=== PATIENT | male | born 1950 | race Caucasian/White ===

== ENCOUNTER 2019-09-05 04:38 | Emergency (ER) | payer MEDICARE, SELFPAY ==
[2019-09-05 04:39] VITALS: BP 198/88; PULSE 123; RESP 24; TEMP 38.1; O2SAT 97; BMI 23.1
== END 2019-09-05 23:00 | disposition home or self-care (01) ==
LOC: ER 09-27 09:23
PROVIDERS: Emergency Provider Family Medicine; PCP Family Medicine
DX: I12.0 Hypertensive chronic kidney disease with stage 5 chronic kidney disease or end stage renal disease (principal); N18.6 End stage renal disease; E87.1 Hypo-osmolality and hyponatremia; Z85.71 Personal history of Hodgkin lymphoma; E78.5 Hyperlipidemia, unspecified; Z87.891 Personal history of nicotine dependence
CPT/HCPCS: 99281

== ENCOUNTER 2019-09-05 04:43 | Inpatient (IN) | payer MEDICARE, SELFPAY ==
[2019-09-05] VITALS (47 sets, daily range): BP systolic 144–198; BP diastolic 61–88; PULSE 78–123; RESP 14–28; TEMP 36.8–38.1; O2SAT 71–99; BMI 22.5
--- NOTE | 2019-09-05 04:44 | XRR_ITS ---
PROCEDURE INFORMATION: Exam: XR Chest, 1 View Exam date and time: 09/05/2019 5:45 AM Age: 69 years old Clinical indication: Fever; Patient HX: HX of lymphoma; Additional info: Fever, AMS TECHNIQUE: Imaging protocol: XR of the chest Views: 1 view. COMPARISON: No relevant prior studies available. FINDINGS: Lungs: No lung consolidation or pulmonary edema. Pleural space: No pleural effusion or pneumothorax. Heart/Mediastinum: The cardiac silhouette is not enlarged. The mediastinal contours are normal. Vasculature: The thoracic aorta is atherosclerotic and slightly tortuous. Bones/joints: No acute osseous abnormality. XR/XR chest 1V portable [id number] IMPRESSION: No acute abnormality.
--- NOTE | 2019-09-05 04:44 | CTR_ITS ---
PROCEDURE INFORMATION: Exam: CT Head Without Contrast Exam date and time: 09/05/2019 4:46 AM Age: 69 years old Clinical indication: Altered mental status/memory loss and fever; Confusion or disorientation TECHNIQUE: Imaging protocol: Computed tomography of the head without contrast. Radiation optimization: All CT scans at this facility use at least one of these dose optimization techniques: automated exposure control; mA and/or kV adjustment per patient size (includes targeted exams where dose is matched to clinical indication); or iterative reconstruction. COMPARISON: No relevant prior studies available. RADIATION DOSE METRICS: Total DLP (mGy-cm): 864.92 FINDINGS: Brain: Diffuse mild cerebral age related volume loss. Mild patchy low attenuation in the white matter compatible with mild chronic small vessel ischemic disease. No midline shift, mass, fluid collection, or evidence of hemorrhage. Ventricles: Ventricular enlargement proportional to volume loss. Bones/joints: Unremarkable. No acute fracture. Sinuses: Visualized sinuses are unremarkable. No fluid levels. Mastoid air cells: Visualized mastoid air cells are well aerated. Soft tissues: Unremarkable. CT/CT head wo con* [id number] IMPRESSION: Mild involutional changes, no acute intracranial abnormality. Radiation Dose CTDIVOL = (mGy): DLP = 864.92 (mGy-cm)
--- NOTE | 2019-09-05 04:45 | ECG_ITS ---
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 Measurements Intervals [place] Rate: 118 P: 69 [place]: 148 QRS: 94 QRSD: 117 T: 62 QT: 303 QTc: 426 Interpretive Statements SINUS TACHYCARDIA BORDERLINE RIGHT AXIS DEVIATION [QRS AXIS > 90] MODERATE INTRAVENTRICULAR CONDUCTION DELAY [110+ ms QRS DURATION] NONSPECIFIC ST & T-WAVE ABNORMALITY ABNORMAL RHYTHM ECG No previous ECG available for comparison Electronically Signed On 09-05-2019 20:42:00 CDT by Wilbert Wilson M.D. [email or web address]
--- NOTE | 2019-09-05 04:50 | ED_ITS ---
HPI - Altered Mental Status General: Chief Complaint: Altered Mental Status Stated Complaint: AMS/FEVER Time Seen by Provider: 09/05/19 04:44 Source: patient and EMS Mode of arrival: EMS Limitations: altered mental status History of Present Illness: HPI narrative: 69-year-old male who went to bed last night around 11 or 12 woke up this morning at 3 AM and family states that he has been altered since he woke up. Patient per EMS had a fever 101. He is febrile here as well. Patient here is able answer most my questions but is confused. He does know his name and where he is at. He is able to tell me his medical history and he is on peritoneal dialysis. He denies any headache or cough. Patient does not know what year it is at this time. He denies any abdominal pain. Associated symptoms: Deny depression Review of Systems Const: Reports: fever(s) and chills Eyes: Denies: blurry vision or eye discomfort ENMT: Denies: throat pain or dental pain Card: Denies: chest pain Resp: Denies: dyspnea GI: Denies: abdominal pain, nausea, vomiting or diarrhea : Denies: dysuria Musc: Denies: neck pain or back pain Skin/Breast: Denies: rash Neuro: Reports: confusion Psych: Denies: depression [place]/Lymph: Denies: easy bruising All/Imm: Denies: urticaria PFSH ED PFSH: Medical History Abdominal aortic aneurysm (AAA) Anemia Cardiomyopathy Continuous ambulatory peritoneal dialysis status End stage renal disease Hodgkins lymphoma Finished chemotherapy 2005 currently in remission HTN (hypertension) Hyperlipidemia Lymphoma PVCs (premature ventricular contractions) Right renal artery stenosis Tobacco abuse Surgical History History of endovascular stent graft for abdominal aortic aneurysm (AAA) S/P cataract extraction S/P eye surgery S/P tonsillectomy Family History Other Cancer Social History Smoking and tobacco status: former smoker Alcohol intake: current Alcohol intake frequency: few times a week Household members: spouse Marital status: service: No Current occupational status: retired 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 Exam Const: COMMON NORMALS: no acute distress, healthy appearing and alert; negative for patient oriented x3 EXAM LIMITATIONS: altered mental status GENERAL APPEARANCE: cooperative ORIENTATION/CONSCIOUSNESS: Yes oriented to person and Yes oriented to place; not oriented to time HENMT: COMMON NORMALS: normocephalic and atraumatic HEAD & SCALP: normocephalic and atraumatic Eye: COMMON NORMALS: Equal, round and reactive pupils present and EOMs intact bilaterally PUPIL: Yes Equal, round and reactive pupils present Neck/C-Spine: COMMON NORMALS: full ROM and supple Chest: COMMONS NORMALS: normal inspection of the chest and normal palpation of entire chest wall Resp: COMMON NORMALS: normal respiratory effort, No retractions, No use of accessory muscles and clear to auscultation bilaterally AUSCULTATION: clear to auscultation bilaterally Cardio: COMMON NORMALS: regular rhythm and No murmurs present (Cardio) RATE: tachycardic RHYTHM: regular rhythm GI: COMMON NORMALS: Normal to inspection, nondistended, normoactive bowel sounds present, Soft to palpation, non-tender and no masses PALPATION: Yes Soft to palpation OTHER: Peritoneal dialysis cath in place with no signs of cellulitis Extremity: COMMON NORMALS: normal to inspection and full ROM Neuro: COMMON NORMALS: moves all extremities and no focal motor deficits; negative for patient oriented x3 SENSORIUM/ORIENTATION: Yes alert, Yes oriented to person, Yes oriented to place and No oriented to time Psych: COMMON NORMALS: mental status grossly normal, Normal thought process present and cooperative THOUGHT PROCESS: Normal thought process present Skin: COMMON NORMALS: no rashes or lesions noted and no wounds GENERAL SKIN EXAM: no rashes or lesions noted Course Vital Signs: Vital signs: Vital Signs Temperature 98.5 F 09/05/19 10:56 Pulse Rate 91 09/05/19 17:00 Respiratory Rate 20 H 09/05/19 17:00 Blood Pressure 156/70 09/05/19 17:00 Pulse Oximetry 94 09/05/19 17:00 MDM - Altered Mental Status MDM Narrative: Medical decision making narrative: Patient presents with fever along with confusion. Patient's white count here is normal but was hyponatremic. I believe his confusion is likely due to his fever along with his hyponatremia. Patient has no focal neurologic signs and no signs of CVA. Patient's last known normal was 11:49. Patient I do not believe is a TPA candidate as he has no focal neurologic deficits. Patient has no headache or neck pain no signs of meningitis. Will follow blood cultures at this time. Patient started on vancomycin and Zosyn. I spoke to hospitalist Dr. Lara and will admit. Lab Data: Labs: Lab Results 09/05/19 09/05/19 09/05/19 Range/Units 04:03 04:18 04:18 WBC 9.1 (4.0-10.0) 10^3/ uL RBC 3.69 L (4.1-5.3) 10^6/u L Hgb 11.8 (11.7-16.6) g/dL Hct 35.9 L (42.0-52.0) % MCV 97.3 H (80-94) fL MCH 32.0 (28.0-34.0) pg MCHC 32.9 (30.0-36.0) g/dL RDW 12.9 (12.1-15.1) % Plt Count 144 (130-400) 10^3/c mm MPV 10.9 H (7.4-10.4) fL Neut % (Auto) 94.7 % Lymph % (Auto) 1.9 % [place] % (Auto) 3.0 % Eos % (Auto) 0.0 % Baso % (Auto) 0.1 % Neut # (Auto) 8.63 H (1.8-7.7) 10^3/u L Lymph # (Auto) 0.2 L (0.8-4.8) 10^3/u L [place] # (Auto) 0.3 (0.2-0.9) 10^3/u L Eos # (Auto) 0.0 (0.0-0.8) 10^3/u L Baso # (Auto) 0.0 (0.0-0.1) 10^3/u L Nucleated RBC % (a uto) 0 % Nucleated RBCs # 0.0 /100WBC PT 13.70 H (10.5-13.3) SECO NDS INR 1.02 (0.8-1.2) D-Dimer (0-0.59) ug/mIFE U Sodium (136-145) mmol/L Potassium (3.5-5.1) mmol/L Chloride (98-107) mmol/L Carbon Dioxide (22-29) mmol/L Anion Gap (5-19) BUN (8-23) mg/dL Creatinine (0.7-1.2) mg/dL GFR Calculation (90-130) mL/min Glucose (65-115) mg/dL Calculated Osmolal ity (285-295) mOsm/k g Lactate (0.5-2.2) mmol/L Uric Acid (3.4-7.0) mg/dL Calcium (8.5-10.5) mg/dL Total Bilirubin (0.15-1.2) mg/dL AST (0-40) U/L ALT (0-41) U/L Alkaline Phosphata se (40-130) IU/L Lactate Dehydrogen ase (135-225) U/L C-Reactive Protein 286.1 H (0.0-4.9) mg/L NT-Pro-B Natriuret Pep (0-125) pg/mL Total Protein (6.6-8.7) g/dL Albumin (3.5-5.2) g/dL Globulin (1.3-4.6) g/dL Lipase (13-60) U/L Procalcitonin 17.41 H (0-0.5) ng/mL TSH (0.27-4.20) uIU/ mL Urine Color (Yellow) Urine Appearance (CLEAR) Urine pH (5-7) Ur Specific Gravit y (1.005-1.030) Urine Protein (Negative) Urine Glucose (UA) (Normal) Urine Ketones (Negative) Urine Blood (Negative) Urine Nitrate (Negative) Urine Bilirubin (NEGATIVE) Urine Urobilinogen (Negative) mg/dL Ur Leukocyte Meghana ase (Negative) Urine RBC (0-2) /hpf Urine WBC (0-5) /hpf Ur Squamous Epith Cells (0-5) Amorphous Sediment Urine Bacteria (NONE) Ur Random Sodium mmol/L Urine Creatinine (39-259) mg/dL 09/05/19 09/05/19 09/05/19 Range/Units 04:18 04:18 04:18 WBC (4.0-10.0) 10^3/ uL RBC (4.1-5.3) 10^6/u L Hgb (11.7-16.6) g/dL Hct (42.0-52.0) % MCV (80-94) fL MCH (28.0-34.0) pg MCHC (30.0-36.0) g/dL RDW (12.1-15.1) % Plt Count (130-400) 10^3/c mm MPV (7.4-10.4) fL Neut % (Auto) % Lymph % (Auto) % [place] % (Auto) % Eos % (Auto) % Baso % (Auto) % Neut # (Auto) (1.8-7.7) 10^3/u L Lymph # (Auto) (0.8-4.8) 10^3/u L [place] # (Auto) (0.2-0.9) 10^3/u L Eos # (Auto) (0.0-0.8) 10^3/u L Baso # (Auto) (0.0-0.1) 10^3/u L Nucleated RBC % (a uto) % Nucleated RBCs # /100WBC PT (10.5-13.3) SECO NDS INR (0.8-1.2) D-Dimer 3.58 H (0-0.59) ug/mIFE U Sodium 124 L (136-145) mmol/L Potassium 4.2 (3.5-5.1) mmol/L Chloride 80 L (98-107) mmol/L Carbon Dioxide 22 (22-29) mmol/L Anion Gap 26.2 H (5-19) BUN 92 H* (8-23) mg/dL Creatinine 11.5 H* (0.7-1.2) mg/dL GFR Calculation 4.4 L (90-130) mL/min Glucose 132 H (65-115) mg/dL Calculated Osmolal ity 260 L (285-295) mOsm/k g Lactate (0.5-2.2) mmol/L Uric Acid 6.1 (3.4-7.0) mg/dL Calcium 8.6 (8.5-10.5) mg/dL Total Bilirubin 0.3 (0.15-1.2) mg/dL AST 40 (0-40) U/L ALT 71 H (0-41) U/L Alkaline Phosphata se 60 (40-130) IU/L Lactate Dehydrogen ase 303 H (135-225) U/L C-Reactive Protein (0.0-4.9) mg/L NT-Pro-B Natriuret Pep 43928 H (0-125) pg/mL Total Protein 6.9 (6.6-8.7) g/dL Albumin 3.8 (3.5-5.2) g/dL Globulin 3.1 (1.3-4.6) g/dL Lipase 34 (13-60) U/L Procalcitonin (0-0.5) ng/mL TSH 1.43 (0.27-4.20) uIU/ mL Urine Color (Yellow) Urine Appearance (CLEAR) Urine pH (5-7) Ur Specific Gravit y (1.005-1.030) Urine Protein (Negative) Urine Glucose (UA) (Normal) Urine Ketones (Negative) Urine Blood (Negative) Urine Nitrate (Negative) Urine Bilirubin (NEGATIVE) Urine Urobilinogen (Negative) mg/dL Ur Leukocyte Meghana ase (Negative) Urine RBC (0-2) /hpf Urine WBC (0-5) /hpf Ur Squamous Epith Cells (0-5) Amorphous Sediment Urine Bacteria (NONE) Ur Random Sodium mmol/L Urine Creatinine (39-259) mg/dL 09/05/19 09/05/19 09/05/19 Range/Units 05:25 05:30 05:30 WBC (4.0-10.0) 10^3/ uL RBC (4.1-5.3) 10^6/u L Hgb (11.7-16.6) g/dL Hct (42.0-52.0) % MCV (80-94) fL MCH (28.0-34.0) pg MCHC (30.0-36.0) g/dL RDW (12.1-15.1) % Plt Count (130-400) 10^3/c mm MPV (7.4-10.4) fL Neut % (Auto) % Lymph % (Auto) % [place] % (Auto) % Eos % (Auto) % Baso % (Auto) % Neut # (Auto) (1.8-7.7) 10^3/u L Lymph # (Auto) (0.8-4.8) 10^3/u L [place] # (Auto) (0.2-0.9) 10^3/u L Eos # (Auto) (0.0-0.8) 10^3/u L Baso # (Auto) (0.0-0.1) 10^3/u L Nucleated RBC % (a uto) % Nucleated RBCs # /100WBC PT (10.5-13.3) SECO NDS INR (0.8-1.2) D-Dimer (0-0.59) ug/mIFE U Sodium (136-145) mmol/L Potassium (3.5-5.1) mmol/L Chloride (98-107) mmol/L Carbon Dioxide (22-29) mmol/L Anion Gap (5-19) BUN (8-23) mg/dL Creatinine (0.7-1.2) mg/dL GFR Calculation (90-130) mL/min Glucose (65-115) mg/dL Calculated Osmolal ity (285-295) mOsm/k g Lactate 1.8 (0.5-2.2) mmol/L Uric Acid (3.4-7.0) mg/dL Calcium (8.5-10.5) mg/dL Total Bilirubin (0.15-1.2) mg/dL AST (0-40) U/L ALT (0-41) U/L Alkaline Phosphata se (40-130) IU/L Lactate Dehydrogen ase (135-225) U/L C-Reactive Protein (0.0-4.9) mg/L NT-Pro-B Natriuret Pep (0-125) pg/mL Total Protein (6.6-8.7) g/dL Albumin (3.5-5.2) g/dL Globulin (1.3-4.6) g/dL Lipase (13-60) U/L Procalcitonin (0-0.5) ng/mL TSH (0.27-4.20) uIU/ mL Urine Color Yellow (Yellow) Urine Appearance Clear (CLEAR) Urine pH 7 (5-7) Ur Specific Gravit y 1.005 (1.005-1.030) Urine Protein 1+ H (Negative) Urine Glucose (UA) 2+ (Normal) Urine Ketones Negative (Negative) Urine Blood 3+ H (Negative) Urine Nitrate Negative (Negative) Urine Bilirubin Neg (NEGATIVE) Urine Urobilinogen Norm (Negative) mg/dL Ur Leukocyte Meghana ase Negative (Negative) Urine RBC 5-10 H (0-2) /hpf Urine WBC 0-4 H (0-5) /hpf Ur Squamous Epith Cells 0-4 H (0-5) Amorphous Sediment Not Reportable Urine Bacteria Trace (NONE) Ur Random Sodium 24 mmol/L Urine Creatinine 94 (39-259) mg/dL Imaging Data^: CT Head: Radiologist's impression: [address] [address] [address] Scan Report Signed Patient: Shola Quintana Unit #: [id number] : 1950 Age/Sex: 69 / M ADM Date: 09/05/19 Loc: ER Room/Bed: Attending Dr: Ordering Provider/Ordering MD: Nayeli Oliver MD Date of Service: 09/05/19 Procedure(s): CT head wo con* [id number] Accession Number(s): [id number] Report Number: [id number] PROCEDURE INFORMATION: Exam: CT Head Without Contrast Exam date and time: 09/05/2019 4:46 AM Age: 69 years old Clinical indication: Altered mental status/memory loss and fever; Confusion or disorientation TECHNIQUE: Imaging protocol: Computed tomography of the head without contrast. Radiation optimization: All CT scans at this facility use at least one of these dose optimization techniques: automated exposure control; mA and/or kV adjustment per patient size (includes targeted exams where dose is matched to clinical indication); or iterative reconstruction. COMPARISON: No relevant prior studies available. RADIATION DOSE METRICS: Total DLP (mGy-cm): 864.92 FINDINGS: Brain: Diffuse mild cerebral age related volume loss. Mild patchy low attenuation in the white matter compatible with mild chronic small vessel ischemic disease. No midline shift, mass, fluid collection, or evidence of hemorrhage. Ventricles: Ventricular enlargement proportional to volume loss. Bones/joints: Unremarkable. No acute fracture. Sinuses: Visualized sinuses are unremarkable. No fluid levels. Mastoid air cells: Visualized mastoid air cells are well aerated. Soft tissues: Unremarkable. CT/CT head wo con* [id number] IMPRESSION: Mild involutional changes, no acute intracranial abnormality. Discharge Plan Discharge Patient Disposition: Admitted As Inpatient Admit Provider: Wilbert Brock Clinical Impression: End stage renal disease, Acute hyponatremia, Fever Altered mental status Qualifiers: Altered mental status type: unspecified Qualified Code(s): R41.82 - Altered mental status, unspecified Condition: Stable Referrals: Robin Schumacher MD [Primary Care Provider] - Discharge Date/Time: 09/05/19 10:58 Coding Level of Care Code ED Lead Printer for Chg Fwd Exam Comprehensive
[2019-09-05 05:03] LABS: Basophils % 0.1 %; Hematocrit 35.9 % (42.0-52.0); Hemoglobin 11.8 g/dL (11.7-16.6); Lymphocytes # 0.2 10^3/uL (0.8-4.8); Lymphocytes % 1.9 %; Mean Corpuscular HGB Conc 32.9 g/dL (30.0-36.0); Mean Corpuscular Volume 97.3 fL (80-94); Mean Platelet Volume 10.9 fL (7.4-10.4); Monocytes # 0.3 10^3/uL (0.2-0.9); Neutrophils # 8.63 10^3/uL (1.8-7.7); Neutrophils % 94.7 %; Nucleated Red Blood Cells % 0 %; Platelet Count 144 10^3/cmm (130-400); Red Blood Count 3.69 10^6/uL (4.1-5.3); Red Cell Distribution Width 12.9 % (12.1-15.1); White Blood Count 9.1 10^3/uL (4.0-10.0)
[2019-09-05 05:06] LABS: INR 1.02 (0.8-1.2)
[2019-09-05] MEDS: acetaminophen 325 mg Tablet 650 MG PO (05:09)
[2019-09-05 05:19] LABS: Alanine Aminotransferase 71 U/L (0-41); Albumin Level 3.8 g/dL (3.5-5.2); Alkaline Phosphatase 60 IU/L (40-130); Anion Gap 26.2 (5-19); Aspartate Amino Transferase 40 U/L (0-40); Calcium 8.6 mg/dL (8.5-10.5); Carbon Dioxide 22 mmol/L (22-29); Chloride 80 mmol/L (98-107); Globulin 3.1 g/dL (1.3-4.6); Glomerular Filtration Rate 4.4 mL/min (90-130); Glucose 132 mg/dL (65-115); Lipase 34 U/L (13-60); Osmolality Calculated 260 mOsm/kg (285-295); Potassium 4.2 mmol/L (3.5-5.1); Sodium 124 mmol/L (136-145); Total Bilirubin 0.3 mg/dL (0.15-1.2); Total Protein 6.9 g/dL (6.6-8.7)
[2019-09-05 05:45] LABS: Blood Urea Nitrogen 92 mg/dL (8-23)
--- NOTE | 2019-09-05 06:01 | P.HP_ITS ---
Providers/Chief Complaint Primary Care Provider: Robin Schumacher MD Chief Complaint: AMD/FEVER History of Present Illness Shola Quintana is a 69 year old male who carries history of stage IV Hodgkin's disease(treated with chemotherapy finished in 2005 with complete response. no recurrence), hypertension, renal disease peritoneal dialysis dependent, came in with chief complaint of febrile episode with confusion. is at the bedside who is endorsing that he played golf last and was able to carry out his daily activities without any limitations until 2 days ago he started experiencing headache, confusion spells and today he fell in the bathroom. brought him to the hospital for further evaluation, patient seems to be having waxing and waning episodes of confusion however no focal deficit noted in the ER, he has headache with neck stiffness, febrile 100.5, tachypneic and tachycardic. He has been given vancomycin and Zosyn in the ER. I have requested COVID-19 PCR and started him on meningitis/encephalitis tr eatment. is denying previous history of hyponatremia, no active vomiting or diarrhea noted. No recent sick contacts. Review of Systems General: Reports: ROS unobtainable due to medical condition (Hypoactive delirium due to possible meningitis) Medications/Allergies Home Medications Medication Instructions Recorded Confirmed Last Taken Type calcium acetate(phosphat bind) 667 667 mg PO TID 03/13/19 03/15/19 Unknown His tory mg capsule furosemide 80 mg tablet 80 mg PO DAILY 03/13/19 03/15/19 Unknown History vitamin B complex with vit C-folic 1 tab PO .COMPLEX 03/13/19 03/15/19 Unknown History acid 800 mcg-zinc 12.5 mg tablet aspirin 325 mg tablet 325 mg PO DAILY 03/15/19 03/15/19 Unknown History metoprolol tartrate 50 mg tablet 50 mg PO BID 90 Days #180 tab 03/16/19 Unknown Rx atorvastatin 40 mg tablet 40 mg PO DAILY 90 Days #90 tab 04/26/19 Unknown Rx amlodipine 10 mg tablet 10 mg PO DAILY #90 tab 08/28/19 Unknown Rx Allergies Allergy/AdvReac Type Severity Reaction Status Date / Time No Known Allergies Allergy Verified 03/15/19 14:47 PFSH Acute PFSH: Medical History (Updated 09/05/19 @ 06:54 by Wilbert Brock MD) Abdominal aortic aneurysm (AAA) Anemia Cardiomyopathy Continuous ambulatory peritoneal dialysis status End stage renal disease Hodgkins lymphoma Finished chemotherapy 2005 currently in remission HTN (hypertension) Hyperlipidemia Lymphoma PVCs (premature ventricular contractions) Right renal artery stenosis Tobacco abuse Surgical History (Updated 09/05/19 @ 06:54 by Wilbert Brock MD) History of endovascular stent graft for abdominal aortic aneurysm (AAA) S/P cataract extraction S/P eye surgery S/P tonsillectomy Family History Other Cancer Social History Smoking and tobacco status: former smoker Alcohol intake: current Alcohol intake frequency: few times a week Household members: spouse Marital status: service: No Current occupational status: retired 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[employer] Vitals/I&O/Wt Last Vital Signs Temp 100.5 F H 09/05/19 04:51 Pulse 123 H 09/05/19 04:51 Resp 24 H 09/05/19 04:51 BP 198/88 09/05/19 04:51 Pulse Ox 97 09/05/19 04:51 Weight last 48 hrs Weight 81.647 kg Physical Exam Narrative: EXAM NARRATIVE: Healthy looking male lying comfortably in his bed Oriented to himself Confusion spells noted in the ER No focal deficit He is moving all of his extremities without any discomfort No facial asymmetry Kerning signs positive, Brudzinski sign positive, Sunt[place] S1-S2 tachycardia Abdomen soft nontender nondistended peritoneal dialysis catheter site nontender no drainage Lower extremity no edema gangrene ulcer Right knee pain, right ankle pain no active signs of gout flare No petechial rash No active respiratory distress Data : 09/05/19 04:18 09/05/19 04:18 Micro: Microbiology 09/05/19 05:25 Blood Culture - Preliminary Blood SPECIMEN COLLECTED A&P Assessment and plan (1) Altered mental status: Status: Acute Qualifiers: Altered mental status type: unspecified Qualified Code(s): R41.82 - Altered mental status, unspecified (2) Acute hyponatremia: Status: Acute (3) Fever: Status: Acute (4) Meningoencephalitis: Status: Acute (5) End stage renal disease: Status: Acute Additional A&P Information Acute febrile episode with confusion Rule out COVID because of lymphocytopenia Considering altered mental status and febrile episode I would treat him for meningoencephalitis His acute altered mental status could very well be secondary to hyponatremia, no active source of fever has been identified We will obtain lumbar puncture Urinalysis not showing signs of UTI CT head unremarkable I would request pro calcitonin, d-dimer, ferritin, CRP Sepsis secondary to possible meningoencephalitis Sepsis criteria met with fever tachycardia tachypnea Patient received bolus in the ER I would start antimicrobials Blood cultures taken in the ER Awaiting lumbar puncture End-stage renal disease peritoneal dialysis dependent Will consult nephrology because he will be getting multiple antimicrobials Hyponatremia: Previous sodium seems to be normal Monitor in ICU Currently looks dehydrated We will start him on normal saline at 30 cc/h with goal correction 6 mEq per 24- hour Full code DVT prophylaxis would avoid for now because he would require lumbar puncture Renal dialysis diet Attestations Medical Necessity Statement*: Anticipating stay in the hospital cross more than 2 midnights continued management for meningoencephalitis for fever and confusion Time Spent in Patient Care: (>than 50% of time spent in counselling and/or direct pt care on unit) . 45mins Coding Level of Care Code Acute Campus Police Officer for Joselyn Fwchanel Diagnoses Altered mental status R41.82 Altered mental status type: unspecified Acute hyponatremia E87.1 Fever R50.9 Meningoencephalitis G04.90 End stage renal disease N18.6
[2019-09-05 06:03] LABS: Lactate (Lactic Acid level) 1.8 mmol/L (0.5-2.2)
[2019-09-05 06:13] LABS: Add Urine Microscopic? YES; Bacteria Urine TRACE; Bilirubin Urine Neg (NEGATIVE); Blood Urine 3+ (Negative); Glucose Urine UA 2+ (Normal); Ketones Urine Negative (Negative); Leukocyte Esterase Urine Negative (Negative); Nitrate Urine Negative (Negative); Protein Urine 1+ (Negative); Specific Gravity, Urine 1.005 (1.005-1.030); Squamous Epithelial Cell Urine 0-4 (0-5); Urine Appearance Clear (CLEAR); Urine Color Yellow (Yellow); Urobilinogen Urine Norm (Negative); WBC Urine 0-4 /hpf (0-5); pH Urine 7 (5-7)
[2019-09-05 06:21] LABS: NT Pro B Type Natriuretic Pept 72097 pg/mL (0-125)
[2019-09-05 06:42] LABS: Procalcitonin 17.41 ng/mL (0-0.5)
[2019-09-05] MEDS: piperacillin-tazobactam 2.25 GM in sodium chloride 0.9% (plus) 50 ML IV (06:48)
[2019-09-05 06:53] LABS: C Reactive Protein 286.1 mg/L (0.0-4.9)
[2019-09-05] MEDS: vancomycin 1,000 MG in sodium chloride 0.9% 250 ML 250 MG IV (07:17)
[2019-09-05] MEDS: dexamethasone 10 mg/mL INJ IVP (07:42)
[2019-09-05] MEDS: sodium chloride 0.9% 500 ML 999 ML IV (07:42)
[2019-09-05 08:19] LABS: D Dimer 3.58 ug/mIFEU (0-0.59)
[2019-09-05 08:22] LABS: Urine Creatinine 94 mg/dL (39-259); Urine Random Sodium 24 mmol/L
[2019-09-05 08:28] LABS: Lactate Dehydrogenase 303 U/L (135-225); Thyroid Stimulating Hormone 1.43 uIU/mL (0.27-4.20); Uric Acid 6.1 mg/dL (3.4-7.0)
--- NOTE | 2019-09-05 11:44 | ECG_ITS ---
[facility] Test Date: 2019-09-05 Pat Name: Shola Quintana Department: Room: [facility] Gender: Male Senior [employer] Developer: : 1950 Requested By: Tu Raza Order Number: [id number] Deep MD: Wilbert Wilson M.D. Measurements Intervals [place] Rate: 91 P: [place]: -1 QRS: 83 QRSD: 110 T: 85 QT: 380 QTc: 469 Interpretive Statements Sinus TACHYCARDIA NONSPECIFIC ST & T-WAVE ABNORMALITY ABNORMAL RHYTHM ECG Compared to ECG 09/05/2019 05:06:31 No significant difference Electronically Signed On 09-05-2019 20:43:51 CDT by Wilbert Wilson M.D. [email or web address]
--- NOTE | 2019-09-05 11:44 | P.PN_ITS ---
Subjective Subjective: Interval history: Mr Quintana comes to us with confusion, fall and other meningeal symptoms. He is on PD now since Mar 2017. No issues with his PD, it's going well. Clear eff luent. Healthy exit site. No edema and no other volume Sx with stable hemodynamics. Vitals/I&O/Wt Last Vital Signs Temp 98.5 F 09/05/19 10:56 Pulse 86 09/05/19 11:20 Resp 19 H 09/05/19 11:20 BP 160/73 09/05/19 11:20 Pulse Ox 93 09/05/19 11:20 Weight last 48 hrs Weight 81.647 kg Physical Exam Narrative: EXAM NARRATIVE: Healthy looking male lying comfortably in his bed Oriented to himself Confusion spells noted in the ER No focal deficit He is moving all of his extremities without any discomfort No facial asymmetry Kerning signs positive, Brudzinski sign positive, Suntanned S1-S2 tachycardia Abdomen soft nontender nondistended peritoneal dialysis catheter site nontender no drainage Lower extremity no edema gangrene ulcer Right knee pain, right ankle pain no active signs of gout flare No petechial rash No active respiratory distress Const: COMMON NORMALS: no acute distress, healthy appearing and alert; negative for patient oriented x3 EXAM LIMITATIONS: altered mental status GENERAL APPEARANCE: cooperative ORIENTATION/CONSCIOUSNESS: Yes oriented to person and Yes oriented to place; not oriented to time HENMT: COMMON NORMALS: normocephalic and atraumatic HEAD & SCALP: normocephalic and atraumatic Eye: COMMON NORMALS: Equal, round and reactive pupils present and EOMs intact bilaterally PUPIL: Yes Equal, round and reactive pupils present Neck/C-Spine: COMMON NORMALS: full ROM and supple Chest: COMMONS NORMALS: normal inspection of the chest and normal palpation of entire chest wall Resp: COMMON NORMALS: normal respiratory effort, No retractions, No use of accessory muscles and clear to auscultation bilaterally AUSCULTATION: clear to auscultation bilaterally Cardio: COMMON NORMALS: regular rhythm and No murmurs present (Cardio) RATE : tachycardic RHYTHM: regular rhythm GI: COMMON NORMALS: Normal to inspection, nondistended, normoactive bowel sounds present, Soft to palpation, non-tender and no masses PALPATION: Yes Soft to palpation OTHER: Peritoneal dialysis cath in place with no signs of cellulitis Extremity: COMMON NORMALS: normal to inspection and full ROM Neuro: COMMON NORMALS: moves all extremities and no focal motor deficits; negative for patient oriented x3 SENSORIUM/ORIENTATION: Yes alert, Yes oriented to person, Yes oriented to place and No oriented to time Psych: COMMON NORMALS: mental status grossly normal, Normal thought process present and cooperative THOUGHT PROCESS: Normal thought process present Skin: COMMON NORMALS: no rashes or lesions noted and no wounds GENERAL SKIN EXAM: no rashes or lesions noted Data : 09/05/19 04:18 09/05/19 04:18 Micro: Microbiology 09/05/19 05:25 Blood Culture - Preliminary Blood SPECIMEN COLLECTED A&P Additional A&P Information 1. ESRD - cont outpatient PD prescription with 2L exchanges, 2.5/4.25% alternating flu ids - dose meds for eGFR < 15 on PD 2. AMS, headache - being ruled out for meningitis - Vanco and Zosyn - He is already feeling better 3. Hemodynamics - Bp a little high, will monitor throught out his hospital stay and titrate 4. Chronic ESRD issues to be addressed in outpatient clinic - ie anemia, sec hyperPTHism etc - cont home meds inc binder therapy Attestations Medical Necessity Statement*: mgmt of PD Coding Level of Care Code Acute Creative Services Designer for Joselyn Buchanan
--- NOTE | 2019-09-05 12:04 | PM.PN ---
Subjective Subjective: Interval history: Patient is doing much better this morning. Denies shortness of breath or chest pain. Started having nasal drainage and febrile episodes over the last several days. Denies significant abdominal pain but does report minimal tenderness on palpation. Reports that yesterday he thinks he forgot to remove dialysis fluid and this was done by RN. Fluid was requested to be sent to lab for analysis. He has been on peritoneal dialysis for the last couple of years after complications of abdominal aortic aneurysm repair. Reports that he still makes approximately 1 L of urine daily. He denies headache during my evaluation and refused to have LP for CSF analysis. Reports that he is pretty active and plays golf without getting dyspneic. Vitals/I&O/Wt Last Vital Signs Temp 98.5 F 09/05/19 10:56 Pulse 86 09/05/19 11:20 Resp 19 H 09/05/19 11:20 BP 160/73 09/05/19 11:20 Pulse Ox 93 09/05/19 11:20 Weight last 48 hrs Weight 81.647 kg Physical Exam Const: COMMON NORMALS: no acute distress and patient oriented x3 Resp: COMMON NORMALS: normal respiratory effort and clear to auscultation bilaterally AUSCULTATION: clear to auscultation bilaterally Cardio: COMMON NORMALS: regular rate, regular rhythm and S2 normal heart sound present RATE: regular rate RHYTHM: regular rhythm HEART SOUNDS: S2 normal heart sound present OTHER: No lower extremity edema GI: COMMON NORMALS: Normal to inspection, nondistended, normoactive bowel sounds present, Soft to palpation and non-tender PALPATION: Yes Soft to palpation OTHER: Peritoneal dialysis catheter site looks clean. Neuro: COMMON NORMALS: patient oriented x3 and no focal motor deficits Data : 09/05/19 04:18 09/05/19 04:18 Micro: Microbiology 09/05/19 05:25 Blood Culture - Preliminary Blood SPECIMEN COLLECTED A&P Assessment and plan (1) Altered mental status: Resolved. Status: Acute Qualifiers: Altered mental status type: unspecified Qualified Code(s): R41.82 - Altered mental status, unspecified (2) Acute hyponatremia: Status: Acute (3) Fever: Status: Acute (4) Meningoencephalitis: Status: Acute (5) End stage renal disease: Status: Acute Additional A&P Information Acute febrile episode. This appears to be secondary to atypical/viral cause. Peritonitis cannot be ruled out Confusion. Resolved. Rule out COVID because of lymphocytopenia Considering altered mental status and febrile episode I would treat him for meningoencephalitis His acute altered mental status could very well be secondary to hyponatremia, no active source of fever has been identified We will obtain lumbar puncture Urinalysis not showing signs of UTI CT head unremarkable I would request pro calcitonin, d-dimer, ferritin, CRP meningoencephalitis felt unlikely. Sepsis criteria met with fever tachycardia tachypnea. Viral syndrome versus possible peritonitis considered Patient received bolus in the ER I would start antimicrobials Blood cultures taken in the ER Awaiting lumbar puncture End-stage renal disease peritoneal dialysis dependent Will consult nephrology because he will be getting multiple antimicrobials Hyponatremia: Previous sodium seems to be normal Monitor in ICU Currently looks dehydrated We will start him on normal saline at 30 cc/h with goal correction 6 mEq per 24-hour Full code DVT prophylaxis would avoid for now because he would require lumbar puncture Renal dialysis diet PLAN: Send dialysis fluid for analysis. Will narrow down antibiotics to cefepime and vancomycin only for now. Awaiting COVID-19 test. Attestations Medical Necessity Statement*: Patient with sepsis and concern for COVID-19 requires close ICU monitoring and treatment. Time Spent in Patient Care: 16 - 35 minutes Coding Level of Care Code Acute Applications Programmer Analyst for Joselyn Buchanan Diagnoses Altered mental status R41.82 Altered mental status type: unspecified Acute hyponatremia E87.1 Fever R50.9 Meningoencephalitis G04.90 End stage renal disease N18.6
[2019-09-05] MEDS: amlodipine 10 mg Tablet PO (12:05)
[2019-09-05] MEDS: aspirin 325 mg Tablet PO (12:06)
[2019-09-05] MEDS: sodium chloride 0.9% 1,000 ML 30 ML IV (12:06)
[2019-09-05] MEDS: atorvastatin 40 mg Tablet PO (12:06)
[2019-09-05 13:05] LABS: Body Fluid WBC 22356 /uL; RBC, Body Fluid 1 10^3/uL (0-0)
[2019-09-05] MEDS: cefepime 2,000 MG in sodium chloride 0.9% (plus) 50 ML 100 MG IV (13:05)
[2019-09-05 13:11] LABS: Apprearance, Body Fluid CLOUDY (CLEAR); Color, Body Fluid PALE YELLOW (PALE YELLOW); PATH Referral YES
[2019-09-05 13:25] LABS: Albumin Peritoneal Fluid 0.2 g/dL; Total Protein Peritoneal Fluid 0.5 g/dL
[2019-09-05] MEDS: vancomycin 500 MG in sodium chloride 0.9% (plus) 100 ML 200 MG IV (13:41)
--- NOTE | 2019-09-05 13:44 | ECG_ITS ---
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 Measurements Intervals [place] Rate: 88 P: 69 [place]: 152 QRS: 84 QRSD: 104 T: 106 QT: 382 QTc: 464 Interpretive Statements SINUS RHYTHM NONSPECIFIC ST & T-WAVE ABNORMALITY Compared to ECG 09/05/2019 12:21:12 Atrial flutter no longer present T-wave abnormality still present Electronically Signed On 09-05-2019 20:46:12 CDT by Wilbert Wilson M.D. [id number]
--- NOTE | 2019-09-05 17:44 | ECG_ITS ---
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 Measurements Intervals [place] Rate: 89 P: 66 [place]: 150 QRS: 83 QRSD: 109 T: 106 QT: 380 QTc: 462 Interpretive Statements SINUS RHYTHM MODERATE ST DEPRESSION [0.05+ mV ST DEPRESSION] Compared to ECG 09/05/2019 14:50:30 ST (T wave) deviation now present T-wave abnormality no longer present Electronically Signed On 09-05-2019 20:46:19 CDT by Wilbert Wilson M.D. [id number]
[2019-09-05] MEDS: metoprolol tartrate 50 mg Tablet PO (18:18)
[2019-09-05] MEDS: Dianeal low Ca w/2.5% dex 2,000 mL Bag 2000 ML INTRAPERIT (18:19)
--- NOTE | 2019-09-05 18:56 | PC.NURSE ---
Pt bag of PD fluids from home was used until a connector that fit was found for the first bag of dialysis. Correct adapter found and inside of pt room for future infusions.
[2019-09-05] MEDS: Dianeal low Ca w/1.5% dex 2,000 mL Bag 2000 ML INTRAPERIT (22:00)
[2019-09-06] VITALS (24 sets, daily range): BP systolic 125–171; BP diastolic 61–113; PULSE 71–98; RESP 11–26; TEMP 36.7–36.8; O2SAT 91–98
[2019-09-06] MEDS: cefepime 2,000 MG in sodium chloride 0.9% (plus) 50 ML 100 MG IV (00:05)
[2019-09-06] MEDS: diphenhydrAMINE 25 mg Capsule PO (00:37)
[2019-09-06 04:19] LABS: Basophils % 0.2 %; Hematocrit 30.1 % (42.0-52.0); Hemoglobin 9.8 g/dL (11.7-16.6); Lymphocytes # 0.3 10^3/uL (0.8-4.8); Lymphocytes % 2.3 %; Mean Corpuscular HGB Conc 32.6 g/dL (30.0-36.0); Mean Corpuscular Hemoglobin 31.9 pg (28.0-34.0); Mean Platelet Volume 11.2 fL (7.4-10.4); Monocytes # 0.5 10^3/uL (0.2-0.9); Monocytes % 4.1 %; Neutrophils # 12.11 10^3/uL (1.8-7.7); Neutrophils % 92.9 %; Nucleated Red Blood Cells % 0 %; Platelet Count 120 10^3/cmm (130-400); Red Blood Count 3.07 10^6/uL (4.1-5.3); Red Cell Distribution Width 12.9 % (12.1-15.1)
[2019-09-06 04:47] LABS: Anion Gap 24.4 (5-19); Calcium 7.8 mg/dL (8.5-10.5); Carbon Dioxide 20 mmol/L (22-29); Chloride 88 mmol/L (98-107); Glomerular Filtration Rate 4.6 mL/min (90-130); Glucose 116 mg/dL (65-115); Osmolality Calculated 268 mOsm/kg (285-295); Potassium 4.4 mmol/L (3.5-5.1); Sodium 128 mmol/L (136-145)
[2019-09-06 04:57] LABS: Blood Urea Nitrogen 97 mg/dL (8-23)
[2019-09-06] MEDS: Dianeal low Ca w/2.5% dex 2,000 mL Bag 2000 ML INTRAPERIT ×2 (06:28→14:30)
[2019-09-06] MEDS: aspirin 325 mg Tablet PO (08:19)
[2019-09-06] MEDS: HYDROcodone-acetaminophen 5-325 mg Tablet 1 TAB PO ×2 (08:19→14:05)
[2019-09-06] MEDS: amlodipine 10 mg Tablet PO (08:19)
[2019-09-06] MEDS: atorvastatin 40 mg Tablet PO (08:19)
[2019-09-06] MEDS: metoprolol tartrate 50 mg Tablet PO ×2 (08:19→18:22)
[2019-09-06] MEDS: sodium chloride 0.9% 1,000 ML 30 ML IV ×2 (11:08→20:48)
--- NOTE | 2019-09-06 11:10 | PM.PN ---
Subjective Subjective: Interval history: Patient reports developing lumbar area back pain which she had long time ago. Continues to have very minimal abdominal discomfort. His peritoneal cultures are growing gram-positive cocci. He denies headache, chest pain or shortness of breath. White blood cell count increased and platelets are down to 120. His blood and urine are growing strep group C Vitals/I&O/Wt Last Vital Signs Temp 98.1 F 09/06/19 08:00 Pulse 85 09/06/19 10:00 Resp 19 H 09/06/19 10:00 BP 151/62 09/06/19 10:00 Pulse Ox 95 09/06/19 10:00 09/05/19 09/06/19 09/06/19 22:59 06:59 14:59 Intake Total 200 / 600 931 / 931 Output Total 675 / 675 Balance 200 / 250 256 / 256 Weight last 48 hrs Weight 2.1 kg Weight 81.647 kg Physical Exam Const: COMMON NORMALS: no acute distress and patient oriented x3 Resp: COMMON NORMALS: normal respiratory effort and clear to auscultation bilaterally AUSCULTATION: clear to auscultation bilaterally Cardio: COMMON NORMALS: regular rate, regular rhythm and S2 normal heart sound present RATE: regular rate RHYTHM: regular rhythm HEART SOUNDS: S2 normal heart sound present OTHER: No lower extremity edema GI: COMMON NORMALS: Normal to inspection, nondistended, normoactive bowel sounds present and Soft to palpation PALPATION: Yes Soft to palpation OTHER: Peritoneal dialysis catheter site looks clean. Abdomen is very minimally tender to palpation throughout. Neuro: COMMON NORMALS: patient oriented x3 and no focal motor deficits Data : 09/06/19 03:48 09/06/19 03:48 Micro: Microbiology 09/05/19 05:30 Urine Culture - Preliminary Urine Catheterized Streptococcus Group C 09/05/19 05:25 Blood Culture - Preliminary Blood Gram positive cocci 09/05/19 12:00 Gram Stain - Final Peritoneal Fluid A&P Assessment and plan (1) Altered mental status: Resolved. Status: Acute Qualifiers: Altered mental status type: unspecified Qualified Code(s): R41.82 - Altered mental status, unspecified (2) Acute hyponatremia: Status: Acute (3) Fever: Status: Acute (4) Meningoencephalitis: Status: Acute (5) End stage renal disease: Status: Acute Additional A&P Information Acute febrile episode. This appears to be secondary to atypical/viral cause. Peritonitis cannot be ruled out Confusion. Resolved. Rule out COVID because of lymphocytopenia Considering altered mental status and febrile episode I would treat him for meningoencephalitis His acute altered mental status could very well be secondary to hyponatremia, no active source of fever has been identified We will obtain lumbar puncture Urinalysis not showing signs of UTI CT head unremarkable I would request pro calcitonin, d-dimer, ferritin, CRP meningoencephalitis felt unlikely. Sepsis criteria met with fever tachycardia tachypnea. Viral syndrome versus possible peritonitis considered Patient received bolus in the ER I would start antimicrobials Blood cultures taken in the ER Awaiting lumbar puncture End-stage renal disease peritoneal dialysis dependent Will consult nephrology because he will be getting multiple antimicrobials Hyponatremia: Previous sodium seems to be normal Monitor in ICU Currently looks dehydrated We will start him on normal saline at 30 cc/h with goal correction 6 mEq per 24-hour Full code DVT prophylaxis would avoid for now because he would require lumbar puncture Renal dialysis diet PLAN: We will transition patient to ceftriaxone, high-dose. Will discuss with nephrology colleagues. Patient is requesting muscle relaxant and analgesic as it helped him previously. [place] and Soma was given. Once COVID-19 test comes back negative patient will need to have further evaluation of lumbar spine with imaging and SOBIA. Attestations Medical Necessity Statement*: Patient with streptococcal infection including blood, urine and dialysis fluid Time Spent in Patient Care: 16 - 35 minutes Coding Level of Care Code Acute Instrument Calibrator for [facility] Diagnoses Altered mental status R41.82 Altered mental status type: unspecified Acute hyponatremia E87.1 Fever R50.9 Meningoencephalitis G04.90 End stage renal disease N18.6
[2019-09-06] MEDS: cefTRIAXone 2,000 MG in sodium chloride 0.9% (plus) 50 ML 100 MG IV (12:45)
[2019-09-06 13:12] LABS: Vancomycin Random < 4.0 ug/mL (20.0-40.0)
--- NOTE | 2019-09-06 13:17 | P.PN_ITS ---
Subjective Subjective: Interval history: Feels considerably better, no confusion. PD peritonitis is noted. He has very mild abdo pain on deep palpations. BS ok. PD effluent is slightly cloudy but otherwise no complications Hemodynamics look good, no uremic Sx Vitals/I&O/Wt Last Vital Signs Temp 98.1 F 09/06/19 08:00 Pulse 86 09/06/19 13:00 Resp 21 H 09/06/19 13:00 BP 125/61 09/06/19 13:00 Pulse Ox 91 09/06/19 13:00 09/05/19 09/06/19 09/06/19 22:59 06:59 14:59 Intake Total 200 / 600 931 / 931 Output Total 675 / 675 Balance 200 / 250 256 / 256 Weight last 48 hrs Weight 2.1 kg Weight 81.647 kg Physical Exam Narrative: EXAM NARRATIVE: Healthy looking male lying comfortably in his bed Oriented to himself Confusion spells noted in the ER No focal deficit He is moving all of his extremities without any discomfort No facial asymmetry Kerning signs positive, Brudzinski sign positive, Suntanned S1-S2 tachycardia Abdomen soft nontender nondistended peritoneal dialysis catheter site nontender no drainage Lower extremity no edema gangrene ulcer Right knee pain, right ankle pain no active signs of gout flare No petechial rash No active respiratory distress Const: COMMON NORMALS: no acute distress, healthy appearing and alert; negative for patient oriented x3 EXAM LIMITATIONS: altered mental status GENERAL APPEARANCE: cooperative ORIENTATION/CONSCIOUSNESS: Yes oriented to person and Yes oriented to place; not oriented to time HENMT: COMMON NORMALS: normocephalic and atraumatic HEAD & SCALP: normocephalic and atraumatic Eye: COMMON NORMALS: Equal, round and reactive pupils present and EOMs intact bilaterally PUPIL: Yes Equal, round and reactive pupils present Neck/C-Spine: COMMON NORMALS: full ROM and supple Chest: COMMONS NORMALS: normal inspection of the chest and normal palpation of entire chest wall Resp: COMMON NORMALS: normal respiratory effort, No retractions, No use of ac cessory muscles and clear to auscultation bilaterally AUSCULTATION: clear to auscultation bilaterally Cardio: COMMON NORMALS: regular rhythm and No murmurs present (Cardio) RATE: tachycardic RHYTHM: regular rhythm GI: COMMON NORMALS: Normal to inspection, nondistended, normoactive bowel sounds present, Soft to palpation, non-tender and no masses PALPATION: Yes Soft to palpation OTHER: Peritoneal dialysis cath in place with no signs of cellulitis Extremity: COMMON NORMALS: normal to inspection and full ROM Neuro: COMMON NORMALS: moves all extremities and no focal motor deficits; negative for patient oriented x3 SENSORIUM/ORIENTATION: Yes alert, Yes oriented to person, Yes oriented to place and No oriented to time Psych: COMMON NORMALS: mental status grossly normal, Normal thought process present and cooperative THOUGHT PROCESS: Normal thought process present Skin: COMMON NORMALS: no rashes or lesions noted and no wounds GENERAL SKIN EXAM: no rashes or lesions noted Data : 09/06/19 03:48 09/06/19 03:48 Micro: Microbiology 09/05/19 12:00 Gram Stain - Final Peritoneal Fluid Body Fluid Culture - Preliminary Streptococcus Group C 09/05/19 05:25 Blood Culture - Preliminary Blood Streptococcus Group C 09/05/19 05:30 Urine Culture - Preliminary Urine Catheterized Streptococcus Group C A&P Additional A&P Information 1. ESRD - cont outpatient PD prescription with 2L exchanges, 2.5/4.25% alternating fluids - dose meds for eGFR < 15 on PD 2. Strep C sepsis, bacteremia, peritonitis - on Rocephin iv - ok to keep iv for now, will recheck PD fluid tomorrow - for abdo imaging - if cultures/ WBCs don't come down, he will need removal of the PD cath 3. Hemodynamics - Bp looks good, will monitor throughout his hospital stay and titrate meds 4. Chronic ESRD issues to be addressed in outpatient clinic - ie anemia, sec hyperPTHism etc - cont home meds inc binder therapy 5. HypoNa due to some free water excess improving with PD Attestations Medical Necessity Statement*: eval for ESRD and PD peritonitis Coding Level of Care Code Acute Senior Recruitment Consultant for Joselyn Buchanan
[2019-09-06] MEDS: Dianeal low Ca w/1.5% dex 2,000 mL Bag 2000 ML INTRAPERIT (20:54)
[2019-09-07] VITALS (26 sets, daily range): BP systolic 122–166; BP diastolic 50–85; PULSE 68–92; RESP 5–27; TEMP 36.6–37; O2SAT 13–98
[2019-09-07] MEDS: cefTRIAXone 2,000 MG in sodium chloride 0.9% (plus) 50 ML 100 MG IV ×2 (00:32→11:57)
[2019-09-07] MEDS: HYDROcodone-acetaminophen 5-325 mg Tablet 1 TAB PO ×2 (02:17→20:28)
--- NOTE | 2019-09-07 07:00 | USCV_ITS ---
Shola Quintana Age: 69 Gender: M : 1950 Exam Date: 09/07/2019 13:54 Ordering Phys: Tu Raza MD Technologist: Raegan Fletcher Exam Location: [facility] [place] [facility] [place] Indication: CONCERN FOR ENDOCARDITIS BP: 127 / 71 HR: 72 Rhythm: Sinus Technical Quality: Adequate MEASUREMENTS (Male / Female) Normal Values 2D ECHO LV Diastolic Diameter PLAX 4.8 cm 4.2 - 5.9 / 3.9 - 5.3 cm LV Systolic Diameter PLAX 3.2 cm LV Chamber Size 4.9 cm IVS Diastolic Thickness 1.3 cm 0.6 - 1.0 / 0.6 - 0.9 cm IVS Systolic Thickness 1.3 cm LVPW Diastolic Thickness 1.8 cm 0.6 - 1.0 / 0.6 - 0.9 cm LVPW Systolic Thickness 2.4 cm LVOT Diameter 2.1 cm LV Ejection Fraction 2D Teich 63.2 % LV Ejection Fraction MOD 2C 25.1 % LV Ejection Fraction 2C AL 25.4 % LA Diameter 2.2 cm LA Width 3.5 cm LA Height 3.8 cm RA Width 3.4 cm RA Height 3.8 cm Aorta at Sinotubular Diameter 3.0 cm M-MODE LV Diastolic Diameter MM 6.1 cm 4.2 - 5.9 / 3.9 - 5.3 cm LV Systolic Diameter MM 5.4 cm LV Ejection Fraction MM Teich 22.8 % IVS Diastolic Thickness MM 0.8 cm 0.6 - 1.0 / 0.6 - 0.9 cm IVS Systolic Thickness MM 0.5 cm LVPW Diastolic Thickness MM 0.6 cm 0.6 - 1.0 / 0.6 - 0.9 cm LVPW Systolic Thickness MM 0.9 cm Aortic Annulus Diameter 3.4 cm LA Ao Ratio MM 0.7 MV E Point Septal Separation 1.7 cm DOPPLER AV Peak Velocity 105.0 cm/s LVOT Peak Velocity 86.0 cm/s AV Area Cont Eq vti 2.7 cm squared AV Area Cont Eq pk 2.8 cm squared MV Area PHT 3.5 cm squared Mitral E to A Ratio 0.7 MV E' Velocity 11.0 cm/s Mitral E to MV E' Ratio 5.9 Mitral E to LV E' Lateral Ratio 5.8 Mitral E to LV E' Septal Ratio 6.1 TR Peak Velocity 241.0 cm/s TR Peak Gradient 23.3 mmHg TV Peak E Velocity 47.0 cm/s Right Atrial Pressure 3.0 mmHg Pulmonary Artery Systolic Pressu 26.2 mmHg PV Peak Velocity 70.0 cm/s RV Acceleration Time 0.2 s RV Ejection Time 0.4 s RV AcT/ET 0.6 FINDINGS Left Ventricle Normal left ventricular cavity size. Increased left ventricular wall thickness. Moderately decreased left ventricular systolic function. Left ventricular ejection fraction is estimated at 30- 35 %. Severe hypokinesis of anteroseptal and inferoseptal nicholson. Right Ventricle Normal right ventricular size and systolic function. Right ventricular systolic pressure 26.2 mmHg. Right Atrium Right atrium not well visualized. Right atrial pressure estimated at 8 mmHg. Left Atrium Left atrium not well visualized. Mitral Valve Moderately thickened mitral valve. Mild mitral valve regurgitation. Aortic Valve Aortic valve not well visualized. No aortic valve stenosis. No aortic valve regurgitation. Tricuspid Valve Tricuspid valve not well visualized. Pulmonic Valve Pulmonic valve not well visualized. No pulmonary valve stenosis. Pericardium No pericardial effusion. Aorta Normal-sized aortic root.. Inferior vena cava is dilated. CONCLUSIONS 1. Normal left ventricular cavity size. Moderately decreased left ventricular systolic function. Left ventricular ejection fraction is estimated at 30-35 %. Severe hypokinesis of anteroseptal and inferoseptal nicholson. 2. Normal right ventricular size and systolic function. 3. Normal pulmonary artery pressure. 4. All valves are not well visualized to rule out endocarditis. SOBIA is recommended if clinically indicated. 5. When compared to previous echocardiogram dated 01/26/2014, left ventricular systolic function has decreased. Jamia Juarez MD (Electronically Signed) Final Date: 07 September 2019 17:48 S
[2019-09-07 08:08] LABS: Basophils % 0.1 %; Eosinophils # 0.2 10^3/uL (0.0-0.8); Eosinophils % 1.3 %; Hematocrit 28.1 % (42.0-52.0); Hemoglobin 9.3 g/dL (11.7-16.6); Lymphocytes # 0.4 10^3/uL (0.8-4.8); Lymphocytes % 3.3 %; Mean Corpuscular HGB Conc 33.1 g/dL (30.0-36.0); Mean Corpuscular Hemoglobin 32.3 pg (28.0-34.0); Mean Corpuscular Volume 97.6 fL (80-94); Mean Platelet Volume 11.1 fL (7.4-10.4); Monocytes # 0.6 10^3/uL (0.2-0.9); Monocytes % 4.8 %; Neutrophils # 11.46 10^3/uL (1.8-7.7); Neutrophils % 89.9 %; Nucleated Red Blood Cells % 0 %; Platelet Count 104 10^3/cmm (130-400); Red Blood Count 2.88 10^6/uL (4.1-5.3); White Blood Count 12.8 10^3/uL (4.0-10.0)
[2019-09-07] MEDS: HYDROcodone-acetaminophen 5-325 mg Tablet PO ×2 (08:20→15:52)
[2019-09-07] MEDS: atorvastatin 40 mg Tablet PO (08:22)
[2019-09-07] MEDS: aspirin 325 mg Tablet PO (08:22)
[2019-09-07 08:23] LABS: Alanine Aminotransferase 67 U/L (0-41); Albumin Level 2.2 g/dL (3.5-5.2); Alkaline Phosphatase 55 IU/L (40-130); Aspartate Amino Transferase 39 U/L (0-40); Carbon Dioxide 21 mmol/L (22-29); Chloride 90 mmol/L (98-107); Globulin 3.1 g/dL (1.3-4.6); Glomerular Filtration Rate 4.9 mL/min (90-130); Glucose 97 mg/dL (65-115); Osmolality Calculated 267 mOsm/kg (285-295); Sodium 128 mmol/L (136-145); Total Bilirubin 0.2 mg/dL (0.15-1.2); Total Protein 5.3 g/dL (6.6-8.7)
[2019-09-07] MEDS: amlodipine 10 mg Tablet PO (08:23)
[2019-09-07] MEDS: metoprolol tartrate 50 mg Tablet PO ×2 (08:23→17:07)
[2019-09-07 08:26] LABS: Blood Urea Nitrogen 99 mg/dL (8-23)
--- NOTE | 2019-09-07 09:37 | P.CONIM_ITS ---
Providers/Reason For Consult Consulting Physican/Specialty*: Roxann Salenahuria/infectious disease Reason for Consult*: grp C strep sepsis Attending Physician: Tu Raza MD Primary Care Provider: Robin Schumacher MD History of Present Illness History of Present Illness Shola Quintana is a 69 year old male history of stage IV Hodgkin's disease s/p chemo, no radiation, currently PAZ since 2006, hypertension, CKD on peritoneal dialysis since 2018, gout. Admitted on 09/04 with complaints of fever and confusion.Patient has subsequently been alert and oriented since presentation to the hospital and is able to give me his entire history at this time. Patient said he started to feel unwell on Wednesday and had developed fever going up to 102.8 Fahrenheit at home. This continued through Wednesday. He was concerned that he had a runny nose and may have acquired COVID 19 so he got tested as an outpatient at [facility]. On Wednesday, his condition started to deteriorate and his noted that he was becoming disoriented and confused and was eventually brought to the ER for further evaluation. On asking specifically, patient does report abdominal discomfort mostly located in the right lower quadrant during this time and also now severe low back pain that he has been developed over the last 2 days for which an MRI diagnostic study is being pursued today. He states that over the same duration of days, he had also noted reduced return on his PD catheter. It did not appear to be cloudy, bloody or otherwise unusual in appearance. There were no external skin changes surrounding the PD insertion site or pain at the tunneled site. His past medical history is notable for an elective endovascular AAA repair with synthetic graft in 2018 at [facility] following which he developed complications which included a stent thrombosis of 1 of his kidneys and eventually required him to go on dialysis. His other kidney had already been affected by renal artery stenosis per him. He has been on PD since then, without any overt issues. No past history of catheter occlusions or any history of peritonitis in the past. His PD catheter had been draining well up until Wednesday. There are no complaints of cough dyspnea chest pain nausea, vomiting, diarrhea, abdominal pain. He is currently constipated. He does have a history of gout as well which periodically results in multi-joint inflammation including the shoulder knees and toes for which he takes intermittent prednisone 10 mg for 5 to 6 days. Most recently he was taking prednisone 10 mg daily up until the day of admission. There are otherwise no sick contacts or no recent travel history. No recent dental work. No dysuria. Diagnostics notable with leukocytosis 13, plt 104, predominnat neutrophilia, long standing mild lymphopenia, Na 124 upon admission, improved to 128, elevated ALT 71. Peritoneal fluid analysis with WBC 22K, 94% PMNLs. Abdominal imaging N/A. blood cx on 09/04, peritoneal fluid cx and urine cx with Grp C strep from 09/04. Rpt blood cx taken this morning, pending to date. Review of Systems General: Reports: 10 or more systems reviewed and unremarkable except in HPI and below Const: Denies: fever(s), chills or body aches Eyes: Denies: change in vision, blurry vision or photophobia ENMT: Denies: throat pain, enlarged tonsils, odynophagia or hoarseness Card: Denies: chest pain, palpitations, irregular heart rhythm, edema, swelling of feet/ankles, lightheadedness, pre-syncope, dyspnea on exertion or orthopnea Resp: Denies: dyspnea, productive cough, non-productive cough, wheezing, stridor, pain on inspiration, change in phlegm color, hemoptysis or chest congestion GI: Denies: abdominal pain, nausea, vomiting, hematemesis, coffee ground emesis, dysphagia, heartburn, diarrhea, constipation, GI cramping, change in stool character, hematochezia or melena : Denies: flank pain, dysuria, urinary frequency, urinary urgency, urinary hesitancy or hematuria Musc: Denies: neck pain, back pain, extremity pain, joint swelling, joint warmth or deformity Neuro: Denies: headache(s), numbness in extremities, weakness in extremities, sensory changes, difficulty walking, frequent falls, dizziness, vertigo, behavioral changes, Slurred speech present or seizure-like activity Psych: Denies: anxiety, depression, suicidal ideation or homicidal ideation Endo: Denies: polyuria, polydipsia, tired all the time, cold intolerance or hot flashes [place]/Lymph: Denies: easy bruising or easy bleeding Meds/Allergies Home Medications and Allergies Home Medications Medication Instructions Recorded Confirmed Last Taken Type calcium acetate(phosphat bind) 667 667 mg PO TID 03/13/19 09/05/19 09/04/19 History mg capsule furosemide 80 mg tablet 80 mg PO DAILY 03/13/19 09/05/19 09/04/19 History vitamin B complex with vit C-folic 1 tab PO .COMPLEX 03/13/19 09/05/19 Unknown History acid 800 mcg-zinc 12.5 mg tablet aspirin 325 mg tablet 325 mg PO DAILY 03/15/19 09/05/19 09/04/19 History metoprolol tartrate 50 mg tablet 50 mg PO BID 90 Days #180 tab 03/16/19 09/05/19 09/04/19 Rx atorvastatin 40 mg tablet 40 mg PO DAILY 90 Days #90 tab 04/26/19 09/05/19 09/04/19 Rx amlodipine 10 mg tablet 10 mg PO DAILY #90 tab 08/28/19 09/05/19 09/04/19 Rx gentamicin See Rx Instructions .ROUTE .COMPLEX 09/05/19 09/05/19 Unknown History Allergies Allergy/AdvReac Type Severity Reaction Status Date / Time No Known Allergies Allergy Verified 09/05/19 09:16 Current Medications Current Medications Generic Name Dose Route Start Last Admin Trade Name Freq PRN Reason Stop Dose Admin Hydrocodone Bitart/Acetaminophen 1 tab 09/06/19 07:44 09/07/19 02:17 [place] 5-325 Mg PO 1 tab Q4H PRN Administration MODERATE PAIN Hydrocodone Bitart/Acetaminophen 1 - 2 tab 09/07/19 08:15 09/07/19 08:20 [place] 5-325 Mg PO 2 tab Q4H PRN Administration MODERATE TO SEVERE PAIN Amlodipine Besylate 10 mg 09/05/19 11:04 09/07/19 08:23 Norvasc PO 10 mg DAILY YARED Administration Aspirin 325 mg 09/05/19 11:04 09/07/19 08:22 Aspirin PO 325 mg DAILY YARED Administration Atorvastatin Calcium 40 mg 09/05/19 11:04 09/07/19 08:22 Lipitor PO 40 mg DAILY YARED Administration Carisoprodol 350 mg 09/06/19 17:01 09/07/19 08:22 Soma PO 350 mg Q8H PRN Administration PAIN Sodium Chloride 1,000 mls @ 30 mls/hr 09/05/19 11:04 09/06/19 20:48 Sodium Chloride 0.9% IV 30 mls/hr .Q24H YARED Administration Ceftriaxone Sodium 2,000 mg/ 50 mls @ 100 mls/hr 09/06/19 12:00 09/07/19 00:32 Sodium Chloride IV 100 mls/hr Q12H YARED Administration Protocol Metoprolol Tartrate 50 mg 09/05/19 18:00 09/07/19 08:23 Lopressor PO 50 mg BID YARED Administration Peritoneal Dialysis Solution 2,000 ml 09/05/19 18:00 09/06/19 20:54 Dianeal Low Ca W/1.5% Dex INTRAPERIT 2,000 ml BID YARED Administration Peritoneal Dialysis Solution 2,000 ml 09/05/19 18:00 09/06/19 14:30 Dianeal Low Ca W/2.5% Dex INTRAPERIT 2,000 ml BID YARED Administration PFSH Acute PFSH: Medical History Abdominal aortic aneurysm (AAA) Anemia Cardiomyopathy Continuous ambulatory peritoneal dialysis status End stage renal disease Hodgkins lymphoma Finished chemotherapy 2005 currently in remission HTN (hypertension) Hyperlipidemia Lymphoma PVCs (premature ventricular contractions) Right renal artery stenosis Tobacco abuse Surgical History History of endovascular stent graft for abdominal aortic aneurysm (AAA) S/P cataract extraction S/P eye surgery S/P tonsillectomy Family History Other Cancer Social History Smoking and tobacco status: former smoker Alcohol intake: current Alcohol intake frequency: few times a week Household members: spouse Marital status: service: No Current occupational status: retired 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 Vitals/I&O/Wt Last Vital Signs Temp 98.2 F 09/07/19 09:35 Pulse 89 09/07/19 08:00 Resp 19 H 09/07/19 08:00 BP 163/76 09/07/19 08:00 Pulse Ox 96 09/07/19 08:00 09/06/19 09/07/19 09/07/19 22:59 06:59 14:59 Intake Total 530 / 1511 480 / 1990 Output Total 300 / 975 450 / 1425 425 / 425 Balance 230 / 536 30 / 566 -425 / -425 Weight last 48 hrs Weight 952.544 kg Weight 2.1 kg Physical Exam Narrative: EXAM NARRATIVE: GEN: Awake, alert and oriented, no acute distress HEENT: NC/AT, no neck stiffness CVS: S1S2 N RS: CTA B/L Abd: Soft, nt/nd , bs+ [employer] DAT[employer]ASE MANAGER: no focal neuro deficits Data Micro: Micro: Microbiology 09/05/19 05:30 Urine Culture - Fi nal Urine Catheterize d Streptococcus G roup C 09/07/19 08:19 Blood Culture - Pr eliminary Blood SPECIMEN [facility] 09/07/19 08:17 Blood Culture - Pr eliminary Blood SPECIMEN [facility] 09/05/19 12:00 Gram Stain - Final Peritoneal Fluid Body Fluid Culture - Preliminary Streptococcus G roup C 09/05/19 05:25 Blood Culture - Pr eliminary Blood Streptococcus G roup C A&P Assessment and plan (1) Peritonitis associated with peritoneal dialysis: -Peritoneal cell count with significant WBC of 22,000 with predominant neutrophilia, positive cultures with group C streptococcus and same organism isolated from the blood, with overall picture consistent with bacterial peritonitis associated with peritoneal dialysis. -Patient is currently on ceftriaxone empirically at the same, which is an appropriate antimicrobial regimen. Consider reducing the dose from 2 g IV every 12h to 2 g IV daily. -Group C strep is a common bacteria which exists as a commensal on the skin, oropharyngeal and GI sites. There is no overt external signs of infection at the catheter insertion site or of the tunnel at this present time. It is possible that peritonitis may be a result of GI translocation. Suggest abdominal imaging with CT to rule out any underlying primary bowel causes. Patient was on prednisone for the past few days for a gout flare, which may make the got more predisposed to translocation. He is also complaining of back pain which has developed over the past 2 days and is relatively new for him. Patient is undergoing an MRI evaluation today to rule out any secondary seeding and evidence of abscess/discitis in the back. Abdominal imaging with CT also suggested to rule out for development of any complications such as sclerosing peritonitis. Fever curve has improved since the initiation of antibiotics. Blood culture from today remains pending for clearance. If clinical improvement does not start to occur within 4 to 5 days of initiation of antibiotics, will need to consider removal and exchange of the PD catheter. Prefer to continue systemic antibiotics rather than peritoneal antibiotics right given positive blood cultures and need to achieve good systemic levels. - Low concern for endovascular infection at this time, as most likely source appears to be bacterial peritonitis however if cultures remain persistently positive in spite of appropriate antibiotics will need to consider this possibil ity. Status: Acute Qualifiers: Encounter type: initial encounter Qualified Code(s): T85.71XA - Infection and inflammatory reaction due to peritoneal dialysis catheter, initial encounter (2) End stage renal disease: on PD, per nephrology Status: Acute (3) History of endovascular stent graft for abdominal aortic aneurysm (AAA): Status: Acute Consult Attestations Medical Necessity Statement: Streptococcal septicemia, ongoing evaluation, need for iv antibiotics Coding Level of Care Code Acute [place] for [facility] Diagnoses Peritonitis associated with peritoneal dialysis T85.71XA Encounter type: initial encounter End stage renal disease N18.6 History of endovascular stent graft for abdominal aortic aneurysm (AAA) Z95.828
--- NOTE | 2019-09-07 09:53 | P.PN_ITS ---
Subjective Subjective: Interval history: Continues to have significant lumbar area pain. COVID-19 test came back negative therefore we will go ahead and proceed with MRI of lumbar spine. He denies any pain when he is not moving but has significant pain with minimal movement. Septic involvement was suspected and needs to be further evaluated. ID specialist Dr. Daniels was consulted. Vitals/I&O/Wt Last Vital Signs Temp 98.2 F 09/07/19 09:35 Pulse 89 09/07/19 08:00 Resp 19 H 09/07/19 08:00 BP 163/76 09/07/19 08:00 Pulse Ox 96 09/07/19 08:00 09/06/19 09/07/19 09/07/19 22:59 06:59 14:59 Intake Total 530 / 1511 480 / 1991 Output Total 300 / 975 450 / 1425 1925 / 192 Balance 230 / 536 30 / 566 -1925 / -1925 Weight last 48 hrs Weight 952.544 kg Weight 2.1 kg Physical Exam Const: COMMON NORMALS: no acute distress and patient oriented x3 Resp: COMMON NORMALS: normal respiratory effort and clear to auscultation bilaterally AUSCULTATION: clear to auscultation bilaterally Cardio: COMMON NORMALS: regular rate, regular rhythm and S2 normal heart sound present RATE: regular rate RHYTHM: regular rhythm HEART SOUNDS: S2 normal heart sound present OTHER: No lower extremity edema GI: COMMON NORMALS: Normal to inspection, nondistended, normoactive bowel sounds present and Soft to palpation PALPATION: Yes Soft to palpation OT HER: Peritoneal dialysis catheter site looks clean. Abdomen is very minimally tender to palpation throughout. Neuro: COMMON NORMALS: patient oriented x3 and no focal motor deficits Data : 09/07/19 07:50 09/07/19 07:50 Micro: Microbiology 09/05/19 05:30 Urine Culture - Final Urine Catheterized Streptococcus Group C 09/07/19 08:19 Blood Culture - Preliminary Blood SPECIMEN COLLECTED 09/07/19 08:17 Blood Culture - Preliminary Blood SPECIMEN COLLECTED 09/05/19 12:00 Gram Stain - Final Peritoneal Fluid Body Fluid Culture - Preliminary Streptococcus Group C 09/05/19 05:25 Blood Culture - Preliminary Blood Streptococcus Group C A&P Assessment and plan (1) Altered mental status: Resolved. Status: Acute Qualifiers: Altered mental status type: unspecified Qualified Code(s): R41.82 - Altered mental status, unspecified (2) Acute hyponatremia: Status: Acute (3) Fever: Status: Acute (4) Meningoencephalitis: Status: Acute (5) End stage renal disease: Status: Acute Additional A&P Information Acute febrile episode. This appears to be secondary to atypical/viral cause. Peritonitis cannot be ruled out Confusion. Resolved. Rule out COVID because of lymphocytopenia Considering altered mental status and febrile episode I would treat him for meningoencephalitis His acute altered mental status could very well be secondary to hyponatremia, no active source of fever has been identified We will obtain lumbar puncture Urinalysis not showing signs of UTI CT head unremarkable I would request pro calcitonin, d-dimer, ferritin, CRP meningoencephalitis felt unlikely. Sepsis criteria met with fever tachycardia tachypnea. Viral syndrome versus possible peritonitis considered Patient received bolus in the ER I would start antimicrobials Blood cultures taken in the ER Awaiting lumbar puncture End-stage renal disease peritoneal dialysis dependent Will consult nephrology because he will be getting multiple antimicrobials Hyponatremia: Previous sodium seems to be normal Monitor in ICU Currently looks dehydrated We will start him on normal saline at 30 cc/h with goal correction 6 mEq per 24- hour Full code DVT prophylaxis would avoid for now because he would require lumbar puncture Renal dialysis diet PLAN: We will increase analgesic dose to give patient better pain relief. Patient has aortic graft performed 2 years ago and is okay to proceed with MRI. Denies any other metals in the body. Awaiting TTE and consider SOBIA if persistently bacteremic or if echo windows are not good enough for evaluation. Repeat blood cultures this morning. Attestations Medical Necessity Statement*: Patient with significant bacterial infection requires close ICU monitoring and treatment due to high risk of deterioration. Time Spent in Patient Care: 16 - 35 minutes Coding Level of Care Code Acute Data Collector for Penelopeasael Buchaann Diagnoses Altered mental status R41.82 Altered mental status type: unspecified Acute hyponatremia E87.1 Fever R50.9 Meningoencephalitis G04.90 End stage renal disease N18.6
--- NOTE | 2019-09-07 10:44 | PC.NURSE ---
[facility] HERE TO TRANSPORT PT TO [facility] FOR MRI. DR MCHUGH HERE TO SEE PT. PT MUCH MORE COHERENT/PLEASANT THAN UPON INITIAL ASSESSMENT THIS MORNING. HARD OF HEARING
--- NOTE | 2019-09-07 11:04 | PC.NURSE ---
AM dialysis performed per pt instructions on home regime, no infusion of dilaysate, 1500 ml pale yellow clear output drained
--- NOTE | 2019-09-07 11:52 | PC.NURSE ---
back from MRI via [facility] via stretcher
--- NOTE | 2019-09-07 12:57 | CT_ITS ---
WS: [id number] CT ABDOMEN PELVIS TECHNIQUE: Noncontrast CT of the abdomen and pelvis with coronal and sagittal reformatted images. CLINICAL INFORMATION: ESRD COMPARISON: CT abdomen January 08, 2017, 7 18,013 DLP: 943.[address] scans at [facility] use at least one of these dose optimization techniques: automat ed exposure control; mA and/or kV adjustment per patient size (includes targeted exams where dose is matched to clinical indication); or iterative reconstruction. FINDINGS: Noncontrast liver is normal. Normal gallbladder. Tiny gallbladder calculus. No fluid in the gallbladd er fossa. Small esophageal hiatal hernia. Sigmoid diverticulosis. No evidence of acute diverticulitis . No free fluid in the abdomen or pelvis. Suprapubic catheter with tip in the pelvis. No free fluid. Urine distended bladder. Small bilateral pleural effusions with bibasilar atelectasis. Bilateral renal artery stents. Slightly heterogeneous appearance to the noncontrast spleen. This can be further evaluated with contrast-enha nced CT or ultrasound. Sclerotic lesion in the T11 vertebral body is unchanged since 2017. Aortic aneurysm with endograft placement. Excluded aneurysm sac is decreased in size compared to 2017 . Peripheral calcification. Biiliac extension. Today infrarenal abdominal aortic aneurysm measures 4. 1 x 4.1 cm. No evidence of small large bowel obstruction. No significant free fluid in the abdomen or pelvis. No abdominal or pelvic lymphadenopathy. No inguinal lymphadenopathy. Urine distended bladder. Atrophic k idneys bilaterally. CT/CT abdomen pelvis wo con [id number] IMPRESSION: 1. Small bilateral pleural effusions with bibasilar atelectasis. 2. Atrophic kidneys bilaterally. 3. Aortic endograft biiliac extension. Excluded aneurysm sac is decreased in s ize since 2017 measuring 4.1 x 4.1 cm today. 4. Bilateral renal artery stents. 5. No significant free fluid in the abdomen or pelvis. Suprapubic catheter. 6. Tiny calculus in the gallbladder which otherwise appears normal. 7. Heterogeneous low-attenuation to the peripheral aspect of the spleen is ind eterminant on this noncontrast examination but can be seen with infiltrating he matologic disorders such as lymphoma and splenic infarcts. This can be followed up with CT abdomen pelvis with contrast. 8. Sclerotic lesion involving the T11 vertebral body is unchanged since 2017. This was also present in 2009 and similar appearance.
--- NOTE | 2019-09-07 12:59 | PC.NURSE ---
PT STATES THAT HE HAS PUT A CALL INTO HIS PD NURSE & HE IS WAITING FOR HER TO CALL BACK. HE VOICES CONCERNS REGARDING ONLY DRAINING 1/2 OF WHAT HE PUTS IN OF DIALYSATE & DOESN'T WANT TO OVERLOAD HIMSELF.STATES THAT AT HOME HE CAN USE HEPARIN TO HELP CLEANSE OUT CATHETER
--- NOTE | 2019-09-07 13:51 | PM.PN ---
Subjective Subjective: Interval history: Pain in the lumbar spine, otherwise he is feeling ok. Less fluid being pulled by the PD. No edema and no other volume assoc Sx. Clear effluent and no belly pain Vitals/I&O/Wt Last Vital Signs Temp 98.2 F 09/07/19 09:35 Pulse 70 09/07/19 12:00 Resp 18 09/07/19 12:00 BP 122/64 09/07/19 12:00 Pulse Ox 95 09/07/19 12:00 09/06/19 09/07/19 09/07/19 22:59 06:59 14:59 Intake Total 530 / 1511 530 / 2041 200 / 200 Output Total 300 / 975 450 / 1425 1925 / 1925 Balance 230 / 536 80 / 616 -1725 / -1725 Weight last 48 hrs Weight 952.544 kg Weight 2.1 kg Physical Exam Narrative: EXAM NARRATIVE: Healthy looking male lying comfortably in his bed Oriented to himself Confusion spells noted in the ER No focal deficit He is moving all of his extremities without any discomfort No facial asymmetry Kerning signs positive, Brudzinski sign positive, Sunt[place] S1-S2 tachycardia Abdomen soft nontender nondistended peritoneal dialysis catheter site nontender no drainage Lower extremity no edema gangrene ulcer Right knee pain, right ankle pain no active signs of gout flare No petechial rash No active respiratory distress Const: COMMON NORMALS: no acute distress, healthy appearing and alert; negative for patient oriented x3 EXAM LIMITATIONS: altered mental status GENERAL APPEARANCE: cooperative ORIENTATION/CONSCIOUSNESS: Yes oriented to person and Yes oriented to place; not oriented to time HENMT: COMMON NORMALS: normocephalic and atraumatic HEAD & SCALP: normocephalic and atraumatic Eye: COMMON NORMALS: Equal, round and reactive pupils present and EOMs intact bilaterally PUPIL: Yes Equal, round and reactive pupils present Neck/C-Spine: COMMON NORMALS: full ROM and supple Chest: COMMONS NORMALS: normal inspection of the chest and normal palpation of entire chest wall Resp: COMMON NORMALS: normal respiratory effort, No retractions, No use of accessory muscles and clear to auscultation bilaterally AUSCULTATION: clear to auscultation bilaterally Cardio: COMMON NORMALS: regular rhythm and No murmurs present (Cardio) RATE: tachycardic RHYTHM: regular rhythm GI: COMMON NORMALS: Normal to inspection, nondistended, normoactive bowel sounds present, Soft to palpation, non-tender and no masses PALPATION: Yes Soft to palpation OTHER: Peritoneal dialysis cath in place with no signs of cellulitis Extremity: COMMON NORMALS: normal to inspection and full ROM Neuro: COMMON NORMALS: moves all extremities and no focal motor deficits; negative for patient oriented x3 SENSORIUM/ORIENTATION: Yes alert, Yes oriented to person, Yes oriented to place and No oriented to time Psych: COMMON NORMALS: mental status grossly normal, Normal thought process present and cooperative THOUGHT PROCESS: Normal thought process present Skin: COMMON NORMALS: no rashes or lesions noted and no wounds GENERAL SKIN EXAM: no rashes or lesions noted Data : 09/07/19 07:50 09/07/19 07:50 Micro: Microbiology 09/05/19 12:00 Gram Stain - Final Peritoneal Fluid Body Fluid Culture - Preliminary Streptococcus Group C 09/05/19 05:25 Blood Culture - Preliminary Blood Streptococcus Group C 09/05/19 05:30 Urine Culture - Final Urine Catheterized Streptococcus Group C 09/07/19 08:19 Blood Culture - Preliminary Blood SPECIMEN COLLECTED 09/07/19 08:17 Blood Culture - Preliminary Blood SPECIMEN COLLECTED A&P Additional A&P Information 1. ESRD - cont outpatient PD prescription with 2L exchanges, 2.5/4.25% alternating fluids but will switch to all 2.5% solutions - dose meds for eGFR < 15 on PD 2. Strep C sepsis, bacteremia, peritonitis - on Rocephin iv - recheck PD fluid today - s/p abdo imaging, results pending - if cultures/ WBCs don't come down, he will need removal of the PD cath 3. Hemodynamics - Bp looks good, will monitor throughout his hospital stay and titrate meds 4. Chronic ESRD issues to be addressed in outpatient clinic - ie anemia, sec hyperPTHism etc - cont home meds inc binder therapy 5. HypoNa due to some free water excess improving with PD Attestations Medical Necessity Statement*: mgmt of PD Coding Level of Care Code Acute Track Broom Operator for Joselyn Buchanan
[2019-09-07 15:23] LABS: Body Fluid WBC 585 /uL; RBC, Body Fluid 1 10^3/uL (0-0)
[2019-09-07 15:27] LABS: Apprearance, Body Fluid CLEAR (CLEAR); Color, Body Fluid PALE YELLOW (PALE YELLOW); PATH Referral YES
[2019-09-07] MEDS: Dianeal low Ca w/2.5% dex 2,000 mL Bag 2000 ML INTRAPERIT (18:00)
--- NOTE | 2019-09-07 18:55 | PC.NURSE ---
pt administered Dialysis per home regime, AO x4, speech clear, [place] [employer], regular unlabored RR RA, no s/s distress, denied pain
[2019-09-08] VITALS (24 sets, daily range): BP systolic 104–163; BP diastolic 50–79; PULSE 67–90; RESP 11–27; TEMP 36.6–37.1; O2SAT 92–100
[2019-09-08] MEDS: cefTRIAXone 2,000 MG in sodium chloride 0.9% (plus) 50 ML 100 MG IV ×2 (01:18→11:46)
[2019-09-08 04:29] LABS: Basophils % 0.1 %; Eosinophils # 0.3 10^3/uL (0.0-0.8); Eosinophils % 3.1 %; Hematocrit 29.4 % (42.0-52.0); Hemoglobin 9.7 g/dL (11.7-16.6); Lymphocytes # 0.4 10^3/uL (0.8-4.8); Lymphocytes % 4.2 %; Mean Corpuscular Hemoglobin 32.4 pg (28.0-34.0); Mean Corpuscular Volume 98.3 fL (80-94); Mean Platelet Volume 11.2 fL (7.4-10.4); Monocytes # 0.5 10^3/uL (0.2-0.9); Monocytes % 5.3 %; Neutrophils # 7.66 10^3/uL (1.8-7.7); Neutrophils % 86.5 %; Nucleated Red Blood Cells % 0 %; Platelet Count 90 10^3/cmm (130-400); Red Blood Count 2.99 10^6/uL (4.1-5.3); Red Cell Distribution Width 13.1 % (12.1-15.1); White Blood Count 8.9 10^3/uL (4.0-10.0)
[2019-09-08 04:45] LABS: Alanine Aminotransferase 52 U/L (0-41); Albumin Level 2.3 g/dL (3.5-5.2); Alkaline Phosphatase 93 IU/L (40-130); Aspartate Amino Transferase 26 U/L (0-40); Calcium 7.8 mg/dL (8.5-10.5); Carbon Dioxide 23 mmol/L (22-29); Chloride 91 mmol/L (98-107); Glomerular Filtration Rate 4.6 mL/min (90-130); Glucose 113 mg/dL (65-115); Magnesium 1.9 mg/dL (1.7-2.3); Osmolality Calculated 270 mOsm/kg (285-295); Sodium 129 mmol/L (136-145); Total Bilirubin 0.2 mg/dL (0.15-1.2); Total Protein 5.3 g/dL (6.6-8.7)
[2019-09-08 04:58] LABS: Blood Urea Nitrogen 102 mg/dL (8-23)
[2019-09-08] MEDS: HYDROcodone-acetaminophen 5-325 mg Tablet PO ×3 (05:55→21:45)
[2019-09-08] MEDS: atorvastatin 40 mg Tablet PO (09:00)
[2019-09-08] MEDS: amlodipine 10 mg Tablet PO (09:00)
[2019-09-08] MEDS: aspirin 325 mg Tablet PO (09:00)
[2019-09-08] MEDS: metoprolol tartrate 50 mg Tablet PO ×2 (09:00→17:35)
--- NOTE | 2019-09-08 09:24 | P.PN_ITS ---
Subjective Subjective: Interval history: Patient reports feeling better. Denies shortness of breath or chest pain. Continues to have minimal abdominal discomfort on palpation and continues to have low back pain still requiring analgesics. He thinks that it may feel slightly better but any significant movement cause pain. Clinically appears to be improving. Platelets are down to 90 and likely lagging behind. MRI was not helpful as his underlying grafts interfered to produce image. Echocardiogram shows decrease in EF to 30 to 35% with severe hypokinesis of anteroseptal and inferoseptal nicholson. Was poor study to evaluate for endocarditis. Repeat peritoneal fluid analysis showed improving WBC count and hopefully we can avoid need for catheter replacement. Had extensive discussion with patient's at the bedside yesterday with plan of care and evaluation. Vitals/I&O/Wt Last Vital Signs Temp 97.8 F 09/08/19 07:00 Pulse 83 09/08/19 09:00 Resp 21 H 09/08/19 09:00 BP 163/75 09/08/19 09:00 Pulse Ox 97 09/08/19 09:00 09/07/19 09/08/19 09/08/19 22:59 06:59 14:59 Intake Total 50 / 420 100 / 520 Output Total 0 / 1925 175 / 2100 1600 / 1600 Balance 50 / -1505 -75 / -1580 -1600 / -1600 Weight last 48 hrs Weight 725.748 kg Weight 952.544 kg Weight 2.1 kg Physical Exam Const: COMMON NORMALS: no acute distress and patient oriented x3 Resp: COMMON NORMALS: normal respiratory effort and clear to auscultation bilaterally AUSCULTATION: clear to auscultation bilaterally Cardio: COMMON NORMALS: regular rate, regular rhythm and S2 normal heart sound present RATE: regular rate RHYTHM: regular rhythm HEART SOUNDS: S2 normal heart sound present OTHER: No lower extremity edema GI: COMMON NORMALS: Normal to inspection, nondistended, normoactive bowel sounds present and Soft to palpation PALPATION: Yes Soft to palpation OTHER: Minimally tender throughout. Peritoneal dialysis catheter site is clean. Neuro: COMMON NORMALS: patient oriented x3 and no focal motor deficits Data : 09/08/19 04:08 09/08/19 04:08 Micro: Microbiology 09/07/19 08:19 Blood Culture - Preliminary Blood NEGATIVE TO DATE 09/07/19 08:17 Blood Culture - Preliminary Blood NEGATIVE TO DATE 09/08/19 04:08 Blood Culture - Preliminary Blood SPECIMEN COLLECTED 09/08/19 04:10 Blood Culture - Preliminary Blood SPECIMEN COLLECTED 09/07/19 13:30 Gram Stain - Final Peritoneal Fluid 09/05/19 12:00 Gram Stain - Final Peritoneal Fluid Body Fluid Culture - Preliminary Streptococcus Group C 09/05/19 05:25 Blood Culture - Preliminary Blood Streptococcus Group C 09/05/19 05:30 Urine Culture - Final Urine Catheterized Streptococcus Group C A&P Assessment and plan (1) Peritonitis associated with peritoneal dialysis: -Peritoneal cell count with significant WBC of 22,000 with predominant neutrophilia, positive cultures with group C streptococcus and same organism isolated from the blood, with overall picture consistent with bacterial peritonitis associated with peritoneal dialysis. -Patient is currently on ceftriaxone empirically at the same, which is an a ppropriate antimicrobial regimen. Consider reducing the dose from 2 g IV every 12h to 2 g IV daily. -Group C strep is a common bacteria which exists as a commensal on the skin, oropharyngeal and GI sites. There is no overt external signs of infection at the catheter insertion site or of the tunnel at this present time. It is possible that peritonitis may be a result of GI translocation. Suggest abdominal imaging with CT to rule out any underlying primary bowel causes. Patient was on prednisone for the past few days for a gout flare, which may make the got more predisposed to translocation. He is also complaining of back pain which has developed over the past 2 days and is relatively new for him. Patient is undergoing an MRI evaluation today to rule out any secondary seeding and evidence of abscess/discitis in the back. Abdominal imaging with CT also suggested to rule out for development of any complications such as sclerosing peritonitis. Fever curve has improved since the initiation of antibiotics. Blood culture from today remains pending for clearance. If clinical improvement does not start to occur within 4 to 5 days of initiation of antibiotics, will need to consider removal and exchange of the PD catheter. Prefer to continue systemic antibiotics rather than peritoneal antibiotics right given positive blood cultures and need to achieve good systemic levels. - Low concern for endovascular infection at this time, as most likely source appears to be bacterial peritonitis however if cultures remain persistently positive in spite of appropriate antibiotics will need to consider this possibility. Status: Acute Qualifiers: Encounter type: initial encounter Qualified Code(s): T85.71XA - Infection and inflammatory reaction due to peritoneal dialysis catheter, initial encounter (2) End stage renal disease: on PD, per nephrology Status: Acute (3) History of endovascular stent graft for abdominal aortic aneurysm (AAA): Status: Acute (4) Ischemic cardiomyopathy: Patient clinically is not in decompensated heart failure. Status: Acute Additional A&P Information Acute febrile episode. This appears to be secondary to atypical/viral cause. Peritonitis cannot be ruled out Confusion. Resolved. Rule out COVID because of lymphocytopenia Considering altered mental status and febrile episode I would treat him for meningoencephalitis His acute altered mental status could very well be secondary to hyponatremia, no active source of fever has been identified We will obtain lumbar puncture Urinalysis not showing signs of UTI CT head unremarkable I would request pro calcitonin, d-dimer, ferritin, CRP meningoencephalitis felt unlikely. Sepsis criteria met with fever tachycardia tachypnea. Viral syndrome versus possible peritonitis considered Patient received bolus in the ER I would start antimicrobials Blood cultures taken in the ER Awaiting lumbar puncture End-stage renal disease peritoneal dialysis dependent Will consult nephrology because he will be getting multiple antimicrobials Hyponatremia: Previous sodium seems to be normal Monitor in ICU Currently looks dehydrated We will start him on normal saline at 30 cc/h with goal correction 6 mEq per 24- hour Full code DVT prophylaxis would avoid for now because he would require lumbar puncture Renal dialysis diet PLAN: We will continue current antibiotic and proceed with CT scan of the lumbar spine which unfortunately may not be helpful as we cannot give patient a contrast. Discussed case with Dr. Maria who will see patient in consultation regarding change in patient's EF and wall motion abnormality as well as SOBIA to further evaluate for endocarditis. We will stop IV fluids for now. Encouraged oral intake. We will repeat blood culture tomorrow morning. Discussed with Dr. Daniels. CSF analysis will not be helpful since patient does not show any signs of meningoencephalitis. Attestations Medical Necessity Statement*: Patient with significant infection requires close ICU monitoring and treatment due to risk of deterioration. Time Spent in Patient Care: Greater than 35 minutes Coding Level of Care Code Acute Equipment Service Associate for Chg Fwd Diagnoses Peritonitis associated with peritoneal dialysis T85.71XA Encounter type: initial encounter End stage renal disease N18.6 History of endovascular stent graft for abdominal aortic aneurysm (AAA) Z95.828 Ischemic cardiomyopathy I25.5
--- NOTE | 2019-09-08 09:30 | CT_ITS ---
WS: [id number] CT LUMBAR SPINE TECHNIQUE: Noncontrast CT of the lumbar spine with coronal and sagittal reformatted images. CLINICAL INFORMATION: pain, bacteremia but also has ESRD COMPARISON: None. DLP: 2337.[address] scans at [facility] use at least one of these dose optimization techniques: automat ed exposure control; mA and/or kV adjustment per patient size (includes targeted exams where dose is matched to clinical indication); or iterative reconstruction. FINDINGS: Mild lumbar curve. No acute compression. Disc space narrowing worse L5-S1. Aortic endograft with biil iac extension is unchanged. Excluded aneurysm sac is unchanged from the recent CT abdomen pelvis. Bii liac extension. No evidence of discitis or osteomyelitis. L1-L2: Normal. L2-L3: Mild annular bulging. Mild left and no significant right foraminal narrowing. Spinal canal is patent. Mild facet arthropathy. L3-L4: Mild annular bulging. Mild left and no significant right foraminal narrowing. Spinal canal is patent. Mild facet arthropathy. L4-L5: Left eccentric disc bulging with slight encroachment on the far exiting left L4 nerve root. Mi ld left and no significant right foraminal narrowing. Moderate facet arthropathy. L5-S1: Left eccentric disc osteophyte complex with [id number] left and no significant right for aminal narrowing. Mild facet arthropathy. Adrenal glands are normal. Splenic granulomas. Renal artery stents. Renal cortical atrophy. CT/CT lumbar spine wo con* [id number] IMPRESSION: 1. Mild lumbar curve. No acute compression. 2. No evidence of discitis or osteomyelitis 3. Disc space narrowing L5-S1 vacuum disc phenomenon. 4. Mild to moderate foraminal narrowing described above worse at left L5-S1. 5. Aortic endograft with biiliac extension is unchanged since the recent CT ab domen pelvis.
[2019-09-08] MEDS: Dianeal low Ca w/2.5% dex 2,000 mL Bag 2000 ML INTRAPERIT ×3 (09:45→21:44)
--- NOTE | 2019-09-08 09:55 | PC.SOCIAL ---
IMM Page 2 of IMM explained to patient. Initialed, dated, and timed and placed in chart. Copy provided to patient.
--- NOTE | 2019-09-08 09:56 | PC.NURSE ---
PD administered qid per home regime, pt requested times of 1800 2100 0000 and 0600, Rx approved time change
--- NOTE | 2019-09-08 10:02 | PC.CHAP ---
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 visit [] Patient/Family/Request visit [] Outpatient visit [] Follow-up visit [] Physician referral [] Code/Alert [x] Routine visit [] Staff referral [] Actively dying [] Patient sleeping [] Family support [] [] Out of room [] Palliative care [] [] Receiving care in room [] Pre-surgical visit [] Trauma [] Long length of stay [] ICU visit [] Other: Relational/Emotional Strength [] Patient feels connected with others/family/visitors/staff [] Distress [] Loneliness/isolation [] Abandonment Spirituality of Patient [] Person of Mesha [] Attends Caodaism of their Mesha [] Believes in Prayer [] Reads Bible or Mandaen materials [] There are Spiritual issues to be addressed [employer] Interventions [x] Prayer [x] Active listening [x] Non-anxious presence [x] Spiritual/emotional support [] Crisis/trauma care [] Spiritual counseling [] Bereavement support [] Provided bereavement packet [] Provided Bible/devotional materials [] Provided toy/stuffed animal, coloring book to patient or family member [] Provided Communion [] Anointing/Thomson [] Salvation [x] Completed spiritual assessment [] Other: Impact on Illness or Injury [] Angry [] Fearful [] Anxious [] Often cries [] Exhaustion [] Unable to work [] Unable to attend advent [] Unable to walk/stand [] Unable to read [] Unable to drive [] Unable to eat/drink [] Unable to sleep [] Unable to be with family [] Patient intubated [] Other: Summary Patient hard of hearing. Patient low in spirits Time spent with patient 15 min
--- NOTE | 2019-09-08 11:13 | P.PN_ITS ---
Subjective Subjective: Interval history: Feels ok with chronic pain in his back but clear effluent, no exit site pain. No edema and no other volume assoc Sx. Using Heparin, drains going well with higher outflow volumes, all 2.5% solutions now Vitals/I&O/Wt Last Vital Signs Temp 97.8 F 09/08/19 07:00 Pulse 83 09/08/19 09:00 Resp 21 H 09/08/19 09:00 BP 163/75 09/08/19 09:00 Pulse Ox 97 09/08/19 09:00 09/07/19 09/08/19 09/08/19 22:59 06:59 14:59 Intake Total 50 / 420 100 / 520 Output Total 0 / 1925 175 / 2100 1600 / 1600 Balance 50 / -1505 -75 / -1580 -1600 / -1600 Weight last 48 hrs Weight 725.748 kg Weight 952.544 kg Physical Exam Narrative: EXAM NARRATIVE: Healthy looking male lying comfortably in his bed Oriented to himself Confusion spells noted in the ER No focal deficit He is moving all of his extremities without any discomfort No facial asymmetry Kerning signs positive, Brudzinski sign positive, S[place] S1-S2 tachycardia Abdomen soft nontender nondistended peritoneal dialysis catheter site nontender no drainage Lower extremity no edema gangrene ulcer Right knee pain, right ankle pain no active signs of gout flare No petechial rash No active respiratory distress Const: COMMON NORMALS: no acute distress, healthy appearing and alert; negative for patient oriented x3 EXAM LIMITATIONS: altered mental status GENERAL APPEARANCE: cooperative ORIENTATION/CONSCIOUSNESS: Yes oriented to person and Yes oriented to place; not oriented to time HENMT: COMMON NORMALS: normocephalic and atraumatic HEAD & SCALP: normocephalic and atraumatic Eye: COMMON NORMALS: Equal, round and reactive pupils present and EOMs intact bilaterally PUPIL: Yes Equal, round and reactive pupils present Neck/C-Spine: COMMON NORMALS: full ROM and supple Chest: COMMONS NORMALS: normal inspection of the chest and normal palpation of entire chest wall Resp: COMMON NORMALS: normal respiratory effort, No retractions, No use of accessory muscles and clear to auscultation bilaterally AUSCULTATION: clear to auscultation bilaterally Cardio: COMMON NORMALS: regular rhythm and No murmurs present (Cardio) RATE: tachycardic RHYTHM: regular rhythm GI: COMMON NORMALS: Normal to inspection, nondistended, normoactive bowel s ounds present, Soft to palpation, non-tender and no masses PALPATION: Yes Soft to palpation OTHER: Peritoneal dialysis cath in place with no signs of cellulitis Extremity: COMMON NORMALS: normal to inspection and full ROM Neuro: COMMON NORMALS: moves all extremities and no focal motor deficits; negative for patient oriented x3 SENSORIUM/ORIENTATION: Yes alert, Yes oriented to person, Yes oriented to place and No oriented to time Psych: COMMON NORMALS: mental status grossly normal, Normal thought process present and cooperative THOUGHT PROCESS: Normal thought process present Skin: COMMON NORMALS: no rashes or lesions noted and no wounds GENERAL SKIN EXAM: no rashes or lesions noted Data : 09/08/19 04:08 09/08/19 04:08 Micro: Microbiology 09/07/19 08:19 Blood Culture - Preliminary Blood NEGATIVE TO DATE 09/07/19 08:17 Blood Culture - Preliminary Blood NEGATIVE TO DATE 09/08/19 04:08 Blood Culture - Preliminary Blood SPECIMEN COLLECTED 09/08/19 04:10 Blood Culture - Preliminary Blood SPECIMEN COLLECTED 09/07/19 13:30 Gram Stain - Final Peritoneal Fluid 09/05/19 12:00 Gram Stain - Final Peritoneal Fluid Body Fluid Culture - Preliminary Streptococcus Group C 09/05/19 05:25 Blood Culture - Preliminary Blood Streptococcus Group C 09/05/19 05:30 Urine Culture - Final Urine Catheterized Streptococcus Group C A&P Additional A&P Information 1. ESRD - cont outpatient PD prescription with 2L exchanges, 2.5/4.25% alternating fluids but will switch to all 2.5% solutions - dose meds for eGFR < 15 on PD 2. Strep C sepsis, bacteremia, peritonitis - on Rocephin iv - cultures are now negative - PD WBCs coming down showing clinical response to Abx - CT scan neg for intrabdo abscess - continue for the time being 3. Hemodynamics - Bp looks good, will monitor throughout his hospital stay and titrate meds 4. Chronic ESRD issues to be addressed in outpatient clinic - ie anemia, sec hyperPTHism etc - cont home meds inc binder therapy 5. Thrombocytopenia - ok to continue IP heparin for now but may have to hold if this gets much worse 6. Anemia of ESRD - slightly below goal; monitor for now. EPO and iron as outpatient Attestations Medical Necessity Statement*: eval for ESRD Coding Level of Care Code Acute Silk Screen Printer for Chg Chanel
--- NOTE | 2019-09-08 15:46 | PM.CONSULT ---
Providers/Reason For Consult Consulting Physican/Specialty*: JULIANE Maria MD/cardiology Reason for Consult*: Sepsis with possible endocarditis, consider SOBIA Attending Physician: Tu Raza MD Primary Care Provider: Robin Schumacher MD History of Present Illness History of Present Illness Shola Quintana is a 69 year old male is admitted to the hospital through the emergency room, where he presented with complaints of intermittent fever and altered mental status. This patient is known to have nonischemic cardiomyopathy and abdominal aortic aneurysm repair. He had echocardiogram done which revealed worsening of the LV systolic function. He has streptococcal bacteremia and possible bacterial peritonitis. Cardiology consult is requested to consider a SOBIA to rule out any endocarditis and also management of the worsening LV systolic function. This patient is a poor historian. He has a history of nonischemic cardiomyopathy with an LV ejection fraction of 47% by echocardiogram in 2013. He had a complex abdominal aortic aneurysm for which he underwent aortic stent graft placement at the [facility] in [place] with a fenestrated stent. Following the revision, patient developed acute renal failure and ended up requiring dialysis. Currently he is on peritoneal dialysis. He started having fever on last Wednesday. Since then, he has been having intermittent fever and altered mental status. He was tested negative for covert. Denies any chest pain or unusual shortness of breath. He has some lower abdominal pain and also severe lower back pain. He had a CT of the abdomen and lumbar spine. No evidence of abscess noted. His peritoneal fluid and the blood culture grew streptococci. Review of Systems Narrative: CONSTITUTIONAL: Fever and chills as mentioned above. EYES: No blurring of vision or other visual disturbances lately. ENT: No hoarseness of voice, auditory disturbances or sore throat. CARDIOVASCULAR: As mentioned above. RESPIRATORY: No significant cough. GASTROINTESTINAL: Lower abdominal pain. On peritoneal dialysis. GENITOURINARY: End-stage renal disease and renal artery stenosis. INTEGUMENTARY: No skin rashes or history of skin cancer. NEURO: Altered mental status as mentioned above. PSYCHIATRIC: No history of psychosis or major depression. HEMATOLOGIC: History of chronic anemia ENDOCRINE: No history of polyuria or polydipsia. 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 Also history of gouty arthritis. ALLERGY/IMMUNOLOGY: As mentioned above. Meds/Allergies Home Medications and Allergies Home Medications Medication Instructions Recorded Confirmed Last Taken Type calcium acetate(phosphat bind) 667 667 mg PO TID 03/13/19 09/05/19 09/04/19 History mg capsule furosemide 80 mg tablet 80 mg PO DAILY 03/13/19 09/05/19 09/04/19 History vitamin B complex with vit C-folic 1 tab PO .COMPLEX 03/13/19 09/05/19 Unknown History acid 800 mcg-zinc 12.5 mg tablet aspirin 325 mg tablet 325 mg PO DAILY 03/15/19 09/05/19 09/04/19 History metoprolol tartrate 50 mg tablet 50 mg PO BID 90 Days #180 tab 03/16/19 09/05/19 09/04/19 Rx atorvastatin 40 mg tablet 40 mg PO DAILY 90 Days #90 tab 04/26/19 09/05/19 09/04/19 Rx amlodipine 10 mg tablet 10 mg PO DAILY #90 tab 08/28/19 09/05/19 09/04/19 Rx Unable to Assess 09/05/19 09/05/19 Unknown History gentamicin See Rx Instructions .ROUTE .COMPLEX 09/05/19 09/05/19 Unknown History Allergies Allergy/AdvReac Type Severity Reaction Status Date / Time No Known Allergies Allergy Verified 09/08/19 15:23 Current Medications Current Medications Generic Name Dose Route Start Last Admin Trade Name Freq PRN Reason Stop Dose Admin Hydrocodone Bitart/Acetaminophen 1 tab 09/06/19 07:44 09/07/19 20:28 [place] 5-325 Mg PO 1 tab Q4H PRN Administration MODERATE PAIN Hydrocodone Bitart/Acetaminophen 1 - 2 tab 09/07/19 08:15 09/08/19 05:55 [place] 5-325 Mg PO 2 tab Q4H PRN Administration MODERATE TO SEVERE PAIN Amlodipine Besylate 10 mg 09/05/19 11:04 09/08/19 09:00 Norvasc PO 10 mg DAILY YARED Administration Aspirin 325 mg 09/05/19 11:04 09/08/19 09:00 Aspirin PO 325 mg DAILY YARED Administration Atorvastatin Calcium 40 mg 09/05/19 11:04 09/08/19 09:00 Lipitor PO 40 mg DAILY YARED Administration Carisoprodol 350 mg 09/06/19 17:01 09/08/19 09:00 Soma PO 350 mg Q8H PRN Administration PAIN Ceftriaxone Sodium 2,000 mg/ 50 mls @ 100 mls/hr 09/06/19 12:00 09/08/19 11:46 Sodium Chloride IV 100 mls/hr Q12H YARED Administration Protocol Metoprolol Tartrate 50 mg 09/05/19 18:00 09/08/19 09:00 Lopressor PO 50 mg BID YARED Administration PFSH Acute PFSH: Medical History Abdominal aortic aneurysm (AAA) Anemia Bacterial peritonitis Cardiomyopathy Continuous ambulatory peritoneal dialysis status End stage renal disease Hodgkins lymphoma Finished chemotherapy 2006 currently in remission HTN (hypertension) Hyperlipidemia Lymphoma Nonischemic cardiomyopathy PVCs (premature ventricular contractions) Right renal artery stenosis Streptococcal bacteremia Tobacco abuse Surgical History H/O endovascular stent graft for abdominal aortic aneurysm History of endovascular stent graft for abdominal aortic aneurysm (AAA) S/P cataract extraction S/P eye surgery S/P tonsillectomy Family History Other Cancer Social History Smoking and tobacco status: former smoker Alcohol intake: current Alcohol intake frequency: few times a week Household members: spouse Marital status: service: No Current occupational status: retired 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 Not in any acute distress. Hard of hearing HEENT: Mild pallor, icterus or lymphadenopathy. The pupils are symmetrical oral cavity: There are no mucous membrane lesions. Funduscopic examination: The fundus is not visualized NECK: Trachea appears to be central. No masses noted. No JVD or thyromegaly appreciated. No carotid bruit. RESPIRATORY: Chest is symmetrical. No intercostals muscle retraction or any accessory muscle activation. There is no chest wall tenderness. Breath sounds are heard bilaterally. No rales or rhonchi heard. No evidence of any consolidation. BREASTS: Deferred. HEART: The PMI could not be palpated. No other palpable precordial events. First and second heart sounds are normal. No S3. No severe murmurs. No pericardial rub. ABDOMEN: No vessel pulsations or distention. No tenderness. No organomegaly appreciated. No abdominal bruit. Bowel sounds are normally heard. Peritoneal dialysis catheter in place with no signs of infection around the catheter. : Deferred. RECTAL: Deferred. LYMPHATIC: No lymphadenopathy noted in the neck region. EXTREMITIES: 1+ edema both lower extremities. No cyanosis. Peripheral pulses are palpable but weak bilaterally. MUSCULOSKELETAL: No acute joint deformities or swelling. SKIN: There are no significant scars or skin rash noted. NEUROPSYCHIATRIC: The patient is alert and oriented x3. No focal motor deficits. Data Labs: Other Labs: Laboratory Last Values WBC 8.9 10^3/uL (4.0- 10.0) 09/08/19 04:08 RBC 2.99 10^6/uL (4.1 -5.3) L 09/08/19 04:08 Hgb 9.7 g/dL (11.7-16 .6) L 09/08/19 04:08 Hct 29.4 % (42.0-52.0 ) L 09/08/19 04:08 MCV 98.3 fL (80-94) H 09/08/19 04:08 MCH 32.4 pg (28.0-34. 0) 09/08/19 04:08 MCHC 33.0 g/dL (30.0-3 6.0) 09/08/19 04:08 RDW 13.1 % (12.1-15.1 ) 09/08/19 04:08 Plt Count 90 10^3/cmm (130- 400) L 09/08/19 04:08 MPV 11.2 fL (7.4-10.4 ) H 09/08/19 04:08 Neut % (Auto) 86.5 % 09/08/19 04:08 Lymph % (Auto) 4.2 % 09/08/19 04:08 Mchenry % (Auto) 5.3 % 09/08/19 04:08 Eos % (Auto) 3.1 % 09/08/19 04:08 Baso % (Auto) 0.1 % 09/08/19 04:08 Neut # (Auto) 7.66 10^3/uL (1.8 -7.7) 09/08/19 04:08 Lymph # (Auto) 0.4 10^3/uL (0.8- 4.8) L 09/08/19 04:08 Mchenry # (Auto) 0.5 10^3/uL (0.2- 0.9) 09/08/19 04:08 Eos # (Auto) 0.3 10^3/uL (0.0- 0.8) 09/08/19 04:08 Baso # (Auto) 0.0 10^3/uL (0.0- 0.1) 09/08/19 04:08 Nucleated RBC % (a uto) 0 % 09/08/19 04:08 Nucleated RBCs # 0.0 /100WBC 09/08/19 04:08 Differential Comme nt Yes 09/07/19 13:30 PT 13.70 SECONDS (10 .5-13.3) H 09/05/19 04:18 INR 1.02 (0.8-1.2) 09/05/19 04:18 D-Dimer 3.58 ug/mIFEU (0- 0.59) H 09/05/19 04:18 Sodium 129 mmol/L (136-1 45) L 09/08/19 04:08 Potassium 4.0 mmol/L (3.5-5 .1) 09/08/19 04:08 Chloride 91 mmol/L (98-107 ) L 09/08/19 04:08 Carbon Dioxide 23 mmol/L (22-29) 09/08/19 04:08 Anion Gap 19.0 (5-19) 09/08/19 04:08 BUN 102 mg/dL (8-23) H* 09/08/19 04:08 Creatinine 11.1 mg/dL (0.7-1 .2) H* 09/08/19 04:08 GFR Calculation 4.6 mL/min (90-13 0) L 09/08/19 04:08 Glucose 113 mg/dL (65-115 ) 09/08/19 04:08 Calculated Osmolal ity 270 mOsm/kg (285- 295) L 09/08/19 04:08 Lactate 1.8 mmol/L (0.5-2 .2) 09/05/19 05:25 Uric Acid 6.1 mg/dL (3.4-7. 0) 09/05/19 04:18 Calcium 7.8 mg/dL (8.5-10 .5) L 09/08/19 04:08 Magnesium 1.9 mg/dL (1.7-2. 3) 09/08/19 04:08 Total Bilirubin 0.2 mg/dL (0.15-1 .2) 09/08/19 04:08 AST 26 U/L (0-40) 09/08/19 04:08 ALT 52 U/L (0-41) H 09/08/19 04:08 Alkaline Phosphata se 93 IU/L (40-130) 09/08/19 04:08 Lactate Dehydrogen ase 303 U/L (135-225) H 09/05/19 04:18 C-Reactive Protein 286.1 mg/L (0.0-4 .9) H 09/05/19 04:03 NT-Pro-B Natriuret Pep 10882 pg/mL (0-12 5) H 09/05/19 04:18 Total Protein 5.3 g/dL (6.6-8.7 ) L 09/08/19 04:08 Albumin 2.3 g/dL (3.5-5.2 ) L 09/08/19 04:08 Globulin 3.0 g/dL (1.3-4.6 ) 09/08/19 04:08 Lipase 34 U/L (13-60) 09/05/19 04:18 Procalcitonin 17.41 ng/mL (0-0. 5) H 09/05/19 04:03 TSH 1.43 uIU/mL (0.27 -4.20) 09/05/19 04:18 Urine Color Yellow (Yellow) 09/05/19 05:30 Urine Appearance Clear (CLEAR) 09/05/19 05:30 Urine pH 7 (5-7) 09/05/19 05:30 Ur Specific Gravit y 1.005 (1.005-1.0 30) 09/05/19 05:30 Urine Protein 1+ (Negative) H 09/05/19 05:30 Urine Glucose (UA) 2+ (Normal) 09/05/19 05:30 Urine Ketones Negative (Negati ve) 09/05/19 05:30 Urine Blood 3+ (Negative) H 09/05/19 05:30 Urine Nitrate Negative (Negati ve) 09/05/19 05:30 Urine Bilirubin Neg (NEGATIVE) 09/05/19 05:30 Urine Urobilinogen Norm mg/dL (Negat geno) 09/05/19 05:30 Ur Leukocyte Meghana ase Negative (Negati ve) 09/05/19 05:30 Urine RBC 5-10 /hpf (0-2) H 09/05/19 05:30 Urine WBC 0-4 /hpf (0-5) H 09/05/19 05:30 Ur Squamous Epith Cells 0-4 (0-5) H 09/05/19 05:30 Amorphous Sediment Not Reportable 09/05/19 05:30 Urine Bacteria Trace (NONE) 09/05/19 05:30 Ur Random Sodium 24 mmol/L 09/05/19 05:30 Urine Creatinine 94 mg/dL (39-259) 09/05/19 05:30 Fluid Color Pale yellow (PAL E YELLOW) 09/07/19 13:30 Fluid Appearance Clear (CLEAR) 09/07/19 13:30 Fluid WBC 585 /uL 09/07/19 13:30 Fluid RBC 1 10^3/uL (0-0) H 09/07/19 13:30 Fld Polynuclear WB Cs % 71.100 % 09/07/19 13:30 Fl Mononuclear % A uto 28.900 % 09/07/19 13:30 CSF Lyme IgG (Immb lot) Cancelled 09/05/19 Unknown CSF Lyme IgM (Immb lot) Cancelled 09/05/19 Unknown Peritoneal pH 8.0 09/05/19 12:00 Peritoneal Spec Gr avity 1.010 09/05/19 12:00 Peritoneal Tot Pro tein 0.5 g/dL 09/05/19 12:00 Peritoneal Albumin 0.2 g/dL 09/05/19 12:00 Peritoneal LDH 181.0 U/L 09/05/19 12:00 Peritoneal Glucose 115.0 mg/dL 09/05/19 12:00 Random Vancomycin < 4.0 ug/mL (20.0 -40.0) L 09/06/19 12:02 Lyme IgG Bands Pre sent Cancelled 09/05/19 Unknown Lyme IgM Bands Pre sent Cancelled 09/05/19 Unknown Nasal/Oral COVID-1 9 PCR See comment 09/05/19 06:45 Herpes Simplex Pretty rce Cancelled 09/05/19 Unknown HSV 1 DNA Cancelled 09/05/19 Unknown HSV 2 DNA Cancelled 09/05/19 Unknown Micro: Micro: Microbiology 09/05/19 05:25 Blood Culture - Fi nal Blood Streptococcus G roup C 09/05/19 12:00 Gram Stain - Final Peritoneal Fluid Body Fluid Culture - Final Streptococcus G roup C 09/07/19 08:19 Blood Culture - Pr eliminary Blood NEGATIVE TO NAN E 09/07/19 08:17 Blood Culture - Pr eliminary Blood NEGATIVE TO NAN E 09/08/19 04:08 Blood Culture - Pr eliminary Blood SPECIMEN [facility] 09/08/19 04:10 Blood Culture - Pr eliminary Blood SPECIMEN [facility] 09/07/19 13:30 Gram Stain - Final Peritoneal Fluid A&P Assessment and plan (1) Streptococcal bacteremia: In view of the bacterial peritonitis, most likely the streptococcal bacteremia is secondary to this. Possibility of endocarditis cannot be excluded. Clinically there is no other evidence of endocarditis. The transthoracic echocardiogram was a suboptimal quality. The valve leaflets could not visualized well. Status: Acute (2) Bacterial peritonitis: Apparently the patient grew the same bacteria both in the blood and the peritoneal fluid. He is on IV antibiotics. The white cell count seems to be coming down. Status: Acute (3) Nonischemic cardiomyopathy: Patient is known to have nonischemic cardiomyopathy. His LV ejection fraction was 47% by echocardiogram in 2014. Since then, he had echocardiograms done at [facility]. The results are not available. The current echocardiogram reveals significant drop in the LV systolic function. It is unclear at this time whether this is new or old. We will try to get the echocardiogram report from [facility], if possible Status: Acute (4) H/O endovascular stent graft for abdominal aortic aneurysm: She had the aortic stent graft placement, fenestrated stent placement at the [facility] in [facility]. He had a very complicated postprocedure course. His kidney function went down and he ended up in peritoneal dialysis since then. Status: Acute (5) End stage renal disease: Patient is on peritoneal dialysis . According to him, he never had a peritonitis. Status: Acute Additional A&P Information I discussed the patient in detail about the transesophageal echocardiogram, indication for the procedure and alternative options. Patient is somewhat undecided at this time whether he would like to go for this or not. The source of infection could be from the peritonitis. However since the echocardiogram was a suboptimal quality, a valve involvement cannot be excluded. The risk of aspiration, bleeding, soft tissue injury, perforation of the stomach/esophagus and other concomitant complications were explained to the patient in detail. The patient understood this well . He will let me know about his decision after discussing with his . The was present during the discussion. 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
--- NOTE | 2019-09-08 16:46 | PM.PN ---
Subjective Subjective: Interval history: afebrile, reports pain is beter controlled today, CT AP withotu any acute findings, peritoneal cell count reducing to 585. Lumbar spine Ct without any evidence of discitis. Blood cx negative from 09/06. Medications: Reviewed: Yes Vitals/I&O/Wt Last Vital Signs Temp 97.9 F 09/08/19 14:00 Pulse 82 09/08/19 16:00 Resp 18 09/08/19 16:00 BP 146/79 09/08/19 16:00 Pulse Ox 99 09/08/19 16:00 09/08/19 09/08/19 09/08/19 06:59 14:59 22:59 Intake Total 150 / 570 270 / 270 1000 / 1270 Output Total 175 / 2100 1600 / 1600 Balance -25 / -1530 -1330 / -1330 1000 / -330 Weight last 48 hrs Weight 725.748 kg Physical Exam Narrative: EXAM NARRATIVE: GEN: Awake, alert , asleep comfortably when first seen. 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 Data : 09/08/19 04:08 09/08/19 04:08 Micro: Microbiology 09/05/19 05:25 Blood Culture - Final Blood Streptococcus Group C 09/05/19 12:00 Gram Stain - Final Peritoneal Fluid Body Fluid Culture - Final Streptococcus Group C 09/07/19 08:19 Blood Culture - Preliminary Blood NEGATIVE TO DATE 09/07/19 08:17 Blood Culture - Preliminary Blood NEGATIVE TO DATE 09/08/19 04:08 Blood Culture - Preliminary Blood SPECIMEN COLLECTED 09/08/19 04:10 Blood Culture - Preliminary Blood SPECIMEN COLLECTED 09/07/19 13:30 Gram Stain - Final Peritoneal Fluid A&P Assessment and plan (1) Peritonitis associated with peritoneal dialysis: -Peritoneal cell count with significant WBC of 22,000 with predominant neutrophilia, positive cultures with group C streptococcus and same organism isolated from the blood, with overall picture consistent with bacterial peritonitis associated with peritoneal dialysis. Now with improving cell count to ~500 -Patient is currently on ceftriaxone empirically at the same, which is an appropriate antimicrobial regimen. Consider reducing the dose from 2 g IV every 12h to 2 g IV daily. -Group C strep is a common bacteria which exists as a commensal on the skin, oropharyngeal and GI sites. There is no overt external signs of infection at the catheter insertion site or of the tunnel at this present time. -Ct non contrast lumbar spine without evidence of abscess/discitis in the back. -Abdominal imaging with CT without any acute abdominal pathology -Currently appears to be clinically improving with abx treatment, optimistic that PD catheter can be salvaged. Prefer to continue systemic antibiotics rather than peritoneal antibiotics right given positive blood cultures and need to achieve good systemic levels. - TTE with poorly visualized valves, however given quick cleranace of cx with rx and likely source being bacterial peritonitis low concern for endovascular infection at this time, - Will need antibiotic treatment for at least 2 weeks from clearance of blood cultures, prefer to use Iv ceftriaxone 2gm iv q24h over oral agents given bacteremia Status: Acute Qualifiers: Encounter type: initial encounter Qualified Code(s): T85.71XA - Infection and inflammatory reaction due to peritoneal dialysis catheter, initial encounter (2) End stage renal disease: on PD, per nephrology Status: Acute (3) History of endovascular stent graft for abdominal aortic aneurysm (AAA): Status: Acute (4) Ischemic cardiomyopathy: Patient clinically is not in decompensated heart failure. Status: Acute Attestations Medical Necessity Statement*: per admitting physician Coding Level of Care Code Acute [employer] Certified Network Professional for [facility] Fwd Diagnoses Peritonitis associated with peritoneal dialysis T85.71XA Encounter type: initial encounter End stage renal disease N18.6 History of endovascular stent graft for abdominal aortic aneurysm (AAA) Z95.828 Ischemic cardiomyopathy I25.5
[2019-09-09] VITALS (25 sets, daily range): BP systolic 110–155; BP diastolic 55–79; PULSE 69–91; RESP 14–21; TEMP 36.6–36.9; O2SAT 93–100
[2019-09-09] MEDS: cefTRIAXone 2,000 MG in sodium chloride 0.9% (plus) 50 ML 100 MG IV ×2 (00:20→12:18)
[2019-09-09] MEDS: Dianeal low Ca w/2.5% dex 2,000 mL Bag 2000 ML INTRAPERIT (00:21)
[2019-09-09 04:23] LABS: Basophils % 0.1 %; Eosinophils # 0.3 10^3/uL (0.0-0.8); Eosinophils % 3.9 %; Hematocrit 27.5 % (42.0-52.0); Lymphocytes # 0.5 10^3/uL (0.8-4.8); Lymphocytes % 5.7 %; Mean Corpuscular HGB Conc 32.7 g/dL (30.0-36.0); Mean Corpuscular Hemoglobin 32.4 pg (28.0-34.0); Mean Corpuscular Volume 98.9 fL (80-94); Mean Platelet Volume 11.4 fL (7.4-10.4); Monocytes # 0.6 10^3/uL (0.2-0.9); Monocytes % 6.4 %; Neutrophils # 7.25 10^3/uL (1.8-7.7); Neutrophils % 82.9 %; Nucleated Red Blood Cells % 0 %; Platelet Count 95 10^3/cmm (130-400); Red Blood Count 2.78 10^6/uL (4.1-5.3); Red Cell Distribution Width 13.2 % (12.1-15.1); White Blood Count 8.8 10^3/uL (4.0-10.0)
[2019-09-09 05:09] LABS: Alanine Aminotransferase 42 U/L (0-41); Albumin Level 2.2 g/dL (3.5-5.2); Alkaline Phosphatase 81 IU/L (40-130); Aspartate Amino Transferase 24 U/L (0-40); Calcium 7.2 mg/dL (8.5-10.5); Carbon Dioxide 21 mmol/L (22-29); Chloride 91 mmol/L (98-107); Globulin 3.2 g/dL (1.3-4.6); Glomerular Filtration Rate 5.1 mL/min (90-130); Glucose 104 mg/dL (65-115); Magnesium 1.8 mg/dL (1.7-2.3); Osmolality Calculated 269 mOsm/kg (285-295); Sodium 129 mmol/L (136-145); Total Bilirubin 0.2 mg/dL (0.15-1.2); Total Protein 5.4 g/dL (6.6-8.7)
[2019-09-09 05:15] LABS: Blood Urea Nitrogen 88 mg/dL (8-23)
--- NOTE | 2019-09-09 06:58 | P.ANESASSM_ITS ---
Pre-Anesthetic Assessment Pre-Anesthetic Assessment: Height/Weight: Height 1.91 m Weight 725.748 kg Temp Pulse Resp BP Pulse Ox 98.0 F 69 17 129/59 93 09/09/19 05:00 09/09/19 05:00 09/09/19 05:00 09/09/19 05:00 09/09/19 05:00 Social: Social History: Alcohol (weekly) and Tobacco (quit) Exam: Pre-Anes Outpt Exam: alert, oriented x 3, clear to auscultation bilaterally and regular rate & rhythm Airway: Submandibular: WNL Cervical ROM: WNL MP: 2 Dentition: Other (mult missing) History/ROS: No significant history except as noted Pulmonary: Pulmonary: FONSECA CV/HEM: CV/HEM: CHF (Nonischemic cardiomyopathy) and HTN : : Chronic renal failure Comments: PD Hepatic: Hepatic: None reported GI: GI: None reported Metabolic: Metabolic: Hyperlipidemia Musc/skel: Musc/skel: Lower Back Pain and OA/DJD Neuropsych: Neuropsych: None reported Anesthetic Plan: ASA status: 4 Anesthesia: Anesthesia Evaluation and MAC Risk of > 500 ml blood loss (7ml/kg in children): No Meds/Allergies Current Medications: Current Medications Generic Name Dose Route Start Last Admin Trade Name Freq PRN Reason Stop Dose Admin Hydrocodone Bitart /Acetaminophen 1 tab 09/06/19 07:44 09/07/19 20:28 [place] 5-325 Mg PO 1 tab Q4H PRN Administration MODERATE PAIN Hydrocodone Bitart /Acetaminophen 1 - 2 tab 09/07/19 08:15 09/08/19 21:45 [place] 5-325 Mg PO 2 tab Q4H PRN Administration MODERATE TO SEVER E PAIN Amlodipine Besylat e 10 mg 09/05/19 11:04 09/08/19 09:00 Norvasc PO 10 mg DAILY YARED Administration Aspirin 325 mg 09/05/19 11:04 09/08/19 09:00 Aspirin PO 325 mg DAILY YARED Administration Atorvastatin Calci um 40 mg 09/05/19 11:04 09/08/19 09:00 Lipitor PO 40 mg DAILY YARED Administration Carisoprodol 350 mg 09/06/19 17:01 09/08/19 21:42 Soma PO 350 mg Q8H PRN Administration PAIN Ceftriaxone Sodium 2,000 mg/ 50 mls @ 100 mls/ hr 09/06/19 12:00 09/09/19 00:20 Sodium Chloride IV 100 mls/hr Q12H YARED Administration Protocol Metoprolol Tartrat e 50 mg 09/05/19 18:00 09/08/19 17:35 Lopressor PO 50 mg BID YARED Administration Peritoneal Dialysi s Solution 2,000 ml 09/08/19 18:00 09/09/19 06:07 Dianeal Low Ca W /2.5% Dex INTRAPERIT Not Given 0000,0600,1800,21 00 [facility] PFSH Anesthesia PFSH: Medical History Abdominal aortic aneurysm (AAA) Anemia Bacterial peritonitis Cardiomyopathy Continuous ambulatory peritoneal dialysis status End stage renal disease Hodgkins lymphoma Finished chemotherapy 2005 currently in remission HTN (hypertension) Hyperlipidemia Lymphoma Nonischemic cardiomyopathy PVCs (premature ventricular contractions) Right renal artery stenosis Streptococcal bacteremia Tobacco abuse Surgical History H/O endovascular stent graft for abdominal aortic aneurysm History of endovascular stent graft for abdominal aortic aneurysm (AAA) S/P cataract extraction S/P eye surgery S/P tonsillectomy Family History Other Cancer Social History Smoking and tobacco status: former smoker Alcohol intake: current Alcohol intake frequency: few times a week Household members: spouse Marital status: service: No Current occupational status: retired 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 CBC & Chem 7: 09/09/19 03:25 09/09/19 03:25 Other Labs: Laboratory Results - last 48 hr 09/05/19 09/05/19 09/05/19 06:45 Unknown Unknown WBC RBC Hgb Hct MCV MCH MCHC RDW Plt Count MPV Neut % (Auto) Lymph % (Auto) [place] % (Auto) Eos % (Auto) Baso % (Auto) Neut # (Auto) Lymph # (Auto) [place] # (Auto) Eos # (Auto) Baso # (Auto) Nucleated RBC % (auto) Nucleated RBCs # Differential Comment Sodium Potassium Chloride Carbon Dioxide Anion Gap BUN Creatinine GFR Calculation Glucose Calculated Osmolality Calcium Magnesium Total Bilirubin AST ALT Alkaline Phosphatase Total Protein Albumin Globulin Fluid Color Fluid Appearance Fluid WBC Fluid RBC Fld Polynuclear WBCs % Fl Mononuclear % Auto CSF Lyme IgG (Immblot) Cancelled CSF Lyme IgM (Immblot) Cancelled Lyme IgG Bands Present Cancelled Lyme IgM Bands Present Cancelled Nasal/Oral COVID-19 PCR See comment Herpes Simplex Source Cancelled HSV 1 DNA Cancelled HSV 2 DNA Cancelled 09/07/19 09/07/19 09/07/19 07:50 07:50 13:30 WBC 12.8 H RBC 2.88 L Hgb 9.3 L Hct 28.1 L MCV 97.6 H MCH 32.3 MCHC 33.1 RDW 13.0 Plt Count 104 L MPV 11.1 H Neut % (Auto) 89.9 Lymph % (Auto) 3.3 [place] % (Auto) 4.8 Eos % (Auto) 1.3 Baso % (Auto) 0.1 Neut # (Auto) 11.46 H Lymph # (Auto) 0.4 L [place] # (Auto) 0.6 Eos # (Auto) 0.2 Baso # (Auto) 0.0 Nucleated RBC % (auto) 0 Nucleated RBCs # 0.0 Differential Comment Yes Sodium 128 L Potassium 4.0 Chloride 90 L Carbon Dioxide 21 L Anion Gap 21.0 H BUN 99 H* Creatinine 10.6 H* GFR Calculation 4.9 L Glucose 97 Calculated Osmolality 267 L Calcium 7.0 L Magnesium Total Bilirubin 0.2 AST 39 ALT 67 H Alkaline Phosphatase 55 Total Protein 5.3 L Albumin 2.2 L Globulin 3.1 Fluid Color Pale yellow Fluid Appearance Clear Fluid WBC 585 Fluid RBC 1 H Fld Polynuclear WBCs % 71.100 Fl Mononuclear % Auto 28.900 CSF Lyme IgG (Immblot) CSF Lyme IgM (Immblot) Lyme IgG Bands Present Lyme IgM Bands Present Nasal/Oral COVID-19 PCR Herpes Simplex Source HSV 1 DNA HSV 2 DNA 09/08/19 09/08/19 09/09/19 04:08 04:08 03:25 WBC 8.9 8.8 RBC 2.99 L 2.78 L Hgb 9.7 L 9.0 L Hct 29.4 L 27.5 L MCV 98.3 H 98.9 H MCH 32.4 32.4 MCHC 33.0 32.7 RDW 13.1 13.2 Plt Count 90 L 95 L MPV 11.2 H 11.4 H Neut % (Auto) 86.5 82.9 Lymph % (Auto) 4.2 5.7 [place] % (Auto) 5.3 6.4 Eos % (Auto) 3.1 3.9 Baso % (Auto) 0.1 0.1 Neut # (Auto) 7.66 7.25 Lymph # (Auto) 0.4 L 0.5 L [place] # (Auto) 0.5 0.6 Eos # (Auto) 0.3 0.3 Baso # (Auto) 0.0 0.0 Nucleated RBC % (auto) 0 0 Nucleated RBCs # 0.0 0.0 Differential Comment Sodium 129 L Potassium 4.0 Chloride 91 L Carbon Dioxide 23 Anion Gap 19.0 BUN 102 H* Creatinine 11.1 H* GFR Calculation 4.6 L Glucose 113 Calculated Osmolality 270 L Calcium 7.8 L Magnesium 1.9 Total Bilirubin 0.2 AST 26 ALT 52 H Alkaline Phosphatase 93 Total Protein 5.3 L Albumin 2.3 L Globulin 3.0 Fluid Color Fluid Appearance Fluid WBC Fluid RBC Fld Polynuclear WBCs % Fl Mononuclear % Auto CSF Lyme IgG (Immblot) CSF Lyme IgM (Immblot) Lyme IgG Bands Present Lyme IgM Bands Present Nasal/Oral COVID-19 PCR Herpes Simplex Source HSV 1 DNA HSV 2 DNA 09/09/19 03:25 WBC RBC Hgb Hct MCV MCH MCHC RDW Plt Count MPV Neut % (Auto) Lymph % (Auto) [place] % (Auto) Eos % (Auto) Baso % (Auto) Neut # (Auto) Lymph # (Auto) [place] # (Auto) Eos # (Auto) Baso # (Auto) Nucleated RBC % (auto) Nucleated RBCs # Differential Comment Sodium 129 L Potassium 4.0 Chloride 91 L Carbon Dioxide 21 L Anion Gap 21.0 H BUN 88 H* Creatinine 10.2 H* GFR Calculation 5.1 L Glucose 104 Calculated Osmolality 269 L Calcium 7.2 L Magnesium 1.8 Total Bilirubin 0.2 AST 24 ALT 42 H Alkaline Phosphatase 81 Total Protein 5.4 L Albumin 2.2 L Globulin 3.2 Fluid Color Fluid Appearance Fluid WBC Fluid RBC Fld Polynuclear WBCs % Fl Mononuclear % Auto CSF Lyme IgG (Immblot) CSF Lyme IgM (Immblot) Lyme IgG Bands Present Lyme IgM Bands Present Nasal/Oral COVID-19 PCR Herpes Simplex Source HSV 1 DNA HSV 2 DNA Micro: Microbiology 09/09/19 06:12 Blood Culture - Preliminary Blood SPECIMEN COLLECTED 09/08/19 04:08 Blood Culture - Preliminary Blood NEGATIVE TO DATE 09/08/19 04:10 Blood Culture - Preliminary Blood NEGATIVE TO DATE 09/09/19 03:25 Blood Culture - Preliminary Blood SPECIMEN COLLECTED 09/05/19 05:25 Blood Culture - Final Blood Streptococcus Group C 09/05/19 12:00 Gram Stain - Final Peritoneal Fluid Body Fluid Culture - Final Streptococcus Group C 09/07/19 08:19 Blood Culture - Preliminary Blood NEGATIVE TO DATE 09/07/19 08:17 Blood Culture - Preliminary Blood NEGATIVE TO DATE Cardiac Studies: 2 No Data to Display
--- NOTE | 2019-09-09 07:55 | PC.NURSE ---
PD 2000 ml PD removed from patient, pale yellow, clear, no foul odor. Patient instilled self. No further needs identified at this time.
--- NOTE | 2019-09-09 08:01 | PC.NURSE ---
Telenephrology at bedside. Plan to collect another peritoneal dialysis specimen when draining patient at 10. Patient does not have any further needs identified at this time.
--- NOTE | 2019-09-09 08:21 | PM.PN ---
Subjective Subjective: Interval history: PD going well with ins meeting outs Clear, no abdo pain afebrile, reports pain is beter controlled today, CT AP withotu any acute findings, peritoneal cell count reducing to 585. Lumbar spine Ct without any evidence of discitis. Blood cx negative from 09/06. Medications: Reviewed: Yes Vitals/I&O/Wt Last Vital Signs Temp 98.1 F 09/09/19 07:00 Pulse 83 09/09/19 07:00 Resp 18 09/09/19 07:00 BP 143/68 09/09/19 07:00 Pulse Ox 97 09/09/19 07:00 09/08/19 09/09/19 09/09/19 22:59 06:59 14:59 Intake Total 1100 / 1420 0 / 1420 Output Total 100 / 1700 0 / 1700 1999 Balance 1000 / -280 0 / -280 -1999 / -1999 Weight last 48 hrs Weight 725.748 kg Physical Exam Narrative: EXAM NARRATIVE: Healthy looking male lying comfortably in his bed Oriented to himself Confusion spells noted in the ER No focal deficit He is moving all of his extremities without any discomfort No facial asymmetry Kerning signs positive, Brudzinski sign positive, [place] S1-S2 tachycardia Abdomen soft nontender nondistended peritoneal dialysis catheter site nontender no drainage Lower extremity no edema gangrene ulcer Right knee pain, right ankle pain no active signs of gout flare No petechial rash No active respiratory distress Const: COMMON NORMALS: no acute distress, healthy appearing and alert; negative for patient oriented x3 EXAM LIMITATIONS: altered mental status GENERAL APPEARANCE: cooperative ORIENTATION/CONSCIOUSNESS: Yes oriented to person and Yes oriented to place; not oriented to time HENMT: COMMON NORMALS: normocephalic and atraumatic HEAD & SCALP: normocephalic and atraumatic Eye: COMMON NORMALS: Equal, round and reactive pupils present and EOMs intact bilaterally PUPIL: Yes Equal, round and reactive pupils present Neck/C-Spine: COMMON NORMALS: full ROM and supple Chest: COMMONS NORMALS: normal inspection of the chest and normal palpation of entire chest wall Resp: COMMON NORMALS: normal respiratory effort, No retractions, No use of accessory muscles and clear to auscultation bilaterally AUSCULTATION: clear to auscultation bilaterally Cardio: COMMON NORMALS: regular rhythm and No murmurs present (Cardio) RATE: tachycardic RHYTHM: regular rhythm GI: COMMON NORMALS: Normal to inspection, nondistended, normoactive bowel sounds present, Soft to palpation, non-tender and no masses PALPATION: Yes Soft to palpation OTHER: Peritoneal dialysis cath in place with no signs of cellulitis Extremity: COMMON NORMALS: normal to inspection and full ROM Neuro: COMMON NORMALS: moves all extremities and no focal motor deficits; negative for patient oriented x3 SENSORIUM/ORIENTATION: Yes alert, Yes oriented to person, Yes oriented to place and No oriented to time Psych: COMMON NORMALS: mental status grossly normal, Normal thought process present and cooperative THOUGHT PROCESS: Normal thought process present Skin: COMMON NORMALS: no rashes or lesions noted and no wounds GENERAL SKIN EXAM: no rashes or lesions noted Data : 09/09/19 03:25 09/09/19 03:25 Micro: Microbiology 09/09/19 06:12 Blood Culture - Preliminary Blood SPECIMEN COLLECTED 09/08/19 04:08 Blood Culture - Preliminary Blood NEGATIVE TO DATE 09/08/19 04:10 Blood Culture - Preliminary Blood NEGATIVE TO DATE 09/09/19 03:25 Blood Culture - Preliminary Blood SPECIMEN COLLECTED 09/05/19 05:25 Blood Culture - Final Blood Streptococcus Group C 09/05/19 12:00 Gram Stain - Final Peritoneal Fluid Body Fluid Culture - Final Streptococcus Group C 09/07/19 08:19 Blood Culture - Preliminary Blood NEGATIVE TO DATE 09/07/19 08:17 Blood Culture - Preliminary Blood NEGATIVE TO DATE A&P Additional A&P Information 1. ESRD - cont outpatient PD prescription with 2L exchanges, 2.5/4.25% alternating fluids but will switch to all 2.5% solutions - dose meds for eGFR < 15 on PD 2. Strep C sepsis, bacteremia, peritonitis - on Rocephin iv - cultures are now negative - PD WBCs coming down showing clinical response to Abx; will repeat levels today - CT scan neg for intrabdo abscess - continue for the time being 3. Hemodynamics - Bp looks good, will monitor throughout his hospital stay and titrate meds 4. Chronic ESRD issues to be addressed in outpatient clinic - ie anemia, sec hyperPTHism etc - cont home meds inc binder therapy 5. Thrombocytopenia - remains stable at 95 - ok to continue IP heparin for now but may have to hold if this gets much worse 6. Anemia of ESRD - slightly below goal; monitor for now. EPO and iron as outpatient Attestations Medical Necessity Statement*: eval for PD mgmt Coding Level of Care Code Acute Tax Associate Attorney for Penelopeg Fwchanel
--- NOTE | 2019-09-09 08:38 | P.PN_ITS ---
Subjective Subjective: Interval history: Patient reports further improving. He reports that his low back pain is better and he did not require muscle relaxant on analgesic last night. His platelets appear to plateau. He is echocardiogram windows were not good for evaluation for endocarditis therefore patient is planned to have SOBIA this morning. Medications: Reviewed: Yes Vitals/I&O/Wt Last Vital Signs Temp 98.1 F 09/09/19 07:00 Pulse 83 09/09/19 07:00 Resp 18 09/09/19 07:00 BP 143/68 09/09/19 07:00 Pulse Ox 97 09/09/19 07:00 09/08/19 09/09/19 09/09/19 22:59 06:59 14:59 Intake Total 1100 / 1420 0 / 1420 Output Total 100 / 1700 0 / 1700 1999 / 1999 Balance 1000 / -280 0 / -280 -1999 / -1999 Weight last 48 hrs Weight 725.748 kg Physical Exam Const: COMMON NORMALS: no acute distress and patient oriented x3 Resp: COMMON NORMALS: normal respiratory effort and clear to auscultation bilaterally AUSCULTATION: clear to auscultation bilaterally Cardio: COMMON NORMALS: regular rate, regular rhythm and S2 normal heart sound present RATE: regular rate RHYTHM: regular rhythm HEART SOUNDS: S2 normal heart sound present OTHER: No lower extremity edema GI: COMMON NORMALS: Normal to inspection, nondistended, normoactive bowel so unds present, Soft to palpation and non-tender PALPATION: Yes Soft to palpation OTHER: Minimally tender throughout. Peritoneal dialysis catheter site is clean. Neuro: COMMON NORMALS: patient oriented x3 and no focal motor deficits Data : 09/09/19 03:25 09/09/19 03:25 Micro: Microbiology 09/09/19 06:12 Blood Culture - Preliminary Blood SPECIMEN COLLECTED 09/08/19 04:08 Blood Culture - Preliminary Blood NEGATIVE TO DATE 09/08/19 04:10 Blood Culture - Preliminary Blood NEGATIVE TO DATE 09/09/19 03:25 Blood Culture - Preliminary Blood SPECIMEN COLLECTED 09/05/19 05:25 Blood Culture - Final Blood Streptococcus Group C 09/05/19 12:00 Gram Stain - Final Peritoneal Fluid Body Fluid Culture - Final Streptococcus Group C 09/07/19 08:19 Blood Culture - Preliminary Blood NEGATIVE TO DATE 09/07/19 08:17 Blood Culture - Preliminary Blood NEGATIVE TO DATE A&P Assessment and plan (1) Peritonitis associated with peritoneal dialysis: -Peritoneal cell count with significant WBC of 22,000 with predominant neutrophilia, positive cultures with group C streptococcus and same organism isolated from the blood, with overall picture consistent with bacterial peritonitis associated with peritoneal dialysis. Now with improving cell count to ~500 -Patient is currently on ceftriaxone empirically at the same, which is an appropriate antimicrobial regimen. Consider reducing the dose from 2 g IV every 12h to 2 g IV daily. -Group C strep is a common bacteria which exists as a commensal on the skin, oropharyngeal and GI sites. There is no overt external signs of infection at the catheter insertion site or of the tunnel at this present time. -Ct non contrast lumbar spine without evidence of abscess/discitis in the back. -Abdominal imaging with CT without any acute abdominal pathology -Currently appears to be clinically improving with abx treatment, optimistic that PD catheter can be salvaged. Prefer to continue systemic antibiotics rather than peritoneal antibiotics right given positive blood cultures and need to achieve good systemic levels. - TTE with poorly visualized valves, however given quick cleranace of cx with rx and likely source being bacterial peritonitis low concern for endovascular infection at this time, - Will need antibiotic treatment for at least 2 weeks from clearance of blood cultures, prefer to use Iv ceftriaxone 2gm iv q24h over oral agents given bacteremia Status: Acute Qualifiers: Encounter type: initial encounter Qualified Code(s): T85.71XA - Infection and inflammatory reaction due to peritoneal dialysis catheter, initial encounter (2) End stage renal disease: on PD, per nephrology Status: Acute (3) History of endovascular stent graft for abdominal aortic aneurysm (AAA): Status: Acute (4) Ischemic cardiomyopathy: Patient clinically is not in decompensated heart failure. Status: Acute Additional A&P Information Acute febrile episode. This appears to be secondary to atypical/viral cause. Peritonitis cannot be ruled out Confusion. Resolved. Rule out COVID because of lymphocytopenia Considering altered mental status and febrile episode I would treat him for meningoencephalitis His acute altered mental status could very well be secondary to hyponatremia, no active source of fever has been identified We will obtain lumbar puncture Urinalysis not showing signs of UTI CT head unremarkable I would request pro calcitonin, d-dimer, ferritin, CRP meningoencephalitis felt unlikely. Sepsis criteria met with fever tachycardia tachypnea. Viral syndrome versus possible peritonitis considered Patient received bolus in the ER I would start antimicrobials Blood cultures taken in the ER Awaiting lumbar puncture End-stage renal disease peritoneal dialysis dependent Will consult nephrology because he will be getting multiple antimicrobials Hyponatremia: Previous sodium seems to be normal Monitor in ICU Currently looks dehydrated We will start him on normal saline at 30 cc/h with goal correction 6 mEq per 24- hour Full code DVT prophylaxis would avoid for now because he would require lumbar puncture Renal dialysis diet PLAN: Awaiting SOBIA this morning. Discussed with Dr. Maria yesterday who will perform it. Continue ceftriaxone. Continue peritoneal dialysis. Hopefully we can save catheter. Continue physical therapy. Will transfer patient to medical colón after SOBIA. Will request PICC line placement. Attestations Medical Necessity Statement*: Patient with peritonitis, bacteremia and concern for endocarditis requires close inpatient monitoring and treatment. Time Spent in Patient Care: 16 - 35 minutes Coding Level of Care Code Acute Echo Technologist for Chg Fwd Diagnoses Peritonitis associated with peritoneal dialysis T85.71XA Encounter type: initial encounter End stage renal disease N18.6 History of endovascular stent graft for abdominal aortic aneurysm (AAA) Z95.828 Ischemic cardiomyopathy I25.5
--- NOTE | 2019-09-09 09:50 | PC.NURSE ---
Visiting Exception Dr. Raza gave permission for patient's , Vinicius, and sister, Deyanira, to alternate days for visiting from 4-6 pm. Only one person can come during visiting hours each day. Security has been notified.
--- NOTE | 2019-09-09 10:00 | PC.NURSE ---
PD Peritoneal dialysis emptied at 0940 to adhere to patient's home schedule. 1900 ml removed, pale yellow, clear, no odor. Patient tolerated well.
--- NOTE | 2019-09-09 10:30 | PC.NURSE ---
SOBIA Time out performed 1000. Patient verification in agreement with all present: PIO Morales; Cande NEMO Equipment; Dr. Maria; Kyle Gill RN Patient confirmed asleep 1005. Scope inserted 1007. Procedure end at 1020. Patient tolerated well. VSS throughout procedure, see flowsheet. Patient gag reflex has returned. Patient A&O. Nurse to continue to monitor.
[2019-09-09] MEDS: amlodipine 10 mg Tablet PO (11:18)
[2019-09-09] MEDS: aspirin 325 mg Tablet PO (11:18)
[2019-09-09] MEDS: metoprolol tartrate 50 mg Tablet PO ×2 (11:19→19:18)
[2019-09-09] MEDS: HYDROcodone-acetaminophen 5-325 mg Tablet 1 TAB PO ×2 (11:27→20:12)
--- NOTE | 2019-09-09 11:43 | PM.PN ---
Subjective Subjective: Interval history: Patient is feeling okay. Remaining afebrile. No chest pain or shortness of breath. He underwent a transesophageal echocardiogram today. He was found to have an LV ejection fraction around 40%. There was an echodensity at the base of the anterior mitral leaflet on the atrial side, measuring 0.7 x 0.5 cm in size with some mobility. This may suggest healed vegetation versus a left atrial myxoma. Medications: Reviewed: Yes Medication Review Details: Current Medications Hydrocodone Bitart/Acetaminophen ([place] 5-325 Mg) 1 tab PO Q4H PRN PRN Reason: MODERATE PAIN Last Admin: 09/09/19 11:27 Dose: 1 tab Documented by: Hydrocodone Bitart/Acetaminophen ([place] 5-325 Mg) 1 - 2 tab PO Q4H PRN PRN Reason: MODERATE TO SEVERE PAIN Last Admin: 09/08/19 21:45 Dose: 2 tab Documented by: Amlodipine Besylate (Norvasc) 10 mg PO DAILY [facility] Last Admin: 09/09/19 11:18 Dose: 10 mg Documented by: Aspirin (Aspirin) 325 mg PO DAILY [facility] Last Admin: 09/09/19 11:18 Dose: 325 mg Documented by: Atorvastatin Calcium (Lipitor) 40 mg PO DAILY [facility] Last Admin: 09/08/19 09:00 Dose: 40 mg Documented by: Carisoprodol (Soma) 350 mg PO Q8H PRN PRN Reason: PAIN Last Admin: 09/08/19 21:42 Dose: 350 mg Documented by: Ceftriaxone Sodium 2,000 mg/ (Sodium Chloride) 50 mls @ 100 mls/hr IV Q12H [facility]; Protocol Last Admin: 09/09/19 00:20 Dose: 100 mls/hr Documented by: Metoprolol Tartrate (Lopressor) 50 mg PO BID [facility] Last Admin: 09/09/19 11:19 Dose: 50 mg Documented by: Peritoneal Dialysis Solution (Dianeal Low Ca W/2.5% Dex) 2,000 ml INTRAPERIT 0000,0600,1800,2100 [facility] Last Admin: 09/09/19 06:07 Dose: Not Given Documented by: Vitals/I&O/Wt Last Vital Signs Temp 98.1 F 09/09/19 07:00 Pulse 83 09/09/19 07:00 Resp 18 09/09/19 07:00 BP 143/68 09/09/19 07:00 Pulse Ox 97 09/09/19 07:00 09/08/19 09/09/19 09/09/19 22:59 06:59 14:59 Intake Total 1100 / 1420 0 / 1420 Output Total 100 / 1700 0 / 1700 2225 / 2225 Balance 1000 / -280 0 / -280 -2225 / -2225 Weight last 48 hrs Weight 180 lb Weight 1600 lb Physical Exam Narrative: EXAM NARRATIVE: GENERAL: The patient is alert and oriented times three. Not in any acute distress. Hard of hearing HEENT: Mild pallor, icterus or lymphadenopathy. NECK: Trachea appears to be central. No masses noted. No JVD or thyromegaly appreciated. No carotid bruit. RESPIRATORY: Chest is symmetrical. No intercostals muscle retraction or any accessory muscle activation. There is no chest wall tenderness. Breath sounds are heard bilaterally. No rales or rhonchi heard. No evidence of any consolidation. BREASTS: Deferred. HEART: The PMI could not be palpated. No other palpable precordial events. First and second heart sounds are normal. No S3. No severe murmurs. No pericardial rub. ABDOMEN: No vessel pulsations or distention. No tenderness. No organomegaly appreciated. No abdominal bruit. Bowel sounds are normally heard. Peritoneal dialysis catheter in place with no signs of infection around the catheter. : Deferred. RECTAL: Deferred. LYMPHATIC: No lymphadenopathy noted in the neck region. EXTREMITIES: 1+ edema both lower extremities. No cyanosis. Peripheral pulses are palpable but weak bilaterally. MUSCULOSKELETAL: No acute joint deformities or swelling. SKIN: There are no significant scars or skin rash noted. NEUROPSYCHIATRIC: The patient is alert and oriented x3. No focal motor deficits. Data : 09/09/19 03:25 09/09/19 03:25 Micro: Microbiology 09/09/19 06:12 Blood Culture - Preliminary Blood SPECIMEN COLLECTED 09/08/19 04:08 Blood Culture - Preliminary Blood NEGATIVE TO DATE 09/08/19 04:10 Blood Culture - Preliminary Blood NEGATIVE TO DATE 09/09/19 03:25 Blood Culture - Preliminary Blood SPECIMEN COLLECTED 09/05/19 05:25 Blood Culture - Final Blood Streptococcus Group C 09/05/19 12:00 Gram Stain - Final Peritoneal Fluid Body Fluid Culture - Final Streptococcus Group C 09/07/19 08:19 Blood Culture - Preliminary Blood NEGATIVE TO DATE 09/07/19 08:17 Blood Culture - Preliminary Blood NEGATIVE TO DATE A&P Assessment and plan (1) Streptococcal bacteremia: The lesion on the atrial side of the mitral leaflet could be a vegetation. The other soft tissue masses cannot be excluded. In view of his peritonitis and bacteremia it may be appropriate to treated as endocarditis and then repeat the transthoracic echocardiogram after 6 weeks. Status: Acute (2) Bacterial peritonitis: Apparently the patient grew the same bacteria both in the blood and the peritoneal fluid. He is on IV antibiotics. The white cell count seems to be coming down. Status: Acute (3) Nonischemic cardiomyopathy: Left ventricular ejection fraction around 40% based on the SOBIA Status: Acute (4) H/O endovascular stent graft for abdominal aortic aneurysm: Aortic stent graft seems to be functioning okay. May continue on the current medications. Status: Acute (5) End stage renal disease: Patient is on peritoneal dialysis . Status: Acute Additional A&P Information The antibiotic treatment and further management as per ID/hospital service. Attestations Medical Necessity Statement*: Defer to the primary attending Coding Level of Care Code Acute Hybrid Derivatives Trader for Chg Fwd Diagnoses Streptococcal bacteremia R78.81; B95.5 Bacterial peritonitis K65.9 Nonischemic cardiomyopathy I42.8 H/O endovascular stent graft for abdominal aortic aneurysm Z95.828 End stage renal disease N18.6
[2019-09-09 11:48] LABS: Body Fluid WBC 117 /uL; RBC, Body Fluid 0 10^3/uL (0-0)
[2019-09-09 12:13] LABS: Color, Body Fluid COLORLESS (PALE YELLOW)
[2019-09-09 12:14] LABS: Apprearance, Body Fluid CLEAR (CLEAR); PATH Referral YES
--- NOTE | 2019-09-09 12:37 | PC.NURSE ---
Report called to MATT Patrick in [facility]. Nurse verbalized understanding of report and did not have any further questions. Patient currently working with PT.
--- NOTE | 2019-09-09 15:41 | PC.NURSE ---
recieved from icu via w/c into room 102 at 1400.report received.pt is alert and oriented x 4.denies pain at present.sr on monitor.pt oriented to room environment.instructed to notify staff for any pain,sob..or for any concerns at all.pt states he has his own schedule for peritoneal dialysis..and states he will use his own dialysate solution (2.5%).pt is independent in procedure...needs minor assist only.
--- NOTE | 2019-09-09 17:31 | USCV_ITS ---
Shola Quintana Age: 69 Gender: M : 1950 Exam Date: 09/09/2019 09:31 Ordering Phys: Tu Raza MD Technologist: Nely Padilla [place] [facility] [place]: endocarditis BP: / HR: Rhythm: Sinus Technical Quality: Good MEASUREMENTS (Male / Female) Normal Values Medications IV propofol instead with anesthesia service. Please refer to the anesthesia report. Complications None Proc. Components The SOBIA probe was passed into the posterior pharynx , mid- esophagus, distal esophagus. Because of some technical difficulties, the transgastric images were not obtained FINDINGS Left Ventricle Mildly dilated left ventricle with diffuse hypokinesia. Ejection fraction around 40%. A small mobile density was noted attached to the ventricular side of the anterior mitral annulus near to the LV outflow tract Right Ventricle Normal size and ejection fraction. No intracardiac masses noted. Right Atrium Normal size Left Atrium Mildly dilated. No intracavitary masses LA Appendage Normal contractility with no masses or thrombi IA Septum Appears to be intact with no evidence of any ASD or PFO by color flow Doppler examination or by saline contrast injection Mitral Valve An echodense globular mass measuring 7.2 x 5.4 mm attached to the base of the anterior mitral leaflet, close to the annulus with the limited mobility. trace to mild mitral valve regurgitation. Aortic Valve No masses or thrombi. Trileaflet Tricuspid Valve Trace to mild tricuspid valve regurgitation. Pulmonic Valve Structurally normal pulmonic valve. Pericardium No pericardial effusion. Aorta Normal aortic annulus size. CONCLUSIONS This exam was completed on a [employer] Aplio 500 with a PET-512MC Transesophogeal transducer. 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 Mildly dilated left ventricle and left atrium. No evidence of ASD or patent foramen ovale, based on the color flow Doppler examination/saline contrast injection. Trace to mild mitral and tricuspid regurgitation. No similar previous studies are available for comparison Dr. Raza was informed about these findings Dr Janene Maria MD FACC (Electronically Signed) Final Date: 09 September 2019 11:24 S
--- NOTE | 2019-09-09 19:21 | PC.NURSE ---
at 1810 pt did drain of his now empty peritoneum (he referred to this as ground zero drain ).a small amt of peritoneal fluid noted in drainage bag..approx 20 cc of straw colored drainage.pt then instilled his own supply of 2.5% dialysate solution,using own tubing supplies,utilizing aseptic technique.pt states this will dwell until approx 2114.pt tolerated procedure well.
[2019-09-09] MEDS: atorvastatin 40 mg Tablet PO (21:17)
[2019-09-10] VITALS (10 sets, daily range): BP systolic 138–154; BP diastolic 65–72; PULSE 72–89; RESP 16–85; TEMP 36.6–37.1; O2SAT 95–97
[2019-09-10] MEDS: cefTRIAXone 2,000 MG in sodium chloride 0.9% (plus) 50 ML 100 MG IV ×3 (00:39→23:02)
[2019-09-10] MEDS: sodium chloride 0.9% (100 ml) 100 ML 10 ML (01:00)
[2019-09-10] MEDS: HYDROcodone-acetaminophen 5-325 mg Tablet 1 TAB PO (01:38)
--- NOTE | 2019-09-10 02:18 | PC.NURSE ---
PT HAS BEEN RESTING WELL BETWEEN PD TX. PT C/O 07/18 PAIN IN LOWER BACK. PRN NORCO WAS GIVEN. WILL CONTINUE TO MONITOR.
[2019-09-10 05:31] LABS: Basophils % 0.1 %; Eosinophils # 0.4 10^3/uL (0.0-0.8); Eosinophils % 4.6 %; Hematocrit 27.7 % (42.0-52.0); Hemoglobin 8.9 g/dL (11.7-16.6); Lymphocytes # 0.5 10^3/uL (0.8-4.8); Lymphocytes % 5.9 %; Mean Corpuscular HGB Conc 32.1 g/dL (30.0-36.0); Mean Corpuscular Hemoglobin 31.9 pg (28.0-34.0); Mean Corpuscular Volume 99.3 fL (80-94); Mean Platelet Volume 11.5 fL (7.4-10.4); Monocytes # 0.5 10^3/uL (0.2-0.9); Monocytes % 6.1 %; Neutrophils % 82.3 %; Nucleated Red Blood Cells % 0 %; Platelet Count 97 10^3/cmm (130-400); Red Blood Count 2.79 10^6/uL (4.1-5.3); Red Cell Distribution Width 13.5 % (12.1-15.1)
[2019-09-10 05:51] LABS: Alanine Aminotransferase 41 U/L (0-41); Albumin Level 2.1 g/dL (3.5-5.2); Alkaline Phosphatase 78 IU/L (40-130); Anion Gap 19.1 (5-19); Aspartate Amino Transferase 26 U/L (0-40); Calcium 7.3 mg/dL (8.5-10.5); Carbon Dioxide 23 mmol/L (22-29); Chloride 90 mmol/L (98-107); Globulin 3.3 g/dL (1.3-4.6); Glomerular Filtration Rate 5.5 mL/min (90-130); Glucose 105 mg/dL (65-115); Magnesium 1.9 mg/dL (1.7-2.3); Osmolality Calculated 266 mOsm/kg (285-295); Potassium 4.1 mmol/L (3.5-5.1); Sodium 128 mmol/L (136-145); Total Bilirubin 0.2 mg/dL (0.15-1.2); Total Protein 5.4 g/dL (6.6-8.7)
--- NOTE | 2019-09-10 06:26 | P.PN_ITS ---
Subjective Subjective: Interval history: feels better. is draining well w/ PD. no n/v/calzada/cp. states fevers are improving Medications: Reviewed: Yes Medication Review Details: Current Medications Hydrocodone Bitart/Acetaminophen ([place] 5-325 Mg) 1 tab PO Q4H PRN PRN Reason: MODERATE PAIN Last Admin: 09/10/19 01:38 Dose: 1 tab Documented by: Hydrocodone Bitart/Acetaminophen ([place] 5-325 Mg) 1 - 2 tab PO Q4H PRN PRN Reason: MODERATE TO SEVERE PAIN Last Admin: 09/08/19 21:45 Dose: 2 tab Documented by: Amlodipine Besylate (Norvasc) 10 mg PO DAILY [facility] Last Admin: 09/09/19 11:18 Dose: 10 mg Documented by: Aspirin (Aspirin) 325 mg PO DAILY [facility] Last Admin: 09/09/19 11:18 Dose: 325 mg Documented by: Atorvastatin Calcium (Lipitor) 40 mg PO BEDTIME [facility] Last Admin: 09/09/19 21:17 Dose: 40 mg Documented by: Carisoprodol (Soma) 350 mg PO Q8H PRN PRN Reason: PAIN Last Admin: 09/09/19 21:17 Dose: 350 mg Documented by: Ceftriaxone Sodium 2,000 mg/ (Sodium Chloride) 50 mls @ 100 mls/hr IV Q12H [facility]; Protocol Last Infusion: 09/10/19 01:09 Dose: Infused Documented by: Metoprolol Tartrate (Lopressor) 50 mg PO BID [facility] Last Admin: 09/09/19 19:18 Dose: 50 mg Documented by: Peritoneal Dialysis Solution (Dianeal Low Ca W/2.5% Dex) 2,000 ml INTRAPERIT 0 000,0600,1800,2100 [facility] Last Admin: 09/10/19 05:25 Dose: Not Given Documented by: Vitals/I&O/Wt Last Vital Signs Temp 98 F 09/10/19 03:48 Pulse 85 09/10/19 03:48 Resp 24 H 09/10/19 03:48 BP 138/70 09/10/19 03:48 Pulse Ox 95 09/10/19 03:48 09/09/19 09/09/19 09/10/19 14:59 22:59 06:59 Intake Total 2170.000 / 2170.000 2480 / 4650.000 50 / 4700.000 Output Total 4125 / 4125 1999 / 6124 Balance -1955.000 / -1955.000 480 / -1475.000 50 / -1425.000 Weight last 48 hrs Weight 92.533 kg Weight 44.497 kg Weight 81.647 kg Weight 725.748 kg Physical Exam Narrative: EXAM NARRATIVE: examined w/ RN. VSS TOHONO O'ODHAM, comfortable in bed, NARD heent- nc/at, eomi, anicteric neck supple lungs clear b/l heart reg, +REYNA abd soft, nt, nd, +BS, + tenkoff catheter ext 1+ ankle edema neuro-a,a, o x 3 pulses + b/l Data : 09/10/19 04:56 09/10/19 04:56 Micro: Microbiology 09/09/19 03:25 Blood Culture - Preliminary Blood NEGATIVE TO DATE 09/07/19 13:30 Gram Stain - Final Peritoneal Fluid Body Fluid Culture - Preliminary 09/09/19 10:30 Gram Stain - Final Peritoneal Fluid 09/09/19 06:12 Blood Culture - Preliminary Blood SPECIMEN COLLECTED 09/08/19 04:08 Blood Culture - Preliminary Blood NEGATIVE TO DATE 09/08/19 04:10 Blood Culture - Preliminary Blood NEGATIVE TO DATE A&P Additional A&P Information 1. ESRD - cont outpatient PD prescription with 2L exchanges, 2.5/4.25% alternating fluids but in hospital pt has been using only 2.5% solutions - dose meds for eGFR < 15 on PD -cr improving 2. Strep C sepsis, bacteremia, peritonitis - on Rocephin iv - cultures are now negative - PD WBCs coming down showing clinical response to Abx; wbc down to117 - CT scan neg for intrabdo abscess -echo- EF of 40%, echodense globular mass 7.2 x 5.4 mm attached to the base of anterior mitral valve leaflet - q vegetation vs left atrial myxoma- per cardiol ogy to treat w/ 6 weeks of iv abx -renal okay w/ PICC line or central line for iv abx- as benefits outweigh risks 3. mild elevation of BP and low EF- consider starting ARB as per cardiology 4.anemia- no iv iron w/ bacteremia- can give epo 5. Thrombocytopenia - remains stable at 97 - ok to continue IP heparin for now 6. hyponatremia- may need more fluid off on PD- pt does not want to do extra exchange today 7. bone - mineral- metabolism- check phos and pth 8. hypoalbuminemia likely due to bacteremia- may need nepro- monitor 9. normal tsh 10. h/o aortic stent per cardiology Attestations Medical Necessity Statement*: Bacteremia as per hospitalist, ESRD Time Spent in Patient Care: 16 - 35 minutes Coding Level of Care Code Acute Strip Stamp Straightener for Joselyn Buchanan
[2019-09-10 06:29] LABS: Blood Urea Nitrogen 84 mg/dL (8-23)
--- NOTE | 2019-09-10 06:34 | PC.NURSE ---
PT ARREAPRED TO HAVE RESTED WITH EYES CLOSED. PT DENIES PAIN AT THIS TIME. PD WAS DONE AND PT HAD 2500 OUT. PT STATES THAT IS ONE OF THE BEST RESULTS. WILL GIVE REPORT TO ON COMING NURSE.
--- NOTE | 2019-09-10 08:25 | DCPLANNER ---
Pg 2 of IM updated and explained to pt. No questions, he is familiar with it as he said the last time he was hospitalized - he used it. Copy provided.
[2019-09-10] MEDS: aspirin 325 mg Tablet PO (10:07)
[2019-09-10] MEDS: b-complex-vitamin c Tablet 1 EACH PO (10:07)
[2019-09-10] MEDS: sevelamer 800 mg Tablet PO ×2 (10:07→17:18)
[2019-09-10] MEDS: metoprolol tartrate 50 mg Tablet PO ×2 (10:07→17:18)
[2019-09-10] MEDS: amlodipine 10 mg Tablet PO (10:07)
[2019-09-10] MEDS: epoetin alfa 10,000 unit/mL INJ 10000 UNIT SUBCUT (10:10)
--- NOTE | 2019-09-10 10:55 | PC.CHAP ---
Pastoral Care Encounter/Spiritual Assessment Type of Contact [] Declined building carpenter helper visit [] Patient/Family/Request visit [] Outpatient visit [] Follow-up visit [] Physician referral [] Code/Alert [X] Routine visit [] Staff referral [] Actively dying [X] Patient sleeping [] Family support [] [] Out of room [] Palliative care [] [] Receiving care in room [] Pre-surgical visit [] Trauma [] Long length of stay [] ICU visit [] Other: Relational/Emotional Strength [] Patient feels connected with others/family/visitors/staff [] Distress [] Loneliness/isolation [] Abandonment Spirituality of Patient [] Person of Mesha [] Attends Roman Catholic of their Mesha [] Believes in Prayer [] Reads Bible or Sabianism materials [] There are Spiritual issues to be addressed Straight Knife Cutter Machine Interventions [] Prayer [] Active listening [] Non-anxious presence [] Spiritual/emotional support [] Crisis/trauma care [] Spiritual counseling [] Bereavement support [] Provided bereavement packet [] Provided Bible/devotional materials [] Provided toy/stuffed animal, coloring book to patient or family member [] Provided Communion [] Anointing/Cache [] Salvation [] Completed spiritual assessment [] Other: Impact on Illness or Injury [] Angry [] Fearful [] Anxious [] Often cries [] Exhaustion [] Unable to work [] Unable to attend jainism [] Unable to walk/stand [] Unable to read [] Unable to drive [] Unable to eat/drink [] Unable to sleep [] Unable to be with family [] Patient intubated [] Other: Summary: I wanted to check in with him now that he is out of ICU, but pt was sleeping. Time spent with patient
--- NOTE | 2019-09-10 13:37 | P.PN_ITS ---
Subjective Subjective: Interval history: Patient reports feeling better. Continues to have lower back pain midline. Denies shortness of breath or chest pain. Denies abdominal pain. He had SOBIA yesterday. Discussed with Dr. Maria. Patient had concerning findings on mitral valve and endocarditis versus myxoma was suspected. Medications: Reviewed: Yes Medication Review Details: Current Medications Hydrocodone Bitart/Acetaminophen ([place] 5-325 Mg) 1 tab PO Q4H PRN PRN Reason: MODERATE PAIN Last Admin: 09/10/19 01:38 Dose: 1 tab Documented by: Hydrocodone Bitart/Acetaminophen ([place] 5-325 Mg) 1 - 2 tab PO Q4H PRN PRN Reason: MODERATE TO SEVERE PAIN Last Admin: 09/08/19 21:45 Dose: 2 tab Documented by: Amlodipine Besylate (Norvasc) 10 mg PO DAILY [facility] Last Admin: 09/09/19 11:18 Dose: 10 mg Documented by: Aspirin (Aspirin) 325 mg PO DAILY [facility] Last Admin: 09/09/19 11:18 Dose: 325 mg Documented by: Atorvastatin Calcium (Lipitor) 40 mg PO BEDTIME [facility] Last Admin: 09/09/19 21:17 Dose: 40 mg Documented by: Carisoprodol (Soma) 350 mg PO Q8H PRN PRN Reason: PAIN Last Admin: 09/09/19 21:17 Dose: 350 mg Documented by: Ceftriaxone Sodium 2,000 mg/ (Sodium Chloride) 50 mls @ 100 mls/hr IV Q12H [facility]; Protocol Last Infusion: 09/10/19 01:09 Dose: Infused Documented by: Metoprolol Tartrate (Lopressor) 50 mg PO BID [facility] Last Admin: 09/09/19 19:18 Dose: 50 mg Documented by: Peritoneal Dialysis Solution (Dianeal Low Ca W/2.5% Dex) 2,000 ml INTRAPERIT 0000,0600,1800,2100 [facility] Last Admin: 09/10/19 05:25 Dose: Not Given Documented by: Vitals/I&O/Wt Last Vital Signs Temp 98 F 09/10/19 03:48 Pulse 88 09/10/19 07:37 Resp 18 09/10/19 07:37 BP 147/71 09/10/19 07:37 Pulse Ox 97 09/10/19 07:37 09/09/19 09/10/19 09/10/19 22:59 06:59 14:59 Intake Total 2480 / 4650.000 50 / 4700.000 240 / 240 Output Total 1999 / 6124 225 / 225 Balance 480 / -1475.000 50 / -1425.000 15 / 15 Weight last 48 hrs Weight 91.535 kg Weight 92.533 kg Weight 44.497 kg Weight 81.647 kg Physical Exam Const: COMMON NORMALS: no acute distress and patient oriented x3 Resp: COMMON NORMALS: normal respiratory effort and clear to auscultation bilaterally AUSCULTATION: clear to auscultation bilaterally Cardio: COMMON NORMALS: regular rate, regular rhythm and S2 normal heart sound present RATE: regular rate RHYTHM: regular rhythm HEART SOUNDS: S2 normal heart sound present OTHER: No lower extremity edema GI: COMMON NORMALS: Normal to inspection, nondistended, normoactive bowel sounds present, Soft to palpation and non-tender PALPATION: Yes Soft to palpation OTHER: Minimally tender throughout. Peritoneal dialysis catheter site is clean. Neuro: COMMON NORMALS: patient oriented x3 and no focal motor deficits Data : 09/10/19 04:56 09/10/19 04:56 Micro: Microbiology 09/07/19 13:30 Gram Stain - Final Peritoneal Fluid Body Fluid Culture - Preliminary 09/09/19 10:30 Gram Stain - Final Peritoneal Fluid Body Fluid Culture - Preliminary 09/09/19 06:12 Blood Culture - Preliminary Blood NEGATIVE TO DATE 09/09/19 03:25 Blood Culture - Preliminary Blood NEGATIVE TO DATE A&P Assessment and plan (1) Peritonitis associated with peritoneal dialysis: -Peritoneal cell count with significant WBC of 22,000 with predominant neutrophilia, positive cultures with group C streptococcus and same organism isolated from the blood, with overall picture consistent with bacterial peritonitis associated with peritoneal dialysis. Now with improving cell count to ~500 -Patient is currently on ceftriaxone empirically at the same, which is an appropriate antimicrobial regimen. Consider reducing the dose from 2 g IV every 12h to 2 g IV daily. -Group C strep is a common bacteria which exists as a commensal on the skin, oropharyngeal and GI sites. There is no overt external signs of infection at the catheter insertion site or of the tunnel at this present time. -Ct non contrast lumbar spine without evidence of abscess/discitis in the back. -Abdominal imaging with CT without any acute abdominal pathology -Currently appears to be clinically improving with abx treatment, optimistic that PD catheter can be salvaged. Prefer to continue systemic antibiotics rather than peritoneal antibiotics right given positive blood cultures and need to achieve good systemic levels. - TTE with poorly visualized valves, however given quick cleranace of cx with rx and likely source being bacterial peritonitis low concern for endovascular infection at this time, - Will need antibiotic treatment for at least 2 weeks from clearance of blood cultures, prefer to use Iv ceftriaxone 2gm iv q24h over oral agents given bacteremia Status: Acute Qualifiers: Encounter type: initial encounter Qualified Code(s): T85.71XA - Infection and inflammatory reaction due to peritoneal dialysis catheter, initial encounter (2) End stage renal disease: on PD, per nephrology Status: Acute (3) History of endovascular stent graft for abdominal aortic aneurysm (AAA): Status: Acute (4) Ischemic cardiomyopathy: Patient clinically is not in decompensated heart failure. Status: Acute (5) Bacterial endocarditis: Present on admission. Blood growing strep group C. Status: Acute Additional A&P Information Acute febrile episode. This appears to be secondary to atypical/viral cause. P eritonitis cannot be ruled out Confusion. Resolved. Rule out COVID because of lymphocytopenia Considering altered mental status and febrile episode I would treat him for meningoencephalitis His acute altered mental status could very well be secondary to hyponatremia, no active source of fever has been identified We will obtain lumbar puncture Urinalysis not showing signs of UTI CT head unremarkable I would request pro calcitonin, d-dimer, ferritin, CRP meningoencephalitis felt unlikely. Sepsis criteria met with fever tachycardia tachypnea. Viral syndrome versus possible peritonitis considered Patient received bolus in the ER I would start antimicrobials Blood cultures taken in the ER Awaiting lumbar puncture End-stage renal disease peritoneal dialysis dependent Will consult nephrology because he will be getting multiple antimicrobials Hyponatremia: Previous sodium seems to be normal Monitor in ICU Currently looks dehydrated We will start him on normal saline at 30 cc/h with goal correction 6 mEq per 24- hour Full code DVT prophylaxis would avoid for now because he would require lumbar puncture Renal dialysis diet PLAN: Continue ceftriaxone for 6 weeks since his last positive blood culture. Awaiting PICC line placement. Since patient continues to have low back pain will proceed with WBC tagged scan tomorrow. Attestations Medical Necessity Statement*: Patient was highly suspected bacterial endocarditis continues to have new back pain requires close inpatient monitoring, treatment evaluation. Time Spent in Patient Care: 16 - 35 minutes Coding Level of Care Code Acute Road Patcher for Chg Fwd Diagnoses Peritonitis associated with peritoneal dialysis T85.71XA Encounter type: initial encounter End stage renal disease N18.6 History of endovascular stent graft for abdominal aortic aneurysm (AAA) Z95.828 Ischemic cardiomyopathy I25.5 Bacterial endocarditis I33.0
[2019-09-10] MEDS: HYDROcodone-acetaminophen 5-325 mg Tablet PO ×2 (17:21→23:02)
[2019-09-10] MEDS: atorvastatin 40 mg Tablet PO (20:42)
--- NOTE | 2019-09-10 21:00 | PC.NURSE ---
PT IS RESTING IN BED. PT DENIES PAIN AT THIS TIME. PT HAS PD SOLUTION ON HEATING PAD. WILL CONTINUE TO MONITOR.
[2019-09-11] VITALS (7 sets, daily range): BP systolic 122–154; BP diastolic 64–72; PULSE 73–97; RESP 16–18; TEMP 36.6–37.1; O2SAT 93–97
--- NOTE | 2019-09-11 02:02 | PC.NURSE ---
PT DID PD AT MIDNIGHT. COMPUTER DIDN'T SAVE. WILL CONTINUE TO MONITOR.
[2019-09-11 05:25] LABS: Basophils % 0.3 %; Eosinophils # 0.3 10^3/uL (0.0-0.8); Eosinophils % 4.9 %; Hematocrit 29.4 % (42.0-52.0); Hemoglobin 9.4 g/dL (11.7-16.6); Lymphocytes # 0.4 10^3/uL (0.8-4.8); Lymphocytes % 6.4 %; Mean Corpuscular Hemoglobin 32.8 pg (28.0-34.0); Mean Corpuscular Volume 102.4 fL (80-94); Mean Platelet Volume 11.2 fL (7.4-10.4); Monocytes # 0.4 10^3/uL (0.2-0.9); Monocytes % 5.5 %; Neutrophils # 5.61 10^3/uL (1.8-7.7); Neutrophils % 81.4 %; Nucleated Red Blood Cells % 0 %; Platelet Count 121 10^3/cmm (130-400); Red Blood Count 2.87 10^6/uL (4.1-5.3); Red Cell Distribution Width 13.3 % (12.1-15.1); White Blood Count 6.9 10^3/uL (4.0-10.0)
[2019-09-11 05:53] LABS: Alanine Aminotransferase 43 U/L (0-41); Albumin Level 2.2 g/dL (3.5-5.2); Alkaline Phosphatase 110 IU/L (40-130); Anion Gap 20.2 (5-19); Aspartate Amino Transferase 30 U/L (0-40); Blood Urea Nitrogen 81 mg/dL (8-23); Calcium 7.6 mg/dL (8.5-10.5); Carbon Dioxide 23 mmol/L (22-29); Chloride 91 mmol/L (98-107); Globulin 3.4 g/dL (1.3-4.6); Glomerular Filtration Rate 5.2 mL/min (90-130); Glucose 90 mg/dL (65-115); Iron 95 ug/dL (59-158); Magnesium 1.9 mg/dL (1.7-2.3); Osmolality Calculated 270 mOsm/kg (285-295); Potassium 4.2 mmol/L (3.5-5.1); Sodium 130 mmol/L (136-145); Total Bilirubin 0.2 mg/dL (0.15-1.2); Total Protein 5.6 g/dL (6.6-8.7)
[2019-09-11 06:07] LABS: Calcium 7.6 mg/dL (8.5-10.5); Parathyroid Hormone 298.3 pg/mL (15-65)
[2019-09-11 06:17] LABS: Ferritin 3775 ng/mL (30-400); Phosphorus 8.4 mg/dL (2.5-4.5); Unsaturated Iron Binding < 17 ug/dL (112-347)
[2019-09-11 06:18] LABS: Percent Saturation 84.8 % (20-50); Total Iron Binding Capacity 112 mcg/dl
[2019-09-11] MEDS: Dianeal low Ca w/2.5% dex 2,000 mL Bag 2000 ML INTRAPERIT ×4 (06:20→17:00)
--- NOTE | 2019-09-11 07:22 | P.PN_ITS ---
Subjective Subjective: Interval history: feels better. dec edema. no n/v/f/c/calzada/d/sob. complaints of constipation, poor fluid removal, [place] Medications: Reviewed: Yes Medication Review Details: Current Medications Hydrocodone Bitart/Acetaminophen ([place] 5-325 Mg) 1 - 2 tab PO Q4H PRN PRN Reason: MODERATE TO SEVERE PAIN Last Admin: 09/10/19 23:02 Dose: 1 tab Documented by: Amlodipine Besylate (Norvasc) 10 mg PO DAILY [facility] [place] Last Admin: 09/10/19 10:07 Dose: 10 mg Documented by: Aspirin (Aspirin) 325 mg PO DAILY [facility] [place] Last Admin: 09/10/19 10:07 Dose: 325 mg Documented by: Atorvastatin Calcium (Lipitor) 40 mg PO BEDTIME [facility] [place] Last Admin: 09/10/19 20:42 Dose: 40 mg Documented by: Carisoprodol (Soma) 350 mg PO Q8H PRN PRN Reason: PAIN Last Admin: 09/10/19 23:02 Dose: 350 mg Documented by: Epoetin Vj (Procrit) 10,000 unit SUBCUT WEEKLY [facility] [place] Last Admin: 09/10/19 10:10 Dose: 10,000 unit Documented by: Ceftriaxone Sodium 2,000 mg/ (Sodium Chloride) 50 mls @ 100 mls/hr IV Q12H [facility] [place]; Protocol Last Admin: 09/10/19 23:02 Dose: 100 mls/hr Documented by: Metoprolol Tartrate (Lopressor) 50 mg PO BID [facility] [place] Last Admin: 09/10/19 17:18 Dose: 50 mg Documented by: Multivitamins (Allbee-C) 1 each PO DAILY [facility] [place] Last Admin: 09/10/19 10:07 Dose: 1 each Documented by: Peritoneal Dialysis Solution (Dianeal Low Ca W/2.5% Dex) 2,000 ml INTRAPERIT 0000,0600,1800,2100 [facility] [place] Last Admin: 09/11/19 06:20 Dose: 2,000 ml Documented by: Sevelamer Carbonate (Renvela) 2,400 mg PO TIDWM [facility] [place] Vitals/I&O/Wt Last Vital Signs Temp 98.4 F 09/11/19 03:36 Pulse 82 09/11/19 03:36 Resp 18 09/11/19 03:36 BP 125/64 08/03/20 03:36 Pulse Ox 94 09/11/19 03:36 09/10/19 09/11/19 09/11/19 22:59 06:59 14:59 Intake Total 240 / 770 330 / 1100 Output Total 425 / 650 Balance -185 / 120 330 / 450 Weight last 48 hrs Weight 91.399 kg Weight 91.626 kg Weight 91.535 kg Weight 92.533 kg Weight 44.497 kg Weight 81.647 kg Physical Exam Narrative: EXAM NARRATIVE: examined w/ RN. VSS [place], comfortable in bed, NARD heent- nc/at, eomi, anicteric neck supple lungs clear b/l heart reg, +REYNA abd soft, nt, nd, +BS, + tenkoff catheter ext 1+ ankle edema neuro-a,a, o x 3 pulses + b/l Data : 09/11/19 04:28 09/11/19 04:28 Micro: Microbiology 09/07/19 13:30 Gram Stain - Final Peritoneal Fluid Body Fluid Culture - Preliminary 09/09/19 10:30 Gram Stain - Final Peritoneal Fluid Body Fluid Culture - Preliminary 09/09/19 06:12 Blood Culture - Preliminary Blood NEGATIVE TO DATE 09/09/19 03:25 Blood Culture - Preliminary Blood NEGATIVE TO DATE A&P Additional A&P Information 1. ESRD - pt is not draining well -will dec norvasc to 5 daily -will perform 5 exchanges a day- 4 x 3 hrs, and an overnight 6 hr dwell- with 2L exchanges, 2.5% solutions - dose meds for eGFR < 15 on PD -hopefully extra exchange can help na and cr -repeat PD fluid cell count 2. 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 HTN and low EF- consider starting ARB as per cardiology- will lower norvasc to 5 daily 4.anemia- no iv iron w/ bacteremia- can give epo. high ferritin- avoid iv iron 5. Thrombocytopenia - plts improved to 121 - ok to continue IP heparin for now 6. hyponatremia- may need more fluid off on PD-slowly improving. add extra PD exchange 7. bone - mineral- metabolism- hyperphosphatemia- i started renvela yesterday- inc dose to 2400 tid and f/u pth 8. hypoalbuminemia likely due to bacteremia- may need nepro- monitor 9. normal tsh 10. h/o aortic stent per cardiology Attestations Medical Necessity Statement*: bacteremia, esrd- d/c per hospitalist Time Spent in Patient Care: 16 - 35 minutes Coding Level of Care Code Acute Bailer Operators Supervisor for Joselyn Buchanan
[2019-09-11] MEDS: sevelamer 800 mg Tablet 2400 MG PO ×3 (08:39→17:00)
[2019-09-11] MEDS: metoprolol tartrate 50 mg Tablet PO ×2 (08:39→17:00)
[2019-09-11] MEDS: b-complex-vitamin c Tablet 1 EACH PO (08:39)
[2019-09-11] MEDS: amlodipine 10 mg Tablet 5 MG PO (08:40)
[2019-09-11] MEDS: aspirin 325 mg Tablet PO (08:40)
[2019-09-11] MEDS: lactulose oral liq 20 gm/30 mL UDC 30 GM PO (08:41)
--- NOTE | 2019-09-11 09:01 | XR_ITS ---
WS: [id number] PORTABLE CHEST HISTORY: Post PICC placement. COMPARISON: 09/05/2019 Right-sided PICC line is been placed. The tip overlies the RIGHT heart. Recommend retracting 1 to 2 c m. Visualized lungs are clear. No pneumothorax. Cardiac size: Normal. Mediastinum/Aorta: Mild atherosclerosis aorta. XR/XR chest 1V portable 19603 IMPRESSION: Interval placement of a RIGHT PICC line with tip projecting over the RIGHT hear t. Recommend retracting 1 to 2 cm.
--- NOTE | 2019-09-11 09:45 | PM.PN ---
Subjective Subjective: Interval history: Patient reports feeling better. Continues to have lower back pain midline. Denies shortness of breath or chest pain. Denies abdominal pain. He had SOBIA yesterday. Discussed with Dr. Maria. Patient had concerning findings on mitral valve and endocarditis versus myxoma was suspected. Vitals/I&O/Wt Last Vital Signs Temp 98.7 F 09/11/19 08:00 Pulse 97 09/11/19 08:00 Resp 18 09/11/19 08:00 BP 142/66 09/11/19 08:00 Pulse Ox 93 09/11/19 08:00 09/10/19 09/11/19 09/11/19 22:59 06:59 14:59 Intake Total 240 / 770 330 / 1100 240 / 240 Output Total 425 / 650 Balance -185 / 120 330 / 450 240 / 240 Weight last 48 hrs Weight 91.399 kg Weight 91.626 kg Weight 91.535 kg Weight 92.533 kg Weight 44.497 kg Weight 81.647 kg Physical Exam Narrative: EXAM NARRATIVE: General: No acute distress, AO x3 HEENT: PERRLA, pupils bilaterally equal and reactive Chest: Normal vesicular breath sounds, no added sounds, equal good air entry bilaterally CVS: S1-S2 regular, no murmurs, no tachycardia, no gallops, no rubs Abdomen: Soft, nontender, no organomegaly, bowel sounds present Neuro: No focal deficits, no facial deformity, AO x3, power 5/5 in all limbs Data : 09/11/19 04:28 09/11/19 04:28 Micro: Microbiology 09/07/19 13:30 Gram Stain - Final Peritoneal Fluid Body Fluid Culture - Preliminary 09/09/19 10:30 Gram Stain - Final Peritoneal Fluid Body Fluid Culture - Preliminary 09/09/19 06:12 Blood Culture - Preliminary Blood NEGATIVE TO DATE A&P Assessment and plan (1) Peritonitis associated with peritoneal dialysis: -Peritoneal cell count with significant WBC of 22,000 with predominant neutrophilia, positive cultures with group C streptococcus and same organism isolated from the blood, with overall picture consistent with bacterial peritonitis associated with peritoneal dialysis. Now with improving cell count to ~500 -Patient is currently on ceftriaxone empirically at the same, which is an appropriate antimicrobial regimen. Consider reducing the dose from 2 g IV every 12h to 2 g IV daily. -Group C strep is a common bacteria which exists as a commensal on the skin, oropharyngeal and GI sites. There is no overt external signs of infection at the catheter insertion site or of the tunnel at this present time. -Ct non contrast lumbar spine without evidence of abscess/discitis in the back. -Abdominal imaging with CT without any acute abdominal pathology -Currently appears to be clinically improving with abx treatment, optimistic that PD catheter can be salvaged. Prefer to continue systemic antibiotics rather than peritoneal antibiotics right given positive blood cultures and need to achieve good systemic levels. - TTE with poorly visualized valves, however given quick cleranace of cx with rx and likely source being bacterial peritonitis low concern for endovascular infection at this time, - Will need antibiotic treatment for at least 2 weeks from clearance of blood cultures, prefer to use Iv ceftriaxone 2gm iv q24h over oral agents given bacteremia Status: Acute Qualifiers: Encounter type: initial encounter Qualified Code(s): T85.71XA - Infection and inflammatory reaction due to peritoneal dialysis catheter, initial encounter (2) End stage renal disease: on PD, per nephrology Status: Acute (3) History of endovascular stent graft for abdominal aortic aneurysm (AAA): Status: Acute (4) Ischemic cardiomyopathy: Patient clinically is not in decompensated heart failure. Status: Acute (5) Bacterial endocarditis: Present on admission. Blood growing strep group C. Status: Acute Additional A&P Information Acute febrile episode. This appears to be secondary to atypical/viral cause. Peritonitis cannot be ruled out Confusion. Resolved. Rule out COVID because of lymphocytopenia Considering altered mental status and febrile episode I would treat him for meningoencephalitis His acute altered mental status could very well be secondary to hyponatremia, no active source of fever has been identified We will obtain lumbar puncture Urinalysis not showing signs of UTI CT head unremarkable I would request pro calcitonin, d-dimer, ferritin, CRP meningoencephalitis felt unlikely. Sepsis criteria met with fever tachycardia tachypnea. Viral syndrome versus possible peritonitis considered Patient received bolus in the ER I would start antimicrobials Blood cultures taken in the ER Awaiting lumbar puncture End-stage renal disease peritoneal dialysis dependent Will consult nephrology because he will be getting multiple antimicrobials Hyponatremia: Previous sodium seems to be normal Monitor in ICU Currently looks dehydrated We will start him on normal saline at 30 cc/h with goal correction 6 mEq per 24-hour Full code DVT prophylaxis would avoid for now because he would require lumbar puncture Renal dialysis diet PLAN: Continue ceftriaxone for 6 weeks since his last positive blood culture. Awaiting PICC line placement. Since patient continues to have low back pain will proceed with WBC tagged scan tomorrow. Coding Level of Care Code Acute Clerk Television Production for Chg Fwd Diagnoses Peritonitis associated with peritoneal dialysis T85.71XA Encounter type: initial encounter End stage renal disease N18.6 History of endovascular stent graft for abdominal aortic aneurysm (AAA) Z95.828 Ischemic cardiomyopathy I25.5 Bacterial endocarditis I33.0
[2019-09-11 10:12] LABS: Body Fluid WBC 45 /uL; RBC, Body Fluid 0 10^3/uL (0-0)
[2019-09-11 10:13] LABS: Apprearance, Body Fluid CLEAR (CLEAR); Color, Body Fluid COLORLESS (PALE YELLOW); PATH Referral YES
--- NOTE | 2019-09-11 10:15 | PC.NURSE ---
Addendum entered by Lynn Egan RN 09/11/19 10:22: discussing possible discharge home as long as safety concerns are met. Original Note: Dr. Mar at bedside discussing POC at this time.
--- NOTE | 2019-09-11 10:19 | PC.NURSE ---
PICC line placed per orders by Branden Chao RN at 0930, placement verified by xray.
--- NOTE | 2019-09-11 10:22 | P.PN_ITS ---
Subjective Subjective: Interval history: no new complaints, back pain is imrpoving. PD ongoing at this time. WBC count reducing significantly from peritoneal fluid. Afebrile, blood cx remains negative to date. Medications: Reviewed: Yes Vitals/I&O/Wt Last Vital Signs Temp 98.7 F 09/11/19 08:00 Pulse 97 09/11/19 08:00 Resp 18 09/11/19 08:00 BP 142/66 09/11/19 08:00 Pulse Ox 93 09/11/19 08:00 09/10/19 09/11/19 09/11/19 22:59 06:59 14:59 Intake Total 240 / 770 330 / 1100 240 / 240 Output Total 425 / 650 Balance -185 / 120 330 / 450 240 / 240 Weight last 48 hrs Weight 91.399 kg Weight 91.626 kg Weight 91.535 kg Weight 92.533 kg Weight 44.497 kg Physical Exam Narrative: EXAM NARRATIVE: GEN: Awake, alert and oriented, no acute distress CVS: S1S2 N RS: CTA B/L Abd: Soft, nt/nd , bs+ HOOF TRIMMER: no focal neuro deficits Data : 09/11/19 04:28 09/11/19 04:28 Micro: Microbiology 09/07/19 13:30 Gram Stain - Final Peritoneal Fluid Body Fluid Culture - Preliminary 09/09/19 10:30 Gram Stain - Final Peritoneal Fluid Body Fluid Culture - Preliminary 09/09/19 06:12 Blood Culture - Preliminary Blood NEGATIVE TO DATE A&P Assessment and plan (1) Streptococcal bacteremia: Status: Acute (2) Peritonitis associated with peritoneal dialysis: Status: Acute Qualifiers: Encounter type: initial encounter Qualified Code(s): T85.71XA - In fection and inflammatory reaction due to peritoneal dialysis catheter, initial encounter (3) History of endovascular stent graft for abdominal aortic aneurysm (AAA): Status: Acute (4) End stage renal disease: Status: Acute (5) Continuous ambulatory peritoneal dialysis status: Status: Acute Additional A&P Information (1) Peritonitis associated with peritoneal dialysis: -Peritoneal cell count with significant WBC of 22,000 with predominant neutrophilia, positive cultures with group C streptococcus and same organism isolated from the blood, with overall picture consistent with bacterial peritonitis associated with peritoneal dialysis. Now with improving cell count to <50. -Patient is currently on ceftriaxone, consider reducing the dose from 2 g IV every 12h to 2 g IV daily. -Group C strep is a common bacteria which exists as a commensal on the skin, oropharyngeal and GI sites. There is no overt external signs of infection at the catheter insertion site or of the tunnel at this present time. -Ct non contrast lumbar spine without evidence of abscess/discitis in the back. Sclerotic lesion involving the T11 vertebral body is unchanged since 2017. This was also present in 2009 and similar appearance. Likley related to h/o lymphoma. -Abdominal imaging with CT without any acute abdominal pathology -Currently appears to be quickly clinically improving with abx treatment, hold off on PD catheter exchange. Prefer to continue systemic antibiotics rather than peritoneal antibiotics right given positive blood cultures and need to achieve good systemic levels. - TTE with poorly visualized valves, however given quick clearance of cx with rx and likely source being bacterial peritonitis low concern for endovascular infection. 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 Since endocarditis could not be conclusively excluded, per cardiology recommendations, it was decided to proceed with 6 weeks of iv abx course since cx clearance (09/06) as the most cautious approach. - Picc line placed to facilitate above. While on iv abx, he should get weekly CBC and CMP to monitor WBC count and LFTs. (2) End stage renal disease: on PD, per nephrology (3) History of endovascular stent graft for abdominal aortic aneurysm (AAA) Thank you for this consult. Patient planned for discharge later today Attestations Medical Necessity Statement*: per admitting physician Coding Level of Care Code Acute Category Development Manager for g Fwd Diagnoses Streptococcal bacteremia R78.81; B95.5 Peritonitis associated with peritoneal dialysis T85.71XA Encounter type: initial encounter History of endovascular stent graft for abdominal aortic aneurysm (AAA) Z95.828 End stage renal disease N18.6 Continuous ambulatory peritoneal dialysis status Z99.2
--- NOTE | 2019-09-11 10:30 | PM.DCS ---
Discharge Providers Date of Admission: 09/05/19 05:49 Date of Discharge: September 11, 2019 Attending Provider at Admission: Wilbert Brock MD Attending Provider at Discharge: Deandre Mar MD Consults: ID: Dr. Daniels Cardiology: Dr. Maria Nephro: Locum Provider Primary Care Provider: Robin Schumacher MD Diagnoses at Discharge Discharge Diagnosis (1) Peritonitis associated with peritoneal dialysis: Status: Acute Qualifiers: Encounter type: initial encounter Qualified Code(s): T85.71XA - Infection and inflammatory reaction due to peritoneal dialysis catheter, initial encounter (2) End stage renal disease: Status: Acute (3) History of endovascular stent graft for abdominal aortic aneurysm (AAA): Status: Acute (4) Ischemic cardiomyopathy: Status: Deleted (5) Bacterial endocarditis: Status: Acute Reason for Visit Reason for Visit: AMD/FEVER Hospital Course Discharge Summary: Shola Quintana is a 69 year old male history of stage IV Hodgkin's disease s/p chemo, no radiation, currently PAZ since 2005, hypertension, CKD on peritoneal dialysis since 2018, gout. Admitted on 09/04 with complaints of fever and confusion.Patient has subsequently been alert and oriented since presentation to the hospital and is able to give me his entire history at this time. Patient said he started to feel unwell on Wednesday and had developed fever going up to 102.8 Fahrenheit at home. This continued through Wednesday. He was concerned that he had a runny nose and may have acquired COVID 19 so he got tested as an outpatient at [facility]. On Wednesday, his condition started to deteriorate and his noted that he was becoming disoriented and confused and was eventually brought to the ER for further evaluation. On asking specifically, patient does report abdominal discomfort mostly located in the right lower quadrant during this time and also now severe low back pain that he has been developed over the last 2 days for which an MRI diagnostic study is being pursued today. He states that over the same duration of days, he had also noted reduced return on his PD catheter. It did not appear to be cloudy, bloody or otherwise unusual in appearance. There were no external skin changes surrounding the PD insertion site or pain at the tunneled site. His past medical history is notable for an elective endovascular AAA repair with synthetic graft in 2018 at [facility] following which he developed complications which included a stent thrombosis of 1 of his kidneys and eventually required him to go on dialysis. His other kidney had already been affected by renal artery stenosis per him. He has been on PD since then, without any overt issues. No past history of catheter occlusions or any history of peritonitis in the past. His PD catheter had been draining well up until Wednesday. There are no complaints of cough dyspnea chest pain nausea, vomiting, diarrhea, abdominal pain. He is currently constipated. He does have a history of gout as well which periodically results in multi-joint inflammation including the shoulder knees and toes for which he takes intermittent prednisone 10 mg for 5 to 6 days. Most recently he was taking prednisone 10 mg daily up until the day of admission. There are otherwise no sick contacts or no recent travel history. No recent dental work. No dysuria. Diagnostics notable with leukocytosis 13, plt 104, predominnat neutrophilia, long standing mild lymphopenia, Na 124 upon admission, improved to 128, elevated ALT 71. Peritoneal fluid analysis with WBC 22K, 94% PMNLs. Abdominal imaging N/A. blood cx on 09/04, peritoneal fluid cx and urine cx with Grp C strep from 09/04. ID was consulted. Patient was put on antibiotics accordingly. 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 Case was discussed with cardiology. As it is difficult to determine if patient has active vegetation or not at the present along with peritoneal dialysis catheter peritonitis it was decided to treat patient with sensitivity directed antibiotics for overall 6 weeks which would take care of for peritoneal catheter peritonitis which is highly likely versus mostly unlikely infective endocarditis and endovascular infection. Patient tolerated the treatment well. Patient also seen by nephrology for peritoneal dialysis and was managed accordingly. Patient's hospitalization was unremarkable other than the events stated above. Patient is been discharged in hemodynamically stable condition with advised to continue ceftriaxone for next 6 weeks till October 18. Patient is also advised to do weekly CBC and CMP while he is on antibiotics and follow-up with the labs with his primary care provider. PICC line was placed on September 10. Physical Exam Const: COMMON NORMALS: no acute distress and patient oriented x3 Resp: COMMON NORMALS: normal respiratory effort and clear to auscultation bilaterally AUSCULTATION: clear to auscultation bilaterally Cardio: COMMON NORMALS: regular rate, regular rhythm and S2 normal heart sound present RATE: regular rate RHYTHM: regular rhythm HEART SOUNDS: S2 normal heart sound present GI: COMMON NORMALS: Normal to inspection, nondistended, normoactive bowel sounds present, Soft to palpation and non-tender PALPATION: Yes Soft to palpation Neuro: COMMON NORMALS: patient oriented x3 and no focal motor deficits Discharge Data Data Completed and Pending: Completed Studies During Hospitalization Category Date Time Status CT abdomen pelvis wo con [id number] Rout ine Cat Scan 09/07/19 12:[address] head wo con* [id number] Urgent Cat Scan 09/05/19 04:[address] lumbar spine w o con* [id number] Routi ne Cat Scan 09/08/19 09:30 Completed CXRP [XR chest 1V portable [id number]] R outine Exams 09/11/19 09:01 Completed XR chest 1V darnell ble [id number] Urgent Exams 09/05/19 04:44 Completed CV echo complete* [id number] Routine Ultrasound 09/07/19 07:00 Completed CV echo transesop hageal 44500 Routi ne Ultrasound 09/09/19 17:31 Completed Pending at discharge Category Date Time Status Blood Culture AM LABS Lab 09/08/19 04:08 Results Blood Culture AM LABS Lab 09/09/19 06:12 Results Blood Culture Sta t Lab 09/07/19 08:19 Results Body Fluid Analys is Routine Lab 09/11/19 09:43 Ordered Body Fluid Cultur e & GS Routine Lab 09/07/19 13:30 Results Body Fluid Cultur e & GS Routine Lab 09/09/19 10:30 Results CSF Analysis + Ce ll Count Routine Lab 09/05/19 11:04 Uncollected CSF Culture & Gra m Stain Routine Lab 09/05/19 11:04 Uncollected CSF Culture Routi ne Lab 09/05/19 11:04 Uncollected Complete Blood Co unt w/Auto AM LABS Lab 09/12/19 04:00 Ordered Complete Blood Co unt w/Auto AM LABS Lab 09/13/19 04:00 Ordered Comprehensive Met abolic Panel AM LA BS Lab 09/12/19 04:00 Ordered Comprehensive Met abolic Panel AM LA BS Lab 09/13/19 04:00 Ordered Glucose CSF Routi ne Lab 09/05/19 11:04 Uncollected Magnesium AM LABS Lab 09/12/19 04:00 Ordered Magnesium AM LABS Lab 09/13/19 04:00 Ordered Phosphorus AM LAB S Lab 09/12/19 04:00 Ordered Phosphorus AM LAB S Lab 09/13/19 04:00 Ordered Total Protein CSF Routine Lab 09/05/19 11:04 Uncollected NM CERETEC WBC sc an* [id number] Routine Nuc Med 09/11/19 13:36 Ordered Labs from last 24 hours 09/11/19 09/11/19 09/11/19 09:45 04:28 04:28 WBC RBC Hgb Hct MCV MCH MCHC RDW Plt Count MPV Neut % (Auto) Lymph % (Auto) [place] % (Auto) Eos % (Auto) Baso % (Auto) Neut # (Auto) Lymph # (Auto) [place] # (Auto) Eos # (Auto) Baso # (Auto) Nucleated RBC % (a uto) Nucleated RBCs # Differential Comme nt Yes Sodium 130 L Potassium 4.2 Chloride 91 L Carbon Dioxide 23 Anion Gap 20.2 H BUN 81 H Creatinine 10.0 H* GFR Calculation 5.2 L Glucose 90 Calculated Osmolal ity 270 L Calcium 7.6 L Phosphorus 8.4 H* Magnesium 1.9 Iron 95 TIBC 112 % Saturation 84.8 H Unsat Iron Binding < 17 L Ferritin 3775 H Total Bilirubin 0.2 AST 30 ALT 43 H Alkaline Phosphata se 110 Total Protein 5.6 L Albumin 2.2 L Globulin 3.4 PTH Intact 298.3 H Calcium (PTH Intac t) 7.6 L Fluid Color Colorless Fluid Appearance Clear Fluid WBC 45 Fluid RBC 0 Fld Polynuclear WB Cs % 33.300 Fl Mononuclear % A uto 66.700 09/11/19 04:28 WBC 6.9 RBC 2.87 L Hgb 9.4 L Hct 29.4 L MCV 102.4 H MCH 32.8 MCHC 32.0 RDW 13.3 Plt Count 121 L MPV 11.2 H Neut % (Auto) 81.4 Lymph % (Auto) 6.4 [place] % (Auto) 5.5 Eos % (Auto) 4.9 Baso % (Auto) 0.3 Neut # (Auto) 5.61 Lymph # (Auto) 0.4 L [place] # (Auto) 0.4 Eos # (Auto) 0.3 Baso # (Auto) 0.0 Nucleated RBC % (a uto) 0 Nucleated RBCs # 0.0 Differential Comme nt Sodium Potassium Chloride Carbon Dioxide Anion Gap BUN Creatinine GFR Calculation Glucose Calculated Osmolal ity Calcium Phosphorus Magnesium Iron TIBC % Saturation Unsat Iron Binding Ferritin Total Bilirubin AST ALT Alkaline Phosphata se Total Protein Albumin Globulin PTH Intact Calcium (PTH Intac t) Fluid Color Fluid Appearance Fluid WBC Fluid RBC Fld Polynuclear WB Cs % Fl Mononuclear % A uto Vitals: Last Vital Signs Temp 98.7 F 09/11/19 08:00 Pulse 97 09/11/19 08:00 Resp 18 09/11/19 08:00 BP 142/66 09/11/19 08:00 Pulse Ox 93 09/11/19 08:00 Discharge Plan Discharge Patient Disposition: Home Condition: Stable Prescriptions: New amlodipine 10 mg Tablet 5 mg PO DAILY Qty: 30 RF: 0 ceftriaxone 2 gram recon soln 2 gm IV DAILY Qty: 38 RF: 0 hydrocodone-acetaminophen 5-325 mg Tablet 1 tab PO Q8H PRN (Reason: Moderate Pain) Qty: 10 RF: 0 Continued aspirin 325 mg tablet 325 mg PO DAILY RF: 0 calcium acetate(phosphat bind) 667 mg capsule 667 mg PO TID RF: 0 RenaPlex 800 mcg- 12.5 mg tablet 1 tab PO .COMPLEX RF: 0 furosemide 80 mg tablet 80 mg PO DAILY RF: 0 metoprolol tartrate 50 mg tablet 50 mg PO BID 90 Days Qty: 180 RF: 3 atorvastatin 40 mg tablet 40 mg PO DAILY 90 Days Qty: 90 RF: 3 gentamicin 0.1 % cream See Rx Instructions .ROUTE .COMPLEX RF: 0 Discontinued amlodipine 10 mg tablet 10 mg PO DAILY Qty: 90 RF: 3 Discharge Orders: Discharge Order (Routine); Ordered 09/11/19 Ordered By: Deandre Mar Other Ambulatory Orders: Complete Blood Count w/Auto (WEEKLY) Timeframe: 20190918 Location: Determined by Patient Ordered By: Deandre Mar Complete Blood Count w/Auto (WEEKLY) Timeframe: 20190919 Location: Determined by Patient Ordered By: Deandre Mar Complete Blood Count w/Auto (WEEKLY) Timeframe: 20190920 Location: Determined by Patient Ordered By: Deandre Mar Complete Blood Count w/Auto (WEEKLY) Timeframe: 20190921 Location: Determined by Patient Ordered By: Deandre Mar Complete Blood Count w/Auto (WEEKLY) Timeframe: 20190922 Location: Determined by Patient Ordered By: Deandre Mar Comprehensive Metabolic Panel (WEEKLY) Timeframe: 20190918 Facility: [facility] - Location: Lab - Main Lab Ordered By: Deandre Isabela Comprehensive Metabolic Panel (WEEKLY) Timeframe: 20190919 Facility: [facility] - Location: Lab - Main Lab Ordered By: Deandre Isabela Comprehensive Metabolic Panel (WEEKLY) Timeframe: 20190920 Facility: [facility] - Location: Lab - Main Lab Ordered By: Deandre Isabela Comprehensive Metabolic Panel (WEEKLY) Timeframe: 20190921 Facility: [facility] - Location: Lab - Main Lab Ordered By: Deandre Isabela Comprehensive Metabolic Panel (WEEKLY) Timeframe: 20190922 Facility: [facility] - Location: Lab - Main Lab Ordered By: Deandre Mar Referrals: [facility] [Outside] Favian Jang MD [Referring] - 7-10 days (You will see Dr. Jang at your appointment at [facility]) Robin Schumacher MD [Primary Care Provider] - 4-7 days (You have a hospital followup with dr. Schumacher at [facility] on September 14 at 10:30am) Discharge Diet: Cardiac Discharge Activity: Resume usual activity Patient Instructions: Amlodipine (By mouth), Ceftriaxone (Injection), Endocarditis (DC) Activity Restrictions/Additional Instructions: Repeat CBC and CMP weekly for next 6 weeks ~time you are on antibiotics. You are on ceftriaxone 2 g IV daily through October 18 to finish a 6 weeks course of antibiotics. Please follow-up with your primary care provider and visual associate on set appointments. Discharge Attestations Time Spent in Discharge Care*: greater than 30 min Specific Discharge Activities: Specific discharge activities: educating patient, educating and/or supporting family/caregiver, discussing with rn case manager hospice/social workers/dc planners, documenting/other paperwork and evaluating patient/reviewing data Status at Discharge: Cognitive status at discharge: cognitively intact, Behavioral status at discharge: cooperative, Functional status at discharge: independent ambulation Overall status at discharge: patient is back to baseline Quality Metrics Clinical Quality Measures During this hospital stay, did patient experience: None Coding Level of Care Code Acute Ring Stamper for Chg Fwd Exam Detailed Diagnoses Peritonitis associated with peritoneal dialysis T85.71XA Encounter type: initial encounter End stage renal disease N18.6 History of endovascular stent graft for abdominal aortic aneurysm (AAA) Z95.828 Ischemic cardiomyopathy I25.5 Bacterial endocarditis I33.0
[2019-09-11] MEDS: cefTRIAXone 2,000 MG in sodium chloride 0.9% (plus) 50 ML 100 MG IV (10:46)
[2019-09-11] MEDS: HYDROcodone-acetaminophen 5-325 mg Tablet PO (11:10)
--- NOTE | 2019-09-11 17:59 | PC.NURSE ---
Patient was discharged home and left [facility] via w/c. Patient was transported to surgical services exit and was assisted into private vehicle with . Patient left [facility] with all personal belongings and discharge instructions. Patient verbalized understanding of discharge instructions and follow up appointments. Patients IV was removed and catheter tip intact and charted removal. PICC line in place in right upper arm. Patient left CSU at 1748.
== END 2019-09-11 17:48 | disposition home or self-care (01) | DRG 919 ==
LOC: ER 05:50 → ICU 09:53 → CSU 09-09 13:40
PROVIDERS: Emergency Medicine; Internal Medicine; Internal Medicine Nephrology; Admitting Provider Internal Medicine; PCP Family Medicine; Visit Provider Student in an Organized Health Care Education/Training Program
DX: T85.71XA Infection and inflammatory reaction due to peritoneal dialysis catheter, initial encounter (principal); N18.6 End stage renal disease; A41.9 Sepsis, unspecified organism; I33.0 Acute and subacute infective endocarditis; I12.0 Hypertensive chronic kidney disease with stage 5 chronic kidney disease or end stage renal disease; E87.1 Hypo-osmolality and hyponatremia; Y73.1 Therapeutic (nonsurgical) and rehabilitative gastroenterology and urology devices associated with adverse incidents; R41.82 Altered mental status, unspecified; Z85.71 Personal history of Hodgkin lymphoma; Z99.2 Dependence on renal dialysis; D63.1 Anemia in chronic kidney disease; I25.5 Ischemic cardiomyopathy; E78.5 Hyperlipidemia, unspecified; I49.3 Ventricular premature depolarization; I70.1 Atherosclerosis of renal artery; Z87.891 Personal history of nicotine dependence; M54.5 Low back pain; B95.4 Other streptococcus as the cause of diseases classified elsewhere; E86.0 Dehydration; G89.29 Other chronic pain; D47.3 Essential (hemorrhagic) thrombocythemia; Z95.828 Presence of other vascular implants and grafts
CPT/HCPCS: 12345; 36415; 36569; 70450; 71045; 72131; 74176; 80048; 80053; 80202; 80500; 81001; 81003; 82042; 82310; 82570; 82728; 82945; 83540; 83550; 83605; 83615; 83690; 83735; 83880; 83970; 83986; 84100; 84145; 84157; 84300; 84315; 84443; 84550; 85025; 85378; 85610; 86140; 87040; 87070; 87075; 87077; 87086; 87186; 87205; 87635; 89050; 90935; 93005; 93306; 93312; 93320; 93325; 96372; 96375; 97110; 97116; 97161; 97166; 97530; 97535; 99281; 99284; J0692; J0696; J1100; J2250; J2543; J2704; J3370; J7030; J7040; J7050; Q3014; Q4081

== ENCOUNTER 2019-09-13 12:58 | Outpatient (CLI) | payer MEDICARE, SELFPAY ==
[2019-09-13 13:12] LABS: Basophils % 0.1 %; Eosinophils % 0.5 %; Hematocrit 25.6 % (42.0-52.0); Hemoglobin 8.1 g/dL (11.7-16.6); Lymphocytes # 0.3 10^3/uL (0.8-4.8); Lymphocytes % 3.7 %; Mean Corpuscular HGB Conc 31.6 g/dL (30.0-36.0); Mean Corpuscular Hemoglobin 31.8 pg (28.0-34.0); Mean Corpuscular Volume 100.4 fL (80-94); Mean Platelet Volume 10.3 fL (7.4-10.4); Monocytes # 0.1 10^3/uL (0.2-0.9); Monocytes % 1.2 %; Neutrophils # 8.31 10^3/uL (1.8-7.7); Neutrophils % 93.8 %; Nucleated Red Blood Cells % 0 %; Platelet Count 148 10^3/cmm (130-400); Red Blood Count 2.55 10^6/uL (4.1-5.3); Red Cell Distribution Width 13.3 % (12.1-15.1); White Blood Count 8.9 10^3/uL (4.0-10.0)
[2019-09-13 13:30] LABS: Alanine Aminotransferase 26 U/L (0-41); Albumin Level 2.3 g/dL (3.5-5.2); Alkaline Phosphatase 68 IU/L (40-130); Anion Gap 19.9 (5-19); Aspartate Amino Transferase 17 U/L (0-40); Blood Urea Nitrogen 77 mg/dL (8-23); Carbon Dioxide 25 mmol/L (22-29); Chloride 88 mmol/L (98-107); Globulin 3.2 g/dL (1.3-4.6); Glomerular Filtration Rate 4.9 mL/min (90-130); Glucose 158 mg/dL (65-115); Osmolality Calculated 271 mOsm/kg (285-295); Potassium 3.9 mmol/L (3.5-5.1); Sodium 129 mmol/L (136-145); Total Bilirubin 0.2 mg/dL (0.15-1.2); Total Protein 5.5 g/dL (6.6-8.7)
== END 2019-09-13 12:59 | disposition home or self-care (01) ==
LOC: LAB 13:02
PROVIDERS: PCP Family Medicine; Visit Provider Family Medicine
DX: K65.9 Peritonitis, unspecified (principal); Z79.2 Long term (current) use of antibiotics
CPT/HCPCS: 80053; 85025

== ENCOUNTER 2019-09-18 12:30 | Outpatient (CLI) | payer MEDICARE, SELFPAY ==
[2019-09-18 12:53] LABS: Basophils # 0.1 10^3/uL (0.0-0.1); Basophils % 0.4 %; Eosinophils # 0.2 10^3/uL (0.0-0.8); Eosinophils % 1.4 %; Hematocrit 27.5 % (42.0-52.0); Hemoglobin 8.4 g/dL (11.7-16.6); Lymphocytes # 0.4 10^3/uL (0.8-4.8); Lymphocytes % 3.4 %; Mean Corpuscular HGB Conc 30.5 g/dL (30.0-36.0); Mean Corpuscular Hemoglobin 31.8 pg (28.0-34.0); Mean Corpuscular Volume 104.2 fL (80-94); Mean Platelet Volume 10.9 fL (7.4-10.4); Monocytes # 0.5 10^3/uL (0.2-0.9); Monocytes % 3.8 %; Neutrophils # 11.31 10^3/uL (1.8-7.7); Neutrophils % 90.3 %; Nucleated Red Blood Cells % 0 %; Platelet Count 175 10^3/cmm (130-400); Red Blood Count 2.64 10^6/uL (4.1-5.3); Red Cell Distribution Width 13.5 % (12.1-15.1); White Blood Count 12.5 10^3/uL (4.0-10.0)
[2019-09-18 13:11] LABS: Alanine Aminotransferase 23 U/L (0-41); Albumin Level 2.6 g/dL (3.5-5.2); Alkaline Phosphatase 69 IU/L (40-130); Anion Gap 16.1 (5-19); Aspartate Amino Transferase 17 U/L (0-40); Blood Urea Nitrogen 58 mg/dL (8-23); Calcium 8.4 mg/dL (8.5-10.5); Carbon Dioxide 27 mmol/L (22-29); Chloride 96 mmol/L (98-107); Globulin 3.3 g/dL (1.3-4.6); Glomerular Filtration Rate 5.3 mL/min (90-130); Glucose 84 mg/dL (65-115); Osmolality Calculated 278 mOsm/kg (285-295); Potassium 4.1 mmol/L (3.5-5.1); Sodium 135 mmol/L (136-145); Total Bilirubin 0.2 mg/dL (0.15-1.2); Total Protein 5.9 g/dL (6.6-8.7)
== END 2019-09-18 12:31 | disposition home or self-care (01) ==
LOC: LAB 12:33
PROVIDERS: PCP Family Medicine; Visit Provider Family Medicine
DX: N18.4 Chronic kidney disease, stage 4 (severe) (principal)
CPT/HCPCS: 80053; 85025

== ENCOUNTER 2019-09-25 16:57 | Outpatient (CLI) | payer MEDICARE, SELFPAY ==
[2019-09-25 17:50] LABS: Basophils % 0.4 %; Eosinophils # 0.1 10^3/uL (0.0-0.8); Eosinophils % 1.5 %; Hematocrit 28.5 % (42.0-52.0); Hemoglobin 8.6 g/dL (11.7-16.6); Lymphocytes # 0.4 10^3/uL (0.8-4.8); Lymphocytes % 5.9 %; Mean Corpuscular HGB Conc 30.2 g/dL (30.0-36.0); Mean Corpuscular Hemoglobin 32.2 pg (28.0-34.0); Mean Corpuscular Volume 106.7 fL (80-94); Mean Platelet Volume 10.3 fL (7.4-10.4); Monocytes # 0.3 10^3/uL (0.2-0.9); Monocytes % 3.8 %; Neutrophils # 6.43 10^3/uL (1.8-7.7); Neutrophils % 87.7 %; Nucleated Red Blood Cells % 0 %; Platelet Count 231 10^3/cmm (130-400); Red Blood Count 2.67 10^6/uL (4.1-5.3); Red Cell Distribution Width 14.3 % (12.1-15.1); White Blood Count 7.3 10^3/uL (4.0-10.0)
[2019-09-25 18:38] LABS: Alanine Aminotransferase 15 U/L (0-41); Albumin Level 2.8 g/dL (3.5-5.2); Alkaline Phosphatase 66 IU/L (40-130); Anion Gap 17.8 (5-19); Aspartate Amino Transferase 18 U/L (0-40); Blood Urea Nitrogen 62 mg/dL (8-23); Calcium 9.2 mg/dL (8.5-10.5); Carbon Dioxide 30 mmol/L (22-29); Chloride 94 mmol/L (98-107); Globulin 3.3 g/dL (1.3-4.6); Glucose 132 mg/dL (65-115); Osmolality Calculated 285 mOsm/kg (285-295); Potassium 4.8 mmol/L (3.5-5.1); Sodium 137 mmol/L (136-145); Total Bilirubin 0.2 mg/dL (0.15-1.2); Total Protein 6.1 g/dL (6.6-8.7)
== END 2019-09-25 16:58 | disposition home or self-care (01) ==
LOC: LAB 17:01
PROVIDERS: PCP Family Medicine; Visit Provider Family Medicine
DX: Z79.2 Long term (current) use of antibiotics (principal)
CPT/HCPCS: 80053; 85025

== ENCOUNTER 2019-10-03 15:02 | Outpatient (CLI) | payer MEDICARE, SELFPAY ==
[2019-10-03 15:23] LABS: Basophils % 0.4 %; Eosinophils # 0.1 10^3/uL (0.0-0.8); Eosinophils % 1.7 %; Hematocrit 29.7 % (42.0-52.0); Hemoglobin 9.2 g/dL (11.7-16.6); Lymphocytes # 0.4 10^3/uL (0.8-4.8); Lymphocytes % 4.4 %; Mean Corpuscular Hemoglobin 33.2 pg (28.0-34.0); Mean Corpuscular Volume 107.2 fL (80-94); Mean Platelet Volume 9.7 fL (7.4-10.4); Monocytes # 0.4 10^3/uL (0.2-0.9); Monocytes % 4.2 %; Neutrophils # 7.47 10^3/uL (1.8-7.7); Neutrophils % 88.5 %; Nucleated Red Blood Cells % 0 %; Platelet Count 235 10^3/cmm (130-400); Red Blood Count 2.77 10^6/uL (4.1-5.3); Red Cell Distribution Width 14.1 % (12.1-15.1); White Blood Count 8.4 10^3/uL (4.0-10.0)
[2019-10-03 15:40] LABS: Alanine Aminotransferase 16 U/L (0-41); Albumin Level 3.3 g/dL (3.5-5.2); Alkaline Phosphatase 65 IU/L (40-130); Aspartate Amino Transferase 22 U/L (0-40); Blood Urea Nitrogen 60 mg/dL (8-23); Calcium 9.3 mg/dL (8.5-10.5); Carbon Dioxide 29 mmol/L (22-29); Chloride 94 mmol/L (98-107); Globulin 3.5 g/dL (1.3-4.6); Glomerular Filtration Rate 4.6 mL/min (90-130); Glucose 101 mg/dL (65-115); Osmolality Calculated 281 mOsm/kg (285-295); Sodium 136 mmol/L (136-145); Total Bilirubin 0.2 mg/dL (0.15-1.2); Total Protein 6.8 g/dL (6.6-8.7)
[2019-10-03 15:45] LABS: Anion Gap 18.2 (5-19); Potassium 5.2 mmol/L (3.5-5.1)
== END 2019-10-03 15:03 | disposition home or self-care (01) ==
LOC: LAB 15:05
PROVIDERS: PCP Family Medicine; Visit Provider Family Medicine
DX: T85.71XA Infection and inflammatory reaction due to peritoneal dialysis catheter, initial encounter (principal)
CPT/HCPCS: 80053; 85025

== ENCOUNTER 2019-10-09 15:22 | Outpatient (CLI) | payer MEDICARE, SELFPAY ==
[2019-10-09 16:00] LABS: Basophils % 0.6 %; Eosinophils # 0.3 10^3/uL (0.0-0.8); Eosinophils % 4.6 %; Hematocrit 28.1 % (42.0-52.0); Hemoglobin 8.6 g/dL (11.7-16.6); Lymphocytes # 0.4 10^3/uL (0.8-4.8); Lymphocytes % 6.5 %; Mean Corpuscular HGB Conc 30.6 g/dL (30.0-36.0); Mean Corpuscular Hemoglobin 32.6 pg (28.0-34.0); Mean Corpuscular Volume 106.4 fL (80-94); Mean Platelet Volume 9.9 fL (7.4-10.4); Monocytes # 0.5 10^3/uL (0.2-0.9); Monocytes % 7.7 %; Neutrophils # 5.18 10^3/uL (1.8-7.7); Nucleated Red Blood Cells % 0 %; Platelet Count 217 10^3/cmm (130-400); Red Blood Count 2.64 10^6/uL (4.1-5.3); Red Cell Distribution Width 14.7 % (12.1-15.1); White Blood Count 6.5 10^3/uL (4.0-10.0)
[2019-10-09 16:26] LABS: Alanine Aminotransferase 15 U/L (0-41); Albumin Level 2.9 g/dL (3.5-5.2); Alkaline Phosphatase 56 IU/L (40-130); Anion Gap 21.5 (5-19); Aspartate Amino Transferase 16 U/L (0-40); Blood Urea Nitrogen 59 mg/dL (8-23); Calcium 8.5 mg/dL (8.5-10.5); Carbon Dioxide 25 mmol/L (22-29); Chloride 96 mmol/L (98-107); Globulin 3.6 g/dL (1.3-4.6); Glomerular Filtration Rate 4.5 mL/min (90-130); Glucose 90 mg/dL (65-115); Osmolality Calculated 284 mOsm/kg (285-295); Potassium 4.5 mmol/L (3.5-5.1); Sodium 138 mmol/L (136-145); Total Bilirubin 0.2 mg/dL (0.15-1.2); Total Protein 6.5 g/dL (6.6-8.7)
== END 2019-10-09 15:23 | disposition home or self-care (01) ==
LOC: LAB 15:27
PROVIDERS: PCP Family Medicine; Visit Provider Family Medicine
DX: Z79.2 Long term (current) use of antibiotics (principal); K65.1 Peritoneal abscess; N18.6 End stage renal disease
CPT/HCPCS: 80053; 85025

== ENCOUNTER 2019-10-17 13:31 | Outpatient (CLI) | payer MEDICARE, SELFPAY ==
[2019-10-17 13:58] LABS: Basophils % 0.6 %; Eosinophils # 0.5 10^3/uL (0.0-0.8); Eosinophils % 7.5 %; Hematocrit 28.5 % (42.0-52.0); Hemoglobin 8.8 g/dL (11.7-16.6); Lymphocytes # 0.6 10^3/uL (0.8-4.8); Lymphocytes % 8.9 %; Mean Corpuscular HGB Conc 30.9 g/dL (30.0-36.0); Mean Corpuscular Hemoglobin 32.8 pg (28.0-34.0); Mean Corpuscular Volume 106.3 fL (80-94); Mean Platelet Volume 9.7 fL (7.4-10.4); Monocytes # 0.6 10^3/uL (0.2-0.9); Monocytes % 8.6 %; Neutrophils # 4.84 10^3/uL (1.8-7.7); Neutrophils % 74.1 %; Nucleated Red Blood Cells % 0 %; Platelet Count 252 10^3/cmm (130-400); Red Blood Count 2.68 10^6/uL (4.1-5.3); Red Cell Distribution Width 14.4 % (12.1-15.1); White Blood Count 6.5 10^3/uL (4.0-10.0)
[2019-10-17 14:27] LABS: Alanine Aminotransferase 18 U/L (0-41); Albumin Level 3.1 g/dL (3.5-5.2); Alkaline Phosphatase 61 IU/L (40-130); Aspartate Amino Transferase 17 U/L (0-40); Blood Urea Nitrogen 58 mg/dL (8-23); Calcium 8.9 mg/dL (8.5-10.5); Carbon Dioxide 27 mmol/L (22-29); Chloride 98 mmol/L (98-107); Globulin 3.6 g/dL (1.3-4.6); Glucose 103 mg/dL (65-115); Osmolality Calculated 289 mOsm/kg (285-295); Sodium 140 mmol/L (136-145); Total Bilirubin 0.2 mg/dL (0.15-1.2); Total Protein 6.7 g/dL (6.6-8.7)
== END 2019-10-17 13:32 | disposition home or self-care (01) ==
LOC: LAB 13:33
PROVIDERS: PCP Family Medicine; Visit Provider Family Medicine
DX: Z79.899 Other long term (current) drug therapy (principal); K65.1 Peritoneal abscess
CPT/HCPCS: 80053; 85025

== ENCOUNTER → 2019-11-01 13:46 | Outpatient (BNVA) | payer MEDICARE, SELFPAY | PROVIDERS: PCP Family Medicine; Visit Provider Internal Medicine | DX: M25.50 Pain in unspecified joint (principal); Z11.59 Encounter for screening for other viral diseases; E87.1 Hypo-osmolality and hyponatremia; N18.6 End stage renal disease; D86.9 Sarcoidosis, unspecified; M10.9 Gout, unspecified; M25.561 Pain in right knee; M25.562 Pain in left knee; M79.89 Other specified soft tissue disorders; M25.571 Pain in right ankle and joints of right foot; M19.042 Primary osteoarthritis, left hand; I70.201 Unspecified atherosclerosis of native arteries of extremities, right leg; I70.202 Unspecified atherosclerosis of native arteries of extremities, left leg; Z51.81 Encounter for therapeutic drug level monitoring | CPT/HCPCS: 36415; 73120; 73562; 73610; 82310; 82728; 83540; 83735; 83970; 84100; 84443; 84550; 85651; 86140; 86431; 86704; 86803; 86812; 87340; 99203 ==

== ENCOUNTER 2019-11-01 14:55 | Outpatient (CLI) | payer MEDICARE, SELFPAY ==
--- NOTE | 2019-11-01 15:23 | XR_ITS ---
WS: [id number] RIGHT KNEE: 3 VIEW(S) TECHNIQUE: AP, oblique(s) and lateral. HISTORY: knee pain COMPARISON: None available. No fracture or dislocation. No joint space narrowing or osteophytes. No joint effusion. Soft tissue mineralization adjacent to the medial femoral condyle measures 2.4 cm. There is also scat tered calcified plaque and popliteal and femoral artery. XR/XR knee RT 3V* [id number] IMPRESSION: 1. No significant degenerative changes at the knee joint. 2. Lobulated calcification adjacent to the medial femoral condyle. May be from an old injury with healing. 3. Atherosclerosis femoral and popliteal arteries.
--- NOTE | 2019-11-01 15:23 | XR_ITS ---
WS: [id number] LEFT KNEE: 3 VIEW(S) TECHNIQUE: AP, oblique(s) and lateral. HISTORY: knee pain COMPARISON: None available. No fracture or dislocation. No joint space narrowing or osteophytes. No joint effusion. Moderate calcification in the popliteal and femoral arteries. XR/XR knee LT 3V* [id number] IMPRESSION: 1. Negative LEFT knee. 2. Moderate atherosclerosis in the visualized arteries lower extremity.
--- NOTE | 2019-11-01 15:23 | XR_ITS ---
WS: [id number] RIGHT HAND: 2 VIEW(S) TECHNIQUE: PA and lateral. HISTORY: hand swelling COMPARISON: None available. No acute fracture or dislocation. No soft tissue or bone abnormality. XR/XR hand RT 2V [id number] IMPRESSION: Normal RIGHT hand.
--- NOTE | 2019-11-01 15:23 | XR_ITS ---
WS: [id number] LEFT HAND: 2 VIEW(S) TECHNIQUE: PA and lateral. HISTORY: hand swelling COMPARISON: None available. No acute fracture or dislocation. Mild interphalangeal joint space narrowing. No erosions. No osteopenia. XR/XR hand LT 2V [id number] IMPRESSION: Mild osteoarthritis.
--- NOTE | 2019-11-01 15:23 | XR_ITS ---
WS: [id number] RIGHT ANKLE: 3 VIEW(S) TECHNIQUE: AP, oblique(s) and lateral. HISTORY: ankle pain COMPARISON: None available. Normal anatomic alignment with no fracture or dislocation. No joint effusion or widening of the ankle mortise. No significant degenerative changes at the joint spaces. No soft tissue abnormality. XR/XR ankle RT min 3V* [id number] IMPRESSION: Normal RIGHT ankle.
== END 2019-11-01 14:56 | disposition home or self-care (01) ==
LOC: RADWPI 14:59
PROVIDERS: PCP Family Medicine; Visit Provider Internal Medicine
DX: M25.561 Pain in right knee (principal); M25.562 Pain in left knee; M79.89 Other specified soft tissue disorders; M25.571 Pain in right ankle and joints of right foot; M19.042 Primary osteoarthritis, left hand; I70.201 Unspecified atherosclerosis of native arteries of extremities, right leg; I70.202 Unspecified atherosclerosis of native arteries of extremities, left leg; N18.6 End stage renal disease; Z51.81 Encounter for therapeutic drug level monitoring; D86.9 Sarcoidosis, unspecified
CPT/HCPCS: 73120; 73562; 73610; 82310; 82728; 83540; 83735; 83970; 84100; 84443; 84550; 85651; 86140; 86431; 86704; 86803; 86812; 87340

== ENCOUNTER 2019-11-15 15:38 | Inpatient (IN) | payer MEDICARE, SELFPAY ==
[2019-11-15] VITALS (8 sets, daily range): BP systolic 111–213; BP diastolic 74–99; PULSE 93–112; RESP 18–25; TEMP 37.4; O2SAT 94–99; BMI 20.9
--- NOTE | 2019-11-15 17:09 | CTR_ITS ---
PROCEDURE INFORMATION: Exam: CT Abdomen And Pelvis Without Contrast Exam date and time: 11/15/2019 6:06 PM Age: 69 years old Clinical indication: Fever and nausea; Prior surgery; Surgery type: Aaa, peritoneal dialysis cath, stents; Additional info: Pd abd pain TECHNIQUE: Imaging protocol: Computed tomography of the abdomen and pelvis without contrast. Radiation optimization: All CT scans at this facility use at least one of these dose optimization techniques: automated exposure control; mA and/or kV adjustment per patient size (includes targeted exams where dose is matched to clinical indication); or iterative reconstruction. COMPARISON: CT abdomen pelvis wo con [id number] 09/07/2019 1:11 PM RADIATION DOSE METRICS: Total DLP (mGy-cm): 539.43 FINDINGS: Tubes, catheters and devices: A peritoneal dialysis catheter is noted which terminates in the pelvis. Liver: A small 13 mm cyst is present in the dome of the liver. Gallbladder and bile ducts: A small gallstone is seen in the gallbladder. No biliary ductal dilatation. Pancreas: Several tiny calcifications are present in the pancreas. No pancreatic ductal dilatation. Spleen: Normal. No splenomegaly. Adrenals: Normal. No mass. Kidneys and ureters: Bilateral renal atrophy is noted. Small renal stones are present in both kidneys. No ureteral stone or hydronephrosis. Stomach and bowel: Diverticulosis coli is seen, without evidence of diverticulitis. No intestinal obstruction. Appendix: The appendix is normal. Intraperitoneal space: A small amount of free fluid is seen in the pelvis. No free air. Vasculature: Infrarenal abdominal aortic aneurysm is again noted measuring up to 4.9 cm (previously 4.5 cm). An aorto bi-iliac bypass graft is noted. Stents are also seen in bilateral renal arteries. Lymph nodes: Unremarkable. No enlarged lymph nodes. Urinary bladder: Unremarkable as visualized. Reproductive: Unremarkable as visualized. Bones/joints: Small sclerotic focus is again seen in the T11 vertebral body, which appear stable and may be benign. No acute fracture. Soft tissues: Unremarkable. CT/CT abdomen pelvis con [id number] IMPRESSION: 1. No acute abnormality is seen in the abdomen or pelvis. 2. Cholelithiasis. 3. Nephrolithiasis. No ureteral stone or hydronephrosis. 4. Slight increase in size of the abdominal aortic aneurysm. An aorto bi-iliac bypass graft is again noted. 5. Diverticulosis coli. Radiation Dose CTDIVOL = (mGy): DLP = 539.43 (mGy-cm)
--- NOTE | 2019-11-15 17:10 | ECG_ITS ---
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 Measurements Intervals [place] Rate: 96 P: 73 SC: 147 QRS: 90 QRSD: 97 T: 74 QT: 356 QTc: 450 Interpretive Statements SINUS RHYTHM MODERATE ST DEPRESSION [0.05+ mV ST DEPRESSION] Compared to ECG 09/05/2019 17:19:26 No significant changes Electronically Signed On 11-15-2019 21:35:04 CDT by Janene Maria M.D. [email or web address]
--- NOTE | 2019-11-15 17:10 | XR_ITS ---
WS: [id number] XR chest 1V portable [id number] REASON FOR EXAM: dyspnea/cough FINDINGS: Mild tortuosity of the thoracic aorta with calcification of the arch. Normal heart size. Calcified granulomatous changes in both lungs. No active pulmonary parenchymal or pleural disease vanessa ntified. Degenerative change in the mid and lower thoracic spine. Incidentally noted is proximal and of aortic stent graft. XR/XR chest 1V portable [id number] IMPRESSION: No acute chest abnormality.
[2019-11-15 17:44] LABS: Hematocrit 28.5 % (42.0-52.0); Hemoglobin 9.3 g/dL (11.7-16.6); Lymphocytes # 0.4 10^3/uL (0.8-4.8); Lymphocytes % 84.6 %; Mean Corpuscular HGB Conc 32.6 g/dL (30.0-36.0); Mean Corpuscular Hemoglobin 34.8 pg (28.0-34.0); Mean Corpuscular Volume 106.7 fL (80-94); Mean Platelet Volume 9.6 fL (7.4-10.4); Monocytes # 0.1 10^3/uL (0.2-0.9); Monocytes % 9.6 %; Neutrophils % 3.9 %; Nucleated Red Blood Cells % 0 %; Platelet Count 207 10^3/cmm (130-400); Red Blood Count 2.67 10^6/uL (4.1-5.3); Red Cell Distribution Width 14.5 % (12.1-15.1)
[2019-11-15 17:46] LABS: White Blood Count 0.5 10^3/uL (4.0-10.0)
[2019-11-15 17:47] LABS: Neutrophils # 0.02 10^3/uL (1.8-7.7)
[2019-11-15 18:02] LABS: Lactate (Lactic Acid level) 0.7 mmol/L (0.5-2.2)
[2019-11-15 18:03] LABS: Alanine Aminotransferase 22 U/L (0-41); Albumin Level 3.2 g/dL (3.5-5.2); Alkaline Phosphatase 52 IU/L (40-130); Anion Gap 23.4 (5-19); Aspartate Amino Transferase 16 U/L (0-40); Blood Urea Nitrogen 62 mg/dL (8-23); Calcium 8.5 mg/dL (8.5-10.5); Carbon Dioxide 23 mmol/L (22-29); Chloride 89 mmol/L (98-107); Glomerular Filtration Rate 4.4 mL/min (90-130); Glucose 118 mg/dL (65-115); Osmolality Calculated 291 mOsm/kg (285-295); Potassium 4.4 mmol/L (3.5-5.1); Sodium 131 mmol/L (136-145); Total Bilirubin 0.3 mg/dL (0.15-1.2); Total Protein 7.2 g/dL (6.6-8.7)
[2019-11-15 18:24] LABS: Slide Review Slide Review Perform
--- NOTE | 2019-11-15 18:42 | CTR_ITS ---
PROCEDURE INFORMATION: Exam: CT Neck Without Contrast Exam date and time: 11/15/2019 7:13 PM Age: 69 years old Clinical indication: Other: Throat tight, left jaw pain; Additional info: Include left mandible TECHNIQUE: Imaging protocol: Computed tomography images of the neck without contrast. Radiation optimization: All CT scans at this facility use at least one of these dose optimization techniques: automated exposure control; mA and/or kV adjustment per patient size (includes targeted exams where dose is matched to clinical indication); or iterative reconstruction. COMPARISON: No relevant prior studies available. RADIATION DOSE METRICS: Total DLP (mGy-cm): 870.04 FINDINGS: Brain: Visualized aspects of the brain appear normal. Mastoid air cells: Mild left mastoiditis is noted. Nasopharynx: Unremarkable. No fluid collection is seen to suggest an abscess. Oropharynx: Unremarkable. No significant tonsillar enlargement. No fluid collection is seen to suggest an abscess. Hypopharynx: Unremarkable. Larynx: Unremarkable. Normal epiglottis. Retropharyngeal space: Unremarkable. Submandibular/Parotid glands: Normal. Glands are normal in size. Thyroid: Normal. No enlarged or calcified nodules. Lymph nodes: Unremarkable. No lymphadenopathy. Trachea: Visualized trachea is unremarkable. Lungs: No mass is seen. Bones/joints: Mild degenerative changes are observed in the lower cervical spine. No acute fracture. Spinal alignment is normal. Vasculature: Bilateral carotid artery calcifications are appreciated. Soft tissues: Unremarkable. No significant soft tissue swelling. CT/CT neck wo con [id number] IMPRESSION: 1. No acute abnormality is seen in the neck. 2. Atherosclerosis. 3. Mild left mastoiditis Radiation Dose CTDIVOL = (mGy): DLP = 870.04 (mGy-cm)
--- NOTE | 2019-11-15 18:49 | ED_ITS ---
HPI - Fever General: Chief Complaint: Fever Stated Complaint: Fever Time Seen by Provider: 11/15/19 18:05 Source: patient and family Mode of arrival: ambulatory Limitations: no limitations History of Present Illness: HPI Narrative: Shola is a very nice 69-year-old male who comes in complaining of fever and left lower dental pain. Patient states that he had a tooth ache last night but is not on any antibiotics. Today the pain was no worse but when he went to the rheumatology clinic for an outpatient appointment they said he had a fever of 103 and referred him here to the ER. Patient has been chilled but otherwise denies any headache, neck pain, chest pain, cough, shortness of breath, loss of sense of taste/smell, abdominal pain, dysuria or skin rashes. Associated symptoms: Deny abdominal pain, flank pain, chills, chest pain, confusion, diarrhea, dysuria, extremity pain, headache(s), nausea or vomiting Review of Systems Const: Reports: fever(s); Denies: chills, body aches, fatigue, malaise or diaphoresis Eyes: Denies: change in vision, blurry vision, photophobia, eye discomfort, eye discharge, eye redness or yellow eyes ENMT: Reports: dental pain; Denies: throat pain, odynophagia, hoarseness, swelling of lips/tongue, ear or mastoid pain, ear discharge, change in hearing or nasal discharge Card: Denies: chest pain, palpitations, irregular heart rhythm, edema, lightheadedness, syncope, pre-syncope, dyspnea on exertion or orthopnea Resp: Denies: dyspnea, productive cough, non-productive cough, wheezing, hemoptysis or chest congestion GI: Denies: abdominal pain, nausea, vomiting, hematemesis, coffee ground emesis, heartburn, diarrhea, constipation, GI cramping, hematochezia or melena : Denies: flank pain, dysuria, urinary frequency, urinary urgency or hematuria Musc: Denies: neck pain, back pain, extremity pain, extremity swelling, joint pain, joint swelling, joint redness, joint warmth or joint stiffness Skin/Breast: Denies: rash, pruritus, erythema, skin pain or skin tenderness Neuro: Denies: headache(s), numbness in extremities, weakness in extremities, sensory changes, lack of coordination, difficulty walking, dizziness, vertigo, confusion, Slurred speech present or seizure-like activity Devon/Lymph: Denies: easy bruising, easy bleeding, petechiae, purpura or enlarged lymph nodes All/Imm: Denies: urticaria, throat swelling, tongue swelling, facial swelling or acute wheezing PFSH ED PFSH: Medical History (Updated 11/15/19 @ 20:20 by Emy Oh) Abdominal aortic aneurysm (AAA) Anemia Bacterial peritonitis Cardiomyopathy Continuous ambulatory peritoneal dialysis status End stage renal disease Hodgkins lymphoma Finished chemotherapy 2006 currently in remission HTN (hypertension) Hyperlipidemia Lymphoma Nonischemic cardiomyopathy PVCs (premature ventricular contractions) Right renal artery stenosis Streptococcal bacteremia Tobacco abuse Surgical History H/O endovascular stent graft for abdominal aortic aneurysm History of endovascular stent graft for abdominal aortic aneurysm (AAA) S/P cataract extraction S/P eye surgery S/P tonsillectomy Family History (Updated 11/15/19 @ 21:05 by Ilan Eaotn MD) Grandmother Pancreatic cancer Father Large cell carcinoma Other Cancer Social History (Updated 11/01/19 @ 14:04 by Sayra Garrison LPN) Smoking and tobacco status: former smoker Alcohol intake: former Former alcohol use details: states he was drinking 2-3 drinks per week, but has quit Household members: spouse Marital status: service: No Current occupational status: retired Previous occupational history: [employer]ATING [employer] History of recent travel: No Physical Exam Const: COMMON NORMALS: no acute distress, patient oriented x3, no limitations and alert GENERAL APPEARANCE: cooperative HENMT: COMMON NORMALS: normocephalic, atraumatic, external ears normal, EAC's normal and Normal external nose present HEAD & SCALP: normal to inspection, normocephalic and atraumatic FACE & SINUS: normal facial exam and face symmetric NOSE: Normal external nose present and Normal nares present EXTERNAL EAR: Yes external ears normal EXTERNAL AUDITORY CANAL: EAC's normal MOUTH: Normal oral and palatal mucosa present, lip normal, tongue normal and other (Swelling along the left lower posterior mandible. Overall poor dentition throughout the mouth.) Eye: COMMON NORMALS: Equal, round and reactive pupils present and conjunctivae normal GENERAL EYE: appearance normal, both eyes and all related structures ALIGNMENT: Yes alignment normal PERIORBITAL: periorbital findings normal EYELID: eyelids normal CONJUNCTIVA: Yes conjunctivae normal SCLERA: sclerae normal PUPIL: Yes Equal, round and reactive pupils present Neck/C-Spine: COMMON NORMALS: full ROM, no lymphadenopathy, supple, no meningeal signs and no JVD GENERAL: Yes normal visual inspection and Yes trachea midline Chest: COMMONS NORMALS: normal inspection of the chest and normal palpation of entire chest wall Resp: COMMON NORMALS: normal respiratory effort, No retractions, No use of accessory muscles and clear to auscultation bilaterally EFFORT & INSPECTION: Yes able to speak in complete sentences and Yes symmetric chest movement AUSCULTATION: clear to auscultation bilaterally, no crackles, no rales, no rhonchi and no wheezes Cardio: COMMON NORMALS: no JVD, regular rate, regular rhythm, S1 normal heart sound present and S2 normal heart sound present RATE: regular rate RHYTHM: regular rhythm HEART SOUNDS: S1 normal heart sound present, S2 normal heart sound present, no click, no gallops, no murmurs and no rubs GI: COMMON NORMALS: Soft to palpation and No hepatosplenomegaly present PALPATION: Yes Soft to palpation, No Tenderness to palpation present (GI), No Guarding due to palpation present (GI), No Rigid due to palpation, Yes No hepatosplenomegaly present, No Hernia present, No Palpable mass present and No Pulsatile mass present : COMMON NORMALS: Yes no CVA tenderness BLADDER/KIDNEY EXAM: Yes no CVA t enderness Back/Pelvis: COMMON NORMALS: no CVA tenderness, thoracic and lumbar spine normal to inspection, no thoracic nor lumbar tenderness and thoraco-lumbar ROM normal Extremity: COMMON NORMALS: normal to inspection, full ROM, capillary refill normal, no joint enlargement, no clubbing, cyanosis or edema and no calf tenderness Neuro: COMMON NORMALS: patient oriented x3, CN's II-XII intact bilaterally, moves all extremities, no focal motor deficits and no sensory deficits noted SENSORIUM/ORIENTATION: Yes alert MENINGEAL SIGNS: Yes no meningeal signs SPEECH: speech normal Psych: COMMON NORMALS: mental status grossly normal, Normal thought process p resent, cooperative, normal affect, speech normal and activity/motor behavior normal SPEECH: Yes normal speech THOUGHT PROCESS: Normal thought process present Skin: COMMON NORMALS: no rashes or lesions noted, turgor normal, no jaundice, no petechiae and no mottling GENERAL SKIN EXAM: no rashes or lesions noted and turgor normal Course Vital Signs: Vital signs: Vital Signs Temperature 99.3 F 11/15/19 15:48 Pulse Rate 108 H 11/15/19 22:04 Respiratory Rate 18 11/15/19 22:04 Blood Pressure 173/74 11/15/19 22:04 Pulse Oximetry 97 11/15/19 22:04 MDM - Fever MDM Narrative: Medical decision making narrative: Mr. Quintana source of fever could be neutropenia, his COVID test is pending or could be a developing dental abscess. He has no abdominal pain and he is already taken off all his peritoneal fluid and has no pain at this time. The case was endorsed to Dr. Eaton and he agrees to admit. Patient was covered with clindamycin for his dental pain and infection and was also covered with Primaxin for his neutropenia. Lab Data: Labs: Lab Results 11/15/19 11/15/19 11/15/19 Range/Units 17:37 17:37 17:37 WBC 0.5 L* (4.0-10.0) 10^3/ uL RBC 2.67 L (4.1-5.3) 10^6/u L Hgb 9.3 L (11.7-16.6) g/dL Hct 28.5 L (42.0-52.0) % MCV 106.7 H (80-94) fL MCH 34.8 H (28.0-34.0) pg MCHC 32.6 (30.0-36.0) g/dL RDW 14.5 (12.1-15.1) % Plt Count 207 (130-400) 10^3/c mm MPV 9.6 (7.4-10.4) fL Neut % (Auto) 3.9 % Lymph % (Auto) 84.6 % Rice % (Auto) 9.6 % Eos % (Auto) 0.0 % Baso % (Auto) 0.0 % Neut # (Auto) 0.02 L* (1.8-7.7) 10^3/u L Lymph # (Auto) 0.4 L (0.8-4.8) 10^3/u L Rice # (Auto) 0.1 L (0.2-0.9) 10^3/u L Eos # (Auto) 0.0 (0.0-0.8) 10^3/u L Baso # (Auto) 0.0 (0.0-0.1) 10^3/u L Nucleated RBC % (a uto) 0 % Nucleated RBCs # 0.0 /100WBC Sodium 131 L (136-145) mmol/L Potassium 4.4 (3.5-5.1) mmol/L Chloride 89 L (98-107) mmol/L Carbon Dioxide 23 (22-29) mmol/L Anion Gap 23.4 H (5-19) BUN 62 H (8-23) mg/dL Creatinine 11.6 H* (0.7-1.2) mg/dL GFR Calculation 4.4 L (90-130) mL/min Glucose 118 H (65-115) mg/dL Calculated Osmolal ity 291 (285-295) mOsm/k g Lactate 0.7 (0.5-2.2) mmol/L Calcium 8.5 (8.5-10.5) mg/dL Magnesium 2.0 (1.7-2.3) mg/dL Total Bilirubin 0.3 (0.15-1.2) mg/dL AST 16 (0-40) U/L ALT 22 (0-41) U/L Alkaline Phosphata se 52 (40-130) IU/L Total Protein 7.2 (6.6-8.7) g/dL Albumin 3.2 L (3.5-5.2) g/dL Globulin 4.0 (1.3-4.6) g/dL SARS-CoV-2 Ag (Rap id) (Negative) 11/15/19 Range/Units 19:58 WBC (4.0-10.0) 10^3/ uL RBC (4.1-5.3) 10^6/u L Hgb (11.7-16.6) g/dL Hct (42.0-52.0) % MCV (80-94) fL MCH (28.0-34.0) pg MCHC (30.0-36.0) g/dL RDW (12.1-15.1) % Plt Count (130-400) 10^3/c mm MPV (7.4-10.4) fL Neut % (Auto) % Lymph % (Auto) % Rice % (Auto) % Eos % (Auto) % Baso % (Auto) % Neut # (Auto) (1.8-7.7) 10^3/u L Lymph # (Auto) (0.8-4.8) 10^3/u L Rice # (Auto) (0.2-0.9) 10^3/u L Eos # (Auto) (0.0-0.8) 10^3/u L Baso # (Auto) (0.0-0.1) 10^3/u L Nucleated RBC % (a uto) % Nucleated RBCs # /100WBC Sodium (136-145) mmol/L Potassium (3.5-5.1) mmol/L Chloride (98-107) mmol/L Carbon Dioxide (22-29) mmol/L Anion Gap (5-19) BUN (8-23) mg/dL Creatinine (0.7-1.2) mg/dL GFR Calculation (90-130) mL/min Glucose (65-115) mg/dL Calculated Osmolal ity (285-295) mOsm/k g Lactate (0.5-2.2) mmol/L Calcium (8.5-10.5) mg/dL Magnesium (1.7-2.3) mg/dL Total Bilirubin (0.15-1.2) mg/dL AST (0-40) U/L ALT (0-41) U/L Alkaline Phosphata se (40-130) IU/L Total Protein (6.6-8.7) g/dL Albumin (3.5-5.2) g/dL Globulin (1.3-4.6) g/dL SARS-CoV-2 Ag (Rap id) Negative (Negative) Imaging Data^: CXR: Attestation: I personally reviewed and interpreted this imaging study as follows: My impression: No acute cardiopulmonary findings. CT Soft Tissue Neck: Radiologist's impression: [address] [address] [address] Scan Report Signed Patient: Shola Quintana Unit #: [id number] : 1950 Age/Sex: 69 / M ADM Date: 11/15/19 Loc: ER Room/Bed: Attending Dr: Ordering Provider/Ordering MD: Emy Oh DO Date of Service: 11/15/19 Procedure(s): CT neck wo con [id number] Accession Number(s): [id number] Report Number: [id number] PROCEDURE INFORMATION: Exam: CT Neck Without Contrast Exam date and time: 11/15/2019 7:13 PM Age: 69 years old Clinical indication: Other: Throat tight, left jaw pain; Additional info: Include left mandible TECHNIQUE: Imaging protocol: Computed tomography images of the neck without contrast. Radiation optimization: All CT scans at this facility use at least one of these dose optimization techniques: automated exposure control; mA and/or kV adjustment per patient size (includes targeted exams where dose is matched to clinical indication); or iterative reconstruction. COMPARISON: No relevant prior studies available. RADIATION DOSE METRICS: Total DLP (mGy-cm): 870.04 FINDINGS: Brain: Visualized aspects of the brain appear normal. Mastoid air cells: Mild left mastoiditis is noted. Nasopharynx: Unremarkable. No fluid collection is seen to suggest an abscess. Oropharynx: Unremarkable. No significant tonsillar enlargement. No fluid collection is seen to suggest an abscess. Hypopharynx: Unremarkable. Larynx: Unremarkable. Normal epiglottis. Retropharyngeal space: Unremarkable. Submandibular/Parotid glands: Normal. Glands are normal in size. Thyroid: Normal. No enlarged or calcified nodules. Lymph nodes: Unremarkable. No lymphadenopathy. Trachea: Visualized trachea is unremarkable. Lungs: No mass is seen. Bones/joints: Mild degenerative changes are observed in the lower cervical spine. No acute fracture. Spinal alignment is normal. Vasculature: Bilateral carotid artery calcifications are appreciated. Soft tissues: Unremarkable. No significant soft tissue swelling. CT/CT neck wo con [id number] IMPRESSION: 1. No acute abnormality is seen in the neck. 2. Atherosclerosis. 3. Mild left mastoiditis Radiation Dose CTDIVOL = (mGy): DLP = 870.04 (mGy-cm) Dictated By: Rocael Nixon MD Signed By: Rocael Nixon MD Signed Date/Time: 11/15/191949 DD/ 47 CT Abd/Pel: Radiologist's impression: [address] [address] [address] Scan Report Signed Patient: Shola Quintana Unit #: [id number] : 1950 Age/Sex: 69 / M ADM Date: 11/15/19 Loc: ER Room/Bed: Attending Dr: Ordering Provider/Ordering MD: Johnny Lakhani DO Date of Service: 11/15/19 Procedure(s): CT abdomen pelvis con [id number] Accession Number(s): [id number] Report Number: [id number] PROCEDURE INFORMATION: Exam: CT Abdomen And Pelvis Without Contrast Exam date and time: 11/15/2019 6:06 PM Age: 69 years old Clinical indication: Fever and nausea; Prior surgery; Surgery type: Aaa, peritoneal dialysis cath, stents; Additional info: Pd abd pain TECHNIQUE: Imaging protocol: Computed tomography of the abdomen and pelvis without contrast. Radiation optimization: All CT scans at this facility use at least one of these dose optimization techniques: automated exposure control; mA and/or kV adjustment per patient size (includes targeted exams where dose is matched to clinical indication); or iterative reconstruction. COMPARISON: CT abdomen pelvis wo con [id number] 09/07/2019 1:11 PM RADIATION DOSE METRICS: Total DLP (mGy-cm): 539.43 FINDINGS: Tubes, catheters and devices: A peritoneal dialysis catheter is noted which terminates in the pelvis. Liver: A small 13 mm cyst is present in the dome of the liver. Gallbladder and bile ducts: A small gallstone is seen in the gallbladder. No biliary ductal dilatation. Pancreas: Several tiny calcifications are present in the pancreas. No pancreatic ductal dilatation. Spleen: Normal. No splenomegaly. Adrenals: Normal. No mass. Kidneys and ureters: Bilateral renal atrophy is noted. Small renal stones are present in both kidneys. No ureteral stone or hydronephrosis. Stomach and bowel: Diverticulosis coli is seen, without evidence of diverticulitis. No intestinal obstruction. Appendix: The appendix is normal. Intraperitoneal space: A small amount of free fluid is seen in the pelvis. No free air. Vasculature: Infrarenal abdominal aortic aneurysm is again noted measuring up to 4.9 cm (previously 4.5 cm). An aorto bi-iliac bypass graft is noted. Stents are also seen in bilateral renal arteries. Lymph nodes: Unremarkable. No enlarged lymph nodes. Urinary bladder: Unremarkable as visualized. Reproductive: Unremarkable as visualized. Bones/joints: Small sclerotic focus is again seen in the T11 vertebral body, which appear stable and may be benign. No acute fracture. Soft tissues: Unremarkable. CT/CT abdomen pelvis wo con [id number] IMPRESSION: 1. No acute abnormality is seen in the abdomen or pelvis. 2. Cholelithiasis. 3. Nephrolithiasis. No ureteral stone or hydronephrosis. 4. Slight increase in size of the abdominal aortic aneurysm. An aorto bi-iliac bypass graft is again noted. 5. Diverticulosis coli. Radiation Dose CTDIVOL = (mGy): DLP = 539.43 (mGy-cm) Dictated By: Rocael Nixon MD Signed By: Rocael Nixon MD Signed Date/Time: 11/15/191914 DD/ 13 EKG Data^: EKG 1: Attestation: I personally reviewed and interpreted this EKG as follows: EKG interpretation date: 11/15/19 EKG interpretation time: 18:04 Interpretation: Normal sinus rhythm at 96 beats a minute, normal axis, nonspecific ST and T wave changes. Discharge Plan Discharge Patient Disposition: Admitted As Inpatient Admit Provider: Ilan Eaton Clinical Impression: Neutropenic fever, Dental infection Condition: Stable Discharge Date/Time: 11/15/19 22:23 Coding Level of Care Code ED Deputy Juvenile Officer for Chg Fwd Exam Comprehensive
[2019-11-15] MEDS: HYDROmorphone 1 mg/mL INJ 1 mL 0.5 MG IVP (19:47)
--- NOTE | 2019-11-15 20:01 | PC.NURSE ---
Pt swabbed for COVID and sent to lab. Pt positioned in the bed and ice chips provided. Pt denies the need for anything further at this time. Will continue to monitor.
--- NOTE | 2019-11-15 20:02 | PC.NURSE ---
Urinal provided. Pt states he will continue to try and provide a urine specimen.
[2019-11-15 20:28] LABS: SARS Covid-2 Antigen Negative (Negative)
--- NOTE | 2019-11-15 20:53 | PM.HP ---
Providers/Chief Complaint Primary Care Provider: Robin Schumacher MD Chief Complaint: Fever History of Present Illness Shola Quintana is a 69 year old male with a past medical history of stage IV Hodgkin's disease treated with chemotherapy finished in 2005 with complete response no recurrence, hypertension, CKD on peritoneal dialysis, hyperlipidemia, abdominal aortic aneurysm status post repair, chronic anemia, cardiomyopathy with EF of 40%, recent hospitalization for possible bacterial endocarditis and or peritonitis finished 6 weeks of Rocephin who presents to [facility] due to fevers. Patient tells me that today he was seeing the general partner because of his chronic gout, when he was checked in, he had a temperature of 100.3, and he was told to seek medical attention, he spoke to his home health care nurse who manages his peritoneal dialysis who advised him to come to the emergency room. Patient denies any fevers at home, denies any chills, denies any headaches, does have chronic neck pain, no new neck pain, no blurry vision, no nausea, no vomiting, no abdominal pain, has a chronic dry cough, has chronic shortness of breath with exertion, no new exacerbation, no dysuria, no hematuria, no diarrhea, no new rashes, no history of shingles, no known exposure to COVID-19, no travel, she socially distance, wears a facemask. Patient does state that he started to develop left facial swelling and dental pain over the last 48 hours, he thought he had a dental infection, no facial pain, no neck pain with range of motion, has chronic back pain, no more back pain than usual, no recent falls, no history of unsteadiness, no new skin lesions. Review of Systems Const: Reports: fever(s), fatigue and malaise; Denies: chills Eyes: Denies: change in vision or blurry vision ENMT: Denies: nasal congestion Resp: Denies: dyspnea, productive cough, non-productive cough or wheezing GI: Denies: abdominal pain, nausea, vomiting, hematemesis, diarrhea, constipation, hematochezia or melena : Denies: flank pain, difficulty urinating, dysuria or urinary frequency Musc: Denies: neck pain or back pain Skin/Breast: Denies: rash Neuro: Denies: headache(s), dizziness or vertigo Psych: Denies: anxiety or depression Endo: Denies: polyuria or polydipsia Devon/Lymph: Denies: tender lymph nodes Medications/Allergies Home Medications Medication Instructions Recorded Confirmed Last Taken Type calcium acetate(phosphat bind) 667 667 mg PO TID 03/13/19 11/01/19 09/04/19 History mg capsule furosemide 80 mg tablet 80 mg PO DAILY 03/13/19 11/01/19 09/04/19 History vitamin B complex with vit C-folic 1 tab PO .COMPLEX 03/13/19 11/01/19 Unknown History acid 800 mcg-zinc 12.5 mg tablet aspirin 325 mg tablet 325 mg PO DAILY 03/15/19 11/01/19 09/04/19 History metoprolol tartrate 50 mg tablet 50 mg PO BID 90 Days #180 tab 03/16/19 11/01/19 09/04/19 Rx atorvastatin 40 mg tablet 40 mg PO DAILY 90 Days #90 tab 04/26/19 11/01/19 09/04/19 Rx gentamicin See Rx Instructions .ROUTE .COMPLEX 09/05/19 11/01/19 Unknown History amlodipine 5 mg PO DAILY #30 tab 09/11/19 11/01/19 Unknown Rx Allergies Allergy/AdvReac Type Severity Reaction Status Date / Time No Known Allergies Allergy Verified 11/15/19 15:56 PFSH Acute PFSH: Medical History (Updated 11/15/19 @ 20:20 by Emy Oh) Abdominal aortic aneurysm (AAA) Anemia Bacterial peritonitis Cardiomyopathy Continuous ambulatory peritoneal dialysis status End stage renal disease Hodgkins lymphoma Finished chemotherapy 2005 currently in remission HTN (hypertension) Hyperlipidemia Lymphoma Nonischemic cardiomyopathy PVCs (premature ventricular contractions) Right renal artery stenosis Streptococcal bacteremia Tobacco abuse Surgical History H/O endovascular stent graft for abdominal aortic aneurysm History of endovascular stent graft for abdominal aortic aneurysm (AAA) S/P cataract extraction S/P eye surgery S/P tonsillectomy Family History (Updated 11/15/19 @ 21:05 by Ilan Eaton MD) Grandmother Pancreatic cancer Father Large cell carcinoma Other Cancer Social History (Updated 11/01/19 @ 14:04 by Sayra Garrison LPN) Smoking and tobacco status: former smoker Alcohol intake: former Former alcohol use details: states he was drinking 2-3 drinks per week, but has quit Household members: spouse Marital status: service: No Current occupational status: retired 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 History of recent travel: No Vitals/I&O/Wt Last Vital Signs Temp 99.3 F 11/15/19 15:48 Pulse 112 H 11/15/19 20:00 Resp 21 H 11/15/19 20:00 BP 168/76 11/15/19 20:00 Pulse Ox 94 11/15/19 20:00 Weight last 48 hrs Weight 76.204 kg Physical Exam Const: COMMON NORMALS: no acute distress and patient oriented x3 GENERAL APPEARANCE: cooperative and comfortable HENMT: COMMON NORMALS: normocephalic HEAD & SCALP: normocephalic Eye: COMMON NORMALS: Equal, round and reactive pupils present and EOMs intact bilaterally GENERAL EYE: appearance normal, both eyes and all related structures PUPIL: Yes Equal, round and reactive pupils present Neck/C-Spine: COMMON NORMALS: full ROM, no lymphadenopathy, no JVD and Thyroid normal THYROID: Thyroid normal Lymph: OTHER: Does have diffuse posterior cervical chain anterior cervical chain, supraclavicular lymphadenopathy Resp: COMMON NORMALS: normal respiratory effort, No retractions, No use of accessory muscles and clear to auscultation bilaterally AUSCULTATION: clear to auscultation bilaterally Cardio: COMMON NORMALS: no JVD, regular rate, regular rhythm, S1 normal heart sound present, S2 normal heart sound present, No gallops present (Cardio), No clicks present (Cardio) and No murmurs present (Cardio) RATE: regular rate RHYTHM: regular rhythm HEART SOUNDS: S1 normal heart sound present and S2 normal heart sound present GI: COMMON NORMALS: Normal to inspection, nondistended, normoactive bowel sounds present, Soft to palpation, non-tender and No hepatosplenomegaly present PALPATION: Yes Soft to palpation and Yes No hepatosplenomegaly present Extremity: COMMON NORMALS: normal to inspection, full ROM and no pedal edema Neuro: COMMON NORMALS: patient oriented x3, CN's II-XII intact bilaterally, moves all extremities and no focal motor deficits Psych: COMMON NORMALS: mental status grossly normal, Normal thought process present and cooperative THOUGHT PROCESS: Normal thought process present Data : 11/15/19 17:37 11/15/19 17:37 Micro: Microbiology 10/07/20 18:45 Blood Culture - Preliminary Blood SPECIMEN COLLECTED 11/15/19 17:37 Blood Culture - Preliminary Blood SPECIMEN COLLECTED A&P Assessment and plan (1) Neutropenic fever: -T-max of 100.3, he did feel quite warm during my examination -Had an admission on 08/28/2019 for group C strep bacteremia secondary to endocarditis/peritonitis discharged on 6 weeks of Rocephin, which she has completed, was due for an echocardiogram in the next few weeks -No headache, no blurry vision, does have chronic neck pain, no neck pain with range of motion during my examination. If fever persists without as good source, can consider LP to evaluate for meningitis -No chest pain, no palpitations, will repeat transthoracic echocardiogram to evaluate for endocarditis, he might require repeat transesophageal echocardiogram based on further work-up -No abdominal pain, no abdominal tenderness, CT of the abdomen and pelvis unremarkable for peritonitis, will obtain peritoneal cultures the next time he gets peritoneal dialysis -No dysuria, no hematuria, follow urine cultures -Follow blood cultures -Covid rapid negative, order Covid PCR -Blood cultures, urine cultures, sputum cultures, inflammatory markers, peripheral smear -Does have diffuse cervical lymphadenopathy, possibly related to his dental infection although CT of the neck does not show any abscess, or deep tissue neck infection, but will order CT of the chest -Does have lower left molar is a large, tender, with some surrounding erythema of the neck, although no CT evidence of deep tissue infection or abscess -Keep on reverse isolation precautions, Covid precautions -Broad-spectrum antibiotics vancomycin, Zosyn -Monitor clinical progress -Patient is a full code -Lovenox for DVT prophylaxis Status: Acute (2) Dental infection: Status: Acute (3) Nonischemic cardiomyopathy: Status: Acute (4) Acute hyponatremia: -Monitor Status: Acute (5) Fever: Status: Acute (6) End stage renal disease: -Consulted nephrology for PD Status: Acute (7) Hyperlipidemia: Status: Acute (8) HTN (hypertension): Status: Acute Attestations Medical Necessity Statement*: Patient requires hospitalization, inpatient, greater than 2 midnights, for neutropenic fever Coding Level of Care Code 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
[2019-11-15] MEDS: clindamycin 900 MG/50 ML PREMIX 100 MG IV (21:26)
--- NOTE | 2019-11-15 22:10 | PM.CONSULT ---
Providers/Reason For Consult Consulting Physican/Specialty*: cindi kramer md / telenephrology Reason for Consult*: ESRD care Attending Physician: Ilan Eaton MD Primary Care Provider: Robin Schumacher MD History of Present Illness History of Present Illness Shola Quintana is a 69 year old male here w/ low grade fevers. renal was called as pt has ESRD on CCPD- to provide dialysis care. pt is a 69 yr old man w/ h/o stage 4 hodgkins lymphoma s/p chemotherapy in 2005. he also has h/o ESRD, HTN, gout,hyperlipidemia, AAA s/p stent, anemia, EF of 40%. recent hospitalization in september 27 for bacteremia, q of endocarditis and 6 weeks of abx. 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 Review of Systems General: Reports: 10 or more systems reviewed and unremarkable except in HPI and below Narrative: fever, weak, fatigue, jaw pain, sob Meds/Allergies Home Medications and Allergies Home Medications Medication Instructions Recorded Confirmed Last Taken Type calcium acetate(phosphat bind) 667 667 mg PO TID 03/13/19 11/01/19 09/04/19 History mg capsule furosemide 80 mg tablet 80 mg PO DAILY 03/13/19 11/01/19 09/04/19 History vitamin B complex with vit C-folic 1 tab PO .COMPLEX 03/13/19 11/01/19 Unknown History acid 800 mcg-zinc 12.5 mg tablet aspirin 325 mg tablet 325 mg PO DAILY 03/15/19 11/01/19 09/04/19 History metoprolol tartrate 50 mg tablet 50 mg PO BID 90 Days #180 tab 03/16/19 11/01/19 09/04/19 Rx atorvastatin 40 mg tablet 40 mg PO DAILY 90 Days #90 tab 04/26/19 11/01/19 09/04/19 Rx gentamicin See Rx Instructions .ROUTE .COMPLEX 09/05/19 11/01/19 Unknown History amlodipine 5 mg PO DAILY #30 tab 09/11/19 11/01/19 Unknown Rx Allergies Allergy/AdvReac Type Severity Reaction Status Date / Time No Known Allergies Allergy Verified 11/15/19 15:56 PFSH Acute PFSH: Medical History (Updated 11/15/19 @ 20:20 by Emy Oh) Abdominal aortic aneurysm (AAA) Anemia Bacterial peritonitis Cardiomyopathy Continuous ambulatory peritoneal dialysis status End stage renal disease Hodgkins lymphoma Finished chemotherapy 2006 currently in remission HTN (hypertension) Hyperlipidemia Lymphoma Nonischemic cardiomyopathy PVCs (premature ventricular contractions) Right renal artery stenosis Streptococcal bacteremia Tobacco abuse Surgical History H/O endovascular stent graft for abdominal aortic aneurysm History of endovascular stent graft for abdominal aortic aneurysm (AAA) S/P cataract extraction S/P eye surgery S/P tonsillectomy Family History (Updated 11/15/19 @ 21:05 by Ilan Eaton MD) Grandmother Pancreatic cancer Father Large cell carcinoma Other Cancer Social History (Updated 11/01/19 @ 14:04 by Sayra Garrison LPN) Smoking and tobacco status: former smoker Alcohol intake: former Former alcohol use details: states he was drinking 2-3 drinks per week, but has quit Household members: spouse Marital status: service: No 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 occupational 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 History of recent travel: No Vitals/I&O/Wt Last Vital Signs Temp 99.3 F 11/15/19 15:48 Pulse 108 H 11/15/19 22:04 Resp 18 11/15/19 22:04 BP 173/74 11/15/19 22:04 Pulse Ox 97 11/15/19 22:04 Weight last 48 hrs Weight 76.204 kg Physical Exam Narrative: EXAM NARRATIVE: vs noted- tachycardic, t 99.9 f exam by RN- as telemedicine visit NARD heent- nc/at neck supple lungs clear heart reg, tachycardic abd soft, nt, nd, +BS, + dialysis catheter ext no edema Data Micro: Micro: Microbiology 11/15/19 18:45 Blood Culture - Pr eliminary Blood SPECIMEN [place] 11/15/19 17:37 Blood Culture - Pr eliminary Blood SPECIMEN [place] A&P Additional A&P Information 69 yr old man 1. ESRD- PD- send cell count and cx -CAPD- 5 exchanges a day- 4 x 3 hrs, and an overnight 6 hr dwell, use 2 l, 2.5% gluc bags -dose meds for ESRD 2. 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 htn and reduced EF- discuss starting ARB 4. anemia- hgb improved from september. recent ferritin 1614 5. hyponatremia- from ESRD- monitor w/ dialysis. recent normal tsh 11/01/19 6. 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
--- NOTE | 2019-11-15 23:08 | CTR_ITS ---
PROCEDURE INFORMATION: Exam: CT Chest Without Contrast Exam date and time: 11/15/2019 11:10 PM Age: 69 years old Clinical indication: Cough and fever; Prior surgery; Surgery type: Aaa stents; Additional info: Neutropenic fever, cough TECHNIQUE: Imaging protocol: Computed tomography of the chest without contrast. Radiation optimization: All CT scans at this facility use at least one of these dose optimization techniques: automated exposure control; mA and/or kV adjustment per patient size (includes targeted exams where dose is matched to clinical indication); or iterative reconstruction. COMPARISON: CR XR chest 1V portable [id number] 11/15/2019 6:01 PM RADIATION DOSE METRICS: Total DLP (mGy-cm): 692.76 FINDINGS: Lungs: Unremarkable. No consolidation. No masses. Pleural space: Unremarkable. No pneumothorax. No pleural effusion. Heart: Unremarkable. No cardiomegaly. No pericardial effusion. Aorta: An aortic stent graft is seen in the abdominal aorta. Lymph nodes: Unremarkable. No enlarged lymph nodes. Liver: A 1 cm low-density lesion is seen in the superior right lobe of the liver that is not fully evaluated on this examination. Tiny calcifications are seen in the spleen and liver. Gallbladder and bile ducts: Gallstones are seen. Kidneys and ureters: Atrophic changes are seen in the partially included kidneys with multiple calcifications on the left side. Bones/joints: Mild degenerative changes are present. Incidental T11 vertebral body hemangioma is seen. No acute fracture. Soft tissues: Unremarkable. CT/CT chest [facility] [place] [place] [id number] IMPRESSION: 1. No acute findings. Negative for pneumonia. 2. Few findings are seen in the upper abdomen as described. Radiation Dose CTDIVOL = (mGy): DLP = 692.76 (mGy-cm)
[2019-11-15 23:51] LABS: LAB Peripheral Smear Sent for Review
[2019-11-16] VITALS (12 sets, daily range): BP systolic 111–137; BP diastolic 55–90; PULSE 78–101; RESP 18; TEMP 36.6–38; O2SAT 93–98
[2019-11-16] MEDS: heparin 5,000 unit/mL INJ 1 mL 5000 UNIT SUBCUT ×3 (00:05→23:14)
[2019-11-16] MEDS: piperacillin-tazobactam 3.375 GM in sodium chloride 0.9% (plus) 50 ML IV ×3 (00:06→23:13)
[2019-11-16 00:07] LABS: Lactic Sepsis W/Reflex 0.7 mmol/L (0.5-2.2)
[2019-11-16 00:17] LABS: Procalcitonin 4.57 ng/mL (0-0.5); Thyroid Stimulating Hormone 0.99 uIU/mL (0.27-4.20)
[2019-11-16 00:28] LABS: C Reactive Protein 98.3 mg/L (0.0-4.9); Lactate Dehydrogenase 150 U/L (135-225)
[2019-11-16 00:43] LABS: Ferritin 1517 ng/mL (30-400)
[2019-11-16 00:49] LABS: Erythrocyte Sedimentation Rate 118 mm/hr (0-10)
[2019-11-16 01:04] LABS: Influenza A by IFA Negative (Negative); Influenza B by IFA Negative (Negative)
--- NOTE | 2019-11-16 01:10 | PC.NURSE ---
PD Dialysis delayed due to delay in dialysis fluid from pharmacy. Waiting on fluid to warm per patient request.
[2019-11-16 03:27] LABS: Urine Appearance Clear (CLEAR); Urine Color Yellow (Yellow); pH Urine 8 (5-7)
[2019-11-16 03:28] LABS: Add Urine Microscopic? YES; Bilirubin Urine Neg (Negative); Blood Urine Neg (Negative); Glucose Urine UA 1+ (Normal); Ketones Urine Negative (Negative); Leukocyte Esterase Urine Negative (Negative); Nitrate Urine Negative (Negative); Protein Urine 1+ (Negative); Sulfosalicylic Acid Urine Positive (Negative); Urobilinogen Urine Norm (Negative)
[2019-11-16] MEDS: Dianeal low Ca w/2.5% dex 2,000 mL Bag 2000 ML INTRAPERIT ×5 (04:00→22:04)
[2019-11-16] MEDS: HYDROcodone-acetaminophen 5-325 mg Tablet 1 TAB PO ×3 (04:06→23:15)
--- NOTE | 2019-11-16 04:24 | PC.NURSE ---
PD Dialysis instilled. Patient able to retain the full 3 liter. Pt tolerated well.
[2019-11-16 06:26] LABS: Alanine Aminotransferase 17 U/L (0-41); Albumin Level 2.4 g/dL (3.5-5.2); Alkaline Phosphatase 37 IU/L (40-130); Blood Urea Nitrogen 71 mg/dL (8-23); Carbon Dioxide 21 mmol/L (22-29); Chloride 92 mmol/L (98-107); Globulin 3.4 g/dL (1.3-4.6); Glomerular Filtration Rate 4.2 mL/min (90-130); Glucose 165 mg/dL (65-115); Magnesium 1.8 mg/dL (1.7-2.3); Osmolality Calculated 299 mOsm/kg (285-295); Sodium 132 mmol/L (136-145); Total Bilirubin 0.2 mg/dL (0.15-1.2); Total Protein 5.8 g/dL (6.6-8.7)
[2019-11-16 06:27] LABS: Anion Gap 23.4 (5-19); Aspartate Amino Transferase 20 U/L (0-40); Potassium 4.4 mmol/L (3.5-5.1)
[2019-11-16 06:28] LABS: Phosphorus 9.6 mg/dL (2.5-4.5)
[2019-11-16 06:42] LABS: Hematocrit 21.3 % (42.0-52.0); Hemoglobin 7.3 g/dL (11.7-16.6); Lymphocytes # 0.6 10^3/uL (0.8-4.8); Lymphocytes % 84.5 %; Mean Corpuscular HGB Conc 34.3 g/dL (30.0-36.0); Mean Corpuscular Hemoglobin 36.5 pg (28.0-34.0); Mean Corpuscular Volume 106.5 fL (80-94); Mean Platelet Volume 10.4 fL (7.4-10.4); Monocytes # 0.1 10^3/uL (0.2-0.9); Monocytes % 12.7 %; Neutrophils % 2.8 %; Nucleated Red Blood Cells % 0 %; Platelet Count 159 10^3/cmm (130-400); Red Cell Distribution Width 14.5 % (12.1-15.1)
--- NOTE | 2019-11-16 06:51 | US_ITS ---
WS: [id number] US soft tissue head neck [id number] REASON FOR EXAM: cervical lymphadenopathy FINDINGS: No neck mass identified. No neck mass identified on CT scan of 11/15/2019. US/US soft tissue head neck [id number] IMPRESSION: No neck mass.
[2019-11-16 07:01] LABS: Neutrophils # 0.02 10^3/uL (1.8-7.7); White Blood Count 0.7 10^3/uL (4.0-10.0)
[2019-11-16 07:03] LABS: Slide Review Slide Review Perform
--- NOTE | 2019-11-16 07:44 | P.PN_ITS ---
Subjective Subjective: Interval history: feels better. dec jaw pain Medications: Reviewed: Yes Medication Review Details: Current Medications Hydrocodone Bitart/Acetaminophen (Berkley 5-325 Mg) 1 tab PO Q6H PRN PRN Reason: MODERATE PAIN Last Admin: 11/16/19 04:06 Dose: 1 tab Documented by: Amlodipine Besylate (Norvasc) 5 mg PO DAILY [facility] Aspirin (Aspirin Ec) 81 mg PO DAILY [facility] Atorvastatin Calcium (Lipitor) 40 mg PO DAILY [facility] Calcium Acetate (Phoslo) 667 mg PO TID [facility] Heparin Sodium (Beef Lung) (Heparin) 5,000 unit SUBCUT Q12H [facility] Last Admin: 11/16/19 00:05 Dose: 5,000 unit Documented by: Piperacillin Sod/Tazobactam (Sod 3.375 gm/ Sodium Chloride) 50 mls @ 12.5 mls/hr IV Q12H [facility]; Protocol Last Admin: 11/16/19 00:06 Dose: 12.5 mls/hr Documented by: Vancomycin HCl / Sodium (Chloride) 250 mls @ 0 mls/hr [id number] PROTOCOL [facility]; Protocol Metoprolol Tartrate (Lopressor) 50 mg PO BID [facility] Non-Formulary Medication (Vit B Azjapme-Q-Yvwoc Ac-Zinc [Renaplex]) 1 tab PO .COMPLEX YARED Ondansetron HCl (Zofran) 4 mg IVP Q8H PRN PRN Reason: vomiting, or N/V if npo Peritoneal Dialysis Solution (Dianeal Low Ca W/2.5% Dex) 2,000 ml INTRAPERIT 5XD [facility] Last Admin: 11/16/19 04:00 Dose: 2,000 ml Documented by: Vitals/I&O/Wt Last Vital Signs Temp 97.8 F 11/16/19 07:38 Pulse 85 11/16/19 07:38 Resp 18 11/16/19 07:38 BP 126/65 11/16/19 07:38 Pulse Ox 95 11/16/19 07:38 11/15/19 11/16/19 11/16/19 22:59 06:59 14:59 Intake Total 150 / 150 Output Total 0 / 0 0 / 0 Balance 150 / 150 0 / 150 Weight last 48 hrs Weight 76.204 kg Physical Exam Narrative: EXAM NARRATIVE: vs noted, and stable exam by RN- as telemedicine visit NARD heent- nc/at neck supple lungs clear heart reg, tno m/r/g apprecited abd soft, nt, nd, +BS, + dialysis catheter ext no edema Data : 11/16/19 04:50 11/16/19 04:50 Micro: Microbiology 11/15/19 18:45 Blood Culture - Preliminary Blood SPECIMEN COLLECTED 11/15/19 17:37 Blood Culture - Preliminary Blood SPECIMEN COLLECTED A&P Additional A&P Information 69 yr old man 1. ESRD- PD- send cell count and cx -CAPD- 5 exchanges a day- 4 hrs dwell, use 2 l, 2.5% gluc bags -dose meds for ESRD 2. 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 htn and reduced EF- discuss starting ARB- hold norvasc for now 4. anemia- hgb improved from september. recent ferritin 1614- now 1517 5. hyponatremia- from ESRD- monitor w/ dialysis. recent normal tsh 11/01/19 6. 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
--- NOTE | 2019-11-16 08:00 | USCV_ITS ---
Shola Quintana Age: 69 Gender: M : 1950 Exam Date: 11/16/2019 09:28 Ordering Phys: Ilan Eaton MD Technologist: Nancy Ocampo [place] [facility] [place] Indication: fever unknown origin BP: / HR: 86 Rhythm: Sinus Technical Quality: Fair MEASUREMENTS (Male / Female) Normal Values 2D ECHO LV Diastolic Diameter PLAX 4.6 cm 4.2 - 5.9 / 3.9 - 5.3 cm LV Systolic Diameter PLAX 3.4 cm IVS Diastolic Thickness 1.5 cm 0.6 - 1.0 / 0.6 - 0.9 cm IVS Systolic Thickness 1.4 cm LVPW Diastolic Thickness 1.3 cm 0.6 - 1.0 / 0.6 - 0.9 cm LVPW Systolic Thickness 1.8 cm LVOT Diameter 2.0 cm LV Ejection Fraction 2D Teich 49.3 % LA Diameter 2.6 cm LA Width 3.4 cm LA Height 5.0 cm RA Width 3.1 cm RA Height 4.9 cm M-MODE LV Diastolic Diameter MM 5.7 cm 4.2 - 5.9 / 3.9 - 5.3 cm LV Systolic Diameter MM 4.2 cm LV Ejection Fraction MM Teich 50.3 % IVS Diastolic Thickness MM 0.9 cm 0.6 - 1.0 / 0.6 - 0.9 cm IVS Systolic Thickness MM 1.1 cm LVPW Diastolic Thickness MM 0.7 cm 0.6 - 1.0 / 0.6 - 0.9 cm LVPW Systolic Thickness MM 2.2 cm Aortic Annulus Diameter 3.6 cm LA Ao Ratio MM 0.7 MV E Point Septal Separation 1.3 cm DOPPLER AV Peak Velocity 74.0 cm/s LVOT Peak Velocity 79.0 cm/s AV Area Cont Eq vti 3.6 cm squared AV Area Cont Eq pk 3.4 cm squared MV Peak Velocity 103.0 cm/s MV Area PHT 6.3 cm squared Mitral E to A Ratio 0.9 MV E' Velocity 70.0 cm/s TR Peak Velocity 110.0 cm/s TR Peak Gradient 4.8 mmHg Right Atrial Pressure 3.0 mmHg Pulmonary Artery Systolic Pressu 7.8 mmHg PV Peak Velocity 109.7 cm/s RV Acceleration Time 0.1 s FINDINGS Left Ventricle Normal left ventricular size. LV systolic function is mildly decreased with EF of 40 to 45%. Mild global hypokinesis is noted. Moderate left ventricular hypertrophy. Grade 1 diastolic dysfunction is noted. Right Ventricle The right ventricle is normal in size and function. Right Atrium The right atrium is normal in size. Left Atrium The left atrium is normal in size. Mitral Valve Mitral valve is thickened. The echodensity seen on transesophageal echocardiogram performed on 09/09/2019, is not well visualized because of thickening of mitral valve but it cannot be ruled out. There is no mitral regurgitation. Aortic Valve Structurally normal aortic valve without significant sclerosis or stenosis. There is no aortic regurgitation. Tricuspid Valve Structurally normal tricuspid valve without significant stenosis or regurgitation. Insufficient TR jet to calculate RVSP. RA pressure is 0 to 5 mmHg. Pulmonic Valve Structurally normal pulmonic valve without significant stenosis. There is no pulmonic regurgitation. Pericardium Normal pericardium without effusion. Aorta Normal ascending aorta dimension. CONCLUSIONS LV systolic function is mildly reduced with EF of 40 to 45%. Mild global hypokinesis is noted. Grade 1 diastolic dysfunction is present. Thickened mitral valve is present. The echodensity seen on transesophageal echocardiogram performed on 09/09/2019, is not well visualized because of thickening of mitral valve but it cannot be ruled out. Paired to prior transthoracic echocardiogram from 09/07/2019, EF has mildly increased to 40 to 45%. Alejandro Rasheed MD (Electronically Signed) Final Date: 16 November 2019 16:57 S
[2019-11-16] MEDS: aspirin 81 mg EC Tablet PO (08:47)
[2019-11-16] MEDS: metoprolol tartrate 50 mg Tablet PO ×2 (08:47→17:47)
[2019-11-16] MEDS: atorvastatin 40 mg Tablet PO (08:47)
[2019-11-16] MEDS: epoetin alfa 10,000 unit/mL INJ 10000 UNIT SUBCUT (09:02)
[2019-11-16] MEDS: sevelamer 800 mg Tablet 2400 MG PO ×3 (09:02→17:46)
[2019-11-16 10:18] LABS: Appearance, Peritoneal Fluid Clear (Clear); Color, Peritoneal Fluid Colorless (Pale Yellow)
[2019-11-16 10:19] LABS: Mononuclear #, Pertinoneal Fl 0.006 10^3/uL; Polynuclear # Cells, Perit 0.001 10^3/uL
[2019-11-16 10:20] LABS: RBC Pertioneal Fluid 0 10^3/uL; WBC Peritoneal Fluid 7 /uL
--- NOTE | 2019-11-16 11:04 | PC.NURSE ---
Discussed patients nose bleed from right nare minimal drip bleed with Dr. Lopez, will be in to see patient. Patient is awake alert and oriented, reports pain to left side of jaw, PRN medication provided, see MAR for further details, resting in bed, discussed plan of care, verbalized understanding, refuses to get COVID PCR test as ordered due to rapid negative and I already have a nose bleed. Dr. Lopez notified.
[2019-11-16 11:08] LABS: Fibrinogen 584 mg/dL (174-498)
--- NOTE | 2019-11-16 13:23 | PC.NURSE ---
Dr. Lopez informed this nurse patient may have a visitor today, since rapid covid was negative and unable to complete PCR with nosebleed, charge nurse Ying notified and updated visitor information.
--- NOTE | 2019-11-16 13:40 | PC.NURSE ---
applied covaderm to left elbow skin tear.
--- NOTE | 2019-11-16 20:20 | P.PN_ITS ---
Subjective Subjective: Interval history: Patient is afebrile, he is having nosebleed from the left nostril after COVID nasal swab testing. Bleeding is minimal. We will continue to monitor. Cultures awaited, continue with broad-spectrum antibiotic. Medications: Reviewed: Yes Vitals/I&O/Wt Last Vital Signs Temp 98.4 F 11/16/19 16:00 Pulse 78 11/16/19 16:00 Resp 18 11/16/19 16:00 BP 137/64 11/16/19 16:00 Pulse Ox 96 11/16/19 16:00 11/16/19 11/16/19 11/16/19 06:59 14:59 22:59 Intake Total 50 / 200 360 / 360 480 / 840 Output Total 0 / 0 0 / 0 Balance 50 / 200 360 / 360 480 / 840 Weight last 48 hrs Weight 76.204 kg Physical Exam Narrative: EXAM NARRATIVE: EXAM NARRATIVE: vs noted, and stable exam by RN- as telemedicine visit NARD heent- nc/at neck supple lungs clear heart reg, tno m/r/g apprecited abd soft, nt, nd, +BS, + dialysis catheter ext no edema Data : 11/16/19 04:50 11/16/19 04:50 Micro: Microbiology 11/15/19 18:45 Blood Culture - Preliminary Blood NEGATIVE TO DATE 11/15/19 17:37 Blood Culture - Preliminary Blood NEGATIVE TO DATE 11/16/19 09:07 Gram Stain - Final Peritoneal Fluid 11/16/19 00:15 MRSA Culture - Final Nose A&P Assessment and plan (1) Neutropenic fever: -T-max of 100.3, he did feel quite warm during my examination -Had an admission on 08/28/2019 for group C 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 If fever persists without as good source, can consider LP to evaluate for meningitis -No chest pain, no palpitations, repeat transthoracic echocardiogram to evaluate for endocarditis,done : Is inconclusive: The echodensity seen on transesophageal echocardiogram performed on 09/09/2019, is not well visualized because of thickening of mitral valve but it cannot be ruled out. he might require repeat transesophageal echocardiogram based on further work-up -No abdominal pain, no abdominal tenderness, CT of the abdomen and pelvis unremarkable for peritonitis, will obtain peritoneal cultures the next time he gets peritoneal dialysis -No dysuria, no hematuria, follow urine cultures -Follow blood cultures -Covid rapid negative, Covid PCR not done due to ongoing nosebleed. -Blood cultures, urine cultures, sputum cultures, inflammatory markers, peripheral smear -Does have diffuse cervical lymphadenopathy, possibly related to his dental infection although CT of the neck does not show any abscess, or deep tissue neck infection, but will order CT of the chest -Does have lower left molar is a large, tender, with some surrounding erythema of the neck, although no CT evidence of deep tissue infection or abscess -Keep on reverse isolation precautions, Covid precautions -Broad-spectrum antibiotics vancomycin, Zosyn -Monitor clinical progress -Patient is a full code -Lovenox for DVT prophylaxis Status: Acute (2) Dental infection: Status: Acute (3) Nonischemic cardiomyopathy: Status: Acute (4) Acute hyponatremia: -Monitor Status: Acute (5) Fever: Status: Acute (6) End stage renal disease: -Consulted nephrology for PD Status: Acute (7) Hyperlipidemia: Status: Acute (8) HTN (hypertension): Status: Acute Attestations Medical Necessity Statement*: Patient needs to be in hospital for management of febrile neutropenia. Coding Level of Care Code Acute Direct Support Professional Caregiver for g Fwd Diagnoses Neutropenic fever D70.9; R50.81 Dental infection K04.7 Nonischemic cardiomyopathy I42.8 Acute hyponatremia E87.1 Fever R50.9 End stage renal disease N18.6 Hyperlipidemia E78.5 HTN (hypertension) I10
[2019-11-17] VITALS (10 sets, daily range): BP systolic 119–151; BP diastolic 54–66; PULSE 82–91; RESP 14–18; TEMP 36.8–37.2; O2SAT 93–95
[2019-11-17 04:22] LABS: Basophils % 1.1 %; Eosinophils # 0.1 10^3/uL (0.0-0.8); Eosinophils % 12.6 %; Hemoglobin 8.5 g/dL (11.7-16.6); Lymphocytes # 0.6 10^3/uL (0.8-4.8); Mean Corpuscular HGB Conc 32.7 g/dL (30.0-36.0); Mean Corpuscular Hemoglobin 34.6 pg (28.0-34.0); Mean Corpuscular Volume 105.7 fL (80-94); Mean Platelet Volume 9.6 fL (7.4-10.4); Monocytes # 0.1 10^3/uL (0.2-0.9); Monocytes % 12.6 %; Neutrophils % 4.7 %; Nucleated Red Blood Cells % 0 %; Platelet Count 162 10^3/cmm (130-400); Red Blood Count 2.46 10^6/uL (4.1-5.3); Red Cell Distribution Width 14.2 % (12.1-15.1)
[2019-11-17 04:41] LABS: Alanine Aminotransferase 12 U/L (0-41); Albumin Level 2.3 g/dL (3.5-5.2); Alkaline Phosphatase 36 IU/L (40-130); Anion Gap 20.3 (5-19); Aspartate Amino Transferase 10 U/L (0-40); Blood Urea Nitrogen 71 mg/dL (8-23); Calcium 8.5 mg/dL (8.5-10.5); Carbon Dioxide 25 mmol/L (22-29); Chloride 94 mmol/L (98-107); Globulin 3.8 g/dL (1.3-4.6); Glomerular Filtration Rate 4.1 mL/min (90-130); Glucose 108 mg/dL (65-115); Osmolality Calculated 301 mOsm/kg (285-295); Potassium 4.3 mmol/L (3.5-5.1); Sodium 135 mmol/L (136-145); Total Bilirubin 0.2 mg/dL (0.15-1.2); Total Protein 6.1 g/dL (6.6-8.7)
[2019-11-17 04:46] LABS: Phosphorus 9.4 mg/dL (2.5-4.5)
[2019-11-17 04:51] LABS: Vancomycin Random 16.4 ug/mL (20.0-40.0)
[2019-11-17 05:27] LABS: Slide Review Slide Review Perform
[2019-11-17 05:28] LABS: Neutrophils # 0.04 10^3/uL (1.8-7.7); White Blood Count 0.9 10^3/uL (4.0-10.0)
[2019-11-17] MEDS: Dianeal low Ca w/2.5% dex 2,000 mL Bag 2000 ML INTRAPERIT (06:54)
[2019-11-17] MEDS: metoprolol tartrate 50 mg Tablet PO ×2 (09:07→18:23)
[2019-11-17] MEDS: atorvastatin 40 mg Tablet PO (09:07)
[2019-11-17] MEDS: aspirin 81 mg EC Tablet PO (09:07)
--- NOTE | 2019-11-17 12:16 | PM.PN ---
Subjective Subjective: Interval history: Pain in the jaw but otherwise remains stable. No further fevers or chills. No edema and no other volume Sx. No uremic Sx PD is going well but concerned about the time; ok to drop to 4 exchanges a day. Feels like he is on the dryer side and asking to down to 1.5% solutions Medications: Reviewed: Yes Medication Review Details: Current Medications Hydrocodone Bitart/Acetaminophen ([place] 5-325 Mg) 1 tab PO Q6H PRN PRN Reason: MODERATE PAIN Last Admin: 11/16/19 04:06 Dose: 1 tab Documented by: Amlodipine Besylate (Norvasc) 5 mg PO DAILY [facility] Aspirin (Aspirin Ec) 81 mg PO DAILY [facility] Atorvastatin Calcium (Lipitor) 40 mg PO DAILY [facility] Calcium Acetate (Phoslo) 667 mg PO TID [facility] Heparin Sodium (Beef Lung) (Heparin) 5,000 unit SUBCUT Q12H [facility] Last Admin: 11/16/19 00:05 Dose: 5,000 unit Documented by: Piperacillin Sod/Tazobactam (Sod 3.375 gm/ Sodium Chloride) 50 mls @ 12.5 mls/hr IV Q12H [facility]; Protocol Last Admin: 11/16/19 00:06 Dose: 12.5 mls/hr Documented by: Vancomycin HCl / Sodium (Chloride) 250 mls @ 0 mls/hr [id number] PROTOCOL [facility]; Protocol Metoprolol Tartrate (Lopressor) 50 mg PO BID [facility] Non-Formulary Medication (Vit B Rhwsqhm-D-Tvtyo Ac-Zinc [Renaplex]) 1 tab PO .COMPLEX [facility] Ondansetron HCl (Zofran) 4 mg IVP Q8H PRN PRN Reason: vomiting, or N/V if npo Peritoneal Dialysis Solution (Dianeal Low Ca W/2.5% Dex) 2,000 ml INTRAPERIT 5XD [facility] Last Admin: 11/16/19 04:00 Dose: 2,000 ml Documented by: Vitals/I&O/Wt Last Vital Signs Temp 98.8 F 11/17/19 12:00 Pulse 82 11/17/19 12:00 Resp 16 11/17/19 12:00 BP 127/60 11/17/19 12:00 Pulse Ox 95 11/17/19 12:00 11/16/19 11/17/19 11/17/19 22:59 06:59 14:59 Intake Total 480 / 890 409.792 / 1299.792 480 / 480 Output Total 400 / 400 280 / 680 Balance 80 / 490 129.792 / 619.792 480 / 480 Weight last 48 hrs Weight 76.204 kg Physical Exam Narrative: EXAM NARRATIVE: Constitutional: Awake, conversant HEENT: Wet mucosa, no jvp, non icteric Lungs: Bilaterally clear without discernible wheeze, rales in all lung zones CVS: S1 S2, no murmurs Abdo: Soft, BS ok, healthy PD cath exit site Ext 4: Minimal edema, peripheral perfusion with no cyanosis Neurological: Grossly non-focal Data : 11/17/19 03:58 11/17/19 03:58 Micro: Microbiology 11/16/19 02:15 Urine Culture - Preliminary Urine,Clean Catch 11/15/19 18:45 Blood Culture - Preliminary Blood NEGATIVE TO DATE 11/15/19 17:37 Blood Culture - Preliminary Blood NEGATIVE TO DATE 11/16/19 09:07 Gram Stain - Final Peritoneal Fluid 11/16/19 00:15 MRSA Culture - Final Nose A&P Additional A&P Information 1. ESRD - PD fluid is clear, culture negative - CAPD; will change to 4 exhanges a day, 2L, 1.5% solution, 2L exchange volumes - dose meds for ESRD 2. 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 HTN and reduced EF - Lisinopril 2.5mg daily 4. anemia- hgb improved from september. recent ferritin 1614- now 1517 5. hyponatremia- from ESRD- monitor w/ dialysis. recent normal tsh 11/01/19 6. bone-mineral - Renvela added - iPTH monitoring deferred to outpatient Attestations Medical Necessity Statement*: mgmt of ESRD and PD Coding Level of Care Code Acute Electro Mechanic for Joselyn Buchanan
[2019-11-17] MEDS: piperacillin-tazobactam 3.375 GM in sodium chloride 0.9% (plus) 50 ML IV ×2 (12:17→23:36)
[2019-11-17] MEDS: heparin 5,000 unit/mL INJ 1 mL 5000 UNIT SUBCUT ×2 (12:21→23:37)
--- NOTE | 2019-11-17 13:38 | P.PN_ITS ---
Subjective Subjective: Interval history: Patient is still complaining of pain on his molar teeth.But he has been afebrile since admission in the hospital, other vitals and labs have been reviewed. Medications: Reviewed: Yes Medication Review Details: Current Medications Hydrocodone Bitart/Acetaminophen ([place] 5-325 Mg) 1 tab PO Q6H PRN PRN Reason: MODERATE PAIN Last Admin: 11/16/19 04:06 Dose: 1 tab Documented by: Amlodipine Besylate (Norvasc) 5 mg PO DAILY [facility] Aspirin (Aspirin Ec) 81 mg PO DAILY [facility] Atorvastatin Calcium (Lipitor) 40 mg PO DAILY [facility] Calcium Acetate (Phoslo) 667 mg PO TID [facility] Heparin Sodium (Beef Lung) (Heparin) 5,000 unit SUBCUT Q12H [facility] Last Admin: 11/16/19 00:05 Dose: 5,000 unit Documented by: Piperacillin Sod/Tazobactam (Sod 3.375 gm/ Sodium Chloride) 50 mls @ 12.5 mls/hr IV Q12H [facility]; Protocol Last Admin: 11/16/19 00:06 Dose: 12.5 mls/hr Documented by: Vancomycin HCl / Sodium (Chloride) 250 mls @ 0 mls/hr [id number] PROTOCOL [facility]; Protocol Metoprolol Tartrate (Lopressor) 50 mg PO BID [facility] Non-Formulary Medication (Vit B Hrmsvei-C-Sglha Ac-Zinc [Renaplex]) 1 tab PO .COMPLEX [facility] Ondansetron HCl (Zofran) 4 mg IVP Q8H PRN PRN Reason: vomiting, or N/V if npo Peritoneal Dialysis Solution (Dianeal Low Ca W/2.5% Dex) 2,000 ml INTRAPERIT 5XD [facility] Last Admin: 11/16/19 04:00 Dose: 2,000 ml Documented by: Vitals/I&O/Wt Last Vital Signs Temp 98.8 F 11/17/19 12:00 Pulse 82 11/17/19 12:00 Resp 16 11/17/19 12:00 BP 127/60 11/17/19 12:00 Pulse Ox 95 11/17/19 12:00 11/16/19 11/17/19 11/17/19 22:59 06:59 14:59 Intake Total 480 / 890 409.792 / 1299.792 480 / 480 Output Total 400 / 400 280 / 680 Balance 80 / 490 129.792 / 619.792 480 / 480 Weight last 48 hrs Weight 76.204 kg Physical Exam Narrative: EXAM NARRATIVE: EXAM NARRATIVE: vs noted, and stable exam by RN- as telemedicine visit DAVION heent- nc/at neck supple lungs clear heart reg, tno m/r/g apprecited abd soft, nt, nd, +BS, + dialysis catheter ext no edema Const: COMMON NORMALS: patient oriented x3 HENMT: COMMON NORMALS: normocephalic, atraumatic, hearing grossly normal bilaterally and external ears normal HEAD & SCALP: normocephalic and atraumatic EXTERNAL EAR: Yes external ears normal Eye: COMMON NORMALS: no scleral icterus GENERAL EYE: appearance normal, both eyes and all related structures Chest: COMMONS NORMALS: normal inspection of the chest and normal palpation of entire chest wall CHEST: Yes Symmetrical chest wall rise Resp: COMMON NORMALS: normal respiratory effort, No retractions, No use of accessory muscles and clear to auscultation bilaterally EFFORT & INSPECTION: Yes symmetric chest movement AUSCULTATION: clear to auscultation bilaterally Cardio: COMMON NORMALS: regular rate, regular rhythm, S1 normal heart sound present, S2 normal heart sound present, No gallops present (Cardio), No murmurs present (Cardio), No rub (Cardio) and Peripheral pulses 2+ throughout RATE: regular rate RHYTHM: regular rhythm HEART SOUNDS: S1 normal heart sound present and S2 normal heart sound present PERIPHERAL PULSES: Peripheral pulses 2+ throughout GI: COMMON NORMALS: Normal to inspection, nondistended, normoactive bowel soun ds present, Soft to palpation, non-tender, No hepatosplenomegaly present and no masses AUSCULTATION: Yes normoactive bowel sounds PALPATION: Yes Soft to palpation and Yes No hepatosplenomegaly present RECTAL EXAM: Yes deferred Extremity: COMMON NORMALS: no clubbing, cyanosis or edema and no pedal edema Neuro: COMMON NORMALS: patient oriented x3 Data : 11/18/19 05:31 11/18/19 05:31 Micro: Microbiology 11/16/19 02:15 Urine Culture - Preliminary Urine,Clean Catch 11/15/19 18:45 Blood Culture - Preliminary Blood NEGATIVE TO DATE 11/15/19 17:37 Blood Culture - Preliminary Blood NEGATIVE TO DATE 11/16/19 09:07 Gram Stain - Final Peritoneal Fluid 11/16/19 00:15 MRSA Culture - Final Nose A&P Assessment and plan (1) Neutropenic fever: -T-max of 100.3, since admission. -WBC ( 0.9 ) is trending up , ANC : 0.04 -Possible cause of neutropenia can be recent ABX use. 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 Repeat ECho -No headache, no blurry vision, does have chronic neck pain, no neck pain with range of motion during my examination. If fever persists without as good source, can consider LP to evaluate for meningitis -No chest pain, no palpitations, repeat transthoracic echocardiogram to evaluate for endocarditis,done : Is inconclusive: The echodensity seen on transesophageal echocardiogram performed on 09/09/2019, is not well visualized because of thickening of mitral valve but it cannot be ruled out. he might require repeat transesophageal echocardiogram based on further work-up -No abdominal pain, no abdominal tenderness, CT of the abdomen and pelvis unremarkable for peritonitis, will obtain peritoneal cultures the next time he gets peritoneal dialysis -No dysuria, no hematuria, follow urine cultures -Follow blood cultures -Covid rapid negative, Covid PCR not done due to ongoing nosebleed. -Blood cultures, urine cultures, sputum cultures: Is negative till date. -CT of the neck does not show any abscess, or deep tissue neck infection -CT of the chest No acute findings. Negative for pneumonia. -Does have lower left molar is a large, tender, with some surrounding erythema of the neck, although no CT evidence of deep tissue infection or abscess -Keep on reverse isolation precautions, Covid precautions - Continue vancomycin, Zosyn - Started on Neupogen 480 mcg oral daily on 11/16/2019 Status: Acute (2) Dental infection: -Broad-spectrum antibiotics vancomycin, Zosyn Status: Acute (3) Nonischemic cardiomyopathy: No acute intervention. Status: Acute (4) Acute hyponatremia: -Resolved Status: Acute (5) End stage renal disease: -nephrology for PD.Rec appreciated. Status: Acute (6) Hyperlipidemia: Continue Atorvas 40 mg oral daily. Status: Acute (7) HTN (hypertension): Continue Amlodipine 5 mg oral daily.Continue metoprolol tartrate 50 mg q12 h daily. Status: Acute Additional A&P Information Code status : Full code DVT PPX: Lovenox 40 mg sc daily Attestations Medical Necessity Statement*: Patient needs to be in hospital for Febrile neutropenia management Coding Level of Care Code Acute Movement Therapist for Chg Fwd Exam Comprehensive Diagnoses Neutropenic fever D70.9; R50.81 Dental infection K04.7 Nonischemic cardiomyopathy I42.8 Acute hyponatremia E87.1 End stage renal disease N18.6 Hyperlipidemia E78.5 HTN (hypertension) I10
[2019-11-17] MEDS: Dianeal low Ca w/1.5% dex 2,000 mL Bag 2000 ML INTRAPERIT ×3 (15:00→23:00)
[2019-11-17] MEDS: sevelamer 800 mg Tablet 2400 MG PO (18:23)
[2019-11-17] MEDS: HYDROcodone-acetaminophen 5-325 mg Tablet 1 TAB PO ×2 (18:24→23:37)
[2019-11-18] VITALS (10 sets, daily range): BP systolic 133–165; BP diastolic 64–76; PULSE 84–97; RESP 16–20; TEMP 36.8–37.3; O2SAT 93–96
[2019-11-18 06:22] LABS: Hemoglobin 8.3 g/dL (11.7-16.6); Mean Corpuscular HGB Conc 36.1 g/dL (30.0-36.0); Mean Corpuscular Hemoglobin 38.2 pg (28.0-34.0); Platelet Count 154 10^3/cmm (130-400); Red Blood Count 2.17 10^6/uL (4.1-5.3); Red Cell Distribution Width 14.2 % (12.1-15.1); White Blood Count 1.1 10^3/uL (4.0-10.0)
[2019-11-18 06:39] LABS: Alanine Aminotransferase 10 U/L (0-41); Albumin Level 2.2 g/dL (3.5-5.2); Alkaline Phosphatase 38 IU/L (40-130); Anion Gap 20.6 (5-19); Aspartate Amino Transferase 8 U/L (0-40); Blood Urea Nitrogen 67 mg/dL (8-23); Calcium 8.4 mg/dL (8.5-10.5); Carbon Dioxide 24 mmol/L (22-29); Chloride 91 mmol/L (98-107); Globulin 3.7 g/dL (1.3-4.6); Glomerular Filtration Rate 4.3 mL/min (90-130); Glucose 95 mg/dL (65-115); Magnesium 1.9 mg/dL (1.7-2.3); Osmolality Calculated 291 mOsm/kg (285-295); Potassium 4.6 mmol/L (3.5-5.1); Sodium 131 mmol/L (136-145); Total Bilirubin 0.2 mg/dL (0.15-1.2); Total Protein 5.9 g/dL (6.6-8.7)
[2019-11-18 06:45] LABS: Phosphorus 7.8 mg/dL (2.5-4.5)
[2019-11-18 07:28] LABS: Slide Review Slide Review Perform
[2019-11-18 07:47] LABS: Absolute Eosinophils 0.1 10^3/cmm (0.0-0.7); Absolute Segmented Neutrophil 0.1 10/cmm (1.6-7.1); Eosinophils 11 %; Lymphocytes 72 %; Monocytes Absolute 0.1 10^3/cmm (0.1-0.6); Segmented Neutrophils 6 %; Total Cells Counted 100 (0-100)
[2019-11-18 07:50] LABS: Platelet Estimate Normal (Normal)
[2019-11-18 07:51] LABS: Absolute Neutrophil 0.1 10^3/cmm (1.4-6.5)
[2019-11-18] MEDS: aspirin 81 mg EC Tablet PO (09:41)
[2019-11-18] MEDS: sevelamer 800 mg Tablet 2400 MG PO ×3 (09:41→17:34)
[2019-11-18] MEDS: atorvastatin 40 mg Tablet PO (09:41)
[2019-11-18] MEDS: metoprolol tartrate 50 mg Tablet PO ×2 (09:42→17:34)
[2019-11-18] MEDS: Dianeal low Ca w/1.5% dex 2,000 mL Bag 2000 ML INTRAPERIT (09:42)
[2019-11-18] MEDS: colchicine 0.6 mg Tablet 1.2 MG PO (10:16)
[2019-11-18] MEDS: heparin 5,000 unit/mL INJ 1 mL 5000 UNIT SUBCUT ×2 (10:16→23:34)
[2019-11-18] MEDS: piperacillin-tazobactam 3.375 GM in sodium chloride 0.9% (plus) 50 ML IV ×2 (10:31→23:33)
--- NOTE | 2019-11-18 11:12 | PM.PN ---
Subjective Subjective: Interval history: Teeth feel better, complaining of gout in the left wrist and knee. PD is going well with good flows, exchanges PD exit site looks healthy Vitals reviewed GNR in one blood culture No more fevers or chills and he is feeling better Medications: Reviewed: Yes Medication Review Details: Current Medications Hydrocodone Bitart/Acetaminophen ([place] 5-325 Mg) 1 tab PO Q6H PRN PRN Reason: MODERATE PAIN Last Admin: 11/16/19 04:06 Dose: 1 tab Documented by: Amlodipine Besylate (Norvasc) 5 mg PO DAILY [facility] Aspirin (Aspirin Ec) 81 mg PO DAILY [facility] Atorvastatin Calcium (Lipitor) 40 mg PO DAILY [facility] Calcium Acetate (Phoslo) 667 mg PO TID [facility] Heparin Sodium (Beef Lung) (Heparin) 5,000 unit SUBCUT Q12H [facility] Last Admin: 11/16/19 00:05 Dose: 5,000 unit Documented by: Piperacillin Sod/Tazobactam (Sod 3.375 gm/ Sodium Chloride) 50 mls @ 12.5 mls/hr IV Q12H [facility]; Protocol Last Admin: 11/16/19 00:06 Dose: 12.5 mls/hr Documented by: Vancomycin HCl / Sodium (Chloride) 250 mls @ 0 mls/hr [id number] PROTOCOL [facility]; Protocol Metoprolol Tartrate (Lopressor) 50 mg PO BID [facility] Non-Formulary Medication (Vit B Mqnpfpe-T-Wmnzf Ac-Zinc [Renaplex]) 1 tab PO .COMPLEX [facility] Ondansetron HCl (Zofran) 4 mg IVP Q8H PRN PRN Reason: vomiting, or N/V if npo Peritoneal Dialysis Solution (Dianeal Low Ca W/2.5% Dex) 2,000 ml INTRAPERIT 5XD [facility] Last Admin: 11/16/19 04:00 Dose: 2,000 ml Documented by: Vitals/I&O/Wt Last Vital Signs Temp 99.2 F 11/18/19 11:03 Pulse 85 11/18/19 11:03 Resp 18 11/18/19 11:03 BP 152/76 11/18/19 08:00 Pulse Ox 93 11/18/19 08:00 11/17/19 11/18/19 11/18/19 22:59 06:59 14:59 Intake Total 170 / 770 250 / 1020 Output Total 0 / 0 300 / 300 Balance 170 / 770 250 / 1020 -300 / -300 Physical Exam Narrative: EXAM NARRATIVE: EXAM NARRATIVE: vs noted, and stable exam by RN- as telemedicine visit NARD heent- nc/at neck supple lungs clear heart reg, tno m/r/g apprecited abd soft, nt, nd, +BS, + dialysis catheter ext no edema Const: COMMON NORMALS: no acute distress, patient oriented x3, no limitations and alert GENERAL APPEARANCE: cooperative and comfortable HENMT: COMMON NORMALS: normocephalic, atraumatic, hearing grossly normal bilaterally, external ears normal, EAC's normal and Normal external nose present HEAD & SCALP: normal to inspection, normocephalic and atraumatic FACE & SINUS: normal facial exam and face symmetric NOSE: Normal external nose present and Normal nares present EXTERNAL EAR: Yes external ears normal EXTERNAL AUDITORY CANAL: EAC's normal MOUTH: Normal oral and palatal mucosa present, lip normal, tongue normal and other (Swelling along the left lower posterior mandible. Overall poor dentition throughout the mouth.) Eye: COMMON NORMALS: Equal, round and reactive pupils present, EOMs intact bilaterally, conjunctivae normal and no scleral icterus GENERAL EYE: appearance normal, both eyes and all related structures ALIGNMENT: Yes alignment normal PERIORBITAL: periorbital findings normal EYELID: eyelids normal CONJUNCTIVA: Yes conjunctivae normal SCLERA: sclerae normal PUPIL: Yes Equal, round and reactive pupils present Neck/C-Spine: COMMON NORMALS: full ROM, no lymphadenopathy, supple, no meningeal signs, no JVD and Thyroid normal GENERAL: Yes normal visual inspection and Yes trachea midline THYROID: Thyroid normal Lymph: OTHER: Does have diffuse posterior cervical chain anterior cervical chain, supraclavicular lymphadenopathy Chest: COMMONS NORMALS: normal inspection of the chest and normal palpation of entire chest wall CHEST: Yes Symmetrical chest wall rise Resp: COMMON NORMALS: normal respiratory effort, No retractions, No use of accessory muscles and clear to auscultation bilaterally EFFORT & INSPECTION: Yes able to speak in complete sentences and Yes symmetric chest movement AUSCULTATION: clear to auscultation bilaterally, no crackles, no rales, no rhonchi and no wheezes Cardio: COMMON NORMALS: no JVD, regular rate, regular rhythm, S1 normal heart sound present, S2 normal heart sound present, No gallops present (Cardio), No clicks present (Cardio), No murmurs present (Cardio), No rub (Cardio) and Peripheral pulses 2+ throughout RATE: regular rate RHYTHM: regular rhythm HEART SOUNDS: S1 normal heart sound present, S2 normal heart sound present, no click, no gallops, no murmurs and no rubs PERIPHERAL PULSES: Peripheral pulses 2+ throughout GI: COMMON NORMALS: Normal to inspection, nondistended, normoactive bowel sounds present, Soft to palpation, non-tender, No hepatosplenomegaly present and no masses AUSCULTATION: Yes normoactive bowel sounds PALPATION: Yes Soft to palpation, No Tenderness to palpation present (GI), No Guarding due to palpation present (GI), No Rigid due to palpation, Yes No hepatosplenomegaly present, No Hernia present, No Palpable mass present and No Pulsatile mass present RECTAL EXAM: Yes deferred : COMMON NORMALS: Yes no CVA tenderness BLADDER/KIDNEY EXAM: Yes no CVA tenderness Back/Pelvis: COMMON NORMALS: no CVA tenderness, thoracic and lumbar spine normal to inspection, no thoracic nor lumbar tenderness and thoraco-lumbar ROM normal Extremity: COMMON NORMALS: normal to inspection, full ROM, capillary refill normal, no joint enlargement, no clubbing, cyanosis or edema, no calf tenderness and no pedal edema Neuro: COMMON NORMALS: patient oriented x3, CN's II-XII intact bilaterally, moves all extremities, no focal motor deficits and no sensory deficits noted SENSORIUM/ORIENTATION: Yes alert MENINGEAL SIGNS: Yes no meningeal signs SPEECH: speech normal Psych: COMMON NORMALS: mental status grossly normal, Normal thought process present, cooperative, normal affect, speech normal and activity/motor behavior normal SPEECH: Yes normal speech THOUGHT PROCESS: Normal thought process present Skin: COMMON NORMALS: no rashes or lesions noted, turgor normal, no jaundice, no petechiae and no mottling GENERAL SKIN EXAM: no rashes or lesions noted and turgor normal Data : 11/18/19 05:31 11/18/19 05:31 Micro: Microbiology 11/16/19 02:15 Urine Culture - Final Urine,Clean Catch 11/15/19 18:45 Blood Culture - Preliminary Blood Gram Negative Rods 11/16/19 09:07 Gram Stain - Final Peritoneal Fluid Body Fluid Culture - Preliminary A&P Additional A&P Information 1. ESRD - PD fluid is clear, culture negative - CAPD; will change to 4 exchanges a day, 2L, 1.5%/2.5% alternating solution, 2L exchange volumes - dose meds for ESRD 2. 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 HTN and reduced EF - Lisinopril 2.5mg daily 4. anemia- hgb improved from september. recent ferritin 1614- now 1517; will give EPO 5. hyponatremia- from ESRD- monitor w/ dialysis. recent normal tsh 11/01/19 6. bone-mineral - Renvela added - iPTH monitoring deferred to outpatient 7. Gout - colchicine today Attestations Medical Necessity Statement*: eval for NANCY Coding Level of Care Code Acute Nail Polish Brush Machine Feeder for Joselyn Buchanan
[2019-11-18] MEDS: epoetin alfa 10,000 unit/mL INJ 10000 UNIT SUBCUT (12:06)
--- NOTE | 2019-11-18 12:38 | PC.SOCIAL ---
IMM Update Pg. 2 of IMM updated and reviewed with patient who verbalized understanding. Copy provided.
--- NOTE | 2019-11-18 15:51 | P.PN_ITS ---
Subjective Subjective: Interval history: Patient had an acute episode left knee pain and swelling, he was also complaining of left wrist pain , typical of gout-like attack. His teeth pain is better. Other than that no active, complaints. Has been afebrile, vitals and labs have been reviewed. Medications: Reviewed: Yes Vitals/I&O/Wt Last Vital Signs Temp 98.9 F 11/18/19 12:00 Pulse 86 11/18/19 12:00 Resp 18 11/18/19 12:00 BP 133/64 11/18/19 12:00 Pulse Ox 95 11/18/19 11:49 11/18/19 11/18/19 11/18/19 06:59 14:59 22:59 Intake Total 250 / 1020 240 / 240 Output Total 0 / 0 300 / 300 Balance 250 / 1020 -60 / -60 Physical Exam Const: COMMON NORMALS: patient oriented x3 HENMT: COMMON NORMALS: normocephalic, atraumatic, hearing grossly normal bilaterally and external ears normal HEAD & SCALP: normocephalic and atraumatic EXTERNAL EAR: Yes external ears normal Eye: COMMON NORMALS: no scleral icterus GENERAL EYE: appearance normal, both eyes and all related structures Chest: COMMONS NORMALS: normal inspection of the chest and normal palpation of entire chest wall CHEST: Yes Symmetrical chest wall rise Resp: COMMON NORMALS: normal respiratory effort, No retractions, No use of accessory muscles and clear to auscultation bilaterally EFFORT & INSPECTION: Yes symmetric chest movement AUSCULTATION: clear to auscultation bilaterally Cardio: COMMON NORMALS: regular rate, regular rhythm, S1 normal heart sound present, S2 normal heart sound present, No gallops present (Cardio), No murmurs present (Cardio), No rub (Cardio) and Peripheral pulses 2+ throughout RATE: regular rate RHYTHM: regular rhythm HEART SOUNDS: S1 normal heart sound present and S2 normal heart sound present PERIPHERAL PULSES: Peripheral pulses 2+ throughout GI: COMMON NORMALS: Normal to inspection, nondistended, normoactive bowel sounds present, Soft to palpation, non-tender, No hepatosplenomegaly present and no masses AUSCULTATION: Yes normoactive bowel sounds PALPATION: Yes Soft to palpation and Yes No hepatosplenomegaly present RECTAL EXAM: Yes deferred Extremity: COMMON NORMALS: no clubbing, cyanosis or edema and no pedal edema NARRATIVE EXTREMITY EXAM: lt knee swelling,with redness and tenderness. Neuro: COMMON NORMALS: patient oriented x3 Data : 11/18/19 05:31 11/18/19 05:31 Micro: Microbiology 11/16/19 09:07 Gram Stain - Final Peritoneal Fluid Body Fluid Culture - Preliminary 11/16/19 02:15 Urine Culture - Final Urine,Clean Catch 11/15/19 18:45 Blood Culture - Preliminary Blood Gram Negative Rods A&P Assessment and plan (1) Neutropenic fever: -T-max of 100.4 on 11/16/2019 .Has been afebrile thereafter -WBC ( 0.9 ) is trending up , ANC : 0.1 -Possible cause of neutropenia can be recent ABX use r/o other Causes. 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 Repeat ECho -No headache, no blurry vision, does have chronic neck pain, no neck pain with range of motion during my examination. -No chest pain, no palpitations, repeat transthoracic echocardiogram to evaluate for endocarditis,done : Is inconclusive: The echodensity seen on transesophageal echocardiogram performed on 09/09/2019, is not well visualized because of thickening of mitral valve but it cannot be ruled out. he might require repeat transesophageal echocardiogram based on further work-up -No abdominal pain, no abdominal tenderness, CT of the abdomen and pelvis unremarkable for peritonitis, peritoneal cultures: So far no growth. -Covid rapid negative, Covid PCR collected yesterday. -Blood cultures,:-GNR in one blood culture (02/11) - urine cultures, sputum cultures: Is negative till date. -CT of the neck does not show any abscess, or deep tissue neck infection -CT of the chest No acute findings. Negative for pneumonia. -lower left molar which was tender, with some surrounding erythema of the neck initially has improved , and no CT evidence of deep tissue infection or abscess -Keep on reverse isolation precautions, Covid precautions - Continue vancomycin, Zosyn - Started on Neupogen 480 mcg oral daily on 11/16/2019 Status: Acute (2) Gout: Patient had an acute episode left knee pain and swelling, he was also complaining of left wrist pain , typical of gout-like attack. He was given Colchicine: 1.2 mg oral * 1 dose and he will continue 0.6 mg oral daily from tomorrow. Status: Acute (3) Dental infection: -improving -Broad-spectrum antibiotics vancomycin, Zosyn Status: Acute (4) Nonischemic cardiomyopathy: No acute intervention. Status: Acute (5) Acute hyponatremia: -Resolved Status: Acute (6) End stage renal disease: -nephrology for PD.Rec appreciated. Status: Acute (7) Hyperlipidemia: Continue Atorvas 40 mg oral daily. Status: Acute (8) HTN (hypertension): Continue Amlodipine 5 mg oral daily.Continue metoprolol tartrate 50 mg q12 h daily. Status: Acute Additional A&P Information Code status : Full code DVT PPX: Lovenox 40 mg sc daily Attestations Medical Necessity Statement*: Patient needs to be in hospital for the management of febrile neutropenia. 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
[2019-11-18] MEDS: HYDROcodone-acetaminophen 5-325 mg Tablet 1 TAB PO (17:46)
[2019-11-18] MEDS: vancomycin 1,000 MG in sodium chloride 0.9% 250 ML 250 MG IV (22:06)
[2019-11-19] VITALS: BP 136/68; PULSE 81; RESP 17; TEMP 37.3; O2SAT 94
[2019-11-19] MEDS: Dianeal low Ca w/2.5% dex 2,000 mL Bag 2000 ML INTRAPERIT ×2 (01:12→17:56)
[2019-11-19 04:00] VITALS: BP 148/69; PULSE 91; RESP 18; TEMP 37.2; O2SAT 94
[2019-11-19] MEDS: HYDROcodone-acetaminophen 5-325 mg Tablet 1 TAB PO ×2 (06:24→23:22)
[2019-11-19 07:58] VITALS: BP 128/66; PULSE 88; RESP 16; TEMP 36.7; O2SAT 94
[2019-11-19] MEDS: colchicine 0.6 mg Tablet PO (08:52)
[2019-11-19] MEDS: lisinopril 2.5 mg Tablet PO (08:52)
[2019-11-19] MEDS: sevelamer 800 mg Tablet 2400 MG PO ×3 (08:52→17:28)
[2019-11-19] MEDS: atorvastatin 40 mg Tablet PO (08:53)
[2019-11-19] MEDS: aspirin 81 mg EC Tablet PO (08:53)
[2019-11-19] MEDS: metoprolol tartrate 50 mg Tablet PO ×2 (08:53→17:28)
[2019-11-19 10:30] LABS: Basophils % 1.8 %; Eosinophils # 0.2 10^3/uL (0.0-0.8); Eosinophils % 9.1 %; Hematocrit 28.1 % (42.0-52.0); Hemoglobin 8.8 g/dL (11.7-16.6); Lymphocytes # 0.8 10^3/uL (0.8-4.8); Lymphocytes % 45.7 %; Mean Corpuscular HGB Conc 31.3 g/dL (30.0-36.0); Mean Corpuscular Hemoglobin 32.5 pg (28.0-34.0); Mean Corpuscular Volume 103.7 fL (80-94); Mean Platelet Volume 9.9 fL (7.4-10.4); Monocytes # 0.3 10^3/uL (0.2-0.9); Monocytes % 18.3 %; Neutrophils % 23.9 %; Nucleated Red Blood Cells % 0 %; Platelet Count 166 10^3/cmm (130-400); Red Blood Count 2.71 10^6/uL (4.1-5.3); Red Cell Distribution Width 14.6 % (12.1-15.1); White Blood Count 1.6 10^3/uL (4.0-10.0)
[2019-11-19 10:49] LABS: Anion Gap 17.9 (5-19); Blood Urea Nitrogen 61 mg/dL (8-23); Calcium 8.5 mg/dL (8.5-10.5); Carbon Dioxide 26 mmol/L (22-29); Chloride 91 mmol/L (98-107); Glomerular Filtration Rate 4.6 mL/min (90-130); Glucose 121 mg/dL (65-115); Osmolality Calculated 291 mOsm/kg (285-295); Potassium 3.9 mmol/L (3.5-5.1); Sodium 131 mmol/L (136-145)
[2019-11-19 11:06] LABS: Neutrophils # 0.39 10^3/uL (1.8-7.7)
[2019-11-19] MEDS: piperacillin-tazobactam 3.375 GM in sodium chloride 0.9% (plus) 50 ML IV ×2 (11:19→23:09)
[2019-11-19] MEDS: heparin 5,000 unit/mL INJ 1 mL 5000 UNIT SUBCUT ×2 (11:19→23:09)
[2019-11-19] MEDS: Dianeal low Ca w/1.5% dex 2,000 mL Bag 2000 ML INTRAPERIT ×2 (11:19→23:08)
[2019-11-19 11:39] VITALS: BP 133/68; PULSE 77; RESP 16; TEMP 36.6; O2SAT 95
[2019-11-19 15:14] LABS: Coronavirus Lab Test PTC Negative
[2019-11-19 15:52] VITALS: BP 130/66; PULSE 72; RESP 16; TEMP 37; O2SAT 95
--- NOTE | 2019-11-19 16:27 | PM.PN ---
Subjective Subjective: Interval history: Wrist feels better after colchicine. PD is going well with no issues with draining, PD fluid nice and clear. No uremic Sx. No fever chills. Pain in the knee Medications: Reviewed: Yes Medication Review Details: Current Medications Hydrocodone Bitart/Acetaminophen ([place] 5-325 Mg) 1 tab PO Q6H PRN PRN Reason: MODERATE PAIN Last Admin: 11/16/19 04:06 Dose: 1 tab Documented by: Amlodipine Besylate (Norvasc) 5 mg PO DAILY [facility] Aspirin (Aspirin Ec) 81 mg PO DAILY [facility] Atorvastatin Calcium (Lipitor) 40 mg PO DAILY [facility] Calcium Acetate (Phoslo) 667 mg PO TID [facility] Heparin Sodium (Beef Lung) (Heparin) 5,000 unit SUBCUT Q12H [facility] Last Admin: 11/16/19 00:05 Dose: 5,000 unit Documented by: Piperacillin Sod/Tazobactam (Sod 3.375 gm/ Sodium Chloride) 50 mls @ 12.5 mls/hr IV Q12H [facility]; Protocol Last Admin: 11/16/19 00:06 Dose: 12.5 mls/hr Documented by: Vancomycin HCl / Sodium (Chloride) 250 mls @ 0 mls/hr [id number] PROTOCOL YARED; Protocol Metoprolol Tartrate (Lopressor) 50 mg PO BID [facility] Non-Formulary Medication (Vit B [id number] Ac-Zinc [Renaplex]) 1 tab PO .COMPLEX YARED Ondansetron HCl (Zofran) 4 mg IVP Q8H PRN PRN Reason: vomiting, or N/V if npo Peritoneal Dialysis Solution (Dianeal Low Ca W/2.5% Dex) 2,000 ml INTRAPERIT 5XD [facility] Last Admin: 11/16/19 04:00 Dose: 2,000 ml Documented by: Vitals/I&O/Wt Last Vital Signs Temp 98.6 F 11/19/19 15:52 Pulse 72 11/19/19 15:52 Resp 16 11/19/19 15:52 BP 130/66 11/19/19 15:52 Pulse Ox 95 11/19/19 15:52 11/19/19 11/19/19 11/19/19 06:59 14:59 22:59 Intake Total 140 / 670 1020 / 1020 Output Total 400 / 700 Balance -260 / -30 1020 / 1020 Weight last 48 hrs Weight 76.204 kg Physical Exam Narrative: EXAM NARRATIVE: EXAM NARRATIVE: vs noted, and stable exam by RN- as telemedicine visit NARD heent- nc/at neck supple lungs clear heart reg, tno m/r/g apprecited abd soft, nt, nd, +BS, + dialysis catheter ext no edema Const: COMMON NORMALS: no acute distress, patient oriented x3, no limitations and alert GENERAL APPEARANCE: cooperative and comfortable HENMT: COMMON NORMALS: normocephalic, atraumatic, hearing grossly normal bilaterally, external ears normal, EAC's normal and Normal external nose present HEAD & SCALP: normal to inspection, normocephalic and atraumatic FACE & SINUS: normal facial exam and face symmetric NOSE: Normal external nose present and Normal nares present EXTERNAL EAR: Yes external ears normal EXTERNAL AUDITORY CANAL: EAC's normal MOUTH: Normal oral and palatal mucosa present, lip normal, tongue normal and other (Swelling along the left lower posterior mandible. Overall poor dentition throughout the mouth.) Eye: COMMON NORMALS: Equal, round and reactive pupils present, EOMs intact bilaterally, conjunctivae normal and no scleral icterus GENERAL EYE: appearance normal, both eyes and all related structures ALIGNMENT: Yes alignment normal PERIORBITAL: periorbital findings normal EYELID: eyelids normal CONJUNCTIVA: Yes conjunctivae normal SCLERA: sclerae normal PUPIL: Yes Equal, round and reactive pupils present Neck/C-Spine: COMMON NORMALS: full ROM, no lymphadenopathy, supple, no meningeal signs, no JVD and Thyroid normal GENERAL: Yes normal visual inspection and Yes trachea midline THYROID: Thyroid normal Lymph: OTHER: Does have diffuse posterior cervical chain anterior cervical chain, supraclavicular lymphadenopathy Chest: COMMONS NORMALS: normal inspection of the chest and normal palpation of entire chest wall CHEST: Yes Symmetrical chest wall rise Resp: COMMON NORMALS: normal respiratory effort, No retractions, No use of accessory muscles and clear to auscultation bilaterally EFFORT & INSPECTION: Yes able to speak in complete sentences and Yes symmetric chest movement AUSCULTATION: clear to auscultation bilaterally, no crackles, no rales, no rhonchi and no wheezes Cardio: COMMON NORMALS: no JVD, regular rate, regular rhythm, S1 normal heart sound present, S2 normal heart sound present, No gallops present (Cardio), No clicks present (Cardio), No murmurs present (Cardio), No rub (Cardio) and Peripheral pulses 2+ throughout RATE: regular rate RHYTHM: regular rhythm HEART SOUNDS: S1 normal heart sound present, S2 normal heart sound present, no click, no gallops, no murmurs and no rubs PERIPHERAL PULSES: Peripheral pulses 2+ throughout GI: COMMON NORMALS: Normal to inspection, nondistended, normoactive bowel sounds present, Soft to palpation, non-tender, No hepatosplenomegaly present and no masses AUSCULTATION: Yes normoactive bowel sounds PALPATION: Yes Soft to palpation, No Tenderness to palpation present (GI), No Guarding due to palpation present (GI), No Rigid due to palpation, Yes No hepatosplenomegaly present, No Hernia present, No Palpable mass present and No Pulsatile mass present RECTAL EXAM: Yes deferred : COMMON NORMALS: Yes no CVA tenderness BLADDER/KIDNEY EXAM: Yes no CVA tenderness Back/Pelvis: COMMON NORMALS: no CVA tenderness, thoracic and lumbar spine normal to inspection, no thoracic nor lumbar tenderness and thoraco-lumbar ROM normal Extremity: COMMON NORMALS: normal to inspection, full ROM, capillary refill normal, no joint enlargement, no clubbing, cyanosis or edema, no calf tenderness and no pedal edema Neuro: COMMON NORMALS: patient oriented x3, CN's II-XII intact bilaterally, moves all extremities, no focal motor deficits and no sensory deficits noted SENSORIUM/ORIENTATION: Yes alert MENINGEAL SIGNS: Yes no meningeal signs SPEECH: speech normal Psych: COMMON NORMALS: mental status grossly normal, Normal thought process present, cooperative, normal affect, speech normal and activity/motor behavior normal SPEECH: Yes normal speech THOUGHT PROCESS: Normal thought process present Skin: COMMON NORMALS: no rashes or lesions noted, turgor normal, no jaundice, no petechiae and no mottling GENERAL SKIN EXAM: no rashes or lesions noted and turgor normal Data : 11/19/19 09:55 11/19/19 09:55 Micro: Microbiology 11/16/19 09:07 Gram Stain - Final Peritoneal Fluid Body Fluid Culture - Final A&P Additional A&P Information 1. ESRD - PD fluid is clear, culture negative - CAPD; 4 exchanges a day, 2L, 1.5%/2.5% alternating solution, 2L exchange volumes - dose meds for ESRD 2. 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 HTN and reduced EF - Lisinopril 2.5mg daily 4. anemia- hgb improved from september. recent ferritin 1614- now 1517; s/p EPO 5. hyponatremia- from ESRD- monitor w/ dialysis. recent normal tsh 11/01/19 6. bone-mineral - Renvela added - iPTH monitoring deferred to outpatient 7. 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
[2019-11-19 20:00] VITALS: BP 124/66; PULSE 80; RESP 20; TEMP 37.2; O2SAT 95
--- NOTE | 2019-11-19 21:09 | P.PN_ITS ---
Subjective Subjective: Interval history: No acute event.Lt leg and wrist swelling due to gout is decreasing.WBC is trending up.Has remained afebrile. Vitals and labs are stable.Rt cheeck swelling due to molar teeth infection is decreasing. Culture is growing GNR. Medications: Reviewed: Yes Vitals/I&O/Wt Last Vital Signs Temp 98.6 F 11/19/19 15:52 Pulse 72 11/19/19 15:52 Resp 16 11/19/19 15:52 BP 130/66 11/19/19 15:52 Pulse Ox 95 11/19/19 15:52 11/19/19 11/19/19 11/19/19 06:59 14:59 22:59 Intake Total 140 / 670 1020 / 1020 50 / 1070 Output Total 400 / 700 Balance -260 / -30 1020 / 1020 50 / 1070 Weight last 48 hrs Weight 76.204 kg Weight 76.204 kg Physical Exam Narrative: EXAM NARRATIVE: EXAM NARRATIVE: vs noted, and stable exam by RN- as telemedicine visit NARD heent- nc/at neck supple lungs clear heart reg, tno m/r/g apprecited abd soft, nt, nd, +BS, + dialysis catheter ext no edema Const: COMMON NORMALS: patient oriented x3 HENMT: COMMON NORMALS: normocephalic, atraumatic, hearing grossly normal bilaterally and external ears normal HEAD & SCALP: normocephalic and atraumatic EXTERNAL EAR: Yes external ears normal Eye: COMMON NORMALS: no scleral icterus GENERAL EYE: appearance normal, both eyes and all related structures Chest: COMMONS NORMALS: normal inspection of the chest and normal palpation of entire chest wall CHEST: Yes Symmetrical chest wall rise Resp: COMMON NORMALS: normal respiratory effort, No retractions, No use of accessory muscles and clear to auscultation bilaterally EFFORT & INSPECTION: Yes symmetric chest movement AUSCULTATION: clear to auscultation bilaterally Cardio: COMMON NORMALS: regular rate, regular rhythm, S1 normal heart sound present, S2 normal heart sound present, No gallops present (Cardio), No murmurs present (Cardio), No rub (Cardio) and Peripheral pulses 2+ throughout RATE: regular rate RHYTHM: regular rhythm HEART SOUNDS: S1 normal heart sound present and S2 normal heart sound present PERIPHERAL PULSES: Peripheral pulses 2+ throughout GI: COMMON NORMALS: Normal to inspection, nondistended, normoactive bowel sounds present, Soft to palpation, non-tender, No hepatosplenomegaly present and no masses AUSCULTATION: Yes normoactive bowel sounds PALPATION: Yes Soft to palpation and Yes No hepatosplenomegaly present RECTAL EXAM: Yes deferred Extremity: COMMON NORMALS: no clubbing, cyanosis or edema and no pedal edema NARRATIVE EXTREMITY EXAM: lt knee swelling,with redness and tenderness. Neuro: COMMON NORMALS: patient oriented x3 Data : 11/19/19 09:55 11/19/19 09:55 Micro: Microbiology 11/16/19 09:07 Gram Stain - Final Peritoneal Fluid Body Fluid Culture - Final A&P Assessment and plan (1) Neutropenic fever: -T-max of 100.4 on 11/16/2019 .Has been afebrile thereafter -WBC ( 0.9 ) is trending up , ANC : 0.1 -Possible cause of neutropenia can be recent ABX use r/o other Causes. 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 Repeat ECho -No headache, no blurry vision, does have chronic neck pain, no neck pain with range of motion during my examination. -No chest pain, no palpitations, repeat transthoracic echocardiogram to evaluate for endocarditis,done : Is inconclusive: The echodensity seen on transesophageal echocardiogram performed on 09/09/2019, is not well visualized because of thickening of mitral valve but it cannot be ruled out. he might require repeat transesophageal echocardiogram based on further work-up -No abdominal pain, no abdominal tenderness, CT of the abdomen and pelvis unremarkable for peritonitis, peritoneal cultures: So far no growth. -Covid rapid negative, Covid PCR collected yesterday. -Blood cultures,:-GNR in one blood culture (02/11) - urine cultures, sputum cultures: Is negative till date. -CT of the neck does not show any abscess, or deep tissue neck infection -CT of the chest No acute findings. Negative for pneumonia. -lower left molar which was tender, with some surrounding erythema of the neck initially has improved , and no CT evidence of deep tissue infection or abscess -Keep on reverse isolation precautions, Covid precautions - Continue vancomycin, Zosyn - Started on Neupogen 480 mcg oral daily on 11/16/2019 Status: Acute (2) Gout: Patient had an acute episode left knee pain and swelling, he was also complaining of left wrist pain , typical of gout-like attack. He was given Colchicine: 1.2 mg oral * 1 dose and he will continue 0.6 mg oral daily from tomorrow. Status: Acute (3) Dental infection: -improving -Broad-spectrum antibiotics vancomycin, Zosyn Status: Acute (4) Nonischemic cardiomyopathy: No acute intervention. Status: Acute (5) Acute hyponatremia: -Resolved Status: Acute (6) End stage renal disease: -nephrology for PD.Rec appreciated. Status: Acute (7) Hyperlipidemia: Continue Atorvas 40 mg oral daily. Status: Acute (8) HTN (hypertension): Continue Amlodipine 5 mg oral daily.Continue metoprolol tartrate 50 mg q12 h daily. 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
[2019-11-20] VITALS (7 sets, daily range): BP systolic 123–155; BP diastolic 55–72; PULSE 66–92; RESP 16–18; TEMP 36.7–37.1; O2SAT 93–97
[2019-11-20] MEDS: Dianeal low Ca w/2.5% dex 2,000 mL Bag 2000 ML INTRAPERIT ×2 (04:45→16:52)
[2019-11-20 05:47] LABS: Basophils # 0.1 10^3/uL (0.0-0.1); Basophils % 1.1 %; Eosinophils # 0.2 10^3/uL (0.0-0.8); Eosinophils % 4.1 %; Hematocrit 29.2 % (42.0-52.0); Hemoglobin 9.4 g/dL (11.7-16.6); Lymphocytes # 1.3 10^3/uL (0.8-4.8); Lymphocytes % 28.2 %; Mean Corpuscular HGB Conc 32.2 g/dL (30.0-36.0); Mean Corpuscular Hemoglobin 33.7 pg (28.0-34.0); Mean Corpuscular Volume 104.7 fL (80-94); Monocytes # 0.6 10^3/uL (0.2-0.9); Neutrophils # 2.24 10^3/uL (1.8-7.7); Nucleated Red Blood Cells % 0.7 %; Platelet Count 192 10^3/cmm (130-400); Red Blood Count 2.79 10^6/uL (4.1-5.3); Red Cell Distribution Width 14.5 % (12.1-15.1); White Blood Count 4.6 10^3/uL (4.0-10.0)
[2019-11-20 07:13] LABS: Neutrophils % 54.6 %
[2019-11-20] MEDS: colchicine 0.6 mg Tablet PO (09:27)
[2019-11-20] MEDS: sevelamer 800 mg Tablet 2400 MG PO ×3 (09:27→18:45)
[2019-11-20] MEDS: lisinopril 2.5 mg Tablet PO (09:27)
[2019-11-20] MEDS: atorvastatin 40 mg Tablet PO (09:27)
[2019-11-20] MEDS: aspirin 81 mg EC Tablet PO (09:27)
[2019-11-20] MEDS: metoprolol tartrate 50 mg Tablet PO ×2 (09:27→18:45)
--- NOTE | 2019-11-20 09:41 | P.PN_ITS ---
Subjective Subjective: Interval history: No new issues. Gout is improving, overall feeling better. PD is going well, no issues with in or outflow No fevers or chills Medications: Reviewed: Yes Medication Review Details: Current Medications Hydrocodone Bitart/Acetaminophen ([place] 5-325 Mg) 1 tab PO Q6H PRN PRN Reason: MODERATE PAIN Last Admin: 11/16/19 04:06 Dose: 1 tab Documented by: Amlodipine Besylate (Norvasc) 5 mg PO DAILY [facility] Aspirin (Aspirin Ec) 81 mg PO DAILY [facility] Atorvastatin Calcium (Lipitor) 40 mg PO DAILY [facility] Calcium Acetate (Phoslo) 667 mg PO TID [facility] Heparin Sodium (Beef Lung) (Heparin) 5,000 unit SUBCUT Q12H [facility] Last Admin: 11/16/19 00:05 Dose: 5,000 unit Documented by: Piperacillin Sod/Tazobactam (Sod 3.375 gm/ Sodium Chloride) 50 mls @ 12.5 mls/ hr IV Q12H [facility]; Protocol Last Admin: 11/16/19 00:06 Dose: 12.5 mls/hr Documented by: Vancomycin HCl / Sodium (Chloride) 250 mls @ 0 mls/hr [id number] PROTOCOL [facility]; Protocol Metoprolol Tartrate (Lopressor) 50 mg PO BID [facility] Non-Formulary Medication (Vit B Wboxvmk-O-Ryjtp Ac-Zinc [Renaplex]) 1 tab PO .COMPLEX [facility] Ondansetron HCl (Zofran) 4 mg IVP Q8H PRN PRN Reason: vomiting, or N/V if npo Peritoneal Dialysis Solution (Dianeal Low Ca W/2.5% Dex) 2,000 ml INTRAPERIT 5XD [facility] Last Admin: 11/16/19 04:00 Dose: 2,000 ml Documented by: Vitals/I&O/Wt Last Vital Signs Temp 98.4 F 11/20/19 08:00 Pulse 92 11/20/19 08:00 Resp 17 11/20/19 08:00 BP 138/61 11/20/19 08:00 Pulse Ox 94 11/20/19 08:00 11/19/19 11/20/19 11/20/19 22:59 06:59 14:59 Intake Total 50 / 1070 Output Total 0 / 0 300 / 300 350 / 350 Balance 50 / 1070 -300 / 770 -350 / -350 Weight last 48 hrs Weight 76.204 kg Weight 76.204 kg Physical Exam Narrative: EXAM NARRATIVE: EXAM NARRATIVE: vs noted, and stable exam by RN- as telemedicine visit NARD heent- nc/at neck supple lungs clear heart reg, tno m/r/g apprecited abd soft, nt, nd, +BS, + dialysis catheter ext no edema Const: COMMON NORMALS: no acute distress, patient oriented x3, no limitations and alert GENERAL APPEARANCE: cooperative and comfortable HENMT: COMMON NORMALS: normocephalic, atraumatic, hearing grossly normal bila terally, external ears normal, EAC's normal and Normal external nose present HEAD & SCALP: normal to inspection, normocephalic and atraumatic FACE & SINUS: normal facial exam and face symmetric NOSE: Normal external nose present and Normal nares present EXTERNAL EAR: Yes external ears normal EXTERNAL AUDITORY CANAL: EAC's normal MOUTH: Normal oral and palatal mucosa present, lip normal, tongue normal and other (Swelling along the left lower posterior mandible. Overall poor dentition throughout the mouth.) Eye: COMMON NORMALS: Equal, round and reactive pupils present, EOMs intact bilaterally, conjunctivae normal and no scleral icterus GENERAL EYE: appearance normal, both eyes and all related structures ALIGNMENT: Yes alignment normal PERIORBITAL: periorbital findings normal EYELID: eyelids normal CONJUNCTIVA: Yes conjunctivae normal SCLERA: sclerae normal PUPIL: Yes Equal, round and reactive pupils present Neck/C-Spine: COMMON NORMALS: full ROM, no lymphadenopathy, supple, no meningeal signs, no JVD and Thyroid normal GENERAL: Yes normal visual inspection and Yes trachea midline THYROID: Thyroid normal Lymph: OTHER: Does have diffuse posterior cervical chain anterior cervical chain, supraclavicular lymphadenopathy Chest: COMMONS NORMALS: normal inspection of the chest and normal palpation of entire chest wall CHEST: Yes Symmetrical chest wall rise Resp: COMMON NORMALS: normal respiratory effort, No retractions, No use of accessory muscles and clear to auscultation bilaterally EFFORT & INSPECTION: Yes able to speak in complete sentences and Yes symmetric chest movement AUSCULTATION: clear to auscultation bilaterally, no crackles, no rales, no rhonchi and no wheezes Cardio: COMMON NORMALS: no JVD, regular rate, regular rhythm, S1 normal heart sound present, S2 normal heart sound present, No gallops present (Cardio), No clicks present (Cardio), No murmurs present (Cardio), No rub (Cardio) and Peripheral pulses 2+ throughout RATE: regular rate RHYTHM: regular rhythm HEART SOUNDS: S1 normal heart sound present, S2 normal heart sound present, no click, no gallops, no murmurs and no rubs PERIPHERAL PULSES: Peripheral pulses 2+ throughout GI: COMMON NORMALS: Normal to inspection, nondistended, normoactive bowel sounds present, Soft to palpation, non-tender, No hepatosplenomegaly present and no masses AUSCULTATION: Yes normoactive bowel sounds PALPATION: Yes Soft to palpation, No Tenderness to palpation present (GI), No Guarding due to palpation present (GI), No Rigid due to palpation, Yes No hepatosplenomegaly present, No Hernia present, No Palpable mass present and No Pulsatile mass present RECTAL EXAM: Yes deferred : COMMON NORMALS: Yes no CVA tenderness BLADDER/KIDNEY EXAM: Yes no CVA tenderness Back/Pelvis: COMMON NORMALS: no CVA tenderness, thoracic and lumbar spine normal to inspection, no thoracic nor lumbar tenderness and thoraco-lumbar ROM normal Extremity: COMMON NORMALS: normal to inspection, full ROM, capillary refill normal, no joint enlargement, no clubbing, cyanosis or edema, no calf tenderness and no pedal edema Neuro: COMMON NORMALS: patient oriented x3, CN's II-XII intact bilaterally, moves all extremities, no focal motor deficits and no sensory deficits noted SENSORIUM/ORIENTATION: Yes alert MENINGEAL SIGNS: Yes no meningeal signs SPEECH: speech normal Psych: COMMON NORMALS: mental status grossly normal, Normal thought process present, cooperative, normal affect, speech normal and activity/motor behavior normal SPEECH: Yes normal speech THOUGHT PROCESS: Normal thought process present Skin: COMMON NORMALS: no rashes or lesions noted, turgor normal, no jaundice, no petechiae and no mottling GENERAL SKIN EXAM: no rashes or lesions noted and turgor normal Data : 11/20/19 05:00 11/19/19 09:55 Micro: Microbiology 11/16/19 09:07 Gram Stain - Final Peritoneal Fluid Body Fluid Culture - Final A&P Additional A&P Information 1. ESRD - PD fluid is clear, culture negative - CAPD; 4 exchanges a day, 2L, 1.5%/2.5% alternating solution, 2L exchange volumes - dose meds for ESRD 2. 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 3. HTN and reduced EF - Lisinopril 2.5mg daily 4. anemia- hgb improved from september. recent ferritin 1614- now 1517; s/p EPO 5. hyponatremia- from ESRD- monitor w/ dialysis. recent normal tsh 11/01/19 6. bone-mineral - Renvela added - iPTH monitoring deferred to outpatient 7. 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
--- NOTE | 2019-11-20 10:27 | PC.SOCIAL ---
IMM Updated Updated pt on Pg 2 IMM. No questions voiced. Provided pt a copy. Signed, dated, & timed copy in chart.
[2019-11-20] MEDS: Dianeal low Ca w/1.5% dex 2,000 mL Bag 2000 ML INTRAPERIT ×2 (11:33→22:43)
[2019-11-20] MEDS: piperacillin-tazobactam 3.375 GM in sodium chloride 0.9% (plus) 50 ML IV (12:10)
[2019-11-20] MEDS: heparin 5,000 unit/mL INJ 1 mL 5000 UNIT SUBCUT ×2 (12:10→22:46)
--- NOTE | 2019-11-20 13:53 | P.PN_ITS ---
Subjective Subjective: Interval history: Hospital stay and chart reviewed. o acute events overnight. Denies any N/V. Discussed with patient regarding some medications which can cause leukopenia. He denies ever been on methotrexate or any medications for RA. Hemodynamically stable and afebrile in last 24 hrs. Vitals/I&O/Wt Last Vital Signs Temp 98.3 F 11/20/19 11:58 Pulse 85 11/20/19 11:58 Resp 16 11/20/19 11:58 BP 134/61 11/20/19 11:58 Pulse Ox 96 11/20/19 11:58 11/19/19 11/20/19 11/20/19 22:59 06:59 14:59 Intake Total 50 / 1070 50 / 1120 400 / 400 Output Total 0 / 0 300 / 300 350 / 350 Balance 50 / 1070 -250 / 820 50 / 50 Weight last 48 hrs Weight 76.204 kg Weight 76.204 kg Physical Exam Const: COMMON NORMALS: no acute distress and patient oriented x3 GENERAL APPEARANCE: cooperative and comfortable HENMT: COMMON NORMALS: normocephalic, atraumatic, hearing grossly normal bilaterally and external ears normal HEAD & SCALP: normocephalic and atraumatic EXTERNAL EAR: Yes external ears normal Eye: COMMON NORMALS: Equal, round and reactive pupils present, EOMs intact bilaterally and no scleral icterus GENERAL EYE: appearance normal, both eyes and all related structures PUPIL: Yes Equal, round and reactive pupils present Neck/C-Spine: COMMON NORMALS: full ROM, no lymphadenopathy, no JVD and Thyroid normal THYROID: Thyroid normal Lymph: OTHER: Does have diffuse posterior cervical chain anterior cervical chain, supraclavicular lymphadenopathy Chest: COMMONS NORMALS: normal inspection of the chest and normal palpation of entire chest wall CHEST: Yes Symmetrical chest wall rise Resp: COMMON NORMALS: normal respiratory effort, No retractions, No use of accessory muscles and clear to auscultation bilaterally EFFORT & INSPECTION: Yes symmetric chest movement AUSCULTATION: clear to auscultation bilaterally Cardio: COMMON NORMALS: no JVD, regular rate, regular rhythm, S1 normal heart sound present, S2 normal heart sound present, No gallops present (Cardio), No clicks present (Cardio), No murmurs present (Cardio), No rub (Cardio) and Peripheral pulses 2+ throughout RATE: regular rate RHYTHM: regular rhythm HEART SOUNDS: S1 normal heart sound present and S2 normal heart sound present PERIPHERAL PULSES: Peripheral pulses 2+ throughout GI: COMMON NORMALS: Normal to inspection, nondistended, normoactive bowel sounds present, Soft to palpation, non-tender, No hepatosplenomegaly present and no masses AUSCULTATION: Yes normoactive bowel sounds PALPATION: Yes Soft to palpation and Yes No hepatosplenomegaly present RECTAL EXAM: Yes deferred Extremity: COMMON NORMALS: normal to inspection, full ROM, no clubbing, cyanosis or edema and no pedal edema NARRATIVE EXTREMITY EXAM: lt knee swelling,with redness and tenderness. Neuro: COMMON NORMALS: patient oriented x3, CN's II-XII intact bilaterally, moves all extremities and no focal motor deficits Psych: COMMON NORMALS: mental status grossly normal, Normal thought process present and cooperative THOUGHT PROCESS: Normal thought process present Data : 11/20/19 05:00 11/19/19 09:55 Micro: Microbiology 11/15/19 18:45 Blood Culture - Preliminary Blood Serratia marcescens 11/16/19 09:07 Gram Stain - Final Peritoneal Fluid Body Fluid Culture - Final A&P Assessment and plan (1) Neutropenic fever: Status: Acute (2) Gout: Patient had an acute episode left knee pain and swelling, he was also complaining of left wrist pain , typical of gout-like attack. He was given Colchicine: 1.2 mg oral * 1 dose and he will continue 0.6 mg oral daily from tomorrow. Status: Acute (3) Dental infection: Improved. Most likley mucositis. Status: Acute (4) Nonischemic cardiomyopathy: Decompensated. Status: Acute (5) Acute hyponatremia: -Resolved Status: Acute (6) End stage renal disease: -On PD dialysis. nephrology for PD.Rec appreciated. Status: Acute (7) Hyperlipidemia: Continue Atorvastatin 40 mg oral daily. Status: Acute (8) HTN (hypertension): BP goal 140/90 mmhg. Continue Amlodipine 5 mg oral daily.Continue metoprolol tartrate 50 mg q12 h daily. Status: Acute Additional A&P Information Nuetropenic Fever; Most likely due to ceftriaxone as outpatient but last dose was more than 1 month ago. Patient denies any medication for RA or immunosupression as OPT. C/D/W Dr. Haq and agrees patient definitely needs bone marrow biopsy but now as gayla has received mutiple dose of filgratsim its best to monitor. Will add Retic counts to earliest blood sample in lab. Check Parvo B19 serology. Check peripheral smear in earliest sample in lab Neutropenia has resolved. Stop filgastrim. Platelet and Hb stable so MDS unlikley. Consult ID for further care as outpatient as gayla has 2nd bacteremia in last 1 month. Last bacteremia to to Strep this time to Serratia. Serratia Bacteremia: Most likely Gut disloccation in setting of neutropenia. Peritonitis r/o with peritoneal fluid analysis, UA WNL, no sign of GB pathology with CT abd/Pelvis. Change Abx to oral levoflox as per C/s. Will need overall 14 day of course from first negative Bcx. Stop vanc, MRSA negative. Code status : Full code DVT PPX: Lovenox 40 mg sc daily Attestations Medical Necessity Statement*: Netropenic fever Time Spent in Patient Care: Greater than 35 minutes (>than 50% of time spent in counselling and/or direct pt care on unit) . Coding Level of Care Code Acute Nitroglycerin Nitrator Operator Batch for Joselyn Fwd Diagnoses Neutropenic fever D70.9; R50.81 Gout M10.9 Dental infection K04.7 Nonischemic cardiomyopathy I42.8 Acute hyponatremia E87.1 End stage renal disease N18.6 Hyperlipidemia E78.5 HTN (hypertension) I10
[2019-11-20 14:26] LABS: LAB Peripheral Smear Sent for Review
[2019-11-21 03:55] LABS: Hematocrit 30.4 % (42.0-52.0); Hemoglobin 9.5 g/dL (11.7-16.6); Mean Corpuscular HGB Conc 31.3 g/dL (30.0-36.0); Mean Corpuscular Hemoglobin 33.3 pg (28.0-34.0); Mean Corpuscular Volume 106.7 fL (80-94); Mean Platelet Volume 9.9 fL (7.4-10.4); Platelet Count 208 10^3/cmm (130-400); Red Blood Count 2.85 10^6/uL (4.1-5.3); Red Cell Distribution Width 14.9 % (12.1-15.1); White Blood Count 13.1 10^3/uL (4.0-10.0)
[2019-11-21 04:00] VITALS: BP 134/67; PULSE 89; RESP 17; TEMP 36.9; O2SAT 94
[2019-11-21 04:19] LABS: Alanine Aminotransferase 9 U/L (0-41); Albumin Level 2.1 g/dL (3.5-5.2); Alkaline Phosphatase 74 IU/L (40-130); Anion Gap 17.1 (5-19); Aspartate Amino Transferase 18 U/L (0-40); Blood Urea Nitrogen 55 mg/dL (8-23); Calcium 8.4 mg/dL (8.5-10.5); Carbon Dioxide 26 mmol/L (22-29); Chloride 92 mmol/L (98-107); Globulin 3.8 g/dL (1.3-4.6); Glomerular Filtration Rate 5.3 mL/min (90-130); Glucose 95 mg/dL (65-115); Osmolality Calculated 287 mOsm/kg (285-295); Potassium 4.1 mmol/L (3.5-5.1); Sodium 131 mmol/L (136-145); Total Bilirubin 0.2 mg/dL (0.15-1.2); Total Protein 5.9 g/dL (6.6-8.7)
[2019-11-21] MEDS: Dianeal low Ca w/2.5% dex 2,000 mL Bag 2000 ML INTRAPERIT ×2 (04:48→09:32)
--- NOTE | 2019-11-21 04:50 | PC.NURSE ---
Drained 2300ml.
[2019-11-21] MEDS: levoFLOXacin 500 mg Tablet PO (05:17)
--- NOTE | 2019-11-21 05:40 | PC.NURSE ---
Patient's main complaint was of his right knee (from the GOUT), otherwise patient only felt malaise throughout the night.
[2019-11-21 06:53] LABS: Slide Review Slide Review Perform
[2019-11-21 06:56] LABS: Lymphocytes 14 %; Monocytes Absolute 1.8 10^3/cmm (0.1-0.6); Platelet Estimate Normal (Normal); Polychromasia 1+; Segmented Neutrophils 46 %; Total Cells Counted 100 (0-100)
[2019-11-21 06:57] LABS: Eosinophils 0 %
[2019-11-21 08:00] VITALS: BP 143/73; PULSE 93; PULSE 94; RESP 16; TEMP 36.7; O2SAT 95
--- NOTE | 2019-11-21 09:13 | P.PN_ITS ---
Subjective Subjective: Interval history: Feels good, no new issues. PAin is controlled. Gout controlled. PD is going well. No other new issues Medications: Reviewed: Yes Medication Review Details: Current Medications Hydrocodone Bitart/Acetaminophen ([place] 5-325 Mg) 1 tab PO Q6H PRN PRN Reason: MODERATE PAIN Last Admin: 11/16/19 04:06 Dose: 1 tab Documented by: Amlodipine Besylate (Norvasc) 5 mg PO DAILY [facility] Aspirin (Aspirin Ec) 81 mg PO DAILY [facility] Atorvastatin Calcium (Lipitor) 40 mg PO DAILY [facility] Calcium Acetate (Phoslo) 667 mg PO TID [facility] Heparin Sodium (Beef Lung) (Heparin) 5,000 unit SUBCUT Q12H [facility] Last Admin: 11/16/19 00:05 Dose: 5,000 unit Documented by: Piperacillin Sod/Tazobactam (Sod 3.375 gm/ Sodium Chloride) 50 mls @ 12.5 mls/hr IV Q12H [facility]; Protocol Last Admin: 11/16/19 00:06 Dose: 12.5 mls/hr Documented by: Vancomycin HCl / Sodium (Chloride) 250 mls @ 0 mls/hr [id number] PROTOCOL [facility]; Protocol Metoprolol Tartrate (Lopressor) 50 mg PO BID [facility] Non-Formulary Medication (Vit B Iryvgbt-H-Vppts Ac-Zinc [Renaplex]) 1 tab PO .COMPLEX [facility] Ondansetron HCl (Zofran) 4 mg IVP Q8H PRN PRN Reason: vomiting, or N/V if npo Peritoneal Dialysis Solution (Dianeal Low Ca W/2.5% Dex) 2,000 ml INTRAPERIT 5XD [facility] Last Admin: 11/16/19 04:00 Dose: 2,000 ml Documented by: Vitals/I&O/Wt Last Vital Signs Temp 98.1 F 11/21/19 08:00 Pulse 93 11/21/19 08:00 Resp 16 11/21/19 08:00 BP 143/73 11/21/19 08:00 Pulse Ox 95 11/21/19 08:00 11/20/19 11/21/19 11/21/19 22:59 06:59 14:59 Intake Total 480 / 880 240 / 1120 Output Total 100 / 450 Balance 380 / 430 240 / 670 Weight last 48 hrs Weight 76.204 kg Weight 76.204 kg Physical Exam Narrative: EXAM NARRATIVE: EXAM NARRATIVE: vs noted, and stable exam by RN- as telemedicine visit NARD heent- nc/at neck supple lungs clear heart reg, tno m/r/g apprecited abd soft, nt, nd, +BS, + dialysis catheter ext no edema Const: COMMON NORMALS: no acute distress, patient oriented x3, no limitations and alert GENERAL APPEARANCE: cooperative and comfortable HENMT: COMMON NORMALS: normocephalic, atraumatic, hearing grossly normal bilaterally, external ears normal, EAC's normal and Normal external nose present HEAD & SCALP: normal to inspection, normocephalic and atraumatic FACE & SINUS: normal facial exam and face symmetric NOSE: Normal external nose present and Normal nares present EXTERNAL EAR: Yes external ears normal EXTERNAL AUDITORY CANAL: EAC's normal MOUTH: Normal oral and palatal mucosa present, lip normal, tongue normal and other (Swelling along the left lower posterior mandible. Overall poor dentition throughout the mouth.) Eye: COMMON NORMALS: Equal, round and reactive pupils present, EOMs intact bilaterally, conjunctivae normal and no scleral icterus GENERAL EYE: appearance normal, both eyes and all related structures ALIGNMENT: Yes alignment normal PERIORBITAL: periorbital findings normal EYELID: eyelids normal CONJUNCTIVA: Yes conjunctivae normal SCLERA: sclerae normal PUPIL: Yes Equal, round and reactive pupils present Neck/C-Spine: COMMON NORMALS: full ROM, no lymphadenopathy, supple, no meningeal signs, no JVD and Thyroid normal GENERAL: Yes normal visual inspection and Yes trachea midline THYROID: Thyroid normal Lymph: OTHER: Does have diffuse posterior cervical chain anterior cervical chain, supraclavicular lymphadenopathy Chest: COMMONS NORMALS: normal inspection of the chest and normal palpation of entire chest wall CHEST: Yes Symmetrical chest wall rise Resp: COMMON NORMALS: normal respiratory effort, No retractions, No use of accessory muscles and clear to auscultation bilaterally EFFORT & INSPECTION: Yes able to speak in complete sentences and Yes symmetric chest movement AUSCULTATION: clear to auscultation bilaterally, no crackles, no rales, no rhonchi and no wheezes Cardio: COMMON NORMALS: no JVD, regular rate, regular rhythm, S1 normal heart sound present, S2 normal heart sound present, No gallops present (Cardio), No clicks present (Cardio), No murmurs present (Cardio), No rub (Cardio) and Peripheral pulses 2+ throughout RATE: regular rate RHYTHM: regular rhythm HEART SOUNDS: S1 normal heart sound present, S2 normal heart sound present, no click, no gallops, no murmurs and no rubs PERIPHERAL PULSES: Peripheral pulses 2+ throughout GI: COMMON NORMALS: Normal to inspection, nondistended, normoactive bowel sounds present, Soft to palpation, non-tender, No hepatosplenomegaly present and no masses AUSCULTATION: Yes normoactive bowel sounds PALPATION: Yes Soft to palpation, No Tenderness to palpation present (GI), No Guarding due to palpation present (GI), No Rigid due to palpation, Yes No hepatosplenomegaly present, No Hernia present, No Palpable mass present and No Pulsatile mass present RECTAL EXAM: Yes deferred : COMMON NORMALS: Yes no CVA tenderness BLADDER/KIDNEY EXAM: Yes no CVA tenderness Back/Pelvis: COMMON NORMALS: no CVA tenderness, thoracic and lumbar spine normal to inspection, no thoracic nor lumbar tenderness and thoraco-lumbar ROM normal Extremity: COMMON NORMALS: normal to inspection, full ROM, capillary refill normal, no joint enlargement, no clubbing, cyanosis or edema, no calf tenderness and no pedal edema Neuro: COMMON NORMALS: patient oriented x3, CN's II-XII intact bilaterally, moves all extremities, no focal motor deficits and no sensory deficits noted SENSORIUM/ORIENTATION: Yes alert MENINGEAL SIGNS: Yes no meningeal signs S PEECH: speech normal Psych: COMMON NORMALS: mental status grossly normal, Normal thought process present, cooperative, normal affect, speech normal and activity/motor behavior normal SPEECH: Yes normal speech THOUGHT PROCESS: Normal thought process present Skin: COMMON NORMALS: no rashes or lesions noted, turgor normal, no jaundice, no petechiae and no mottling GENERAL SKIN EXAM: no rashes or lesions noted and turgor normal Data : 11/21/19 03:37 11/21/19 03:37 Micro: Microbiology 11/15/19 17:37 Blood Culture - Final Blood NO GROWTH AFTER 5 DAYS 11/15/19 18:45 Blood Culture - Preliminary Blood Serratia marcescens A&P Additional A&P Information 1. ESRD - PD fluid is clear, culture negative - CAPD; 4 exchanges a day, 2L, 1.5%/2.5% alternating solution, 2L exchange volumes - dose meds for ESRD - no changes to prescription today 2. 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 3. HTN and reduced EF - Lisinopril 2.5mg daily 4. anemia- hgb improved from september. recent ferritin 1614- now 1517; s/p EPO 5. hyponatremia- from ESRD- monitor w/ dialysis. recent normal tsh 11/01/19 6. bone-mineral - Renvela added - iPTH monitoring deferred to outpatient 7. 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
[2019-11-21] MEDS: aspirin 81 mg EC Tablet PO (09:33)
[2019-11-21] MEDS: colchicine 0.6 mg Tablet PO (09:33)
[2019-11-21] MEDS: metoprolol tartrate 50 mg Tablet PO (09:33)
[2019-11-21] MEDS: atorvastatin 40 mg Tablet PO (09:33)
[2019-11-21] MEDS: lisinopril 2.5 mg Tablet PO (09:33)
[2019-11-21] MEDS: sevelamer 800 mg Tablet 2400 MG PO (09:33)
--- NOTE | 2019-11-21 09:35 | P.DS_ITS ---
Discharge Providers Date of Admission: 11/15/19 21:07 Date of Discharge: November 21, 2019 Attending Provider at Admission: Ilan Eaton MD Attending Provider at Discharge: Deandre Mar MD Primary Care Provider: Robin Schumacher MD Diagnoses at Discharge Discharge Diagnosis (1) Neutropenic fever: Status: Acute (2) Gout: Status: Acute (3) Dental infection: Status: Acute (4) Nonischemic cardiomyopathy: Status: Acute (5) Acute hyponatremia: Status: Acute (6) End stage renal disease: Status: Acute (7) Hyperlipidemia: Status: Acute (8) HTN (hypertension): Status: Acute Reason for Visit Reason for Visit: Fever Hospital Course Discharge Summary: Shola Quintana is a 69 year old male with a past medical history of stage IV Hodgkin's disease treated with chemotherapy finished in 2005 with complete response no recurrence, hypertension, CKD on peritoneal dialysis, hyperlipidemia, abdominal aortic aneurysm status post repair, chronic anemia, cardiomyopathy with EF of 40%, recent hospitalization for possible bacterial endocarditis and or peritonitis finished 6 weeks of Rocephin which was finished around 2 to 3 weeks ago who presents to [facility] due to fevers. Patient denies any fevers at home, denies any chills, denies any headaches, does have chronic neck pain, no new neck pain, no blurry vision, no nausea, no vomiting, no abdominal pain, has a chronic dry cough, has chronic shortness of breath with exertion, no new exacerbation, no dysuria, no hematuria, no diarrhea, no new rashes, no history of shingles, no known exposure to COVID-19, no travel, she socially distance, wears a facemask. Patient does state that he started to develop left facial swelling and dental pain over the last 48 hours, he thought he had a dental infection, no facial pain, no neck pain with range of motion, has chronic back pain, no more back pain than usual, no recent falls, no history of unsteadiness, no new skin lesions. His blood work on the day of admission showed a white count of 0.5, hemoglobin of 9.3, neutrophil count of 0.02, platelet count of 207, ESR of 118, fibrinogen of 584, sodium of 131, creatinine of 11.6, BUN of 62, ferritin of 1517, CRP of 98.3, procalcitonin of 4.57. He was admitted to the hospital under neutropenic precautions for febrile neutropenia. He was started on broad-spectrum antibiotics and was pancultured. Ultimately his blood cultures came back positive for Serratia. His antibiotics were de-escalated as per the culture results. He underwent CT chest, head and neck ultrasound, abdominal CT scan, neck CT to rule out any source of infection. Echocardiogram was done as a follow-up to recent infective endocarditis and it showed EF of 40 to 45% with global mild hypokinesia with grade 1 diastolic dysfunction with echodensity which was seen on mitral valve in September 2019 not well visualized on the current TTE because of thickening of mitral valve. On the day of admission it is believed that his neutropenia is most likely because of beta-lactam's which it stopped 2 to 3 weeks ago. Unfortunately on admission peripheral smear or any other work-up of neutropenia could not be done. Patient's neutropenia resolved after he got 4 shots of filgrastim. He is been discharged in hemodynamically stable condition on oral Levaquin for 11 more days to finish a two-week course since first negative blood culture. He is advised to follow-up with his primary care provider in 1 week and to repeat his CBC. He is also advised to follow-up with oncology/hematology if he develops leukopenia or neutropenia again for possible bone marrow biopsy to rule out MDS. He is to continue his peritoneal dialysis at his set schedule. His hospital care was otherwise uneventful. Physical Exam Const: COMMON NORMALS: no acute distress and patient oriented x3 GENERAL APPEARANCE: cooperative and comfortable HENMT: COMMON NORMALS: normocephalic, atraumatic, hearing grossly normal bilaterally and external ears normal HEAD & SCALP: normocephalic and atraumatic EXTERNAL EAR: Yes external ears normal Eye: COMMON NORMALS: Equal, round and reactive pupils present, EOMs intact bilaterally and no scleral icterus GENERAL EYE: appearance normal, both eyes and all related structures PUPIL: Yes Equal, round and reactive pupils present Neck/C-Spine: COMMON NORMALS: full ROM, no lymphadenopathy, no JVD and Thyroid normal THYROID: Thyroid normal Lymph: OTHER: Does have diffuse posterior cervical chain anterior cervical chain, supraclavicular lymphadenopathy Chest: COMMONS NORMALS: normal inspection of the chest and normal palpation of entire chest wall CHEST: Yes Symmetrical chest wall rise Resp: COMMON NORMALS: normal respiratory effort, No retractions, No use of accessory muscles and clear to auscultation bilaterally EFFORT & INSPECTION: Yes symmetric chest movement AUSCULTATION: clear to auscultation bilaterally Cardio: COMMON NORMALS: no JVD, regular rate, regular rhythm, S1 normal heart sound present, S2 normal heart sound present, No gallops present (Cardio), No clicks present (Cardio), No murmurs present (Cardio), No rub (Cardio) and Peripheral pulses 2+ throughout RATE: regular rate RHYTHM: regular rhythm HEART SOUNDS: S1 normal heart sound present and S2 normal heart sound present PERIPHERAL PULSES: Peripheral pulses 2+ throughout GI: COMMON NORMALS: Normal to inspection, nondistended, normoactive bowel sounds present, Soft to palpation, non-tender, No hepatosplenomegaly present and no masses AUSCULTATION: Yes normoactive bowel sounds PALPATION: Yes Soft to palpation and Yes No hepatosplenomegaly present RECTAL EXAM: Yes deferred Extremity: COMMON NORMALS: normal to inspection, full ROM, no clubbing, cyanosis or edema and no pedal edema NARRATIVE EXTREMITY EXAM: lt knee swelling,with redness and tenderness. Neuro: COMMON NORMALS: patient oriented x3, CN's II-XII intact bilaterally, moves all extremities and no focal motor deficits Psych: COMMON NORMALS: mental status grossly normal, Normal thought process present and cooperative THOUGHT PROCESS: Normal thought process present Discharge Data Data Completed and Pending: Completed Studies During Hospitalization Category Date Time Status CT abdomen pelvis wo con [id number] Stat Cat Scan 11/15/19 17:[address] chest wo con 7 [id number] Urgent Cat Scan 11/15/19 23:[address] neck wo con [id number] Stat Cat Scan 11/15/19 18:42 Completed XR chest 1V darnell ble [id number] Stat Exams 11/15/19 17:10 Completed CV echo complete* [id number] Routine Ultrasound 11/16/19 08:00 Completed US soft tissue he ad neck [id number] Rout ine Ultrasound 11/16/19 06:51 Completed Pending at discharge Category Date Time Status Blood Culture Sta t Lab 11/15/19 17:37 Results CBC Auto Diff [Co mplete Blood Count w/Auto] AM LABS Lab 11/22/19 04:00 Ordered Comprehensive Met abolic Panel AM LA BS Lab 11/22/19 04:00 Ordered Comprehensive Met abolic Panel AM LA BS Lab 11/23/19 04:00 Ordered Miscellaneous Yessi t Routine Lab 11/20/19 05:00 Received Sputum Culture an d Gram Stain Stat Lab 11/15/19 23:08 Uncollected Urinalysis Stat Lab 11/15/19 17:11 Uncollected Labs from last 24 hours 11/21/19 11/21/19 11/20/19 03:37 03:37 05:00 WBC 13.1 H RBC 2.85 L Hgb 9.5 L Hct 30.4 L MCV 106.7 H MCH 33.3 MCHC 31.3 RDW 14.9 Plt Count 208 MPV 9.9 Lymph % (Auto) Not Reportable [place] % (Auto) Not Reportable Reticulocyte % (Au to) Lymph # (Auto) Not Reportable [place] # (Auto) Not Reportable Total Counted 100 Atypical Lymphs % 0.0 Absolute Neutrophi ls 9.0 H Segmented Neutroph ils 46 Abs Segm Neuts (Ma n) 6.0 Band Neutrophils 23.0 Abs Band Neuts (Ma n) 3.0 H Lymphocytes (Manua l) 14 Monocytes (Manual) 14.0 Absolute Monocytes 1.8 H Eosinophils (Manua l) 0 Absolute Eosinophi ls 0.0 Basophils (Manual) 0.0 Absolute Basophils 0.0 Metamyelocytes 2.0 Myelocytes 1.0 Nucleated RBCs 1.0 Platelet Estimate Normal Polychromasia 1+ H Sodium 131 L Potassium 4.1 Chloride 92 L Carbon Dioxide 26 Anion Gap 17.1 BUN 55 H Creatinine 9.9 H* GFR Calculation 5.3 L Glucose 95 Calculated Osmolal ity 287 Calcium 8.4 L Total Bilirubin 0.2 AST 18 ALT 9 Alkaline Phosphata se 74 Total Protein 5.9 L Albumin 2.1 L Globulin 3.8 Misc Test Referenc e Pending 11/18/19 05:36 WBC RBC Hgb Hct MCV MCH MCHC RDW Plt Count MPV Lymph % (Auto) [place] % (Auto) Reticulocyte % (Au to) 1.7600 Lymph # (Auto) [place] # (Auto) Total Counted Atypical Lymphs % Absolute Neutrophi ls Segmented Neutroph ils Abs Segm Neuts (Ma n) Band Neutrophils Abs Band Neuts (Ma n) Lymphocytes (Manua l) Monocytes (Manual) Absolute Monocytes Eosinophils (Manua l) Absolute Eosinophi ls Basophils (Manual) Absolute Basophils Metamyelocytes Myelocytes Nucleated RBCs Platelet Estimate Polychromasia Sodium Potassium Chloride Carbon Dioxide Anion Gap BUN Creatinine GFR Calculation Glucose Calculated Osmolal ity Calcium Total Bilirubin AST ALT Alkaline Phosphata se Total Protein Albumin Globulin Misc Test Referenc e Vitals: Last Vital Signs Temp 98.1 F 11/21/19 08:00 Pulse 93 11/21/19 08:00 Resp 16 11/21/19 08:00 BP 143/73 11/21/19 08:00 Pulse Ox 95 11/21/19 08:00 Discharge Plan Discharge Patient Disposition: Home Condition: Stable Prescriptions: New aspirin 81 mg Tablet,Delayed Release (Dr/Ec) 81 mg PO DAILY Qty: 30 RF: 0 levofloxacin 500 mg Tablet 500 mg PO DAILY@0600 Qty: 11 RF: 0 lisinopril 2.5 mg Tablet 2.5 mg PO DAILY Qty: 30 RF: 0 Continued RenaPlex 800 mcg- 12.5 mg tablet 1 tab PO .COMPLEX RF: 0 metoprolol tartrate 50 mg tablet 50 mg PO BID 90 Days Qty: 180 RF: 3 atorvastatin 40 mg tablet 40 mg PO DAILY 90 Days Qty: 90 RF: 3 amlodipine 10 mg Tablet 5 mg PO DAILY Qty: 30 RF: 0 cevimeline 800 mg tablet 800 mg PO DAILY RF: 0 Discontinued aspirin 325 mg tablet 325 mg PO DAILY RF: 0 furosemide 80 mg tablet 80 mg PO DAILY RF: 0 Discharge Orders: Discharge Order (Routine); Ordered 11/21/19 Ordered By: Deandre Mar Referrals: Echo [Other] - 12/12/19 10:15 am (Radiology) [facility] [Outside] Alejandro Rasheed M.D [Physician] - 04/11/20 1:00 pm Bret Pedro MD [Physician] - 12/19/19 1:20 pm Robin Schumacher MD [Primary Care Provider] - 11/27/19 9:15 am Discharge Diet: Cardiac Discharge Activity: Resume usual activity and Increase activity as tolerated Patient Instructions: Lisinopril (By mouth), Aspirin (By mouth), Levofloxacin (By mouth), Neutropenia (GEN) Activity Restrictions/Additional Instructions: Repeat CBC in a week with primary care provider Continue ofloxacin for 11 more days to finish a 14-day course. Discharge Date/Time: 11/21/19 12:18 Discharge Attestations Time Spent in Discharge Care*: greater than 30 min Specific Discharge Activities: Specific discharge activities: educating patient, discussing with pcp/other providers, discussing with immigration case manager/social workers/dc planners, documenting/other paperwork and evaluating patient/reviewing data Status at Discharge: Cognitive status at discharge: cognitively intact , Behavioral status at discharge: cooperative , Functional status at discharge: independent ambulation Overall status at discharge: patient is back to baseline Quality Metrics Clinical Quality Measures During this hospital stay, did patient experience: None Coding Level of Care Code Acute Small Business Director for Chg Fwd Exam Comprehensive Diagnoses Neutropenic fever D70.9; R50.81 Gout M10.9 Dental infection K04.7 Nonischemic cardiomyopathy I42.8 Acute hyponatremia E87.1 End stage renal disease N18.6 Hyperlipidemia E78.5 HTN (hypertension) I10
[2019-11-21 10:18] VITALS: BP 143/73; PULSE 93; RESP 16; TEMP 36.7; O2SAT 95
[2019-11-21 11:34] VITALS: BP 143/73; PULSE 93; RESP 16; TEMP 36.7
--- NOTE | 2020-01-25 10:06 | PC.SOCIAL ---
Followed up on patients concerns retrieved from survey and he was happy to discuss. Indicates he felt providers did not spend enough time explaining things. He also indicates nothing was explained to him regarding new meds etc. He appreciates the call. This nurse will forward his concerns.
== END 2019-11-21 12:18 | disposition home or self-care (01) | DRG 808 ==
LOC: ER 20:20 → MEDSURG 21:20
PROVIDERS: Emergency Medicine; Family Medicine; Internal Medicine; Internal Medicine Nephrology; Admitting Provider Family Medicine; Emergency Provider Emergency Medicine; PCP Family Medicine; Visit Provider Student in an Organized Health Care Education/Training Program
DX: D70.3 Neutropenia due to infection (principal); N18.6 End stage renal disease; I12.0 Hypertensive chronic kidney disease with stage 5 chronic kidney disease or end stage renal disease; I42.8 Other cardiomyopathies; E87.1 Hypo-osmolality and hyponatremia; R78.81 Bacteremia; R50.81 Fever presenting with conditions classified elsewhere; Z85.71 Personal history of Hodgkin lymphoma; Z92.21 Personal history of antineoplastic chemotherapy; Z99.2 Dependence on renal dialysis; E78.5 Hyperlipidemia, unspecified; D63.1 Anemia in chronic kidney disease; M1A.9XX0 Chronic gout, unspecified, without tophus (tophi); Z87.891 Personal history of nicotine dependence; F10.21 Alcohol dependence, in remission; K04.7 Periapical abscess without sinus; R59.0 Localized enlarged lymph nodes; G89.29 Other chronic pain; M54.2 Cervicalgia
CPT/HCPCS: 12345; 36415; 70490; 71045; 71250; 74176; 76536; 80048; 80053; 80202; 80500; 81001; 82728; 83520; 83605; 83615; 83735; 84100; 84145; 84443; 85007; 85025; 85045; 85384; 85651; 86140; 86747; 87040; 87070; 87075; 87077; 87086; 87186; 87205; 87426; 87635; 87641; 87804; 89050; 90935; 93005; 93306; 94664; 96372; 96375; 99284; J0743; J1170; J1442; J1644; J2543; J3370; J3490; J7050; Q3014; Q4081

== ENCOUNTER 2019-11-27 10:55 | Outpatient (CLI) | payer MEDICARE, SELFPAY ==
[2019-11-27 11:08] LABS: Hemoglobin 9.5 g/dL (11.7-16.6); Mean Corpuscular HGB Conc 31.7 g/dL (30.0-36.0); Mean Corpuscular Hemoglobin 33.3 pg (28.0-34.0); Mean Corpuscular Volume 105.3 fL (80-94); Platelet Count 225 10^3/cmm (130-400); Red Blood Count 2.85 10^6/uL (4.1-5.3); Red Cell Distribution Width 15.5 % (12.1-15.1); White Blood Count 10.1 10^3/uL (4.0-10.0)
[2019-11-27 11:21] LABS: Absolute Neutrophil 7.8 10^3/cmm (1.4-6.5); Absolute Segmented Neutrophil 7.8 10/cmm (1.6-7.1); Eosinophils 0 %; Lymphocytes 14 %; Monocytes Absolute 0.9 10^3/cmm (0.1-0.6); Platelet Estimate Normal (Normal); Segmented Neutrophils 77 %; Total Cells Counted 100 (0-100)
== END 2019-11-27 10:56 | disposition home or self-care (01) ==
PROVIDERS: PCP Family Medicine; Visit Provider Internal Medicine Medical Oncology
DX: D70.9 Neutropenia, unspecified (principal)
CPT/HCPCS: 85007; 85027

== ENCOUNTER → 2019-11-30 10:46 | Outpatient (BNVA) | payer MEDICARE, SELFPAY | PROVIDERS: PCP Family Medicine; Visit Provider Internal Medicine | DX: M06.9 Rheumatoid arthritis, unspecified (principal); M10.9 Gout, unspecified; R70.0 Elevated erythrocyte sedimentation rate; B19.10 Unspecified viral hepatitis B without hepatic coma; M75.31 Calcific tendinitis of right shoulder; M75.32 Calcific tendinitis of left shoulder; M25.511 Pain in right shoulder; M25.512 Pain in left shoulder; M25.812 Other specified joint disorders, left shoulder; M24.012 Loose body in left shoulder | CPT/HCPCS: 73030; 99214 ==

== ENCOUNTER 2019-11-30 11:45 | Outpatient (CLI) | payer MEDICARE, SELFPAY ==
--- NOTE | 2019-11-30 11:50 | XR_ITS ---
WS: [id number] RIGHT SHOULDER: 2 VIEW(S) TECHNIQUE: Internal and external rotation. HISTORY: shoulder pain COMPARISON: None available. No fracture or dislocation or soft tissue abnormality. Mild narrowing of the AC joint and glenohumeral joint. Calcification in the distal rotator cuff measu res 10 x 4 mm. Subchondral cystic changes are noted in the posterior lateral humeral head. RIGHT upper lobe is clear with a few benign granulomata. XR/XR shoulder RT min 2V* [id number] IMPRESSION: 1. Calcific tendinitis. 2. Mild AC joint narrowing.
--- NOTE | 2019-11-30 11:50 | XR_ITS ---
WS: [id number] LEFT SHOULDER: 2 VIEW(S) TECHNIQUE: Internal and external rotation. HISTORY: shoulder pain COMPARISON: None available. No fracture or dislocation or soft tissue abnormality. Mild narrowing of the AC joint and glenohumeral joint. Calcific densities over the lateral humeral he ad extend over a length of 3.4 cm x 0.6 cm. There is additional calcific deposits adjacent to the lat eral acromion. 6 mm calcific deposits the in the soft tissues beneath the lateral border of the scapu la could be a loose body within the axillary pouch. May be a soft tissue calcification. Moderate atherosclerosis aorta. XR/XR shoulder LT min 2V* [id number] IMPRESSION: 1. Significant deposition of calcification in the rotator cuff consistent with calcific tendinitis. 2. Additional calcific deposits over the lateral acromion. 3. Soft tissue versus axillary pouch loose body.
== END 2019-11-30 11:46 | disposition home or self-care (01) ==
LOC: RADWPI 11:49
PROVIDERS: Family Provider Family Medicine; PCP Family Medicine; Visit Provider Internal Medicine
DX: M75.31 Calcific tendinitis of right shoulder (principal); M75.32 Calcific tendinitis of left shoulder; M25.511 Pain in right shoulder; M25.512 Pain in left shoulder; M25.812 Other specified joint disorders, left shoulder; M24.012 Loose body in left shoulder
CPT/HCPCS: 73030

== ENCOUNTER 2019-12-12 10:11 | Outpatient (CLI) | payer MEDICARE, SELFPAY ==
--- NOTE | 2019-12-12 10:18 | USCV_ITS ---
Shola Quintana Age: 69 Gender: M : 1950 Exam Date: 12/12/2019 10:25 Ordering Phys: Alejandro Rasheed M.D ([email or web address]) Technologist: Raegan Fletcher Exam Location: [facility] [place] Indication: AAA BP: 135 / 55 HR: 139 Rhythm: Sinus Technical Quality: Adequate MEASUREMENTS (Male / Female) Normal Values 2D ECHO LV Diastolic Diameter PLAX 3.5 cm 4.2 - 5.9 / 3.9 - 5.3 cm LV Systolic Diameter PLAX 2.4 cm LV Chamber Size 3.6 cm IVS Diastolic Thickness 1.1 cm 0.6 - 1.0 / 0.6 - 0.9 cm IVS Systolic Thickness 1.3 cm LVPW Diastolic Thickness 1.7 cm 0.6 - 1.0 / 0.6 - 0.9 cm LVPW Systolic Thickness 2.1 cm RV Chamber Size 2.8 cm LVOT Diameter 2.1 cm LV Ejection Fraction 2D Teich 62.7 % LA Diameter 3.1 cm LA Width 3.0 cm LA Height 3.9 cm RA Width 2.2 cm RA Height 3.8 cm Aorta at Sinotubular Diameter 3.2 cm M-MODE LV Diastolic Diameter MM 5.7 cm 4.2 - 5.9 / 3.9 - 5.3 cm LV Systolic Diameter MM 3.8 cm LV Ejection Fraction MM Teich 60.7 % IVS Diastolic Thickness MM 0.6 cm 0.6 - 1.0 / 0.6 - 0.9 cm IVS Systolic Thickness MM 0.8 cm LVPW Diastolic Thickness MM 1.0 cm 0.6 - 1.0 / 0.6 - 0.9 cm LVPW Systolic Thickness MM 1.1 cm Aortic Annulus Diameter 3.8 cm LA Ao Ratio MM 0.8 MV E Point Septal Separation 1.0 cm DOPPLER AV Peak Velocity 102.0 cm/s LVOT Peak Velocity 94.0 cm/s AV Area Cont Eq vti 3.3 cm squared AV Area Cont Eq pk 3.1 cm squared MV Area PHT 3.5 cm squared Mitral E to A Ratio 0.8 MV E' Velocity 75.0 cm/s TR Peak Velocity 264.7 cm/s TR Peak Gradient 28.0 mmHg TV Peak E Velocity 63.0 cm/s Right Atrial Pressure 3.0 mmHg Pulmonary Artery Systolic Pressu 31.0 mmHg PV Peak Velocity 93.0 cm/s RV Acceleration Time 0.2 s RV Ejection Time 0.3 s RV AcT/ET 0.5 FINDINGS Left Ventricle Normal left ventricular size. LV systolic function is mildly decreased with EF of 45-50 %. Mild global hypokinesis is noted. Mild to moderate left ventricular hypertrophy.Grade 1 diastolic function. Mild global hypokinesis is noted. Grade 1 diastolic dysfunction is present. Thickened mitral valve. Right Ventricle The right ventricle is normal in size and function. Right Atrium The right atrium is normal in size. Left Atrium The left atrium is normal in size. Mitral Valve Mitral valve is thickened. The echodensity seen on prior echocardiogram does not well visualized because of thickening of mitral valve however cannot be ruled out completely. There is no mitral regurgitation. Aortic Valve Structurally normal aortic valve without significant sclerosis or stenosis. There is no aortic regurgitation. Tricuspid Valve Structurally normal tricuspid valve without significant stenosis. Mild tricuspid regurgitation is noted. RVSP is 30 to 35 mmHg. Pulmonic Valve Structurally normal pulmonic valve without significant stenosis. There is no pulmonic regurgitation. Pericardium Normal pericardium without effusion. Aorta Normal ascending aorta dimension. CONCLUSIONS LV systolic function is mildly reduced with EF of 45-50% Mild global hypokinesis is noted. Grade 1 diastolic dysfunction is present. Mitral valve is thickened however this limits the ability to evaluate the echodensity seen on transesophageal echocardiogram in the past. Cannot rule out. Compared to prior echocardiogram from 11/16/2019, no significant changes are noted. Alejandro Rasheed MD (Electronically Signed) Final Date: 17 December 2019 15:58 S
== END 2019-12-12 10:12 | disposition home or self-care (01) ==
LOC: RAD 10:14
PROVIDERS: PCP Family Medicine; Visit Provider Internal Medicine
DX: I71.4 Abdominal aortic aneurysm, without rupture (principal); I05.9 Rheumatic mitral valve disease, unspecified
CPT/HCPCS: 93306

== ENCOUNTER 2020-01-02 08:42 | Outpatient (CLI) | payer MEDICARE, SELFPAY ==
[2020-01-02 09:12] LABS: Basophils % 0.4 %; Eosinophils % 0.4 %; Hematocrit 36.4 % (42.0-52.0); Hemoglobin 10.9 g/dL (11.7-16.6); Lymphocytes # 0.6 10^3/uL (0.8-4.8); Mean Corpuscular HGB Conc 29.9 g/dL (30.0-36.0); Mean Corpuscular Hemoglobin 31.7 pg (28.0-34.0); Mean Corpuscular Volume 105.8 fL (80-94); Mean Platelet Volume 9.8 fL (7.4-10.4); Monocytes # 0.4 10^3/uL (0.2-0.9); Monocytes % 7.7 %; Neutrophils # 3.66 10^3/uL (1.8-7.7); Neutrophils % 78.3 %; Nucleated Red Blood Cells % 0 %; Platelet Count 153 10^3/cmm (130-400); Red Blood Count 3.44 10^6/uL (4.1-5.3); Red Cell Distribution Width 15.6 % (12.1-15.1); White Blood Count 4.7 10^3/uL (4.0-10.0)
[2020-01-02 09:35] LABS: Alanine Aminotransferase 19 U/L (0-41); Albumin Level 3.4 g/dL (3.5-5.2); Alkaline Phosphatase 67 IU/L (40-130); Anion Gap 18.7 (5-19); Aspartate Amino Transferase 21 U/L (0-40); Blood Urea Nitrogen 53 mg/dL (8-23); Carbon Dioxide 28 mmol/L (22-29); Chloride 96 mmol/L (98-107); Globulin 2.9 g/dL (1.3-4.6); Glomerular Filtration Rate 5.4 mL/min (90-130); Glucose 89 mg/dL (65-115); Iron 73 ug/dL (59-158); Osmolality Calculated 298 mOsm/kg (285-295); Percent Saturation 38.8 % (20-50); Potassium 5.7 mmol/L (3.5-5.1); Sodium 137 mmol/L (136-145); Total Bilirubin 0.2 mg/dL (0.15-1.2); Total Iron Binding Capacity 188 mcg/dl; Total Protein 6.3 g/dL (6.6-8.7); Unsaturated Iron Binding 115 ug/dL (112-347)
[2020-01-02 11:35] LABS: Lactate Dehydrogenase 216 U/L (135-225)
[2020-01-02 11:52] LABS: Vitamin B12 1014 pg/mL (232-1245)
[2020-01-02 11:58] LABS: Erythrocyte Sedimentation Rate 59 mm/hr (0-10)
--- NOTE | 2020-01-05 17:17 | ONC FU_ITS ---
Dr. Marcum Patient Follow-Up Note Patient: Shola Quintana Unit #: [id number]: 1950 Dicatated By: Jose Marcum M.D.Date of Visit:Jan 02, 2020 Onc Med Follow-up/Prog Note Chief Complaint: Hodgkin's lymphoma/anemia/neutropenia. History of Present Illness: This is a 67 year-old man with classical Hodgkin's lymphoma, stage IVB, in sustained remission since completing chemotherapy in November 2005. He had subsequently developed anemia in association with end-stage renal disease. In November 2019 he was hospitalized with severe neutropenia. He had anemia with extensive mediastinal, hilar, and periaortic adenopathy at the initial diagnosis of his Hodgkin's lymphoma in September of 2005. Mediastinal lymph node biopsy showed classical Hodgkin's lymphoma. The bone marrow was involved. He was treated on the Balm V chemotherapy regimen. Treatment was completed in November of 2005. He had a complete response by followup PET/CT and bone marrow biopsy. Thus far during followup there has been no evidence of recurrence. He also had a known aneurysm of the distal abdominal aorta. A repeat CTA of the abdomen/pelvis on 01/08/2017 showed increase in the aneurysm to 4.9 x 5 cm, extending over a vertical height of 10.5 cm. There were extensive atherosclerotic peripheral vascular changes, including high-grade stenosis of the origin of the right renal artery. There was evidence of left inguinal hernia. There was no lymphadenopathy or other evidence of recurrence of his Hodgkin's lymphoma. On 04/01/2017 he underwent endovascular repair of the abdominal aortic aneurysm at [facility]. Apparently it was a very complicated procedure, requiring placements of stents into both renal arteries in addition to the abdominal aorta and both iliac arteries. He unfortunately developed acute renal failure from the contrast. He was followed by Dr. Favian Jang in [place] for the renal failure. He had stage V renal disease, but he had initially declined dialysis. With that he had developed moderately severe anemia which responded to treatment with Procrit. He eventually did begin home peritoneal dialysis. His other medical illnesses include hypertension and hypercholesterolemia. He has a history of cardiac arrhythmia, apparently just very frequent PVCs, which was treated with metoprolol. He had hepatitis B in 1975. Serologic studies in 2004 showed positive hepatitis B core antibody, positive hepatitis B surface antibody, and negative hepatitis B surface antigen. He has history of smoking for 32 years, less than a pack of cigarettes daily. He quit smoking in March 2017. INTERIM HISTORY: In August 2019 he was admitted to the hospital with a febrile illness. He was determined to have streptococcal group C peritonitis associated with his peritoneal dialysis. He was given 6 weeks of outpatient IV antibiotic therapy with ceftriaxone. On 11/15/2019 he was readmitted with recurrence of fever. His initial CBC showed severe neutropenia with a total white count of 500 and an absolute neutrophil count of less than 100. His hemoglobin was moderately decreased at 9.3 g with mildly macrocytic red cell indices. His platelet count was normal at 207,000. He was placed on broad-spectrum antibiotic coverage. He was treated empirically with Neupogen. His blood cultures ultimately grew Serratia. As of 11/20/2019 his white count had increased to 4600 and his absolute neutrophil count was 2200. He was discharged home the following day. A repeat CBC on 11/21/2019 showed hemoglobin adequate at 9.5 g with white blood cell count 13,100 and absolute neutrophil count 9000. Platelet count was normal at 208,000. He is seen for a follow-up visit. He has been feeling generally better since he has been home from the hospital. He still has fatigue, but he has been active. He is able to do light to moderately heavy work and he plays golf regularly. ECOG score is 1. Appetite is not that great. He has had significant weight loss since his visit here in February 2018. He says he has a hard time eating red meat. He does not have fever or night sweats. His breathing is pretty good as long as his hemoglobin level is adequate. He has just a little bit of cough. He does not complain of chest pain. Recently he has had some diarrhea, but it has been intermittent. He has no other GI complaints. He still has some urine output, but less. He has been having joint pain in his shoulders and wrists. He also has pain in his right knee and right ankle. He is seeing the senior regulatory affairs specialist. He does not complain of headache or dizziness. He has had some episodes of lightheadedness associated with low blood pressure. Medications: AmLODIPine & Diet Manage Prod 1 Tablet (of 2.5 mg) Oral daily, Furosemide 1 Tablet (of 80 mg) Oral daily, Hydroxychloroquine Sulfate 1 Tablet (of 200 mg) Oral b.i.d., Lipitor 1 Tablet (of 40 mg) Oral daily, Lisinopril 1 Tablet (of 2.5 mg) Oral daily, Metoprolol Tartrate 1 (50 mg) Tablet Oral b.i.d., predniSONE 1 Tablet (of 5 mg) Oral daily, RenaPlex 1 Tablet Oral daily Allergies: No Known Allergies. Review of Systems: Constitutional - He has fatigue, but he is still active. Appetite is not that great. He has had significant weight loss since his visit here in February 2018. He does not have fever or night sweats. ECOG score is 1, ENMT - No sinus congestion/drainage. No mouth sores. No sore throat or difficulty swallowing, Hematologic/Lymphatic - He has easy bruising, Respiratory - His breathing is okay as long as his hemoglobin is adequate. He has a little bit of cough. No pleuritic pain or hemoptysis, Cardiovascular - No angina pain. No palpitations, Gastrointestinal - No nausea or vomiting. No heartburn or acid reflux. Recently has had some diarrhea, but it has been intermittent. No blood in the stool or black stools, Genitourinary (M) - He still has some urine output, but less. No dysuria or hematuria. No urgency or incontinence, Musculoskeletal - He has been having joint pain, mainly in the shoulders and knees and also in the right wrist and right ankle, Integumentary - No skin rash, Neurologic - No headache or dizziness. He has had episodes of lightheadedness associated with low blood pressure. He has a little bit of numbness in his right hand. No other focal neurologic symptoms, Psychiatric - No anxiety or depression. No insomnia. Vital Signs: Performed on Jan 02, 2020 10:08 Height - 75.00 in Weight - 166.2 lbs (LOW) BSA - 2.03 sq.m BMI - 20.77 Temperature - 97.8 F (LOW) Pulse - 67 /min Respiration - 18 /min BP - 130/67 mm(hg) O2 Sat - 98 % Pain - 8 Physical Examination: Constitutional - He looks pretty good generally, Eyes - Sclerae nonicteric. Conjunctivae clear, ENMT - No lesions noted in the oral cavity, Hematologic/Lymphatic - No cervical, clavicular or axillary adenopathy, Respiratory - Lungs are clear with good air movement bilaterally, Cardiovascular - Heart rhythm is regular. There is no murmur, gallop, or rub noted, Abdomen - Soft. Liver and spleen are not enlarged. There is no abdominal mass or ascites noted and no inguinal adenopathy, Extremities - No edema. He has chronic purpura, Neurologic - No focal neurologic deficits noted. Lab/Imaging: Test performed on Jan 02, 2020 09:00 Iron 73 mcg/dL Sodium 137 mmol/L Iron Binding Capacity (TIBC) 188 mcg/dl Potassium 5.7 mmol/L % Iron Saturation 38.8 % Chloride 96 mmol/L CO2 28 mmol/L UIBC 115 mcg/dL Anion Gap 18.7 BUN 53 mg/dL Creatinine 9.7 mg/dL Cr Clearance (Est) 7.7700 mL/min eGFR 5.4 mL/min Glucose 89 mg/dL Osmolality - Calculated 298 mOsm/kg Calcium 9.0 mg/dL Protein, Total 6.3 g/dL Albumin 3.4 g/dL Globulin 2.9 g/dL Bilirubin, Total 0.2 mg/dL ALT (SGPT) 19 U/L AST (SGOT) 21 U/L Alkaline Phosphatase 67 IU/L WBC 4.7 10 3/uL RBC 3.44 10 6/uL HGB 10.9 g/dL HCT 36.4 % MCV 105.8 fL MCH 31.7 pg MCHC 29.9 g/dL RDW 15.6 % Platelet Count 153 10 3/cmm MPV 9.8 fL Neutrophils 3.66 10 3/uL Lymphocytes 0.6 10 3/uL Monocytes 0.4 10 3/uL Eosinophils 0.0 10 3/uL Basophils 0.0 10 3/uL Neutrophil % 78.3 % Lymphocyte % 13.0 % Monocyte % 7.7 % Eosinophil % 0.4 % Basophils % 0.4 % NRBC % 0 % Impression: 1. Patient with anemia in association with endstage renal disease. His anemia has been responsive to treatment with erythropoietin stimulating agents. 2. He had developed stage V renal disease following a complicated endovascular repair of abdominal aortic aneurysm in March 2017. He ultimately began on home peritoneal dialysis in 2018. 3. He has a history of classical Hodgkin's lymphoma, stage IVB, initially diagnosed in September 2005. He has been in clinical remission following treatment on the Balm V chemotherapy regimen, which he completed in November 2005. His other medical illnesses include: 4. Hypertension. 5. Hyperlipidemia. 6. He has history of cardiac arrhythmia. 7. He has a history of hepatitis B. In August 2019 he was given 6 weeks ago outpatient antibiotic therapy with ceftriaxone for streptococcal group C peritonitis associated with his peritoneal dialysis. On 11/15/2019 he was admitted to the hospital with recurrence of fever. He was severely neutropenic with ANC less than 100. Blood cultures ultimately grew Serratia. He was placed on broad-spectrum antibiotic coverage and he was treated empirically with Neupogen. As of 11/20/2019 his absolute neutrophil count had increased to 2000, and he was discharged the following day. His repeat CBC on 11/21/2019 showed further increase in the absolute neutrophil count to 9000. At this point the cause of the neutropenia remains uncertain. It does appear unlikely to have been medication related. Otherwise, the most likely causes would be autoimmune neutropenia or an infection related neutropenia. Myelodysplasia or other underlying bone marrow pathology is not yet excluded, but that also appears to be unlikely, as he does appear to be maintaining an adequate granulocyte count and platelet count, and his anemia has remained responsive to an erythropoietin stimulating agent, consistent with end-stage renal disease anemia.. Plan: I will request additional laboratory studies today to include a sed rate, an LDH level, and a B12 level. He will have further evaluation as indicated. Signed By: Jose Marcum M.D. <<Signature on File>>
== END 2020-01-02 08:43 | disposition home or self-care (01) ==
LOC: ONCMED 08:47
PROVIDERS: PCP Family Medicine; Visit Provider Internal Medicine Medical Oncology
DX: D70.9 Neutropenia, unspecified (principal); I12.0 Hypertensive chronic kidney disease with stage 5 chronic kidney disease or end stage renal disease; N18.5 Chronic kidney disease, stage 5; D63.1 Anemia in chronic kidney disease; E78.00 Pure hypercholesterolemia, unspecified; I49.9 Cardiac arrhythmia, unspecified; Z99.2 Dependence on renal dialysis; Z85.72 Personal history of non-Hodgkin lymphomas; Z92.21 Personal history of antineoplastic chemotherapy; Z87.891 Personal history of nicotine dependence
CPT/HCPCS: 36415; 80053; 82607; 83540; 83550; 83615; 85025; 85651; 99214

== ENCOUNTER → 2020-01-08 13:25 | Outpatient (BNVA) | payer MEDICARE, SELFPAY | PROVIDERS: PCP Family Medicine; Visit Provider Internal Medicine | DX: M06.9 Rheumatoid arthritis, unspecified (principal); M10.9 Gout, unspecified; R70.0 Elevated erythrocyte sedimentation rate; Z79.52 Long term (current) use of systemic steroids; Z79.899 Other long term (current) drug therapy | CPT/HCPCS: 99214 ==

== ENCOUNTER → 2020-04-08 14:05 | Outpatient (BNVA) | payer MEDICARE, SELFPAY | PROVIDERS: PCP Family Medicine; Visit Provider Internal Medicine | DX: M06.9 Rheumatoid arthritis, unspecified (principal); M10.9 Gout, unspecified; R70.0 Elevated erythrocyte sedimentation rate; N18.6 End stage renal disease; D50.9 Iron deficiency anemia, unspecified; Z87.891 Personal history of nicotine dependence | CPT/HCPCS: 99213; 99214 ==

== ENCOUNTER → 2020-08-21 12:37 | Outpatient (BNVA) | payer MEDICARE, SELFPAY | PROVIDERS: PCP Family Medicine; Visit Provider Internal Medicine | DX: M06.9 Rheumatoid arthritis, unspecified (principal); Z79.899 Other long term (current) drug therapy | CPT/HCPCS: 36415; 80053; 85025; 85651; 86140 ==

== ENCOUNTER → 2020-08-26 09:48 | Outpatient (BNVA) | payer MEDICARE, SELFPAY | PROVIDERS: PCP Family Medicine; Visit Provider Internal Medicine | DX: M06.9 Rheumatoid arthritis, unspecified (principal); R70.0 Elevated erythrocyte sedimentation rate; R76.8 Other specified abnormal immunological findings in serum; Z87.891 Personal history of nicotine dependence | CPT/HCPCS: 99214 ==

== ENCOUNTER → 2020-12-11 10:01 | Outpatient (BNVA) | payer MEDICARE, SELFPAY | PROVIDERS: PCP Family Medicine; Visit Provider Internal Medicine | DX: M06.9 Rheumatoid arthritis, unspecified (principal); Z99.2 Dependence on renal dialysis; R70.0 Elevated erythrocyte sedimentation rate; Z79.899 Other long term (current) drug therapy; M17.10 Unilateral primary osteoarthritis, unspecified knee | CPT/HCPCS: 99214 ==

== ENCOUNTER 2021-01-23 14:51 | Outpatient (CLI) | payer MEDICARE, SELFPAY ==
[2021-01-23 15:32] LABS: Erythrocyte Sedimentation Rate 23 mm/hr (0-10)
[2021-01-23 15:38] LABS: Uric Acid 6.3 mg/dL (3.4-7.0)
== END 2021-01-23 14:52 | disposition home or self-care (01) ==
LOC: LAB 14:57
PROVIDERS: PCP Family Medicine; Visit Provider Internal Medicine
DX: M06.9 Rheumatoid arthritis, unspecified (principal); M10.9 Gout, unspecified; R70.0 Elevated erythrocyte sedimentation rate
CPT/HCPCS: 36415; 84550; 85651; 86140

== ENCOUNTER 2021-01-24 14:59 | Outpatient (CLI) | payer MEDICARE, SELFPAY ==
--- NOTE | 2021-01-24 15:12 | XR_ITS ---
WS: [id number] Right knee, AP and lateral views, 01/24/2021 Clinical Data: R70.0 - Elevated erythrocyte sedimentation rate Comparison: Right knee, 11/01/2019. Findings: No fractures or dislocations are seen. The joint spaces are normal. The patella is intact. The patien t is developed increased synovial calcifications both on the medial lateral aspect of the knee joint. There are vascular calcifications present. XR/XR knee RT 1-2V [id number] Impression: 1. Negative for joint space narrowing or erosion. 2. Bilateral synovial calcifications which can be seen with arthritic condition s. Kellgren-Shailesh Classification: grade 0 (none): definite absence of x-ray reynold nges of osteoarthritis
== END 2021-01-24 15:00 | disposition home or self-care (01) ==
PROVIDERS: PCP Family Medicine; Visit Provider Internal Medicine
DX: M06.9 Rheumatoid arthritis, unspecified (principal); M10.9 Gout, unspecified; R70.0 Elevated erythrocyte sedimentation rate
CPT/HCPCS: 73560

== ENCOUNTER → 2021-03-04 13:50 | Outpatient (BNVA) | payer MEDICARE, SELFPAY | PROVIDERS: PCP Family Medicine; Referring Provider Internal Medicine Nephrology; Visit Provider Internal Medicine | DX: R79.89 Other specified abnormal findings of blood chemistry (principal); R29.6 Repeated falls; R54 Age-related physical debility; I42.8 Other cardiomyopathies; Z99.2 Dependence on renal dialysis; Z87.891 Personal history of nicotine dependence | CPT/HCPCS: 99205 ==

== ENCOUNTER 2021-03-21 07:48 | Outpatient (CLI) | payer MEDICARE, SELFPAY ==
[2021-03-21 09:10] LABS: Testosterone Total 234.6 ng/dL (193-740)
[2021-03-21 09:16] LABS: Luteinizing Hormone 70.7 mIU/mL (1.7-8.6); Prolactin 121.8 ng/mL (4.0-15.2)
[2021-03-25 02:12] LABS: Testosterone, Free 23.9 pg/mL (46.0-224.0)
== END 2021-03-21 07:49 | disposition home or self-care (01) ==
LOC: LAB 08:04
PROVIDERS: Internal Medicine; PCP Family Medicine; Visit Provider Internal Medicine
DX: R70.0 Elevated erythrocyte sedimentation rate (principal); R79.89 Other specified abnormal findings of blood chemistry
CPT/HCPCS: 36415; 83001; 83002; 84146; 84402; 84403; 84550

== ENCOUNTER → 2021-04-15 14:44 | Outpatient (BNVA) | payer MEDICARE, SELFPAY | PROVIDERS: PCP Family Medicine; Visit Provider Internal Medicine | DX: R79.89 Other specified abnormal findings of blood chemistry (principal); N18.6 End stage renal disease; E78.5 Hyperlipidemia, unspecified; R54 Age-related physical debility; R29.6 Repeated falls; R41.82 Altered mental status, unspecified; Z87.891 Personal history of nicotine dependence; Z99.2 Dependence on renal dialysis; I42.8 Other cardiomyopathies | CPT/HCPCS: 99214 ==

== ENCOUNTER → 2021-04-28 13:33 | Outpatient (BNVA) | payer MEDICARE, SELFPAY | PROVIDERS: PCP Family Medicine; Visit Provider Internal Medicine | DX: M06.9 Rheumatoid arthritis, unspecified (principal); R70.0 Elevated erythrocyte sedimentation rate; M10.9 Gout, unspecified; Z79.899 Other long term (current) drug therapy; Z87.891 Personal history of nicotine dependence | CPT/HCPCS: 99214 ==

== ENCOUNTER 2021-05-08 06:00 | Outpatient (RCR) | payer MEDICARE, SELFPAY | END 2021-05-08 23:59 | disposition home or self-care (01) | LOC: SPT 06:00 | PROVIDERS: PCP Family Medicine; Referring Provider Internal Medicine; Visit Provider Internal Medicine | DX: R29.6 Repeated falls (principal); R54 Age-related physical debility; M06.9 Rheumatoid arthritis, unspecified | CPT/HCPCS: 97162 ==

== ENCOUNTER 2021-05-08 11:06 | Outpatient (CLI) | payer MEDICARE, SELFPAY ==
--- NOTE | 2021-05-08 10:15 | USCV_ITS ---
Shola Quintana Age: 70 Gender: M : 1950 Exam Date: 05/08/2021 11:38 Ordering Phys: Alejandro Rasheed M.D ([email or web address]) Technologist: OZZIE [place]am [place] [facility] [place]: chest pain BP: 135 / 55 HR: 60 Rhythm: Sinus Technical Quality: Adequate MEASUREMENTS (Male / Female) Normal Values 2D ECHO LV Diastolic Diameter PLAX 5.4 cm 4.2 - 5.9 / 3.9 - 5.3 cm LV Systolic Diameter PLAX 4.9 cm IVS Diastolic Thickness 1.5 cm 0.6 - 1.0 / 0.6 - 0.9 cm IVS Systolic Thickness 1.4 cm LVPW Diastolic Thickness 1.3 cm 0.6 - 1.0 / 0.6 - 0.9 cm LVPW Systolic Thickness 1.5 cm LVOT Diameter 2.0 cm LV Ejection Fraction 2D Teich 21.5 % LV Ejection Fraction MOD 2C 31.2 % LV Ejection Fraction 2C AL 29.6 % LA Diameter 3.6 cm LA Width 3.7 cm LA Height 6.0 cm RA Width 4.3 cm RA Height 5.5 cm Aorta at Sinotubular Diameter 2.2 cm M-MODE Aortic Annulus Diameter 2.5 cm LA Ao Ratio MM 1.4 MV E Point Septal Separation 2.3 cm DOPPLER AV Peak Velocity 122.3 cm/s LVOT Peak Velocity 46.0 cm/s AV Area Cont Eq vti 1.1 cm squared AV Area Cont Eq pk 1.2 cm squared MV Peak Velocity 163.0 cm/s MV Area PHT 2.7 cm squared Mitral E to A Ratio 2.8 MV E' Velocity 76.0 cm/s Mitral E to MV E' Ratio 23.1 Mitral E to LV E' Lateral Ratio 34.4 Mitral E to LV E' Septal Ratio 17.6 TR Peak Velocity 255.7 cm/s TR Peak Gradient 26.1 mmHg TR Mean Velocity 205.1 cm/s TR Mean Gradient 17.4 mmHg TR Velocity Time Integral 83.5 cm TV Peak E Velocity 39.0 cm/s Right Atrial Pressure 3.0 mmHg Pulmonary Artery Systolic Pressu 29.1 mmHg PV Peak Velocity 62.0 cm/s RV Acceleration Time 0.0 s RV Ejection Time 0.3 s RV AcT/ET 0.1 FINDINGS Left Ventricle Left ventricle is dilated. LV systolic function is severely reduced with EF of 20-25%. Severe global hypokinesis is seen. Grade III diastolic dysfunction Right Ventricle Right ventricle is normal in size and function Right Atrium The right atrium is normal in size. Left Atrium The left atrium is dilated Mitral Valve Mitral valve is thickened without significant stenosis or prolapse. There is moderate mitral regurgitation. Aortic Valve Aortic valve is thickened without significant stenosis. There is no aortic regurgitation. Tricuspid Valve Structurally normal tricuspid valve without significant stenosis or regurgitation. Pulmonary artery systolic pressure is normal. Pulmonic Valve Structurally normal pulmonic valve without significant stenosis. There is mild pulmonic regurgitation. Pericardium Small pericardial effusion is noted. Pleural effusion is seen Aorta Normal ascending aorta dimension. CONCLUSIONS Left ventricle is dilated. LV systolic function is severely reduced with EF 20-25% Severe global hypokinesis is seen. Grade 3 diastolic dysfunction. Left atrial enlargement. Mitral valve is thickened. Moderate mitral regurgitation. Aortic valve is thickened without significant stenosis. Mild pulmonic regurgitation. Compared to prior echocardiogram from 12/2019, cardiac function is significantly reduced now with EF of 20-25% Alejandro Rasheed MD (Electronically Signed) Final Date: 09 May 2021 15:10 S
== END 2021-05-08 11:07 | disposition home or self-care (01) ==
LOC: RAD 11:07
PROVIDERS: PCP Family Medicine; Visit Provider Internal Medicine
DX: R07.9 Chest pain, unspecified (principal); R06.02 Shortness of breath; I08.0 Rheumatic disorders of both mitral and aortic valves
CPT/HCPCS: 93306

== ENCOUNTER 2021-05-09 06:00 | Outpatient (RCR) | payer MEDICARE, SELFPAY | END 2021-06-07 23:59 | disposition home or self-care (01) | LOC: SPT 06:00 | PROVIDERS: PCP Family Medicine; Referring Provider Internal Medicine; Visit Provider Internal Medicine | DX: R29.6 Repeated falls (principal); R54 Age-related physical debility; M06.9 Rheumatoid arthritis, unspecified | CPT/HCPCS: 97110 ==

== ENCOUNTER 2021-05-09 14:47 | Outpatient (CLI) | payer MEDICARE, SELFPAY ==
[2021-05-09 15:27] LABS: Basophils % 0.3 %; Hematocrit 32.5 % (42.0-52.0); Hemoglobin 10.5 g/dL (11.7-16.6); Lymphocytes # 0.8 10^3/uL (0.8-4.8); Lymphocytes % 8.6 %; Mean Corpuscular HGB Conc 32.3 g/dL (30.0-36.0); Mean Corpuscular Hemoglobin 34.2 pg (28.0-34.0); Mean Corpuscular Volume 105.9 fl (80-94); Mean Platelet Volume 10.3 fL (7.4-10.4); Monocytes # 0.6 10^3/uL (0.2-0.9); Neutrophils # 8.25 10^3/uL (1.8-7.7); Neutrophils % 84.7 %; Nucleated Red Blood Cells % 0 %; Platelet Count 145 10^3/cmm (130-400); Red Blood Count 3.07 10^6/uL (4.1-5.3); Red Cell Distribution Width 13.8 % (12.1-15.1); White Blood Count 9.7 10^3/uL (4.0-10.0)
[2021-05-09 15:30] LABS: Erythrocyte Sedimentation Rate 12 mm/hr (0-10)
[2021-05-09 15:59] LABS: Alanine Aminotransferase 27 U/L (0-41); Alkaline Phosphatase 60 IU/L (40-130); Aspartate Amino Transferase 37 U/L (0-40); Blood Urea Nitrogen 58 mg/dL (8-23); C Reactive Protein 4.2 mg/L (0.0-4.9); Calcium 8.7 mg/dL (8.5-10.5); Carbon Dioxide 25 mmol/L (22-29); Chloride 87 mmol/L (98-107); Creatine Phosphokinase 141 U/L (39-308); Globulin 2.7 g/dL (1.3-4.6); Glomerular Filtration Rate 5.7 mL/min (90-130); Glucose 71 mg/dL (65-115); Osmolality Calculated 285 mOsm/kg (285-295); Sodium 130 mmol/L (136-145); Total Bilirubin 0.3 mg/dL (0.15-1.2); Total Protein 5.7 g/dL (6.6-8.7)
[2021-05-09 16:05] LABS: Anion Gap 21.4 (5-19); Potassium 3.4 mmol/L (3.5-5.1)
== END 2021-05-09 14:48 | disposition home or self-care (01) ==
LOC: LAB 14:50
PROVIDERS: PCP Family Medicine; Visit Provider Internal Medicine
DX: M06.9 Rheumatoid arthritis, unspecified (principal); R70.0 Elevated erythrocyte sedimentation rate
CPT/HCPCS: 36415; 80053; 82550; 85025; 85651; 86140

== ENCOUNTER → 2021-05-22 12:18 | Outpatient (BNVA) | payer MEDICARE, SELFPAY | PROVIDERS: PCP Family Medicine; Visit Provider Internal Medicine | DX: I10 Essential (primary) hypertension (principal); Z95.828 Presence of other vascular implants and grafts; I42.8 Other cardiomyopathies; I71.4 Abdominal aortic aneurysm, without rupture; E78.5 Hyperlipidemia, unspecified; I33.0 Acute and subacute infective endocarditis; R93.1 Abnormal findings on diagnostic imaging of heart and coronary circulation; Z01.812 Encounter for preprocedural laboratory examination; Z87.891 Personal history of nicotine dependence | CPT/HCPCS: 99214; 99215 ==

== ENCOUNTER → 2021-05-27 09:58 | Outpatient (BNVA) | payer MEDICARE, SELFPAY | PROVIDERS: PCP Family Medicine; Visit Provider Emergency Medicine | DX: L98.492 Non-pressure chronic ulcer of skin of other sites with fat layer exposed (principal); I96 Gangrene, not elsewhere classified; Z87.891 Personal history of nicotine dependence | CPT/HCPCS: 11042; 99202; 99213 ==

== ENCOUNTER 2021-06-02 12:06 | Outpatient (CLI) | payer MEDICARE, SELFPAY ==
[2021-06-02 13:16] LABS: Basophils % 0.3 %; Hemoglobin 11.6 g/dL (11.7-16.6); Lymphocytes # 0.6 10^3/uL (0.8-4.8); Lymphocytes % 7.2 %; Mean Corpuscular HGB Conc 32.2 g/dL (30.0-36.0); Mean Corpuscular Hemoglobin 34.5 pg (28.0-34.0); Mean Corpuscular Volume 107.1 fl (80-94); Mean Platelet Volume 10.5 fL (7.4-10.4); Monocytes # 0.5 10^3/uL (0.2-0.9); Monocytes % 5.9 %; Nucleated Red Blood Cells % 0 %; Platelet Count 170 10^3/cmm (130-400); Red Blood Count 3.36 10^6/uL (4.1-5.3); Red Cell Distribution Width 13.4 % (12.1-15.1); White Blood Count 8.6 10^3/uL (4.0-10.0)
[2021-06-02 13:44] LABS: INR 0.95 (0.83-1.21); Prothrombin Time (Patient) 12.9 Seconds (12.0-15.1)
[2021-06-02 13:45] LABS: Anion Gap 19.4 (5-19); Blood Urea Nitrogen 49 mg/dL (8-23); Calcium 8.5 mg/dL (8.5-10.5); Carbon Dioxide 26 mmol/L (22-29); Chloride 89 mmol/L (98-107); Glucose 78 mg/dL (65-115); Osmolality Calculated 284 mOsm/kg (285-295); Potassium 3.4 mmol/L (3.5-5.1); Prolactin 73.03 ng/mL (4.0-15.2); Sodium 131 mmol/L (136-145); Thyroid Stimulating Hormone 2.68 uIU/mL (0.27-4.20)
[2021-06-02 14:34] LABS: Free T4 Free Thyroxine 1.26 ng/dL (0.82-1.77)
[2021-06-04 00:27] LABS: Sex Hormone Binding Globulin 52 nmol/L (22-77)
== END 2021-06-02 12:07 | disposition home or self-care (01) ==
LOC: LAB 12:13
PROVIDERS: Internal Medicine; PCP Family Medicine; Visit Provider Internal Medicine
DX: R79.89 Other specified abnormal findings of blood chemistry (principal); E78.5 Hyperlipidemia, unspecified; N18.6 End stage renal disease; R41.82 Altered mental status, unspecified
CPT/HCPCS: 36415; 80048; 84146; 84270; 84439; 84443; 85025; 85610

== ENCOUNTER → 2021-06-03 12:59 | Outpatient (BNVA) | payer MEDICARE, SELFPAY | PROVIDERS: PCP Family Medicine; Visit Provider Emergency Medicine | DX: L89.153 Pressure ulcer of sacral region, stage 3 (principal); I96 Gangrene, not elsewhere classified; Z87.891 Personal history of nicotine dependence | CPT/HCPCS: 11042; 99212 ==

== ENCOUNTER 2021-06-04 07:33 | Outpatient (CLI) | payer MEDICARE, SELFPAY ==
[2021-06-04] VITALS (25 sets, daily range): BP systolic 135–154; BP diastolic 59–90; PULSE 61–67; RESP 4–24; TEMP 36.5; O2SAT 95–100; BMI 17.4
--- NOTE | 2021-06-04 07:30 | XACV_ITS ---
Ht: 191 cm Wt: 64 kg BSA: 1.81 m2 Gender: Male : 1950 Any Known Allergies: No known allergies Exam Priority: Routine Indication(s): - Decreased LV systolic function - New onset CHF Procedure(s): Procedure Description: Diagnostic procedure Procedure Description: Left Heart Catheterization Procedure Description: Left ventriculography Procedure Description: Miscellaneous Procedure Description: ACT Procedure Description: Coronary Angiography Procedure Description: Pressure Wire Diagnostic Cath Status: Elective Diagnostic Findings * Left Main has no significant disease. * Right Coronary Artery is small in size, non dominant vessel. * Proximal Left Anterior Descending to Mid Left Anterior Descending: moderate 60% stenosis, CHIRSTINA: 3 flow. * Proximal Circumflex: mild 40% stenosis, CHRISTINA: 3 flow. * Coronary angiography shows left dominance. Interventional Findings * PROCEDURE DETAIL: Patient had difficult access. We initially attempted right radial artery however access could not be obtained. We attempted access on right femoral artery however again had difficulty with it. Eventually left femoral artery access was obtained. Engage left main artery with XB 3.5 guide catheter. After normalization IFR pressure wire was put in distal LAD. IFR value of 0.90 was obtained which was nonischemic. Guidewire and guide catheter were removed.. Conclusions 1. Moderate mid LAD stenosis. Nonischemic IFR.. 2. Severe left ventricular systolic dysfunction. Ejection fraction of 20%. Recommendations * Guideline directed congestive heart failure therapy. * Outpatient cardiology follow-up in 4 weeks. * Medical therapy moderate LAD stenosis. Interventional RX Recommendation: medical therapy and/or counseling Diagnostic RX Recommendation: medical therapy and/or counseling Anticoagulation: Heparin Ventriculography Ejection Fraction: 20.0 % Pressures Phase:Rest AO : 127 / 55 ( 87 ) @ 10:32:00 AM 142 / 62 ( 93 ) @ 10:43:00 AM 156 / 61 ( 96 ) @ 10:56:00 AM 156 / 50 ( 90 ) @ 10:56:00 AM LV : 154 / 13 / 25 @ 10:54:00 AM 154 / 13 / 25 @ 10:56:00 AM 155 / 14 / 25 @ 10:56:00 AM Valves Phase:DefaultPhase AV : 0.0 @ 10:07:05 AM AV Mean Gradient: 0.0 @ 10:07:05 AM Clinical Evaluation EBL: 5mL-10mL Procedural Details Procedure Consent Obtained. Admit Source: Out Patient. Pre-Procedure Time Out. Identified patient by full name and date of as verbalized by the patient/guarantor. Does the consent match the physician's order: Yes. Accurate & Complete Informed Consent: Yes. Inpatient/Outpatient History & Physical on Chart: Yes. If H&P is completed, is and addenduem needed: No; If yes, is the addendum complete: N/A. Visualize and Verify Site with Patient/Guarantor: N/A. Relevant Radiology Images available: Yes. The risks, benefits, and alternatives of sedation and/or procedure were discussed by physician. The patient agrees to continue. Procedure started. [facility] Clinical Fraility Score: 3: Managing Well. Turning Sander Tender Indications: LV Dysfunction, New Onset Heart Failure. Chest Pain Symptom Assessment: Atypical Angina. Cardiovascular Instability: No, stable. Correct patient, site and procedure confirmed by cath team. Current diagnosis: Chest Pain. PERRLA. Strong, equal hand coding director bilaterally. Lungs clear x 5 lobes. IV Site on Arrival: 20 gauge in the right anticubital. IV Fluids: 0.9% NaCl at KVO. 0 mL infused prior to laboratory assistant. Pre Procedural Pulses: bilateral posterior tibial was Absent. Pre Procedural Pulses: right dorsalis pedis was Absent. Pre Procedural Pulses: left dorsalis pedis was Doppled. Oxygen started at 3liters/min via nasal canula. right groin was prepped with chloroprep then draped in the usual sterile fashion. right radial was prepped with chloroprep then draped in the usual sterile fashion. Physician notified. Physician arrived. Physician scrubbed in. Immediate Pre-Procedure Time Out. Correct Patient: Yes; Correct Procedure: Yes; Correct Site: Yes; Correct Patient Position: Yes; Correct Supplies: Yes; Dried Flammable Prep: Yes; Blood Products Available: N/A;. Wilmer New RN, AIR INTERCEPT CONTROLLER was relieved by Anahi Oliver RN as monitoring person. Lidocaine 1% infiltrated to the right radial. US used to obtain radial access. An attempt to gain access to the right radial artery was unsuccessful. TR band applied to stop the bleeding. US used to obtain R femoral access. Arterial access obtained. Needle removed. Manual compression held. left groin was prepped with chloroprep then draped in the usual sterile fashion. Lidocaine 1% infiltrated to the left groin. Arterial access obtained with micropuncture set. A 6 yoruba JL4 catheter in over wire. Wire removed. Multiple views taken of left coronary artery. Catheter out. A 5 yoruba JR4 catheter in over wire. Multiple views taken of right coronary artery. Catheter out. 6 yoruba XB 3.5 guide catheter was inserted over the wire. IFR guidewire was advanced through the guide catheter to lesion in the mid LAD. Fractional flow reserve measurements obtained. IFR wire removed. Catheter out. A 5 yoruba Angled Pig catheter in over wire. Wire removed. EDP Sample taken: LV 154/13,25; HR: 60 BPM; SpO2: 100%. LV gram performed in ACUNA @ 10 mL/second for a total of 30 mL. EDP Sample taken: LV 154/13,25; HR: 62 BPM; SpO2: 100%. Pullback taken: LV 155/14,25; AO 156/61(96); Mean: 0mmHg, Peak to Peak: 0mmHg, SEP: 14sec/min; HR: 61 BPM; SpO2: 100%. Catheter out. ACT drawn. Results 210 seconds. Therapeutic limits - pre-heparin administration 90-150 seconds and monitoring heparin during a vascular procedure >250 seconds. A Suture was successful obtaining hemostatsis at the Left Femoral artery insertion site. Physician scrubbed out. Medication's Wasted: Lidocaine 1% = 4 mL. Total IV fluids: 43 mL. Medication's Wasted: Other = Fentanyl 50 mcg. Post Procedure: Pulses reassessed and unchanged. No VTE prophylaxis required. PERRLA. Strong, equal hand coding director bilaterally. Post-op diagnosis: Moderate Mid LAD stenosis. IFR non ischemic. Complications: none. Estimated blood loss: 5mL-10mL. Responsiveness - Normal response to verbal stimuli; alert and oriented, PERRLA. Airway - Unaffected, no intervention required; spontaneous ventilation. Circulation: W/N/L, pulses unchanged. Nausea/Vomiting: No. Procedure completed. Patient transferred by bed to CPRU. Vital chart was stopped. Access Site Site: Left Femoral artery Sheath Size: 6 Fr Hemostasis Method: Suture Hemostasis Success: Successful Procedure Medications Start: 8:36 AM Stop: 8:36 AM Medication: Versed 1 mg and Fentanyl 25 mcg Amount: 1 Route: I.V. Start: 9:23 AM Stop: 9:23 AM Medication: Fentanyl Amount: 25 mcg Route: I.V. Start: 9:40 AM Stop: 9:40 AM Medication: Heparin Amount: 5000 units Route: I.V. I, the attending physician, have reviewed and verified all procedure medications. Yes, all medications given per verbal order History/Risk Factors Hypertension: Yes Dyslipidemia: Yes Peripheral Arterial Disease (PAD): Yes Myocardial Infarction (ND): No Obesity: No Renal Disease: Yes Tobacco Use: Current/Recent(w/in 1 year) Dialysis: Current Prior Interventions PCI: No CABG: No Valve Surgery: No Report Signatures Finalized by Alejandro Rasheed MD on 06/17/2021 06:28 PM
[2021-06-04] MEDS: diphenhydrAMINE 50 mg Capsule PO (08:00)
--- NOTE | 2021-06-04 08:26 | W.PM.OPSUD ---
Surgery/Procedure H&P Update DATE OF PROCEDURE: June 04, 2021 DATE H&P PERFORMED: 05/22/21 H&P UPDATE INFORMATION: I have reviewed H&P completed within last 30 days, I have examined patient prior to procedure and No changes to prior documentation PREOP DIAGNOSIS: LV dysfunction/ new onset heart failure PRIMARY INDICATION FOR PROCEDURE: LV dysfunction/ new onset heart failure PLANNED PROCEDURE: Operation Date: 06/04/21 08:30 Proposed Procedures p Cardiac Catheterization(Left) - Alejandro Rasheed M.D Possible percutaneous coronary intervention PATIENT REASSESSED PRIOR TO SEDATION, WITH NO CHANGE NOTED: Yes PHYSICAL EXAM: alert, oriented x 3, clear to auscultation bilaterally and regular rate & rhythm AIRWAY EVAL/ANESTHESIA PLAN: ASA III, Monitored Anesthesia, Local Anesthesia, Risks, benefits & alternatives of sedation and/or procedure discussed and Patient agrees to continue as planned
--- NOTE | 2021-06-04 11:08 | PC.NURSE ---
received pt from cardiac cath lab manager post diagnostic [facility]. pt alert and oriented x3. complains of no pain. tr band on right wrist, distal pulse and no bruising noted. bandage on right gorin access. no bleeding or hematoma noted. left groin attached to pressure bag. no bruising noted. pt on monitor and will be monitored per protocol. will check act at 1115 per verbal order.
--- NOTE | 2021-06-04 15:57 | SUR.PHASEII ---
TRANSFER Patient transferred to ICU via bed. Report to Declan GUTIERREZ. Condition stable. Right groin and right radial free of Hematoma.
--- NOTE | 2021-06-04 18:29 | PC.NURSE ---
Discharge instructions given to patient and . IV removed. Patient taken to private vehicle by this nurse, accompanied by . Belongings with patient.
== END 2021-06-04 18:40 | disposition home or self-care (01) ==
LOC: CCL 07:35 → ICU 17:15
PROVIDERS: PCP Family Medicine; Visit Provider Internal Medicine
DX: I25.10 Atherosclerotic heart disease of native coronary artery without angina pectoris (principal); I13.2 Hypertensive heart and chronic kidney disease with heart failure and with stage 5 chronic kidney disease, or end stage renal disease; N18.6 End stage renal disease; I50.9 Heart failure, unspecified; Z99.2 Dependence on renal dialysis; E78.5 Hyperlipidemia, unspecified; F17.210 Nicotine dependence, cigarettes, uncomplicated; Z95.828 Presence of other vascular implants and grafts; I42.8 Other cardiomyopathies
CPT/HCPCS: 36415; 80048; 84146; 84270; 84439; 84443; 85025; 85347; 85610; 93452; 93458; 93571; 96360; 96361; 99152; 99153; C1769; C1887; C1894; J1644; J2250; J3010; J3490; J7030; Q0163; Q9967

== ENCOUNTER → 2021-06-13 08:39 | Outpatient (BNVA) | payer MEDICARE, SELFPAY | PROVIDERS: PCP Family Medicine; Visit Provider Nurse Practitioner Family | DX: Z09 Encounter for follow-up examination after completed treatment for conditions other than malignant neoplasm (principal); I73.9 Peripheral vascular disease, unspecified; I42.8 Other cardiomyopathies | CPT/HCPCS: 99214 ==

== ENCOUNTER → 2021-06-17 13:54 | Outpatient (BNVA) | payer MEDICARE, SELFPAY | PROVIDERS: PCP Family Medicine; Visit Provider Emergency Medicine | DX: L89.153 Pressure ulcer of sacral region, stage 3 (principal); I96 Gangrene, not elsewhere classified; Z87.891 Personal history of nicotine dependence | CPT/HCPCS: 11042 ==

== ENCOUNTER → 2021-06-24 13:36 | Outpatient (BNVA) | payer MEDICARE, SELFPAY | PROVIDERS: PCP Family Medicine; Visit Provider Emergency Medicine | DX: L89.153 Pressure ulcer of sacral region, stage 3 (principal); I96 Gangrene, not elsewhere classified | CPT/HCPCS: 11042 ==

== ENCOUNTER 2021-06-28 13:59 | Emergency (ER) | payer MEDICARE, SELFPAY ==
[2021-06-28] VITALS (7 sets, daily range): BP systolic 93–141; BP diastolic 53–95; PULSE 70–76; RESP 16–28; TEMP 36.4–36.6; O2SAT 95–100
--- NOTE | 2021-06-28 15:47 | XRR_ITS ---
PROCEDURE INFORMATION: Exam: XR Chest Exam date and time: 06/28/2021 4:18 PM Age: 71 years old Clinical indication: Pain; Chest pressure and other: SOB; Additional info: Cp TECHNIQUE: Imaging protocol: XR of the chest. Views: 1 view. COMPARISON: CT chest con [id number] 11/16/2019 2:23 AM FINDINGS: Tubes, catheters and devices: Central venous catheter tip is in the superior vena cava. Lungs: There is partial atelectasis at the left lung base. Visualized portions of the right lung are clear. Pleural spaces: There is small left pleural effusion. Heart/Mediastinum: Unremarkable. No cardiomegaly. Vasculature: There are atherosclerotic calcifications of the aortic arch. Bones/joints: Unremarkable. XR/XR chest 1V portable [id number] IMPRESSION: Left pleural effusion and left lower lobe atelectasis.
--- NOTE | 2021-06-28 15:47 | USR_ITS ---
PROCEDURE INFORMATION: Exam: US Duplex Right Lower Extremity Veins, Limited Exam date and time: 06/28/2021 4:04 PM Age: 71 years old Clinical indication: Pain; Leg, lower; Right; Additional info: Right leg pain TECHNIQUE: Imaging protocol: Real-time Duplex ultrasound of the Right Lower Extremity with 2-D baca scale, color Doppler flow and spectral waveform analysis with image documentation. Limited exam was focused on the right lower extremity veins. COMPARISON: CTA AbdAorta Runoff Leg [id number] 08/30/2015 2:48 PM FINDINGS: Right deep veins: Unremarkable. The common femoral, femoral, proximal profunda femoral and popliteal veins are patent without thrombus. Normal Doppler waveforms. Normal compressibility and/or augmentation response. Right superficial veins: Unremarkable. Saphenofemoral junction is patent without thrombus. Soft tissues: Unremarkable. US/[place] [id number] IMPRESSION: No evidence of deep vein thrombosis.
--- NOTE | 2021-06-28 15:47 | USR_ITS ---
PROCEDURE INFORMATION: Exam: US Duplex Right Lower Extremity Arteries Or Arterial Bypass Grafts Exam date and time: 06/28/2021 4:09 PM Age: 71 years old Clinical indication: Pain; Leg, upper and foot; Right; Additional info: Leg pain TECHNIQUE: Imaging protocol: Right Real-time duplex scan of the arteries or arterial bypass grafts of the right lower extremity with 2-D baca scale, color Doppler flow and spectral waveform analysis. Images documented and saved. COMPARISON: [place] [id number] 06/28/2021 4:04 PM FINDINGS: Right external iliac artery: There is stenotic flow in the right external iliac artery with a highest peak systolic velocity of 2.45 m/sec. Velocities prior to the stenosis could not be obtained but this appears to be high-grade stenosis. Right common femoral artery: Right common femoral artery is patent but with parvus tardus type waveform and highest peak systolic velocity of 0.27 meters per 2nd. Right superficial femoral artery: No occlusion or significant stenosis. Normal waveform. Right popliteal artery: No occlusion or significant stenosis. Normal waveform. Right calf/foot arteries: Areas of occlusion are demonstrated in the right femoral artery with diminished flow elsewhere and mild phasic waveforms. Soft tissues: No hematoma or collection. Other findings: Popliteal artery is patent. Posterior tibial artery and dorsalis pedis arteries are occluded at the ankle. US/[place] [id number] IMPRESSION: Atherosclerotic vascular disease as described with stenosis in the right external iliac artery, areas of occlusion in the right superficial femoral artery and no flow demonstrated in the dorsalis pedis and posterior tibial arteries at the ankle.
--- NOTE | 2021-06-28 15:48 | ECG_ITS ---
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 Measurements Intervals [place] Rate: 68 P: 47 UT: 136 QRS: 72 QRSD: 116 T: -78 QT: 447 QTc: 476 Interpretive Statements SINUS RHYTHM MODERATE INTRAVENTRICULAR CONDUCTION DELAY [110+ ms QRS DURATION] ST DEVIATION AND MODERATE T-WAVE ABNORMALITY, CONSIDER LATERAL ISCHEMIA [-0.1+ mV T-WAVE IN I/aVL/V5/V6] ST DEVIATION AND MODERATE T-WAVE ABNORMALITY, CONSIDER INFERIOR ISCHEMIA [-0.1+ mV T-WAVE IN II/aVF] Compared to ECG 11/15/2019 18:04:06 Intraventricular conduction delay now present T-wave abnormality now present Possible ischemia now present ST (T wave) deviation no longer present Electronically Signed On 06-28-2021 20:14:57 CDT by Alejandro Rasheed M.D. [id number]
--- NOTE | 2021-06-28 15:58 | ED_ITS ---
HPI - General Adult General: Chief complaint: General Medical Stated complaint: Rt leg numbness and rt hand injury Time Seen by Provider: 06/28/21 15:39 Source: patient Mode of arrival: ambulatory Limitations: no limitations History of Present Illness: 71-year-old male states that over the last 2 weeks has been having some numbness feeling some slight pain to his right lower leg from his foot up to his calf. He states he had a cath procedure done on his heart 3 weeks ago for action went through his left groin but states at that time that had a hard time feeling pulses in his right foot. He states his foot is been slightly cold to touch rates his pain a 3-4 out of 10. He states that also over the last 2 weeks he has had some dyspnea especially with exertion does have extensive history he denies any abdominal pain or vomiting or cough or fever. Associated symptoms: Reports dyspnea; Deny chest pain, headache(s), nausea, rash or vomiting Review of Systems Const: Denies: fever(s), chills, body aches or change in appetite Eyes: Denies: blurry vision or eye discomfort ENMT: Denies: throat pain or dental pain Card: Denies: chest pain Resp: Reports: dyspnea GI: Denies: abdominal pain, nausea, vomiting or diarrhea : Denies: dysuria Musc: Reports: extremity pain; Denies: neck pain or back pain Skin/Breast: Denies: rash Neuro: Denies: headache(s) Psych: Denies: depression [place]/Lymph: Denies: easy bruising All/Imm: Denies: urticaria PFSH ED PFSH: Medical History (Updated 06/28/21 @ 17:28 by Tiffani Anthony MD) Abdominal aortic aneurysm (AAA) Anemia Bacterial peritonitis Cardiomyopathy Continuous ambulatory peritoneal dialysis status End stage renal disease Hodgkins lymphoma Finished chemotherapy 2006 currently in remission HTN (hypertension) Hyperlipidemia Lymphoma Nonischemic cardiomyopathy PVCs (premature ventricular contractions) Right renal artery stenosis Streptococcal bacteremia Tobacco abuse Surgical History H/O endovascular stent graft for abdominal aortic aneurysm History of endovascular stent graft for abdominal aortic aneurysm (AAA) S/P cataract extraction S/P eye surgery S/P tonsillectomy Family History Grandmother Pancreatic cancer Father Large cell carcinoma Other Cancer Social History Smoking and tobacco status: former smoker Alcohol intake: former Household members: spouse Marital status: service: No Current occupational status: retired 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 History of recent travel: No Physical Exam Const: COMMON NORMALS: patient oriented x3 and healthy appearing HENMT: COMMON NORMALS: normocephalic and atraumatic HEAD & SCALP: no rmocephalic and atraumatic Eye: COMMON NORMALS: Equal, round and reactive pupils present and EOMs intact bilaterally PUPIL: Yes Equal, round and reactive pupils present Neck/C-Spine: COMMON NORMALS: full ROM and supple Chest: COMMONS NORMALS: normal inspection of the chest and normal palpation of entire chest wall Resp: COMMON NORMALS: normal respiratory effort, No retractions, No use of accessory muscles and clear to auscultation bilaterally AUSCULTATION: clear to auscultation bilaterally Cardio: COMMON NORMALS: regular rate, regular rhythm and No murmurs present (Cardio) RATE: regular rate RHYTHM: regular rhythm GI: COMMON NORMALS: Normal to inspection, nondistended, normoactive bowel sounds present, Soft to palpation, non-tender and no masses PALPATION: Yes Soft to palpation Extremity: NARRATIVE EXTREMITY EXAM: Right foot is moderately cold to touch faint distal pulses no tenderness to touch no calf swelling or tenderness Neuro: COMMON NORMALS: patient oriented x3, moves all extremities and no focal motor deficits Psych: COMMON NORMALS: mental status grossly normal, Normal thought process present and cooperative THOUGHT PROCESS: Normal thought process present Skin: COMMON NORMALS: no rashes or lesions noted and no wounds GENERAL SKIN EXAM: no rashes or lesions noted Course Vital Signs: Vital signs: Vital Signs Temperature 97.5 F L 06/28/21 14:23 Pulse Rate 73 06/28/21 19:01 Respiratory Rate 18 06/28/21 19:01 Blood Pressure 138/73 06/28/21 19:01 Pulse Oximetry 97 06/28/21 19:01 MDM - General Adult Medical Decision Making Patient presents here with ischemic limb to the right lower extremity patient started on heparin here will transfer to [facility] for higher level of care as we do not have vascular surgery on. Lab Data : 06/28/21 15:55 06/28/21 15:55 Radiology Impressions Chest X-Ray 06/28/21 15:47 IMPRESSION: Left pleural effusion and left lower lobe atelectasis. Duplex Scan Lower Extremity Artery 06/28/21 15:47 IMPRESSION: Atherosclerotic vascular disease as described with stenosis in the right external iliac artery, areas of occlusion in the right superficial femoral artery and no flow demonstrated in the dorsalis pedis and posterior tibial arteries at the ankle. ADDENDUM: 06/28/21 [id number] Addendum: THIS REPORT CONTAINS FINDINGS THAT MAY BE CRITICAL TO PATIENT CARE. The findings were verbally communicated via telephone conference with TIFFANI ANTHONY at 5:13 PM CDT on 06/28/2021. The findings were acknowledged and understood. Venous Duplex 06/28/21 15:47 IMPRESSION: No evidence of deep vein thrombosis. Chest CT 06/28/21 16:33 IMPRESSION: 1. Moderate left and small right pleural effusions. 2. Partial atelectasis left lower lobe 3. Old granulomatous disease 4. Extensive coronary artery calcifications. Laboratory Results WBC 9.1 10^3/uL (4.0-10.0) 06/28/21 15:55 RBC 3.55 10^6/uL (4.1-5.3) L 06/28/21 15:55 Hgb 12.3 g/dL (11.7-16.6) 06/28/21 15:55 Hct 37.5 % (42.0-52.0) L 06/28/21 15:55 MCV 105.6 fl (80-94) H 06/28/21 15:55 MCH 34.6 pg (28.0-34.0) H 06/28/21 15:55 MCHC 32.8 g/dL (30.0-36.0) 06/28/21 15:55 RDW 13.7 % (12.1-15.1) 06/28/21 15:55 Plt Count 106 10^3/cmm (130-400) L 06/28/21 15:55 MPV 11.0 fL (7.4-10.4) H 06/28/21 15:55 Neut % (Auto) 86.8 % 06/28/21 15:55 Lymph % (Auto) 6.2 % 06/28/21 15:55 [place] % (Auto) 6.1 % 06/28/21 15:55 Eos % (Auto) 0.0 % 06/28/21 15:55 Baso % (Auto) 0.2 % 06/28/21 15:55 Neut # (Auto) 7.93 10^3/uL (1.8-7.7) H 06/28/21 15:55 Lymph # (Auto) 0.6 10^3/uL (0.8-4.8) L 06/28/21 15:55 [place] # (Auto) 0.6 10^3/uL (0.2-0.9) 06/28/21 15:55 Eos # (Auto) 0.0 10^3/uL (0.0-0.8) 06/28/21 15:55 Baso # (Auto) 0.0 10^3/uL (0.0-0.1) 06/28/21 15:55 Nucleated RBC % (auto) 0.5 % 06/28/21 15:55 Nucleated RBCs # 0.1 /100WBC 06/28/21 15:55 PT 13.00 SECONDS (12.1-14.9) 06/28/21 15:55 INR 0.95 (0.8-1.2) 06/28/21 15:55 Sodium 133 mmol/L (136-145) L 06/28/21 15:55 Potassium 3.9 mmol/L (3.5-5.1) 06/28/21 15:55 Chloride 95 mmol/L (98-107) L 06/28/21 15:55 Carbon Dioxide 23 mmol/L (22-29) 06/28/21 15:55 Anion Gap 18.9 (5-19) 06/28/21 15:55 BUN 24 mg/dL (8-23) H 06/28/21 15:55 Creatinine 4.1 mg/dL (0.7-1.2) H 06/28/21 15:55 GFR Calculation 14.5 mL/min (90-130) L 06/28/21 15:55 Glucose 79 mg/dL (65-115) 06/28/21 15:55 Calculated Osmolality 279 mOsm/kg (285-295) L 06/28/21 15:55 Calcium 8.0 mg/dL (8.5-10.5) L 06/28/21 15:55 Total Bilirubin 0.3 mg/dL (0.15-1.2) 06/28/21 15:55 AST 39 U/L (0-40) 06/28/21 15:55 ALT < 5 U/L (0-41) 06/28/21 15:55 Alkaline Phosphatase 56 IU/L (40-130) 06/28/21 15:55 Troponin T Baseline 342 ng/L (0-15) H* 06/28/21 15:55 Troponin T 120 Minute 391.1 ng/L (0-15) H 06/28/21 18:30 Delta Troponin T 49.1 ABS# (0-10) H* 06/28/21 18:30 NT-Pro-B Natriuret Pep > 31292 pg/mL (0-125) H 06/28/21 15:55 Total Protein 5.1 g/dL (6.6-8.7) L 06/28/21 15:55 Albumin 2.9 g/dL (3.5-5.2) L 06/28/21 15:55 Globulin 2.2 g/dL (1.3-4.6) 06/28/21 15:55 EKG Data EKG 1: I personally reviewed and interpreted this EKG as follows: EKG interpretation date: 06/28/21 EKG interpretation time: 16:28 Interpretation: nsr hr [address] elevation qrs 116 qtc 464 Computer generated interpretation: Chest X-Ray 06/28/21 15:47 IMPRESSION: Left pleural effusion and left lower lobe atelectasis. Duplex Scan Lower Extremity Artery 06/28/21 15:47 IMPRESSION: Atherosclerotic vascular disease as described with stenosis in the right external iliac artery, areas of occlusion in the right superficial femoral artery and no flow demonstrated in the dorsalis pedis and posterior tibial arteries at the ankle. ADDENDUM: 06/28/21 [id number] Addendum: THIS REPORT CONTAINS FINDINGS THAT MAY BE CRITICAL TO PATIENT CARE. The findings were verbally communicated via telephone conference with TIFFANI ANTHONY at 5:13 PM CDT on 06/28/2021. The findings were acknowledged and understood. Venous Duplex 06/28/21 15:47 IMPRESSION: No evidence of deep vein thrombosis. Chest CT 06/28/21 16:33 IMPRESSION: 1. Moderate left and small right pleural effusions. 2. Partial atelectasis left lower lobe 3. Old granulomatous disease 4. Extensive coronary artery calcifications. Critical Care Time Critical Care Time: Critical Care Time: Yes Total Critical Care Time: 45 Attestation: The high probability of a clinically significant, sudden or life threatening deterioration of the patient's vascular system(s) required my full and direct attention, intervention and personal management. The critical care time is as shown. This time is in addition to time spent performing any reported procedures but includes the following: [x] Data and vital sign review and interpretation [x] Patient assessment, examination and intervention [x] Documentation [x] Medication orders and management Discharge Plan Discharge Patient Disposition: Xfer Short-Term Hosp Clinical Impression: Critical limb ischemia of right lower extremity Condition: Stable Referrals: Robin Schumacher MD [Primary Care Provider] - Coding Level of Care Code ED Licensed Practical Vocational Nurse for Chg Fwd Exam Comprehensive
[2021-06-28 16:05] LABS: Basophils % 0.2 %; Hematocrit 37.5 % (42.0-52.0); Hemoglobin 12.3 g/dL (11.7-16.6); Lymphocytes # 0.6 10^3/uL (0.8-4.8); Lymphocytes % 6.2 %; Mean Corpuscular HGB Conc 32.8 g/dL (30.0-36.0); Mean Corpuscular Hemoglobin 34.6 pg (28.0-34.0); Mean Corpuscular Volume 105.6 fl (80-94); Monocytes # 0.6 10^3/uL (0.2-0.9); Monocytes % 6.1 %; Neutrophils # 7.93 10^3/uL (1.8-7.7); Neutrophils % 86.8 %; Nucleated Red Blood Cells # 0.1 /100WBC; Nucleated Red Blood Cells % 0.5 %; Platelet Count 106 10^3/cmm (130-400); Red Blood Count 3.55 10^6/uL (4.1-5.3); Red Cell Distribution Width 13.7 % (12.1-15.1); White Blood Count 9.1 10^3/uL (4.0-10.0)
[2021-06-28 16:17] LABS: INR 0.95 (0.8-1.2)
[2021-06-28 16:32] LABS: Troponin(5th) Baseline 342 ng/L (0-15)
--- NOTE | 2021-06-28 16:33 | CTR_ITS ---
PROCEDURE INFORMATION: Exam: CT Chest Without Contrast; Diagnostic Exam date and time: 06/28/2021 4:59 PM Age: 71 years old Clinical indication: Shortness of breath; Additional info: SOB TECHNIQUE: Imaging protocol: Diagnostic computed tomography of the chest without contrast. Radiation optimization: All CT scans at this facility use at least one of these dose optimization techniques: automated exposure control; mA and/or kV adjustment per patient size (includes targeted exams where dose is matched to clinical indication); or iterative reconstruction. COMPARISON: CT chest wo con [id number] 11/16/2019 2:23 AM RADIATION DOSE METRICS: Total DLP (mGy-cm): 488.44 FINDINGS: Lungs: There is relaxation atelectasis of portions of the left lower lobe. There is some mild dependent atelectasis at the right lung base. There is some calcified granulomas in the right lung. Pleural spaces: There is a moderate sized left pleural effusion. There is small right pleural effusion. Heart: There is severe atherosclerotic calcification of the coronary arteries. Lymph nodes: There are calcified right hilar and mediastinal lymph nodes in keeping with old granulomatous disease. There is no evidence of lymphadenopathy. Vasculature: There are extensive atherosclerotic changes of the aorta especially the distal arch and descending thoracic aorta. The upper end of the stent graft is seen in the distal descending thoracic aorta stable compared with 11/16/2019. No thoracic aortic aneurysm is identified. Bones/joints: Hemangioma at T11 is unchanged. No fracture is identified. There are calcific bodies adjacent to the cortical clavicular joints on both sides likely degenerative in origin. Soft tissues: Unremarkable. CT/CT chest wo con [id number] IMPRESSION: 1. Moderate left and small right pleural effusions. 2. Partial atelectasis left lower lobe 3. Old granulomatous disease 4. Extensive coronary artery calcifications.
[2021-06-28 16:43] LABS: Alanine Aminotransferase < 5 U/L (0-41); Albumin Level 2.9 g/dL (3.5-5.2); Alkaline Phosphatase 56 IU/L (40-130); Aspartate Amino Transferase 39 U/L (0-40); Blood Urea Nitrogen 24 mg/dL (8-23); Carbon Dioxide 23 mmol/L (22-29); Chloride 95 mmol/L (98-107); Globulin 2.2 g/dL (1.3-4.6); Glomerular Filtration Rate 14.5 mL/min (90-130); Glucose 79 mg/dL (65-115); Osmolality Calculated 279 mOsm/kg (285-295); Sodium 133 mmol/L (136-145); Total Bilirubin 0.3 mg/dL (0.15-1.2); Total Protein 5.1 g/dL (6.6-8.7)
[2021-06-28 16:48] LABS: Anion Gap 18.9 (5-19); Potassium 3.9 mmol/L (3.5-5.1)
[2021-06-28] MEDS: heparin 5,000 unit/mL INJ 1 mL 4000 UNIT IVP (17:11)
[2021-06-28] MEDS: heparin drip 25,000 UNIT/500 ML PREMIX 15.79 UNIT IV (17:13)
[2021-06-28 17:30] LABS: NT Pro B Type Natriuretic Pept > 70000 pg/mL (0-125)
--- NOTE | 2021-06-28 17:48 | ECG_ITS ---
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 Measurements Intervals [place] Rate: 74 P: 64 ID: [id number] QRS: 72 QRSD: 114 T: 67 QT: 432 QTc: 480 Interpretive Statements SINUS RHYTHM MODERATE INTRAVENTRICULAR CONDUCTION DELAY [110+ ms QRS DURATION] ST ELEVATION, PROBABLY EARLY REPOLARIZATION [ST ELEVATION WITH NORMALLY INFLECTED T-WAVE] NONSPECIFIC ST & T-WAVE ABNORMALITY Compared to ECG 06/28/2021 16:28:14 ST (T wave) deviation now present Early repolarization now present Possible ischemia no longer present T-wave abnormality still present Electronically Signed On 06-28-2021 20:15:54 CDT by Alejandro Rasheed M.D. [id number]
[2021-06-28 19:15] LABS: Troponin 5 2HR 391.1 ng/L (0-15); Troponin 5 2HR Delta 49.1 ABS# (0-10)
--- NOTE | 2021-06-28 21:36 | PC.NURSE ---
EMS here for stretcher transport @ 6324. report given and patient transferred to stretcher. patient inn o obivous distress upon transfer.
== END 2021-06-28 21:37 | disposition short-term general hospital (02) ==
PROVIDERS: Emergency Provider Emergency Medicine; PCP Family Medicine
DX: I70.221 Atherosclerosis of native arteries of extremities with rest pain, right leg (principal); J90 Pleural effusion, not elsewhere classified; J98.11 Atelectasis; I25.10 Atherosclerotic heart disease of native coronary artery without angina pectoris; I12.0 Hypertensive chronic kidney disease with stage 5 chronic kidney disease or end stage renal disease; N18.6 End stage renal disease; E78.5 Hyperlipidemia, unspecified; M79.604 Pain in right leg
CPT/HCPCS: 36415; 71045; 71250; 80053; 83880; 84484; 85025; 85610; 93005; 93926; 93971; 96365; 96375; 99285; J1644

== ENCOUNTER → 2021-07-08 13:39 | Outpatient (BNVA) | payer MEDICARE, SELFPAY | PROVIDERS: PCP Family Medicine; Visit Provider Nurse Practitioner Family | DX: I96 Gangrene, not elsewhere classified (principal); L89.153 Pressure ulcer of sacral region, stage 3 | CPT/HCPCS: 11042 ==

== ENCOUNTER → 2021-07-15 13:09 | Outpatient (BNVA) | payer MEDICARE, SELFPAY | PROVIDERS: PCP Family Medicine; Visit Provider Nurse Practitioner Family | DX: I96 Gangrene, not elsewhere classified (principal); L89.153 Pressure ulcer of sacral region, stage 3 | CPT/HCPCS: 11042; 99213 ==

== ENCOUNTER 2021-07-18 15:50 | Emergency (ER) | payer MEDICARE, SELFPAY ==
[2021-07-18 15:52] VITALS: BP 122/62; PULSE 100; RESP 18; TEMP 36.6; O2SAT 100; BMI 17.1
--- NOTE | 2021-07-18 16:53 | XRR_ITS ---
PROCEDURE INFORMATION: Exam: XR Chest Exam date and time: 07/18/2021 5:20 PM Age: 71 years old Clinical indication: Dyspnea and shortness of breath; Prior surgery; Surgery date: 6+ months; Surgery type: Aorta; Additional info: SOB TECHNIQUE: Imaging protocol: XR of the chest. Views: 1 view. COMPARISON: CT chest con [id number] 06/28/2021 4:59 PM FINDINGS: Tubes, catheters and devices: Right central venous catheter tip at the atrial caval junction. Right central venous catheter tip at the atrial caval junction. Lungs: Left lower lobe atelectasis versus minimal infiltrate. Left lower lobe atelectasis versus minimal infiltrate. Pleural spaces: Trace right and small to moderate left pleural effusion. Heart/Mediastinum: Unremarkable. No cardiomegaly. Bones/joints: Unremarkable. XR/XR chest 1V portable [id number] IMPRESSION: Trace right and small to moderate left pleural effusion.
--- NOTE | 2021-07-18 16:54 | ECG_ITS ---
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 Measurements Intervals [place] Rate: 69 P: 52 KS: 160 QRS: 63 QRSD: 109 T: 240 QT: 430 QTc: 463 Interpretive Statements SINUS RHYTHM ST depressions in inferior leads Compared to ECG 06/28/2021 17:33:40 Myocardial infarct finding now present Intraventricular conduction delay no longer presentST (T wave) deviation no longer present Early repolarization no longer present T-wave abnormality no longer present Electronically Signed On 07-19-2021 0:30:16 CDT by Alejandro Rasheed M.D. [id number]
[2021-07-18 17:39] VITALS: BP 125/85; PULSE 71; RESP 16; O2SAT 100
--- NOTE | 2021-07-18 18:04 | ED_ITS ---
HPI - SOB/Dyspnea General: Chief Complaint: Shortness of Breath/Dyspnea Stated Complaint: SOB Time Seen by Provider: 07/18/21 17:48 Source: patient and family Mode of arrival: ambulatory Limitations: no limitations History of Present Illness: HPI Narrative: This patient presents to the emergency part because he says over the past number of days he seems to have more subjective difficulty breathing when he is lying flat. He states he has a history of having a pleural effusion and having a thoracentesis done at [facility] earlier this past month. He states that he is not having any chest pain or fevers. He states he has an appointment coming up on Wednesday with pulmonology regarding work-up of his pleural effusion. He does have an extensive history of generalized atherosclerosis and had right femoral artery arthrotomy done at [place] at [facility] by Dr. Clemons earlier this past month as well. He states he is not on any anticoagulants. He is an ex smoker and also has chronic kidney disease previously on peritoneal dialysis and currently getting Wednesday hemodialysis. He does not wear oxygen at home. He states he was told he had some nonsignificant coronary artery disease and terminal arteries that were not amenable to intervention at [facility]. MD elicited complaint: shortness of breath Timing: intermittent Severity: mild Exacerbating factors: lying flat Relieving factors: upright position Associated symptoms: Deny abdominal pain, chest pain, extremity pain, fever(s), nausea, palpitations, syncope or vomiting Treatment prior to arrival: none Review of Systems Const: Reports: change in weight; Denies: fever(s), chills, body aches or night sweats Eyes: Denies: change in vision or blurry vision ENMT: Denies: throat pain or odynophagia Card: Denies: chest pain, palpitations, irregular heart rhythm, edema or syncope Resp: Reports: dyspnea; Denies: productive cough, non-productive cough, wheezing or stridor GI: Denies: abdominal pain, nausea or vomiting : Reports: oliguria; Denies: flank pain Musc: Denies: neck pain, back pain, extremity pain or extremity swelling Skin/Breast: Denies: rash or pruritus Neuro: Denies: headache(s), numbness in extremities or weakness in extremities Psych: Denies: anxiety Devon/Lymph: Reports: easy bruising [facility] ED PFSH: Medical History (Updated 07/18/21 @ 22:09 by Juan Nixon DO) Abdominal aortic aneurysm (AAA) Anemia Bacterial peritonitis Cardiomyopathy Continuous ambulatory peritoneal dialysis status End stage renal disease Hodgkins lymphoma Finished chemotherapy 2006 currently in remission HTN (hypertension) Hyperlipidemia Lymphoma Nonischemic cardiomyopathy PVCs (premature ventricular contractions) Right renal artery stenosis Streptococcal bacteremia Tobacco abuse Surgical History H/O endovascular stent graft for abdominal aortic aneurysm History of endovascular stent graft for abdominal aortic aneurysm (AAA) S/P cataract extraction S/P eye surgery S/P tonsillectomy Family History Grandmother Pancreatic cancer Father Large cell carcinoma Other Cancer Social History Smoking and tobacco status: former smoker Alcohol intake: former Household members: spouse Marital status: service: No Current occupational status: retired 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 He displays no dyspnea with conversation at this time. Const: COMMON NORMALS: no acute distress, average body habitus and patient oriented x3 GENERAL APPEARANCE: cooperative HENMT: COMMON NORMALS: normocephalic, atraumatic, Normal nasal mucous membranes and turbinates present and moist oral mucous membranes HEAD & SCALP: normocephalic and atraumatic NOSE: Normal nasal mucous membranes and turbinates present Eye: COMMON NORMALS: Equal, round and reactive pupils present and EOMs intact bilaterally PUPIL: Yes Equal, round and reactive pupils present Neck/C-Spine: COMMON NORMALS: full ROM, no JVD and No carotid bruits Chest: COMMONS NORMALS: normal palpation of entire chest wall OTHER: Hemodialysis catheter noted in the right upper chest. No erythema. Resp: COMMON NORMALS: normal respiratory effort and No retractions EFFORT & INSPECTION: Yes able to speak in complete sentences AUSCULTATION: diminished lung sounds on the left in the lower lung chang PERCUSSION: dullness Mid: left and Lower: left Cardio: COMMON NORMALS: no JVD, regular rate, regular rhythm and No murmurs present (Cardio) RATE: regular rate RHYTHM: regular rhythm PERIPHERAL PULSES: posterior tibial pulses present and dorsalis pedis present GI: COMMON NORMALS: Normal to inspection, nondistended, normoactive bowel sounds present, Soft to palpation and non-tender PALPATION: Yes Soft to palpation OTHER: Peritoneal dialysis catheter noted in abdominal wall. No erythema. Back/Pelvis: COMMON NORMALS: thoracic and lumbar spine normal to inspection, no thoracic nor lumbar tenderness and thoraco-lumbar ROM normal Extremity: COMMON NORMALS: normal to inspection, full ROM, capillary refill normal, no joint enlargement and no calf tenderness Neuro: COMMON NORMALS: patient oriented x3, moves all extremities, no focal motor deficits and no sensory deficits noted Psych: COMMON NORMALS: cooperative Skin: COMMON NORMALS: turgor normal, no jaundice and no petechiae GENERAL SKIN EXAM: turgor normal and ecchymosis Course Reevaluation(s): Reevaluation #1: This patient has remained stable throughout his emergency department stay. He is pulse oximetry is been between 98 and 100% on room air his entire emergency department evaluation. He is clinically comfortable and stable. His initial troponin was elevated and a repeat troponin is unchanged. His EKGs were re viewed with cardiology who also agree given his chronic kidney disease and unchanging EKGs this is extremely unlikely to represent ongoing ACS. His other biomarkers BNP is obviously elevated due to to his chronic kidney disease. His effusion is actually characterized as small perhaps moderate by plain films and certainly appears to be less than it has been in the past. The patient is clinically stable at this time and he desires to be discharged from the emergency department. He does have follow-up with cardiopulmonary on Wednesday and they can reevaluate him at that time and determine if he needs elective thoracentesis or other procedures. Also reviewed return precautions in detail with both he and his spouse and he acknowledges. Stable for discharge at this time. Time: 22:07 Consultations: Consultation #1: EKGs are reviewed with Dr. Maria from cardiology. No evidence at this time to suggest acute NM. Time: 18:39 Vital Signs: Vital signs: Vital Signs Temperature 97.8 F 07/18/21 15:52 Pulse Rate 73 07/18/21 18:39 Respiratory Rate 16 07/18/21 18:39 Blood Pressure 131/64 07/18/21 18:39 Pulse Oximetry 99 07/18/21 18:39 MDM - SOB/Dyspnea Medical Decision Making Patient with a history of pleural effusion comes in with subjective feelings of needing oxygen and or a thoracentesis. His evaluation this evening is reassuring and that he has not displayed any signs of hypoxia whatsoever. His biomarkers are elevated but have been so in the past and are certainly elevated due to his poor clearance of his severe kidney disease. EKGs were reviewed as well without any acute changes and no ongoing symptoms of chest pain. At this juncture he is desired to be discharged I think that is reasonable at this time. He has follow-up with cardiopulmonary on Wednesday. Stable for discharge with return precautions at this time. Medical Records I reviewed the patient's medical records. Lab Data I reviewed the patient's lab results. : 07/18/21 18:25 07/18/21 18: Labs/Radiology: Radiology Impressions Chest X-Ray 07/18/21 16:53 IMPRESSION: Trace right and small to moderate left pleural effusion. Laboratory Results WBC 7.5 10^3/uL (4.0-10.0) 07/18/21 18: RBC 3.40 10^6/uL (4.1-5.3) L 07/18/21 18: Hgb 11.8 g/dL (11.7-16.6) 07/18/21 18: Hct 36.8 % (42.0-52.0) L 07/18/21: MCV 108.2 fl (80-94) H 07/18/21 18:25 MCH 34.7 pg (28.0-34.0) H 07/18/21 18: MCHC 32.1 g/dL (30.0-36.0) 07/18/21 18: RDW 15.6 % (12.1-15.1) H 07/18/21 18: Plt Count 158 10^3/cmm (130-400) 07/18/21 18: MPV 11.6 fL (7.4-10.4) H 07/18/21 18: Neut % (Auto) 80.0 % 07/18/21 18: Lymph % (Auto) 10.5 % 07/18/21 18: Hamilton % (Auto) 8.1 % 07/18/21: Eos % (Auto) 0.1 % 07/18/21: Baso % (Auto) 0.8 % 07/18/21 18:25 Neut # (Auto) 6.00 10^3/uL (1.8-7.7) 07/18/21 18:25 Lymph # (Auto) 0.8 10^3/uL (0.8-4.8) 07/18/21 18:25 Hamilton # (Auto) 0.6 10^3/uL (0.2-0.9) 07/18/21 18:25 Eos # (Auto) 0.0 10^3/uL (0.0-0.8) 07/18/21 18:25 Baso # (Auto) 0.1 10^3/uL (0.0-0.1) 07/18/21 18: Nucleated RBC % (auto) 0.3 % 07/18/21 18: Nucleated RBCs # 0.0 /100WBC 07/18/21 18:25 Sodium 133 mmol/L (136-145) L 07/18/21 18:25 Potassium 5.1 mmol/L (3.5-5.1) 07/18/21 18:25 Chloride 93 mmol/L (98-107) L 07/18/21 18:25 Carbon Dioxide 31 mmol/L (22-29) H 07/18/21 18:25 Anion Gap 14.1 (5-19) 07/18/21 18:25 BUN 43 mg/dL (8-23) H 07/18/21 18:25 Creatinine 5.0 mg/dL (0.7-1.2) H 07/18/21 18:25 GFR Calculation 11.5 mL/min (90-130) L 07/18/21 18:25 Glucose 71 mg/dL (65-115) 07/18/21 18:25 Calculated Osmolality 285 mOsm/kg (285-295) 07/18/21 18:25 Calcium 9.5 mg/dL (8.5-10.5) 07/18/21 18:25 Total Bilirubin 0.2 mg/dL (0.15-1.2) 07/18/21 18:25 AST 36 U/L (0-40) 07/18/21 18:25 ALT 9 U/L (0-41) 07/18/21 18:25 Alkaline Phosphatase 74 IU/L (40-130) 07/18/21 18:25 Troponin T Gen 5 ng/L 427 ng/L (0-15) H* 07/18/21 18:25 Troponin T 120 Minute 425.6 ng/L (0-15) H 07/18/21 20:30 Delta Troponin T -1.4 ABS# (0-10) L 07/18/21 20:30 NT-Pro-B Natriuret Pep > 68362 pg/mL (0-125) H 07/18/21 18:25 Total Protein 5.8 g/dL (6.6-8.7) L 07/18/21 18:25 Albumin 3.0 g/dL (3.5-5.2) L 07/18/21 18:25 Globulin 2.8 g/dL (1.3-4.6) 07/18/21 18:25 EKG Data EKG 1: EKG interpretation time: 18:04 Interpretation: Patient has sinus rhythm ventricular rate of [address] changes notable in limb lead II as well as 3. He has some nonspecific ST-T changes noted in V2 and V3. When compared with previous EKGs his early repolarization changes in the anterior leads was present previously. His ST segments seem to be slightly more depressed in the limb leads. EKG 2: EKG interpretation time: 19:57 Interpretation: Second EKG this visit reveals ventricular rate of 75 bpm consistent with sinus rhythm. Has normal RI interval and QRS duration. Normal QTC. Slight leftward axis. Has early repolarization changes noted and otherwise nonspecific ST-T wave changes noted however not significantly changed from prior EKG. Discharge Plan Discharge Patient Disposition: Home Clinical Impression: Pleural effusion, left, Chronic kidney disease, Atherosclerosis Condition: Stable Prescriptions: No Action RenaPlex 800 mcg- 12.5 mg tablet 1 tab PO .COMPLEX 0RF Rx Instructions: 1 tab PO AFTER DIALYSIS calcitriol 0.5 mcg capsule 0.5 mcg PO DIRECTED 0RF Rx Instructions: Take 1 tab by mouth three days (times) a week atorvastatin 40 mg tablet 40 mg PO DAILY Qty: 90 3RF hydroxychloroquine 200 mg tablet 200 mg PO BID Qty: 180 1RF prednisone 5 mg tablet 5 mg PO DAILY Qty: 90 1RF metoprolol tartrate 50 mg tablet 50 mg PO BID Qty: 180 3RF lisinopril 2.5 mg Tablet 2.5 mg PO DAILY Qty: 30 0RF furosemide 80 mg tablet 80 mg PO DAILY 0RF Discharge Orders: Discharge ED (Routine); Ordered 07/18/21 Ordered By: Juan Nixon Referrals: Robin Schumacher MD [Primary Care Provider] - Discharge Diet: Usual diet Discharge Activity: Resume usual activity Patient Instructions: Opioid Safety Activity Restrictions/Additional Instructions: Continue your usual medications and activities. 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 If you develop new worsening pressure or other concerning symptoms at any time return to this or the nearest emergency department. Coding Level of Care Code ED Composition Instructor for Chg Fwd Exam Comprehensive
[2021-07-18 18:34] LABS: Basophils # 0.1 10^3/uL (0.0-0.1); Basophils % 0.8 %; Eosinophils % 0.1 %; Hematocrit 36.8 % (42.0-52.0); Hemoglobin 11.8 g/dL (11.7-16.6); Lymphocytes # 0.8 10^3/uL (0.8-4.8); Lymphocytes % 10.5 %; Mean Corpuscular HGB Conc 32.1 g/dL (30.0-36.0); Mean Corpuscular Hemoglobin 34.7 pg (28.0-34.0); Mean Corpuscular Volume 108.2 fl (80-94); Mean Platelet Volume 11.6 fL (7.4-10.4); Monocytes # 0.6 10^3/uL (0.2-0.9); Monocytes % 8.1 %; Nucleated Red Blood Cells % 0.3 %; Platelet Count 158 10^3/cmm (130-400); Red Cell Distribution Width 15.6 % (12.1-15.1); White Blood Count 7.5 10^3/uL (4.0-10.0)
[2021-07-18 18:39] VITALS: BP 131/64; PULSE 73; RESP 16; O2SAT 99
[2021-07-18 19:04] LABS: Alanine Aminotransferase 9 U/L (0-41); Alkaline Phosphatase 74 IU/L (40-130); Anion Gap 14.1 (5-19); Aspartate Amino Transferase 36 U/L (0-40); Blood Urea Nitrogen 43 mg/dL (8-23); Calcium 9.5 mg/dL (8.5-10.5); Carbon Dioxide 31 mmol/L (22-29); Chloride 93 mmol/L (98-107); Globulin 2.8 g/dL (1.3-4.6); Glomerular Filtration Rate 11.5 mL/min (90-130); Glucose 71 mg/dL (65-115); Osmolality Calculated 285 mOsm/kg (285-295); Potassium 5.1 mmol/L (3.5-5.1); Sodium 133 mmol/L (136-145); Total Bilirubin 0.2 mg/dL (0.15-1.2); Total Protein 5.8 g/dL (6.6-8.7)
[2021-07-18 19:06] LABS: Troponin T (5th) Once 427 ng/L (0-15)
[2021-07-18 19:51] LABS: NT Pro B Type Natriuretic Pept > 70000 pg/mL (0-125)
[2021-07-18 20:00] VITALS: BP 130/56; PULSE 74; RESP 20; O2SAT 99
[2021-07-18 21:37] LABS: Troponin 5 2HR Delta -1.4 ABS# (0-10)
[2021-07-18 21:41] LABS: Troponin 5 2HR 425.6 ng/L (0-15)
[2021-07-18 22:42] VITALS: BP 139/69; PULSE 73; RESP 20; O2SAT 99
[2021-07-18 22:47] VITALS: BP 139/69; PULSE 73; RESP 20; O2SAT 99
== END 2021-07-18 22:48 | disposition home or self-care (01) ==
PROVIDERS: Emergency Provider Emergency Medicine; PCP Family Medicine
DX: J90 Pleural effusion, not elsewhere classified (principal); I12.0 Hypertensive chronic kidney disease with stage 5 chronic kidney disease or end stage renal disease; N18.6 End stage renal disease; Z99.2 Dependence on renal dialysis; E78.5 Hyperlipidemia, unspecified; I70.90 Unspecified atherosclerosis
CPT/HCPCS: 71045; 80053; 83880; 84484; 85025; 93005; 99284

== ENCOUNTER → 2021-07-21 15:22 | Outpatient (BNVA) | payer MEDICARE, SELFPAY | PROVIDERS: PCP Family Medicine; Visit Provider Internal Medicine Critical Care Medicine | DX: J90 Pleural effusion, not elsewhere classified (principal); N18.9 Chronic kidney disease, unspecified; I42.8 Other cardiomyopathies; Z87.891 Personal history of nicotine dependence; I10 Essential (primary) hypertension | CPT/HCPCS: 99204 ==

== ENCOUNTER → 2021-07-22 13:06 | Outpatient (BNVA) | payer MEDICARE, SELFPAY | PROVIDERS: PCP Family Medicine; Visit Provider Nurse Practitioner Family | DX: I96 Gangrene, not elsewhere classified (principal); L89.153 Pressure ulcer of sacral region, stage 3 | CPT/HCPCS: 11042; A6212 ==

== ENCOUNTER 2021-07-29 11:44 | Day surgery (SDC) | payer MEDICARE, SELFPAY ==
[2021-07-28 14:27] VITALS: BMI 17.1
[2021-07-29 12:01] VITALS: BP 102/57; PULSE 69; RESP 18; TEMP 36.1; O2SAT 100
--- NOTE | 2021-07-29 12:34 | XR_ITS ---
WS: [id number] Exam: XR chest 1V portable [id number] Date/Time of Exam: 07/29/2021 12:36 PM Reason For Exam: thoracentesis Comparison 07/18/2021. Increasing left basal pleural effusion is noted with compressive atelectasis of the left lower lobe. No acute infiltrates. No pneumothorax is seen. Cardiomediastinal silhouette is unremarkable for techn ique. There is a stent in the upper abdominal aorta. A right-sided central line is noted ending at th e cavoatrial junction. Extensive calcifications are noted in the region of the the bilateral scapula. This may represent bursal calcification. XR/XR chest 1V portable [id number] IMPRESSION: 1. Increasing left basal pleural effusion since prior study. Compressive atelec tasis of the left lower lobe. 2. No acute infiltrate or pneumothorax.
--- NOTE | 2021-07-29 12:51 | PM.ACPR ---
Procedure/Consent Consent: Consent for Procedure: Consent obtained from patient Procedure Narrative: Name of the procedure: Left thoracentesis under ultrasound guidance Indication: Shortness of breath in the setting of large pleural effusion Anesthetics: Local anesthesia with 1% lidocaine. 10 mL. IV pain medication: None. Description of the procedure: The procedure was explained to the patient in detail including the risks and a consent was obtained. The left hemithorax was scanned with ultrasound to find a safe fluid pocket. Large free-flowing fluid was noted. There was no complexity. Following identification of the fluid pocket the site was marked. The site was cleaned using sterile technique. Lidocaine 1% was injected into the skin and the subcutaneous tissue. Subsequently, the periosteum in the parietal pleural was also anesthetized using lidocaine. The pleural space was entered in the posterior axillary line in the left ninth intercostal space. Serous colored fluid was aspirated. 1600 cc of fluid was aspirated. Sample: The pleural fluid was sent for cell count and differential, pH, protein, LDH, albumin, Gram stain and culture, and culture and cytology. Postprocedure chest x-ray did not show any pneumothorax.
--- NOTE | 2021-07-29 13:02 | SUR.OPER ---
Thoracentesis completed in pre room 3 of GI lab. 1600 mL clear yellow pleural fluid removed. Specimen sent to lab as ordered per Dr. Bright. 10 mL lidocaine used for local during procedure. Pt tolerated well. No SOB reported following procedure. States he is breathing much better now. Chest xray completed and read per Dr. Bright. Pt ok for discharge per Kaila. Instructions given to look for S&S of infection at thora site and to return to ED for severe SOB or difficulty breathing. No questions voiced. Pt off floor via wheelchair with significant other.
[2021-07-29 13:58] LABS: Body Fluid Polynuclear #Cells 0.004; Body Fluid WBC 39 /uL; Monocytes # Body Fluid 0.035; RBC, Body Fluid 0 10^3/uL
[2021-07-29 14:29] LABS: Apprearance, Body Fluid CLEAR; Color, Body Fluid PALE YELLOW
[2021-07-29 14:30] LABS: LDH Pleural Fluid 60 U/L
[2021-07-29 15:17] LABS: PATH Referral YES
== END 2021-07-29 13:01 | disposition home or self-care (01) ==
LOC: GILAB 11:46
PROVIDERS: PCP Family Medicine; Visit Provider Internal Medicine Critical Care Medicine
PROC: (CPT 32554; principal; 2021-07-29 11:30)
DX: J90 Pleural effusion, not elsewhere classified (principal)
CPT/HCPCS: 32554; 71045; 80503; 82945; 83615; 83986; 84157; 87070; 87075; 87205; 88108; 88305; 89050

== ENCOUNTER 2021-07-30 13:34 | Outpatient (CLI) | payer MEDICARE, SELFPAY ==
[2021-07-30 14:09] LABS: Basophils # 0.1 10^3/uL (0.0-0.1); Basophils % 0.8 %; Hemoglobin 11.5 g/dL (11.7-16.6); Lymphocytes # 0.8 10^3/uL (0.8-4.8); Lymphocytes % 12.4 %; Mean Corpuscular HGB Conc 31.9 g/dL (30.0-36.0); Mean Corpuscular Hemoglobin 34.7 pg (28.0-34.0); Mean Corpuscular Volume 108.8 fl (80-94); Mean Platelet Volume 11.4 fL (7.4-10.4); Monocytes # 0.5 10^3/uL (0.2-0.9); Monocytes % 7.2 %; Neutrophils # 5.06 10^3/uL (1.8-7.7); Neutrophils % 79.4 %; Nucleated Red Blood Cells % 0 %; Platelet Count 110 10^3/cmm (130-400); Red Blood Count 3.31 10^6/uL (4.1-5.3); Red Cell Distribution Width 15.8 % (12.1-15.1); White Blood Count 6.4 10^3/uL (4.0-10.0)
[2021-07-30 14:39] LABS: Alanine Aminotransferase 18 U/L (0-41); Albumin Level 3.2 g/dL (3.5-5.2); Alkaline Phosphatase 81 IU/L (40-130); Anion Gap 17.5 (5-19); Aspartate Amino Transferase 36 U/L (0-40); Blood Urea Nitrogen 31 mg/dL (8-23); C Reactive Protein 23.2 mg/L (0.0-4.9); Calcium 8.9 mg/dL (8.5-10.5); Carbon Dioxide 29 mmol/L (22-29); Chloride 97 mmol/L (98-107); Creatine Phosphokinase 106 U/L (39-308); Glomerular Filtration Rate 12.7 mL/min (90-130); Glucose 74 mg/dL (65-115); Osmolality Calculated 293 mOsm/kg (285-295); Potassium 4.5 mmol/L (3.5-5.1); Sodium 139 mmol/L (136-145); Total Bilirubin 0.3 mg/dL (0.15-1.2); Total Protein 6.2 g/dL (6.6-8.7)
[2021-08-08 13:41] LABS: Erythrocyte Sedimentation Rate 14 mm/hr (0-10)
== END 2021-07-30 13:35 | disposition home or self-care (01) ==
LOC: LAB 13:36
PROVIDERS: PCP Family Medicine; Visit Provider Internal Medicine
DX: R70.0 Elevated erythrocyte sedimentation rate (principal); K21.9 Gastro-esophageal reflux disease without esophagitis; I42.8 Other cardiomyopathies; M06.9 Rheumatoid arthritis, unspecified; M10.9 Gout, unspecified; Z79.899 Other long term (current) drug therapy; Z95.828 Presence of other vascular implants and grafts; I10 Essential (primary) hypertension; I71.4 Abdominal aortic aneurysm, without rupture; E78.5 Hyperlipidemia, unspecified
CPT/HCPCS: 80053; 82550; 84550; 85025; 85651; 86140; 99214

== ENCOUNTER → 2021-08-05 13:37 | Outpatient (BNVA) | payer MEDICARE, SELFPAY | PROVIDERS: PCP Family Medicine; Visit Provider Nurse Practitioner Family | DX: I96 Gangrene, not elsewhere classified (principal); L89.153 Pressure ulcer of sacral region, stage 3; L89.610 Pressure ulcer of right heel, unstageable | CPT/HCPCS: 11042; A6212 ==

== ENCOUNTER 2021-08-06 07:07 | Outpatient (CLI) | payer MEDICARE, SELFPAY ==
--- NOTE | 2021-08-06 13:14 | PFTS_ITS ---
Date of Study:08/06/21 Date of Dictation: 08/09/21 MECHANICS: Postbronchodilator forced vital capacity (FVC) is reduced. Postbronchodilator forced expiratory volume in one second (FEV1) is moderately reduced. FEV1/FVC is reduced. There is no significant response to bronchodilator FLOW VOLUME LOOP: Scooping of expiratory limb suggestive of airflow obstruction. LUNG VOLUMES: Total lung capacity (TLC) is mildly reduced. Residual volume (RV) is normal. DIFFUSING CAPACITY FOR CARBON MONOXIDE: moderately reduced. INTERPRETATION: The Spirometry showed moderate airflow obstruction. There is no significant response to bronchodilators. Lung volumes show mild restriction. There is moderate gas transfer defect. Clinical correlation recommended. [facility]
== END 2021-08-06 07:08 | disposition home or self-care (01) ==
PROVIDERS: PCP Family Medicine; Visit Provider Internal Medicine Critical Care Medicine
DX: J90 Pleural effusion, not elsewhere classified (principal)
CPT/HCPCS: 94060; 94726; 94729; J7614

== ENCOUNTER → 2021-08-12 13:32 | Outpatient (BNVA) | payer MEDICARE, SELFPAY | PROVIDERS: PCP Family Medicine; Visit Provider Emergency Medicine | DX: I96 Gangrene, not elsewhere classified (principal); L89.153 Pressure ulcer of sacral region, stage 3; L89.610 Pressure ulcer of right heel, unstageable | CPT/HCPCS: 11042; A6219 ==

== ENCOUNTER → 2021-08-19 13:36 | Outpatient (BNVA) | payer MEDICARE, SELFPAY | PROVIDERS: PCP Family Medicine; Visit Provider Nurse Practitioner Family | DX: I96 Gangrene, not elsewhere classified (principal); L89.153 Pressure ulcer of sacral region, stage 3; L89.610 Pressure ulcer of right heel, unstageable | CPT/HCPCS: 11042 ==

== ENCOUNTER → 2021-08-29 10:21 | Outpatient (BNVA) | payer MEDICARE, SELFPAY | PROVIDERS: PCP Family Medicine; Visit Provider Internal Medicine Critical Care Medicine | DX: J44.9 Chronic obstructive pulmonary disease, unspecified (principal); J90 Pleural effusion, not elsewhere classified; N18.6 End stage renal disease; Z99.2 Dependence on renal dialysis | CPT/HCPCS: 71046; 99214 ==

== ENCOUNTER 2021-09-03 12:06 | Day surgery (SDC) | payer MEDICARE, SELFPAY ==
[2021-09-01 10:49] VITALS: BMI 17.4
[2021-09-03 12:17] VITALS: BP 123/72; PULSE 66; RESP 18; TEMP 36.1; O2SAT 97
--- NOTE | 2021-09-03 12:24 | US_ITS ---
WS: [id number] ULTRASOUND-GUIDED THORACENTESIS CLINICAL INFORMATION: shortness of breath COMPARISON: August 29, 2021 PROCEDURE: Informed consent: The risks, benefits, and alternatives of the procedure were discussed with the lev ent. Verbal and written consent was obtained. Timeout: A timeout was performed to confirm the correct patient, procedure, and site. Site: LEFT Preparation: A suitable skin site was identified. The patient was prepped and draped in usual sterile fashion. Lidocaine 1% was used for local anesthesia. Catheter: 4 Setswana One-Step catheter. Fluid Volume: 1000 ml Color: Clear yellow Discarded safely. Complications: None. Patient disposition: Discharged from the department in stable condition. / thoracentesis [id number] IMPRESSION: Uncomplicated ultrasound-guided LEFT thoracentesis with removal of 1000 cc.
[2021-09-03 13:03] VITALS: BP 116/59; PULSE 69; RESP 18; O2SAT 94
[2021-09-03] MEDS: lidocaine 1% INJ 20 mL 7 ML INJECTION (13:04)
[2021-09-03 13:10] VITALS: BP 112/55; PULSE 66; RESP 18; O2SAT 100
--- NOTE | 2021-09-03 13:14 | XR_ITS ---
WS: [id number] CHEST XRAY TECHNIQUE: Portable chest. CLINICAL INFORMATION: thoracentesis COMPARISON: August 29, 2021 FINDINGS: Heart: Cardiomegaly. Aortic calcification. Stable RIGHT central venous catheter. Partially visualized endograft in the abdominal aorta. Lungs: Moderate chronic emphysematous changes. Improved LEFT pleural effusion with LEFT basilar atele ctasis. No pneumothorax. Small stable RIGHT pleural effusion. Bones: Osteopenia. Stable synovial osteochondromatosis. XR/XR chest 1V portable [id number] IMPRESSION: Status post LEFT thoracentesis. Improved LEFT pleural effusion. No pneumothorax .
[2021-09-03 13:20] VITALS: BP 104/56
[2021-09-03 13:30] VITALS: BP 127/72; PULSE 67; RESP 18; O2SAT 100
[2021-09-03 13:40] VITALS: BP 131/78; PULSE 70; RESP 18; O2SAT 100
== END 2021-09-03 13:49 | disposition home or self-care (01) ==
LOC: GILAB 12:06
PROVIDERS: PCP Family Medicine; Visit Provider Internal Medicine Critical Care Medicine
PROC: (CPT 32554; principal; 2021-09-03 13:00)
DX: R06.02 Shortness of breath (principal)
CPT/HCPCS: 32555; 71045

== ENCOUNTER → 2021-09-09 13:14 | Outpatient (BNVA) | payer MEDICARE, SELFPAY | PROVIDERS: PCP Family Medicine; Visit Provider Nurse Practitioner Family | DX: I96 Gangrene, not elsewhere classified (principal); L89.153 Pressure ulcer of sacral region, stage 3; L89.610 Pressure ulcer of right heel, unstageable | CPT/HCPCS: 11042; A6212 ==

== ENCOUNTER → 2021-09-16 13:32 | Outpatient (BNVA) | payer MEDICARE, SELFPAY | PROVIDERS: PCP Family Medicine; Visit Provider Nurse Practitioner Family | DX: I96 Gangrene, not elsewhere classified (principal); L89.153 Pressure ulcer of sacral region, stage 3 | CPT/HCPCS: 11042; A6212 ==

== ENCOUNTER → 2021-09-23 13:19 | Outpatient (BNVA) | payer MEDICARE, SELFPAY | PROVIDERS: PCP Family Medicine; Visit Provider Nurse Practitioner Family | DX: Z09 Encounter for follow-up examination after completed treatment for conditions other than malignant neoplasm (principal) | CPT/HCPCS: 99213; A6212 ==

== ENCOUNTER 2021-09-25 11:52 | Day surgery (SDC) | payer MEDICARE, SELFPAY ==
[2021-09-25 07:38] VITALS: BMI 17.9
--- NOTE | 2021-09-25 12:07 | US_ITS ---
WS: [id number] ULTRASOUND-GUIDED THORACENTESIS CLINICAL INFORMATION: pleural effusion COMPARISON: None. PROCEDURE: Informed consent: The risks, benefits, and alternatives of the procedure were discussed with the lev ent. Verbal and written consent was obtained. Timeout: A timeout was performed to confirm the correct patient, procedure, and site. Site: LEFT Preparation: A suitable skin site was identified. The patient was prepped and draped in usual sterile fashion. Lidocaine 1% was used for local anesthesia. Catheter: 4 Japanese One-Step catheter. Fluid Volume: 1000 ml Color: Clear yellow Discarded safely. Complications: No pneumothorax on the postthoracentesis radiograph. Patient disposition: Discharged from the department in stable condition. / thoracentesis [id number] IMPRESSION: Uncomplicated ultrasound-guided LEFT thoracentesis with removal of 1000 cc flui d.
--- NOTE | 2021-09-25 12:38 | XR_ITS ---
WS: [id number] CHEST XRAY TECHNIQUE: Portable chest. CLINICAL INFORMATION: post thora COMPARISON: September 03, 2021 FINDINGS: Heart: Cardiomegaly. Aortic calcification. Stable RIGHT central venous catheter. Lungs: Moderate chronic emphysematous changes. Improved LEFT pleural effusion with LEFT basilar atele ctasis. No pneumothorax. Small stable RIGHT pleural effusion Bones: Osteopenia. Stable synovial osteochondromatosis.. XR/XR chest 1V portable [id number] IMPRESSION: Status post LEFT thoracentesis. Improved LEFT pleural effusion. No pneumothorax .
[2021-09-25 12:39] VITALS: BP 123/64; PULSE 73; RESP 18; O2SAT 97
[2021-09-25 12:43] VITALS: BP 96/45; PULSE 71; RESP 18; O2SAT 97
[2021-09-25 13:12] VITALS: BP 131/53; PULSE 74; RESP 18; O2SAT 100
[2021-09-25 13:42] VITALS: BP 132/61; PULSE 71; RESP 18; O2SAT 99
== END 2021-09-25 13:45 | disposition home or self-care (01) ==
LOC: GILAB 11:54
PROVIDERS: Radiology Neuroradiology; PCP Family Medicine; Visit Provider Internal Medicine Critical Care Medicine
PROC: (CPT 32554; principal; 2021-09-25 12:30)
DX: J90 Pleural effusion, not elsewhere classified (principal)
CPT/HCPCS: 32555; 71045

== ENCOUNTER 2021-09-29 09:50 | Day surgery (SDC) | payer MEDICARE, SELFPAY ==
[2021-09-25 13:21] VITALS: BMI 17.9
[2021-09-29 10:15] VITALS: BP 111/60; PULSE 61; RESP 16; TEMP 36.1; O2SAT 93
--- NOTE | 2021-09-29 10:33 | US_ITS ---
WS: [id number] ULTRASOUND-GUIDED THORACENTESIS, RIGHT HISTORY: pleural effusion Procedure, risks, and complications were explained to the patient. With the patient in an upright pos ition, the skin over the RIGHT posterior thorax was cleansed with ChloraPrep and anesthetized with 1% buffered lidocaine. A 5 Croatian Yueh needle is inserted into the pleural fluid without complication. Approximately 1100 cc of clear pleural fluid is removed without difficulty. / thoracentesis [id number] IMPRESSION: 1. RIGHT thoracentesis yielding 1100 cc of fluid. 2. Chest radiograph to follow to evaluate for pneumothorax.
--- NOTE | 2021-09-29 11:16 | XR_ITS ---
WS: [id number] PORTABLE CHEST HISTORY: post thoracentesis, RIGHT COMPARISON: 09/25/2021 Partially aerated LEFT lung. Atelectasis and small effusion at the LEFT lung base. Small LEFT pleural effusion. No residual RIGHT pleural effusion identified. No pneumothorax. Cardiac size: Mildly enlarged cardiac silhouette. Mediastinum/Aorta: Moderate atherosclerosis aorta. Osteopenia. High density well-circumscribed nodules project over the shoulder joints. Probably from o steochondromatosis. XR/XR chest 1V portable [id number] IMPRESSION: 1. No pneumothorax status post RIGHT thoracentesis. 2. Small LEFT pleural effusion.
== END 2021-09-29 11:50 | disposition home or self-care (01) ==
PROVIDERS: Radiology Diagnostic Radiology; PCP Family Medicine; Visit Provider Family Medicine
PROC: (CPT 32554; principal; 2021-09-29 10:30)
DX: J90 Pleural effusion, not elsewhere classified (principal)
CPT/HCPCS: 32555; 71045

== ENCOUNTER → 2021-10-29 14:44 | Outpatient (BNVA) | payer MEDICARE, SELFPAY | PROVIDERS: PCP Family Medicine; Visit Provider Internal Medicine | DX: I42.8 Other cardiomyopathies (principal); Z95.828 Presence of other vascular implants and grafts; I71.4 Abdominal aortic aneurysm, without rupture; E78.5 Hyperlipidemia, unspecified; Z87.891 Personal history of nicotine dependence; I12.0 Hypertensive chronic kidney disease with stage 5 chronic kidney disease or end stage renal disease; N18.6 End stage renal disease; Z99.2 Dependence on renal dialysis | CPT/HCPCS: 99214 ==